=== PATIENT | male | born 1940 | race Caucasian/White ===

== ENCOUNTER 2019-10-03 09:05 | Outpatient (CLI) | payer MEDICARE, SELFPAY ==
[2019-10-03 09:22] LABS: Basophils Absolute Auto 0.02 K/mm3 (0.00-0.10); Basophils Percent Auto 0.3 % (0.0-1.0); Eosinophils Absolute Auto 0.15 K/mm3 (0.02-0.50); Eosinophils Percent Auto 2.5 % (1.0-6.0); Hematocrit 41.4 % (37.0-46.0); Immature Granulocyte Absolute 0.03 K/mm3 (0.00-0.00); Immature Granulocyte Percent A 0.5 % (0.0-0.0); Lymphocytes Absolute Auto 0.89 K/mm3 (1.10-4.50); Lymphocytes Percent Auto 14.7 % (18.0-42.0); Mean Corpuscular HGB Conc 33.8 g/dL (32.0-36.0); Mean Corpuscular Hemoglobin 31.3 pg (27.0-31.0); Mean Corpuscular Volume 92.6 fL (78.0-102.0); Mean Platelet Volume 9.2 fl (8.7-11.0); Monocytes Absolute Auto 0.55 K/mm3 (0.10-0.90); Monocytes Percent Auto 9.1 % (2.0-11.0); Neutrophils Absolute Auto 4.4 K/mm3 (1.7-7.2); Neutrophils Percent Auto 72.9 % (50.0-70.0); Platelet Count Result 218 K/mm3 (150-420); Red Blood Count 4.47 M/mm3 (4.70-6.10); White Blood Count 6.1 K/mm3 (4.8-10.8)
[2019-10-03 09:57] LABS: Hemoglobin A1C 6.7 % (<5.7)
[2019-10-03 10:34] LABS: Cholesterol 153 mg/dL (0-200); LDL Cholesterol Direct 86 mg/dL (0-130)
== END 2019-10-03 09:06 | disposition home or self-care (01) ==
PROVIDERS: PCP Internal Medicine; Visit Provider Internal Medicine
DX: E11.22 Type 2 diabetes mellitus with diabetic chronic kidney disease (principal)
CPT/HCPCS: 36415; 82465; 83036; 83721; 85025

== ENCOUNTER 2019-10-05 09:07 | Outpatient (CLI) | payer MEDICARE, SELFPAY ==
[2019-10-05 09:35] LABS: Collection Time Urine 24 HOURS; Patient Weight 230 Lbs; Total Volume 24 Hour Urine 1790 ml
[2019-10-05 10:03] LABS: Creatinine Clearance Urine 75.3 ml/min (97-137); Creatinine Urine 84.13 mg/dL (40-278); Serum Creat 1.1
== END 2019-10-05 09:08 | disposition home or self-care (01) ==
LOC: CHSLAB 09:12
PROVIDERS: PCP Internal Medicine; Visit Provider Internal Medicine
DX: N18.2 Chronic kidney disease, stage 2 (mild) (principal); E11.22 Type 2 diabetes mellitus with diabetic chronic kidney disease
CPT/HCPCS: 82575

== ENCOUNTER 2019-11-25 08:38 | Outpatient (CLI) | payer MEDICARE, SELFPAY ==
--- NOTE | ~2019-11-25 | XR_ITS ---
XR hand RT min 3V DATE: 11/25/2019 09:20 INDICATION: Third and fourth digit pain, right hand pain TECHNIQUE: 3 views COMPARISON: None FINDINGS: There is a benign 10 mm lucent lesion with thin sclerotic margin at the distal ulna. There is severe osteoarthritic change at the triscaphe and particularly first carpometacarpal joint, with severe hypertrophic spurring at the latter. There is similar severe joint space narrowing and ve ry prominent hypertrophic spurring at the third metacarpophalangeal joint. There is prominent osteoar thritic change at the first, second and fourth metacarpophalangeal joints and multiple interphalangea l joints, particularly the distal interphalangeal joints of the second through fourth digits. There i s prominent osteoarthritic change at the occipital interphalangeal joints as well. No fracture or dislocation, periosteal reaction or bone destruction is detected. There is minimal cho ndrocalcinosis at the triangular cartilage. IMPRESSION: Severe polyarticular osteoarthritis Reviewed, dictated and finalized at location B.
== END 2019-11-25 08:39 | disposition home or self-care (01) ==
LOC: CHSIMG 08:40
PROVIDERS: PCP Internal Medicine; Visit Provider Orthopaedic Surgery
DX: M79.641 Pain in right hand (principal)
CPT/HCPCS: 73130

== ENCOUNTER 2020-02-26 09:37 | Outpatient (CLI) | payer MEDICARE, SELFPAY ==
[2020-02-26 10:05] LABS: Hemoglobin A1C 6.6 % (<5.7)
[2020-02-26 10:25] LABS: Alanine Aminotransferase 29 U/L (16-63); Albumin Level 3.7 g/dL (3.4-5.0); Alkaline Phosphatase 82 U/L (46-116); Anion Gap 6 mmol/L (8-16); Aspartate Amino Transferase 17 U/L (15-37); Bilirubin,Total 0.5 mg/dL (0.00-1.00); Blood Urea Nitrogen 16 mg/dL (7-18); Calcium 8.8 mg/dL (8.5-10.1); Carbon Dioxide 32 mmol/L (21-32); Chloride 106 mmol/L (98-108); Cholesterol 148 mg/dL (0-200); Estimated Glomerular Filt Rate 52; Glucose 105 mg/dL (70-99); HDL Direct 43 mg/dL (40-60); LDL Cholesterol Calculated 69 mg/dL (<130); Osmolality Calculated 299 mOsm/kg (285-295); Potassium 4.2 mmol/L (3.5-5.1); Sodium 144 mmol/L (136-145); Total Protein 6.1 g/dL (6.4-8.2); Triglycerides 178 mg/dL (0-150)
== END 2020-02-26 09:38 | disposition home or self-care (01) ==
LOC: CHSLAB 09:39
PROVIDERS: PCP Internal Medicine; Visit Provider Physician Assistant
DX: E11.59 Type 2 diabetes mellitus with other circulatory complications (principal); E11.22 Type 2 diabetes mellitus with diabetic chronic kidney disease; I10 Essential (primary) hypertension
CPT/HCPCS: 36415; 80053; 80061; 83036

== ENCOUNTER 2020-06-17 08:49 | Outpatient (CLI) | payer MEDICARE, SELFPAY ==
[2020-06-17 09:28] LABS: Hemoglobin A1C 6.6 % (<5.7)
[2020-06-17 09:53] LABS: Alanine Aminotransferase 26 U/L (16-63); Albumin Level 3.7 g/dL (3.4-5.0); Alkaline Phosphatase 71 U/L (46-116); Anion Gap 7 mmol/L (8-16); Aspartate Amino Transferase 19 U/L (15-37); Bilirubin,Total 0.6 mg/dL (0.00-1.00); Blood Urea Nitrogen 15 mg/dL (7-18); Calcium 9.1 mg/dL (8.5-10.1); Carbon Dioxide 31 mmol/L (21-32); Chloride 104 mmol/L (98-108); Cholesterol 140 mg/dL (0-200); Estimated Glomerular Filt Rate 57; Glucose 102 mg/dL (70-99); HDL Direct 44 mg/dL (40-60); LDL Cholesterol Calculated 65 mg/dL (<130); Osmolality Calculated 294 mOsm/kg (285-295); Potassium 4.3 mmol/L (3.5-5.1); Sodium 142 mmol/L (136-145); Total Protein 6.2 g/dL (6.4-8.2); Triglycerides 156 mg/dL (0-150)
== END 2020-06-17 08:50 | disposition home or self-care (01) ==
LOC: CHSLAB 08:52
PROVIDERS: PCP Internal Medicine; Visit Provider Physician Assistant
DX: E11.22 Type 2 diabetes mellitus with diabetic chronic kidney disease (principal); I12.9 Hypertensive chronic kidney disease with stage 1 through stage 4 chronic kidney disease, or unspecified chronic kidney disease; N18.2 Chronic kidney disease, stage 2 (mild)
CPT/HCPCS: 36415; 80053; 80061; 83036

== ENCOUNTER 2020-10-14 07:54 | Outpatient (CLI) | payer MEDICARE, SELFPAY ==
[2020-10-14 08:12] LABS: Basophils Absolute Auto 0.02 K/mm3 (0.00-0.10); Basophils Percent Auto 0.4 % (0.0-1.0); Eosinophils Absolute Auto 0.23 K/mm3 (0.02-0.50); Eosinophils Percent Auto 4.3 % (1.0-6.0); Hematocrit 43.4 % (37.0-46.0); Hemoglobin 14.4 g/dL (12.4-15.3); Immature Granulocyte Absolute 0.01 K/mm3 (0.00-0.00); Immature Granulocyte Percent A 0.2 % (0.0-0.0); Lymphocytes Absolute Auto 1.27 K/mm3 (1.10-4.50); Lymphocytes Percent Auto 23.5 % (18.0-42.0); Mean Corpuscular HGB Conc 33.2 g/dL (32.0-36.0); Mean Corpuscular Hemoglobin 31.2 pg (27.0-31.0); Mean Corpuscular Volume 94.1 fL (78.0-102.0); Monocytes Absolute Auto 0.49 K/mm3 (0.10-0.90); Monocytes Percent Auto 9.1 % (2.0-11.0); Neutrophils Absolute Auto 3.4 K/mm3 (1.7-7.2); Neutrophils Percent Auto 62.5 % (50.0-70.0); Platelet Count Result 173 K/mm3 (150-420); Red Blood Count 4.61 M/mm3 (4.70-6.10); Red Cell Distribution Width 12.7 % (11.6-14.4); White Blood Count 5.4 K/mm3 (4.8-10.8)
[2020-10-14 08:22] LABS: Hemoglobin A1C 6.6 % (<5.7)
[2020-10-14 08:35] LABS: Creatinine Urine 118.01 mg/dL (40-278); Microalbumin Urine Random < 13.0 mg/L
[2020-10-14 09:21] LABS: Alanine Aminotransferase 23 U/L (16-63); Albumin Level 3.6 g/dL (3.4-5.0); Alkaline Phosphatase 78 U/L (46-116); Anion Gap 7 mmol/L (8-16); Aspartate Amino Transferase 18 U/L (15-37); Bilirubin,Total 0.6 mg/dL (0.00-1.00); Blood Urea Nitrogen 14 mg/dL (7-18); Calcium 8.8 mg/dL (8.5-10.1); Carbon Dioxide 32 mmol/L (21-32); Chloride 104 mmol/L (98-108); Estimated Glomerular Filt Rate 55; Glucose 104 mg/dL (70-99); LDL Cholesterol Direct 71 mg/dL (0-130); Osmolality Calculated 296 mOsm/kg (285-295); Potassium 4.2 mmol/L (3.5-5.1); Sodium 143 mmol/L (136-145); Total Protein 6.3 g/dL (6.4-8.2); Vitamin B12 819 pg/mL (193-986)
== END 2020-10-14 07:55 | disposition home or self-care (01) ==
LOC: CHSLAB 07:57
PROVIDERS: PCP Internal Medicine; Visit Provider Internal Medicine
DX: E11.22 Type 2 diabetes mellitus with diabetic chronic kidney disease (principal); I12.9 Hypertensive chronic kidney disease with stage 1 through stage 4 chronic kidney disease, or unspecified chronic kidney disease; N18.2 Chronic kidney disease, stage 2 (mild); E78.5 Hyperlipidemia, unspecified
CPT/HCPCS: 36415; 80053; 82043; 82607; 83036; 83721; 85025

== ENCOUNTER 2021-03-10 10:36 | Outpatient (CLI) | payer MEDICARE, SELFPAY ==
[2021-03-10 10:57] LABS: Basophils Absolute Auto 0.03 K/mm3 (0.00-0.10); Basophils Percent Auto 0.5 % (0.0-1.0); Eosinophils Absolute Auto 0.11 K/mm3 (0.02-0.50); Hematocrit 43.4 % (37.0-46.0); Hemoglobin 14.4 g/dL (12.4-15.3); Immature Granulocyte Absolute 0.02 K/mm3 (0.00-0.00); Immature Granulocyte Percent A 0.4 % (0.0-0.0); Lymphocytes Absolute Auto 1.01 K/mm3 (1.10-4.50); Lymphocytes Percent Auto 18.5 % (18.0-42.0); Mean Corpuscular HGB Conc 33.2 g/dL (32.0-36.0); Mean Corpuscular Hemoglobin 30.9 pg (27.0-31.0); Mean Corpuscular Volume 93.1 fL (78.0-102.0); Mean Platelet Volume 8.7 fl (8.7-11.0); Monocytes Absolute Auto 0.43 K/mm3 (0.10-0.90); Monocytes Percent Auto 7.9 % (2.0-11.0); Neutrophils Absolute Auto 3.9 K/mm3 (1.7-7.2); Neutrophils Percent Auto 70.7 % (50.0-70.0); Platelet Count Result 172 K/mm3 (150-420); Red Blood Count 4.66 M/mm3 (4.70-6.10); Red Cell Distribution Width 12.5 % (11.6-14.4); White Blood Count 5.5 K/mm3 (4.8-10.8)
[2021-03-10 11:32] LABS: Alanine Aminotransferase 25 U/L (16-63); Albumin Level 3.6 g/dL (3.4-5.0); Alkaline Phosphatase 84 U/L (46-116); Anion Gap 5 mmol/L (8-16); Aspartate Amino Transferase 14 U/L (15-37); Bilirubin,Total 0.7 mg/dL (0.00-1.00); Blood Urea Nitrogen 13 mg/dL (7-18); Calcium 9.2 mg/dL (8.5-10.1); Carbon Dioxide 32 mmol/L (21-32); Chloride 106 mmol/L (98-108); Estimated Glomerular Filt Rate 53; Glucose 118 mg/dL (70-99); Iron 88 ug/dL (65-175); LDL Cholesterol Direct 65 mg/dL (0-130); Osmolality Calculated 297 mOsm/kg (285-295); Percent Iron Saturation 33 % (12-57); Potassium 4.2 mmol/L (3.5-5.1); Sodium 143 mmol/L (136-145); Thyroid Stimulating Hormone 1.81 uIU/mL (0.36-3.74); Total Protein 6.4 g/dL (6.4-8.2)
== END 2021-03-10 10:37 | disposition home or self-care (01) ==
LOC: CHSLAB 10:39
PROVIDERS: PCP Internal Medicine; Visit Provider Internal Medicine
DX: E11.59 Type 2 diabetes mellitus with other circulatory complications (principal); I12.9 Hypertensive chronic kidney disease with stage 1 through stage 4 chronic kidney disease, or unspecified chronic kidney disease; N18.2 Chronic kidney disease, stage 2 (mild); Z00.00 Encounter for general adult medical examination without abnormal findings; D50.0 Iron deficiency anemia secondary to blood loss (chronic)
CPT/HCPCS: 36415; 80053; 83036; 83540; 83550; 83721; 84443; 85025

== ENCOUNTER 2021-07-25 08:43 | Outpatient (CLI) | payer MEDICARE, SELFPAY ==
[2021-07-25 09:12] LABS: Basophils Absolute Auto 0.03 K/mm3 (0.00-0.10); Basophils Percent Auto 0.5 % (0.0-1.0); Eosinophils Absolute Auto 0.17 K/mm3 (0.02-0.50); Eosinophils Percent Auto 2.9 % (1.0-6.0); Hematocrit 43.2 % (37.0-46.0); Hemoglobin 14.4 g/dL (12.4-15.3); Immature Granulocyte Absolute 0.02 K/mm3 (0.00-0.00); Immature Granulocyte Percent A 0.3 % (0.0-0.0); Lymphocytes Absolute Auto 1.22 K/mm3 (1.10-4.50); Lymphocytes Percent Auto 20.5 % (18.0-42.0); Mean Corpuscular HGB Conc 33.3 g/dL (32.0-36.0); Mean Corpuscular Hemoglobin 31.2 pg (27.0-31.0); Mean Corpuscular Volume 93.7 fL (78.0-102.0); Monocytes Absolute Auto 0.46 K/mm3 (0.10-0.90); Monocytes Percent Auto 7.7 % (2.0-11.0); Neutrophils Absolute Auto 4.1 K/mm3 (1.7-7.2); Neutrophils Percent Auto 68.1 % (50.0-70.0); Platelet Count Result 188 K/mm3 (150-420); Red Blood Count 4.61 M/mm3 (4.70-6.10); Red Cell Distribution Width 12.3 % (11.6-14.4)
[2021-07-25 09:39] LABS: Hemoglobin A1C 7.5 % (<5.7)
[2021-07-25 09:43] LABS: Creatinine Urine 123.67 mg/dL (40-278); MALB Creatinine Ratio 16.8 mg/g (0-30); Microalbumin Urine Random 20.8 mg/L
[2021-07-25 10:05] LABS: Alanine Aminotransferase 29 U/L (16-63); Albumin Level 3.7 g/dL (3.4-5.0); Alkaline Phosphatase 76 U/L (46-116); Anion Gap 7 mmol/L (8-16); Aspartate Amino Transferase 21 U/L (15-37); Bilirubin,Total 0.6 mg/dL (0.00-1.00); Blood Urea Nitrogen 16 mg/dL (7-18); Carbon Dioxide 29 mmol/L (21-32); Chloride 104 mmol/L (98-108); Cholesterol 145 mg/dL (0-200); Estimated Glomerular Filt Rate 53; Glucose 130 mg/dL (70-99); HDL Direct 42 mg/dL (40-60); LDL Cholesterol Calculated 72 mg/dL (<130); Osmolality Calculated 293 mOsm/kg (285-295); Sodium 140 mmol/L (136-145); Total Protein 6.5 g/dL (6.4-8.2); Triglycerides 154 mg/dL (0-150); Vitamin B12 774 pg/mL (193-986)
== END 2021-07-25 08:44 | disposition home or self-care (01) ==
LOC: CHSLAB 08:45
PROVIDERS: PCP Internal Medicine; Visit Provider Internal Medicine
DX: E11.59 Type 2 diabetes mellitus with other circulatory complications (principal); I15.2 Hypertension secondary to endocrine disorders; N18.31 Chronic kidney disease, stage 3a; E78.5 Hyperlipidemia, unspecified; E53.8 Deficiency of other specified B group vitamins; K21.9 Gastro-esophageal reflux disease without esophagitis
CPT/HCPCS: 36415; 80053; 80061; 82043; 82607; 83036; 85025

== ENCOUNTER 2021-08-17 13:07 | Outpatient (RCR) | payer MEDICARE, SELFPAY ==
--- NOTE | 2021-08-17 14:02 | PTOPEVAL ---
Thank you for referring Daniel Olguin to [facility].? The patient is scheduled to be seen for therapy? ____x/week for ___ weeks. Please review, sign, date and return this plan of care REGINA. I agree with and certify that the following plan of care is medically necessary. Referring Physician Date Admitting Provider: Attending Provider: Jay Rodriguez, Referring Provider: *PT Outpatient Evaluation Start: 08/17/21 13:09 Freq: Status: Active Protocol: Document 08/17/21 13:15 [facility] (Rec: 08/17/21 13:58 [facility] [id number]) Therapy Assessment Status Assessment Status Assessment Status Evaluation Evaluation Information Problem Diagnosis neck and L shoulder pain Onset 07/19/21 Additional Evaluation Detail ndi = 32% functionally declined quick dash = 36% functionally declined Subjective Information patient reports he has went to Query Text:As Reported By Patient/ the chiropractor and he was Family unable to see him. he reports he went home and began having pain in the L neck and shoulder and down the L arm and into the hand. he reports he was worried it was his heart and went to the ER to have it checked out. he reports he has been through the works for the cardiac and has found nothing. he reports pain meds have helped. he reports he has tingling into the ring and little fingers of the L hand and part of the middle finger of the L hand. he reports difficulty grabbing objects. he reports he has had no mri yet. he reports he tried chiropractic 3-4 times. he reports he has constant pain/symptoms. he reports he has increased pain laying in bed, and with sleeping. Prior Level of Function Comments Additional Prior Level of Function prior to july 19, no issues Comments with the neck or L arm. Pain Assessment Timing of Pain Assessment Timing of Pain Assessment Assessment Pain Scale Pain Scale Used Numeric (1 - 10) Self Report Pain Assessment Neck Reported Pain Level 2 Pain Radiation
== END 2021-09-14 16:46 | disposition home or self-care (01) ==
LOC: CHSPT 13:07
PROVIDERS: PCP Internal Medicine; Visit Provider Internal Medicine
DX: M54.2 Cervicalgia (principal)
CPT/HCPCS: 97012; 97014; 97110; 97140; 97161; G0283

== ENCOUNTER 2021-09-18 10:31 | Emergency (ER) | payer MEDICARE, SELFPAY ==
--- NOTE | ~2021-09-18 | XR_ITS ---
EXAM: XR knee LT 3V HISTORY: pain and swelling to ant knee after gate fell on knee today COMPARISON: None available FINDINGS: Normal mineralization. Left total knee arthroplasty, without complication. No osseous frac ture. No dislocation. Minimal vascular calcifications. Small left knee joint effusion. Anterior knee soft tissue swelling. IMPRESSION: No acute osseous finding or radiographic evidence of hardware-related complication in the left knee. Reviewed, dictated and finalized at location K. IMPRESSION: No acute osseous finding or radiographic evidence of hardware-related complicat ion in the left knee.
--- NOTE | ~2021-09-18 | XR_ITS ---
XR finger 4th LT min 2V DATE: 09/18/2021 11:49 INDICATION: Deep laceration of the fourth finger TECHNIQUE: 3 views of fourth digit COMPARISON: None FINDINGS: Soft tissue irregularity at the distal aspect of the fourth digit consistent with laceratio n. No radiopaque soft tissue foreign body. There is osteoarthritic change at the fourth metacarpophalangeal joint and the distal and proximal in terphalangeal joints of the fourth digit. No fracture, dislocation, periosteal reaction or bone destr uction of the fourth digit. IMPRESSION: Distal soft tissue laceration; no radiographic foreign body Osteoarthritis at fourth metacarpophalangeal and proximal and distal interphalangeal joints Reviewed, dictated and finalized at location A. IMPRESSION: Distal soft tissue laceration; no radiographic foreign body Osteoarthritis at fourth metacarpophalangeal and proximal and distal interphala ngeal joints
[2021-09-18 11:09] VITALS: BP 170/91; PULSE 61; RESP 20; TEMP 36.8; O2SAT 95
[2021-09-18] MEDS: TETANUS,DIPHTHERIA,AC PERTUSSIS ADULT 0.5 ML (ADACEL) IM (11:25)
[2021-09-18] MEDS: ACETAMINOPHEN 325 MG TABLET 650 MG PO (11:26)
[2021-09-18 12:00] VITALS: BP 179/91; PULSE 55; RESP 20; O2SAT 94
--- NOTE | 2021-09-18 12:55 | ED.WOUNDLAC ---
HPI - Wound/Laceration General Chief Complaint: Wound/Laceration Stated Complaint: left ring finger injury Time Seen by Provider: 09/18/21 10:35 Source: patient and RN notes reviewed Mode of arrival: ambulatory Limitations: no limitations History of Present Illness Onset (ago): hour(s) (1) Location: other (left hand) Extremity Location: Left: hand Place: outdoors Patient tetanus UTD: No Context: accidental and crush injury Related Data Home Medications Medication Instructions Recorded Confirmed amlodipine 5 mg tablet 5 mg PO DAILY 11/25/19 09/18/21 aspirin 325 mg tablet 325 mg PO DAILY 11/25/19 09/18/21 atorvastatin 40 mg tablet 40 mg PO DAILY 11/25/19 09/18/21 clopidogrel 75 mg tablet 75 mg PO DAILY 11/25/19 09/18/21 diphenhydramine 25 1 tablet PO Q6H PRN 11/25/19 09/18/21 mg-acetaminophen 500 mg tablet finasteride 5 mg tablet 5 mg PO DAILY 11/25/19 09/18/21 furosemide 40 mg tablet 40 mg PO QAM 11/25/19 09/18/21 lisinopril 40 mg tablet 40 mg PO DAILY 11/25/19 09/18/21 ropinirole 0.25 mg tablet 0.25 mg PO BID 11/25/19 09/18/21 sitagliptin 25 mg tablet 25 mg PO DAILY 11/25/19 09/18/21 tamsulosin 0.4 mg capsule 0.4 mg PO DAILY 11/25/19 09/18/21 tramadol 50 mg tablet 50 mg PO Q6H PRN 11/25/19 09/18/21 oxybutynin chloride 5 mg PO DAILY 09/18/21 09/18/21 ropinirole 0.5 mg PO HS 09/18/21 09/18/21 Allergies Allergy/AdvReac Type Severity Reaction Status Date / Time iodine Allergy Unknown unknown Verified 11/25/19 15:43 fentanyl Allergy Hypotension Verified 09/18/21 11:15 Review of Systems Review of Systems: All systems reviewed & are unremarkable except as noted in HPI and below PMFSH Past Medical History Medical History (Updated 09/18/21 @ 15:22 by Elvira Calderon MD) Dizziness Hearing loss History of anesthesia complications Hypertension Laceration of finger of left hand Skin cancer Sleep apnea Vertigo Vision abnormalities Surgical History Surgical History (Updated 11/25/19 @ 15:45 by Shayna Uriostegui RT(R)) History of coronary artery bypass graft History of joint replacement Family History Family History (Updated 11/25/19 @ 15:45 by Shayna Uriostegui RT(R)) Other Arthritis Diabetes mellitus Heart disease Hypertension Social History Social History (Updated 11/25/19 @ 15:46 by Shayna Uriostegui RT(R)) Smoking status: Never smoker Alcohol intake: current Drinks per week: 2 Substance use: unknown Exam Const: General: no acute distress and alert Nutritional Appearance: obese Orientation/consciousness: patient oriented x3 Limitations: no limitations HENMT: Head: normal to inspection Ears: external ears normal, TM's normal bilaterally and EAC's normal General nose exam: Normal external nose present and Normal nares present Face and sinus: normal facial exam and sinuses nontender Mouth: Yes moist mucous membranes Eyes: Conjunctivae: conjunctivae normal Pupils: Equal, round and reactive pupils present EOM: EOMs intact bilaterally Neck: Neck: normal visual inspection and no lymphadenopathy Chest: Chest palpation & inspection: normal inspection of the chest Resp: Effort & Inspection: normal respiratory effort Auscultation: clear to auscultation bilaterally Cardio: Rate: regular rate Rhythm: regular rhythm GI: GI Palp: Yes Soft to palpation and No Tenderness to palpation present (GI) Auscultation: normal bowel sounds Back/Spine/Pelvis: Back: no CVA tenderness Skin: General skin exam: normal color Rashes: no rashes Neuro: General: patient oriented x3, moves all extremities, no meningeal signs, no focal motor deficits and CN's II-XI intact bilaterally Extrem: General: no pedal edema Other: left knee hematoma with no acute swelling, redness or deformity. full ROM, pt ambulated normally in the ED> Psych: Appearance: grossly normal and well kempt Mental Status: mental status grossly normal Affect: normal affect Attitude: cooperative Thought content
[2021-09-18 13:00] VITALS: BP 159/90; PULSE 55; RESP 20; O2SAT 95
[2021-09-18 14:00] VITALS: BP 164/92; PULSE 59; RESP 20; O2SAT 96
[2021-09-18] MEDS: LIDOCAINE HCL 1% LOCAL INJ 20 ML VIAL (14:09)
[2021-09-18] MEDS: NEOMYCIN/POLYMYXIN/BACITRACIN OINTMENT PACKET 3 PACKET (14:09)
[2021-09-18] MEDS: cefTRIAXone 1 GM VIAL (14:10)
[2021-09-18 15:50] VITALS: BP 176/87; PULSE 58; RESP 20; TEMP 36.8; O2SAT 97
== END 2021-09-18 15:40 | disposition home or self-care (01) ==
PROVIDERS: Emergency Provider Emergency Medicine; PCP Internal Medicine
DX: S61.215A Laceration without foreign body of left ring finger without damage to nail, initial encounter (principal); S80.02XA Contusion of left knee, initial encounter
CPT/HCPCS: 12002; 73140; 73562; 90471; 90715; 96372; 99283; A9270; J0696

== ENCOUNTER 2021-11-21 07:53 | Outpatient (CLI) | payer MEDICARE, SELFPAY ==
[2021-11-21 08:10] LABS: Basophils Absolute Auto 0.02 K/mm3 (0.00-0.10); Basophils Percent Auto 0.3 % (0.0-1.0); Eosinophils Percent Auto 3.3 % (1.0-6.0); Hemoglobin 13.3 g/dL (12.4-15.3); Immature Granulocyte Absolute 0.03 K/mm3 (0.00-0.00); Immature Granulocyte Percent A 0.5 % (0.0-0.0); Lymphocytes Percent Auto 16.7 % (18.0-42.0); Mean Corpuscular HGB Conc 33.3 g/dL (32.0-36.0); Mean Corpuscular Hemoglobin 31.2 pg (27.0-31.0); Mean Corpuscular Volume 93.9 fL (78.0-102.0); Mean Platelet Volume 8.6 fl (8.7-11.0); Monocytes Absolute Auto 0.55 K/mm3 (0.10-0.90); Monocytes Percent Auto 9.2 % (2.0-11.0); Neutrophils Absolute Auto 4.2 K/mm3 (1.7-7.2); Platelet Count Result 177 K/mm3 (150-420); Red Blood Count 4.26 M/mm3 (4.70-6.10); Red Cell Distribution Width 12.2 % (11.6-14.4)
[2021-11-21 09:23] LABS: Alanine Aminotransferase 10 U/L (16-63); Albumin Level 3.4 g/dL (3.4-5.0); Alkaline Phosphatase 85 U/L (46-116); Anion Gap 5 mmol/L (8-16); Aspartate Amino Transferase 21 U/L (15-37); Bilirubin,Total 0.4 mg/dL (0.00-1.00); Blood Urea Nitrogen 15 mg/dL (7-18); Carbon Dioxide 31 mmol/L (21-32); Chloride 106 mmol/L (98-108); Estimated Glomerular Filt Rate 56; Glucose 112 mg/dL (70-99); Iron 54 ug/dL (65-175); LDL Cholesterol Direct 68 mg/dL (0-130); Osmolality Calculated 295 mOsm/kg (285-295); Percent Iron Saturation 22 % (12-57); Potassium 3.9 mmol/L (3.5-5.1); Sodium 142 mmol/L (136-145); Total Protein 6.1 g/dL (6.4-8.2); Vitamin B12 842 pg/mL (193-986)
== END 2021-11-21 07:54 | disposition home or self-care (01) ==
LOC: CHSLAB 07:55
PROVIDERS: PCP Internal Medicine; Visit Provider Internal Medicine
DX: E11.59 Type 2 diabetes mellitus with other circulatory complications (principal); E11.22 Type 2 diabetes mellitus with diabetic chronic kidney disease; N18.31 Chronic kidney disease, stage 3a; D50.0 Iron deficiency anemia secondary to blood loss (chronic)
CPT/HCPCS: 36415; 80053; 82607; 83036; 83540; 83550; 83721; 85025

== ENCOUNTER 2021-12-09 13:00 | Emergency (ER) | payer MEDICARE, SELFPAY ==
[2021-12-09 13:06] VITALS: BP 152/70; PULSE 74; RESP 16; TEMP 36.9; O2SAT 97
--- NOTE | 2021-12-09 13:07 | ED.URI ---
HPI - URI/Sore Throat General Chief Complaint: Upper Respiratory Infection Stated Complaint: Chest Congestion Time Seen by Provider: 12/09/21 13:26 Source: patient and RN notes reviewed Mode of arrival: ambulatory Limitations: no limitations History of Present Illness HPI Narrative: 81-year-old male presents with concern for 2 to 3-day history of cough, chest congestion, body aches, sore throat. He reports he took Mucinex. He denies fever, body aches, chills, sweats, shortness of breath, nausea, vomiting, diarrhea. Reports he was around someone with COVID about 2 to 3 weeks ago. MD elicited complaint: cough and nasal congestion Related Data Home Medications Medication Instructions Recorded Confirmed amlodipine 5 mg tablet 5 mg PO DAILY 11/25/19 12/09/21 aspirin 325 mg tablet 325 mg PO DAILY 11/25/19 12/09/21 atorvastatin 40 mg tablet 40 mg PO DAILY 11/25/19 12/09/21 clopidogrel 75 mg tablet 75 mg PO DAILY 11/25/19 12/09/21 diphenhydramine 25 1 tablet PO Q6H PRN Itching 11/25/19 12/09/21 mg-acetaminophen 500 mg tablet (Tylenol PM Extra Strength) finasteride 5 mg tablet 5 mg PO DAILY 11/25/19 12/09/21 furosemide 40 mg tablet 40 mg PO QAM 11/25/19 12/09/21 ropinirole 0.25 mg tablet (Requip) 0.25 mg PO BID 11/25/19 12/09/21 tamsulosin 0.4 mg capsule 0.4 mg PO DAILY 11/25/19 12/09/21 tramadol 50 mg tablet 50 mg PO Q6H PRN Pain 11/25/19 12/09/21 oxybutynin chloride 5 mg 5 mg PO DAILY 09/18/21 12/09/21 tablet,extended release 24 hr ropinirole 0.25 mg tablet 0.5 mg PO HS 09/18/21 12/09/21 sitagliptin 25 mg tablet (Januvia) 25 mg DIRECTED 12/09/21 12/09/21 Allergies Allergy/AdvReac Type Severity Reaction Status Date / Time iodine Allergy Unknown unknown Verified 11/25/19 15:43 fentanyl Allergy Hypotension Verified 09/18/21 11:15 Review of Systems Review of Systems: CONSTITUTIONAL: Denies malaise, chills, sweats, or fever. EYES: Denies visual changes, redness, or discharge. ENT: Reports rhinorrhea, congestion, and sore throat. Denies sinus pain, otalgia CARDIOVASCULAR: Denies chest pain, palpitations, or edema. RESPIRATORY: Reports cough and chest congestion. Denies dyspnea. GASTROINTESTINAL: Denies abdominal pain, nausea, vomiting, diarrhea SKIN: Denies rash or itching. MUSCULOSKELETAL: Denies myalgia. NEUROLOGIC: Denies headache. All systems reviewed & are unremarkable except as noted in HPI and below PMFSH Past Medical History Medical History (Updated 12/09/21 @ 13:37 by Gudelia Lee NP) Dizziness Hearing loss History of anesthesia complications Hypertension Laceration of finger of left hand Skin cancer Sleep apnea Vertigo Vision abnormalities Surgical History Surgical History (Updated 11/25/19 @ 15:45 by Shayna Uriostegui RT(R)) History of coronary artery bypass graft History of joint replacement Family History Family History (Updated 11/25/19 @ 15:45 by Shayna Uriostegui RT(R)) Other Arthritis Diabetes mellitus Heart disease Hypertension Social History Social History (Updated 11/25/19 @ 15:46 by Shayna Uriostegui RT(R)) Smoking status: Never smoker Alcohol intake: current Drinks per week: 2 Substance use: unknown Comments At time of signature, agree with nursing past medical, surgical, social and family history. There is no relevant family history pertinent to the presenting complaint Exam Narrative: GENERAL: Well-appearing, well-nourished, and in no acute distress. HEAD: Normocephalic EYES: PERRLA, conjunctivae clear ENT: Nares clear, turbinates edematous and erythematous, clear discharge. Mucous membranes moist. TM pearly ochoa with dull light reflex bilaterally; no tragal tenderness. Oropharynx not erythematous without lesions. Tonsils not enlarged and without exudate, no drooling, no hoarseness, no trismus, uvula midline. NECK: Supple. No lymphadenopathy CHEST: Clear to auscultation, breath sounds equal. No wheezing, rhonchi, rales, or stridor. No re
[2021-12-09 13:14] VITALS: BP 152/70; PULSE 74; RESP 16; TEMP 36.9; O2SAT 97
== END 2021-12-09 13:48 | disposition home or self-care (01) ==
PROVIDERS: Emergency Provider Nurse Practitioner; PCP Internal Medicine
DX: J40 Bronchitis, not specified as acute or chronic (principal); I10 Essential (primary) hypertension; G47.30 Sleep apnea, unspecified; Z85.828 Personal history of other malignant neoplasm of skin; Z95.1 Presence of aortocoronary bypass graft
CPT/HCPCS: 87426; 99213; C9803; G0463

== ENCOUNTER 2022-02-11 11:17 | Inpatient (IN) | payer MEDICARE, SELFPAY ==
[2022-02-11] VITALS (65 sets, daily range): BP systolic 74–156; BP diastolic 45–100; PULSE 62–124; RESP 24–43; TEMP 36.3–38; O2SAT 88–100
--- NOTE | ~2022-02-11 | US_ITS ---
US renal BI 02/12/2022 08:18 Procedure: Realtime transabdominal ultrasound of the kidneys and bladder. Indication: Acute renal insufficiency Comparison: No prior studies for comparison. Findings: Renal echotexture is normal bilaterally without hydronephrosis, contour deforming mass or r enal calculus. There are lobations of the left kidney. The right kidney measures 12.6 cm and le ft kidney measures 14.1 cm. Bladder is not visualized. Impression: 1: Unremarkable renal ultrasound. No stones, masses or hydronephrosis. Reviewed, dictated and finalized at location A. Impression: 1: Unremarkable renal ultrasound. No stones, masses or hydronephrosis.
--- NOTE | ~2022-02-11 | XR_ITS ---
EXAMINATION: XR forearm RT 2V DATE: 02/18/2022 11:44 INDICATION: Right forearm tenderness. TECHNIQUE: 2 views of right forearm were obtained. COMPARISON: None. FINDINGS: Bone alignment is normal. No fracture. There is severe osteoarthritis of triscaphe joint an d first carpometacarpal joint. There is heterotopic ossification distal to ulnar styloid. There is mo derate elbow joint osteoarthritis with loose bodies. There is an elbow joint effusion. IMPRESSION: 1. Polyarticular osteoarthritis. 2. Elbow joint effusion with loose bodies. Reviewed, dictated and finalized at location A.
--- NOTE | ~2022-02-11 | US_ITS ---
EXAMINATION: US venous doppler UE DATE: 02/17/2022 13:23 INDICATION: Upper limb swelling and tenderness. TECHNIQUE: Grayscale ultrasound images without and with compression and Doppler ultrasound images of the bilateral upper extremity veins were obtained. COMPARISON: None. FINDINGS: The visualized portions of the right internal jugular vein, subclavian vein, axillary vein, brachial veins, basilic vein, cephalic vein, radial vein, and ulnar vein are patent. The visualized portions of the left internal jugular vein, subclavian vein, axillary vein, brachial v eins, basilic vein, cephalic vein, radial vein, and ulnar vein are patent. IMPRESSION: 1. No deep venous thrombosis. Reviewed, dictated and finalized at location A.
--- NOTE | ~2022-02-11 | XR_ITS ---
XR chest 1V portable 02/11/2022 12:10 Indication: Cough. Weakness. Procedure: Using AP portable chest Comparison: 04/25/2017 Findings: Status post median sternotomy for CABG. There is patchy bilateral airspace disease, compati ble with pneumonia. No significant pleural effusion or pneumothorax. There is a left shoulder arthrop lasty. Impression: 1: Patchy bilateral airspace disease, compatible with pneumonia. Reviewed, dictated and finalized at location A. Impression: 1: Patchy bilateral airspace disease, compatible with pneumonia.
--- NOTE | ~2022-02-11 | US_ITS ---
EXAMINATION: US abdomen limited DATE: 02/14/2022 14:06 INDICATION: Elevated liver function tests TECHNIQUE: Multiple grayscale and Doppler ultrasound images of the abdomen were obtained. COMPARISON: CT, 02/11/2022 FINDINGS: Bowel gas obscures visualization of the pancreas. The liver is normal with normal echogenic ity and echotexture. No surface nodularity. Normal hepatopetal flow in the main portal vein. The gall bladder is normal with no abnormal wall thickening, pericholecystic fluid or stones. The normal commo n bile duct measures 3 mm. There was no sonographic Mauro sign. IMPRESSION: 1. Normal sonographic study of the gallbladder. Reviewed, dictated and finalized at location A.
--- NOTE | ~2022-02-11 | XR_ITS ---
EXAMINATION: XR chest 1V portable DATE: 02/18/2022 06:36 INDICATION: Respiratory failure. TECHNIQUE: A single frontal view of the chest was obtained. COMPARISON: Chest single view 02/17/2022 FINDINGS: There are airspace opacities at left lung base. No pleural effusion or pneumothorax. The he art size is normal. The endotracheal tube tip is 5.3 cm above the danielle. The nasogastric tube tip is in the distal stomach. A right internal jugular central venous catheter is seen with tip in the righ t atrium. There is a total left shoulder arthroplasty. Median sternotomy wires and mediastinal surgic al clips are seen, likely from prior coronary artery bypass grafting. IMPRESSION: 1. Stable airspace opacities at left lung base, consistent with atelectasis versus pneumonia. Reviewed, dictated and finalized at location A. IMPRESSION: 1. Stable airspace opacities at left lung base, consistent with atelectasis radha pauline pneumonia.
--- NOTE | ~2022-02-11 | XR_ITS ---
EXAMINATION: XR chest 1V portable INDICATION: Possible aspiration TECHNIQUE: Portable AP chest at 1307 hours COMPARISON: 02/19/2022 FINDINGS: A right internal jugular catheter ends with its tip in the right atrium. The endotracheal a nd nasogastric tubes have been removed. Cardiomegaly is noted. Bibasilar airspace opacities persist b ut have improved. No pleural effusion or pneumothorax. Changes of reverse left total shoulder arthrop lasty are noted. IMPRESSION: 1. Minimal bibasilar airspace opacities with improvement, consistent with atelectasis versus pneumoni a. Reviewed, dictated and finalized at location B. IMPRESSION: 1. Minimal bibasilar airspace opacities with improvement, consistent with atele ctasis versus pneumonia.
--- NOTE | ~2022-02-11 | CT_ITS ---
EXAMINATION: CT brain wo con DATE: 02/15/2022 11:16 INDICATION: Encephalopathy. Septic shock. Pinpoint pupils. TECHNIQUE: Computed tomography (CT) of the head was performed without intravenous contrast. Sagittal and coronal reconstructions were performed. The mA was adjusted according to patient size. Iterative reconstruction technique was employed. The dose-length product was 908.00 mGy-cm. COMPARISON: head CT dated 02/11/2022 FINDINGS: No acute intracranial hemorrhage, acute infarction or abnormal extra axial fluid collection. Unchange d small focus of encephalomalacia at the right occipital lobe consistent with chronic infarct. Additi onal unchanged small lacunar infarcts at the bilateral basal ganglia. There is unchanged moderate sca ttered white matter hypoattenuation consistent with chronic small vessel ischemic disease. Symmetric prominence of the sulci consistent with mild age-appropriate diffuse cerebral volume loss. Ventricles are normal and symmetric. No mass/mass effect. Mild mucosal thickening the bilateral ethmoid sinuses . The orbits and mastoid air cells are normal. Intracranial calcified cerebral atherosclerosis is not ed. IMPRESSION: 1. No acute intracranial process. 2. Small old infarcts at the right occipital lobe and bilateral basal ganglia. 3. Age-related changes including mild diffuse volume loss and moderate scattered white matter hypoatt enuation consistent with chronic small vessel ischemic disease. Reviewed, dictated and finalized at location B. IMPRESSION: 1. No acute intracranial process. 2. Small old infarcts at the right occipital lobe and bilateral basal ganglia. 3. Age-related changes including mild diffuse volume loss and moderate scattere d white matter hypoattenuation consistent with chronic small vessel ischemic di sease.
--- NOTE | ~2022-02-11 | XR_ITS ---
EXAMINATION: XR chest 1V portable DATE: 02/19/2022 06:07 INDICATION: Intubated TECHNIQUE: frontal view of the chest was obtained. COMPARISON: Chest radiograph dated 02/18/2022 FINDINGS: Endotracheal tube tip 7.1 cm above the danielle. Nasogastric tube extends into the stomach with distal tip collimated off the study. Right internal jugular central venous catheter with distal tip in the high right atrium. Mildly decreased lung volumes. Opacities at the bilateral lung bases which could represent atelectasi s or pneumonia. Cardiomegaly. Median sternotomy wires and mediastinal surgical clips are seen, likely from prior coronary artery bypass grafting. Moderate hiatal hernia. Reverse left total shoulder arth roplasty. IMPRESSION: 1. Endotracheal tube tip 7.1 cm above the danielle. Recommend advancement by 4 cm. 2. Persistent bibasilar opacities which could represent atelectasis or pneumonia. 2. Moderate-sized hiatal hernia. Reviewed, dictated and finalized at location A. IMPRESSION: 1. Endotracheal tube tip 7.1 cm above the danielle. Recommend advancement by 4 cm . 2. Persistent bibasilar opacities which could represent atelectasis or pneumoni a. 2. Moderate-sized hiatal hernia.
--- NOTE | ~2022-02-11 | XR_ITS ---
XR chest ET placement 02/11/2022 21:54 Indication: Respiratory distress. Intubation. Procedure: AP portable chest Comparison: 02/11/2022 Findings: Endotracheal tube tip 5.6 cm above the danielle. NG tube in the esophagus. There is patchy bi lateral airspace disease, compatible with pneumonia. No pleural effusion or pneumothorax. Impression: 1: Patchy bilateral airspace disease, compatible with pneumonia. Edema less favored. Reviewed, dictated and finalized at location A. Impression: 1: Patchy bilateral airspace disease, compatible with pneumonia. Edema less fav ored.
--- NOTE | ~2022-02-11 | CT_ITS ---
EXAMINATION: CT brain wo con DATE: 02/11/2022 12:06 INDICATION: Transient alteration of awareness. TECHNIQUE: Computed tomography (CT) of the head was performed without intravenous contrast. The dose- length product was 681.00 mGy-cm. Automated exposure control and iterative reconstruction technique w ere employed. COMPARISON: No prior studies for comparison. FINDINGS: Generalized atrophy. There is intracranial atherosclerosis. There are scattered moderate pe riventricular and subcortical white matter changes, most likely related to small vessel ischemic dise ase (microangiopathy). No ventriculomegaly or midline shift. Paranasal sinuses and mastoids are pneum atized. No depressed skull fracture. There is a chronic right occipital lobe infarction. IMPRESSION: 1. No acute intracranial abnormality. 2: Chronic right occipital lobe infarction. 3: Chronic age-related findings. Reviewed, dictated and finalized at location A.
--- NOTE | ~2022-02-11 | XR_ITS ---
XR chest 1V portable 02/12/2022 06:23 Indication: Respiratory distress Procedure: AP portable chest Comparison: Comparison to multiple prior studies sequentially, with oldest reviewed study dated 04/07. Findings: Endotracheal tube tip 4.6 cm above the danielle. Diffuse bilateral airspace disease is presen t. NG tube in the stomach. No significant effusion or pneumothorax. Impression: 1: Stable diffuse bilateral airspace disease which may represent edema or pneumonia. Reviewed, dictated and finalized at location A. Impression: 1: Stable diffuse bilateral airspace disease which may represent edema or pneum onia.
--- NOTE | ~2022-02-11 | CT_ITS ---
EXAMINATION: CT abdomen pelvis wo con DATE: 02/23/2022 11:51 INDICATION: Right sided hydronephrosis TECHNIQUE: Computed tomography (CT) of the abdomen and pelvis was performed without intravenous contr ast. Automated exposure control and iterative reconstruction technique were employed. The dose-length product was 1238.24 mGy-cm. COMPARISON: None FINDINGS: Small bilateral pleural effusions with dependent atelectasis lingula, right middle and bilateral lowe r lobes. Mild cardiomegaly. Atherosclerotic coronary artery calcification. Median sternotomy wires an d mediastinal surgical clips consistent with prior coronary artery bypass grafting. No pericardial ef fusion. Central venous catheter tip at the superior cavoatrial junction. Moderate-sized sliding-type hiatal hernia. Liver, gallbladder, spleen, pancreas and bilateral adrenal glands are normal. Small approximately 2 mm nonobstructing stone in upper pole calyx of the left kidney definitive measu rement which is limited by some motion artifact. Right internal ureteral stent with loops formed in t he bladder and right renal pelvis. No evident right-sided urolithiasis or hydronephrosis. Small amoun t of gas in the nondependent bladder. Correlate clinically for recent [place] catheterization or bladde r instrumentation. There is moderate colonic diverticulosis with a sigmoid predominance. There is no adjacent inflammatory change to suggest diverticulitis. The appendix is not visualized. No pericecal inflammatory change to suggest acute appendicitis. Small bowel is normal with no obstruction. No tarsha e intraperitoneal gas or fluid. No pathologically enlarged abdominal or pelvic lymphadenopathy. Mild asymmetric enlargement of the right psoas muscle which contains 3 small lobular regions of subtly inc reased attenuation, the largest measuring 2.5 cm in maximal diameter which suggests intramuscular hem atoma. Bilateral total hip arthroplasties. Mild to moderate thoracolumbar spondylosis. IMPRESSION: 1. 3 small lobular region of increased attenuation within the right psoas muscle most likely represen ting psoas muscle hematomas. Correlate with clinical history including any anticoagulation. 2. Right internal ureteral stent in expected position. No right-sided urolithiasis. 3. Small nonobstructing left renal stone. 4. Small bilateral pleural effusions with bibasilar atelectasis. 5. Mild cardiomegaly. 6. Moderate-sized sliding-type hiatal hernia. Reviewed, dictated and finalized at location A. IMPRESSION: 1. 3 small lobular region of increased attenuation within the right psoas muscl e most likely representing psoas muscle hematomas. Correlate with clinical hist ory including any anticoagulation. 2. Right internal ureteral stent in expected position. No right-sided urolithia sis. 3. Small nonobstructing left renal stone. 4. Small bilateral pleural effusions with bibasilar atelectasis. 5. Mild cardiomegaly. 6. Moderate-sized sliding-type hiatal hernia.
--- NOTE | ~2022-02-11 | XR_ITS ---
EXAMINATION: XR chest 1V portable DATE: 02/16/2022 06:05 INDICATION: Respiratory failure. TECHNIQUE: A single frontal view of the chest was obtained. COMPARISON: Chest single view 02/15/2022, CT abdomen and pelvis 02/11/2022 FINDINGS: The patient is rotated to his right. There are airspace opacities in right mid and lower jb ng zones and left lower lung zone. No pleural effusion or pneumothorax. Cardiomegaly is noted. The en dotracheal tube tip is 5.7 cm above the danielle. There is a left shoulder arthroplasty. Median sternot heather wires and mediastinal surgical clips are seen, likely from prior coronary artery bypass grafting. A right internal jugular central venous catheter is seen with tip in the right atrium. IMPRESSION: 1. Stable airspace opacities in right mid and lower lung zones and left lower lung zone, consistent w ith atelectasis versus pneumonia. 2. Cardiomegaly. 3. Large hiatal hernia not well visualized. Reviewed, dictated and finalized at location A. IMPRESSION: 1. Stable airspace opacities in right mid and lower lung zones and left lower l estela zone, consistent with atelectasis versus pneumonia. 2. Cardiomegaly. 3. Large hiatal hernia not well visualized.
--- NOTE | ~2022-02-11 | CT_ITS ---
EXAMINATION: CT abdomen pelvis wo con DATE: 02/11/2022 13:42 INDICATION: Vomiting and abdominal pain. TECHNIQUE: Computed tomography (CT) of the abdomen and pelvis was performed without intravenous contr ast. The dose-length product was 1620.36 mGy-cm. Automated exposure control and iterative reconstruct ion technique were employed. COMPARISON: None. FINDINGS: There is right middle and lower lobe airspace disease, suspicious for pneumonia. Cardiomega ly. Status post median sternotomy. Large hiatal hernia. The liver, spleen, pancreas, adrenal glands and left kidney are unremarkable. There is right hydronep hrosis. Cannot exclude distally obstructing stone due to streak artifact from bilateral hip arthropla sties. There is right perinephric and periureteral edema. Gallbladder is present. Fluid-filled mildly distended small bowel loops may represent ileus or partial obstruction. There is moderate lumbar spo ndylosis. There is an upper abdominal fat-containing ventral wall hernia. IMPRESSION: 1. Right hydroureteronephrosis with perinephric and periureteral edema. Cannot exclude distally obstr ucting ureteral stone due to streak artifact from hip arthroplasties. Ascending urinary tract infecti on cannot be excluded. 2: Fluid-filled mildly dilated proximal small bowel may represent ileus or partial small bowel obstru ction. Reviewed, dictated and finalized at location A. IMPRESSION: 1. Right hydroureteronephrosis with perinephric and periureteral edema. Cannot exclude distally obstructing ureteral stone due to streak artifact from hip art hroplasties. Ascending urinary tract infection cannot be excluded. 2: Fluid-filled mildly dilated proximal small bowel may represent ileus or part ial small bowel obstruction.
--- NOTE | ~2022-02-11 | XR_ITS ---
EXAMINATION: XR retrograde pyelogram RT DATE: 02/24/2022 12:50 INDICATION: Tract infection with septic shock for right ureteral stent extraction. TECHNIQUE: 133 images of the abdomen and pelvis were obtained during procedure performed by Dr. Healy . Radiologist was not present for the imaging or procedure. The amount of fluoroscopy time used durin g this procedure was 0.6 minutes. COMPARISON: None. FINDINGS: Initial image demonstrates removal of the prior right internal ureteral stent with a cathet er advanced in the right ureter to the renal pelvis. Contrast injection demonstrates a normal appeara nce to the right renal collecting system and ureter with no urothelial irregularities or strictures. A few mobile gas poles which change in size and configuration are seen during the course of the injec tions. Partially visualized bilateral total hip arthroplasties. IMPRESSION: 1. Unremarkable right retrograde pyelogram post right ureteral stent removal. See procedure note for further detail. Reviewed, dictated and finalized at location A. IMPRESSION: 1. Unremarkable right retrograde pyelogram post right ureteral stent removal. S ee procedure note for further detail.
--- NOTE | ~2022-02-11 | XR_ITS ---
EXAMINATION: XR chest 1V portable Exam Date/Time: 02/11/2022 20:15 CDT HISTORY: respiratory distress Comparison: 02/11/2022. RESULT: Lines, tubes, and devices: Left shoulder arthroplasty. Fractured superior sternotomy wire, in stable position. Lungs and pleura: Low volumes with crowding. Senescent changes. Subsegmental right basilar opacifica tion. Right lateral costophrenic angle blunting Cardiomediastinal silhouette: Stable. Other: No acute osseous or upper abdominal finding. IMPRESSION: Small right pleural effusion. Right basilar atelectasis/consolidation. Reviewed, dictated and finalized at location K.
--- NOTE | ~2022-02-11 | XR_ITS ---
EXAMINATION: XR abdomen/kub 1V DATE: 02/23/2022 13:45 INDICATION: Kidney stone. TECHNIQUE: A supine view of the abdomen was obtained. COMPARISON: Abdomen radiograph 02/17/2022, CT abdomen and pelvis 02/23/2022 FINDINGS: There are no dilated loops of bowel. There is a right internal ureteral stent in expected p osition. There are phleboliths in the pelvis. There are bilateral hip arthroplasties. IMPRESSION: 1. No visible urolithiasis. 2. Right internal ureteral stent in expected position. Reviewed, dictated and finalized at location A.
--- NOTE | ~2022-02-11 | XR_ITS ---
EXAMINATION: XR hand RT 2V DATE: 02/18/2022 11:45 INDICATION: Right hand swelling. TECHNIQUE: 2 views of right hand were obtained. COMPARISON: None. FINDINGS: Bone alignment is normal. No acute fracture. There is heterotopic ossification distal to ul kory styloid. There is severe osteoarthritis of triscaphe joint and first carpometacarpal joint. There is osteoarthritis of most of the metacarpophalangeal joints and interphalangeal joints, severe at th ird metacarpophalangeal joint and second, third, and fourth proximal and distal interphalangeal joint s. There are loose bodies in the palmar aspect of the radiocarpal compartment. IMPRESSION: 1. Polyarticular osteoarthritis. Reviewed, dictated and finalized at location A.
--- NOTE | ~2022-02-11 | XR_ITS ---
XR abdomen NG/feed tube rechec INDICATION: Evaluate G-tube position. TECHNIQUE: Limited KUB perform for evaluating NG tube . COMPARISON: 02/12/2022 FINDINGS: NG tube tip in the stomach. Visualized bowel gas pattern is unremarkable.There is a right internal ureteral stent, partially visualized. IMPRESSION: 1: NG tube tip in the stomach. Reviewed, dictated and finalized at location A.
--- NOTE | ~2022-02-11 | XR_ITS ---
EXAMINATION: XR chest 1V portable DATE: 02/13/2022 06:01 INDICATION: Respiratory failure. TECHNIQUE: A single frontal view of the chest was obtained. COMPARISON: Chest single view 02/12/2022, CT abdomen and pelvis 02/11/2022 FINDINGS: There are mild airspace opacities in the mid and lower lung zones. No pleural effusion or p neumothorax. Cardiomegaly is noted. There is a large hiatal hernia. The endotracheal tube tip is 14 m m above the danielle. The nasogastric tube tip is in the stomach. There are changes of total left shoul anna arthroplasty. IMPRESSION: 1. Mild airspace opacities in the mid and lower lung zones with worsening on the left, consistent wit h atelectasis versus pneumonia. 2. Large hiatal hernia. 3. Cardiomegaly. Reviewed, dictated and finalized at location A. IMPRESSION: 1. Mild airspace opacities in the mid and lower lung zones with worsening on th e left, consistent with atelectasis versus pneumonia. 2. Large hiatal hernia. 3. Cardiomegaly.
--- NOTE | ~2022-02-11 | XR_ITS ---
EXAMINATION: XR chest 1V portable DATE: 02/15/2022 05:34 INDICATION: Respiratory failure. TECHNIQUE: A single frontal view of the chest was obtained. COMPARISON: Chest single view 02/14/2022, CT abdomen and pelvis 02/11/2022 FINDINGS: There are airspace opacities in right mid and lower lung zones and left lower lung zone. No pleural effusion or pneumothorax. Cardiomegaly is noted. There is a large hiatal hernia. The endotra cheal tube tip is 5.4 cm above the danielle. The nasogastric tube tip is in the stomach. Median sternot heather wires and mediastinal surgical clips are seen, likely from prior coronary artery bypass grafting. A right internal jugular central venous catheter is seen with tip in right atrium. There is a total left shoulder arthroplasty. IMPRESSION: 1. Stable airspace opacities in right mid and lower lung zones and left lower lung zone, consistent w ith atelectasis versus pneumonia. 2. Cardiomegaly. 3. Large hiatal hernia. Reviewed, dictated and finalized at location A. IMPRESSION: 1. Stable airspace opacities in right mid and lower lung zones and left lower l estela zone, consistent with atelectasis versus pneumonia. 2. Cardiomegaly. 3. Large hiatal hernia.
--- NOTE | ~2022-02-11 | XR_ITS ---
EXAMINATION: XR retrograde pyelo w/stent RT DATE: 02/11/2022 18:25 CDT INDICATION: RETROGRADE W/ RT STENT PLACEMENT . TECHNIQUE: 7 fluoroscopic images of the right abdomen and pelvis were obtained during retrograde pyel ography with right stent placement performed by the surgeon. I was not present in the operating room. Fluoroscopy exposure time was 13.8 seconds. Air Kerma 6.12 mGy. DAP [id number] mGym2. COMPARISON: CT abdomen and pelvis 02/11/2022 FINDINGS: Cannulation of the right ureter reveals mild right hydronephrosis. Wire access accomplished to upper pole calyx. Status post stent deployment, the proximal stent is poorly visualized but likely position ed over the renal pelvis, the distal stent is positioned over the bladder. IMPRESSION: Fluoroscopic documentation of retrograde pyelography with right stent placement. Please refer to the operative note for complete procedural details . Reviewed, dictated and finalized at location K. IMPRESSION: Fluoroscopic documentation of retrograde pyelography with right stent placement . Please refer to the operative note for complete procedural details .
--- NOTE | ~2022-02-11 | XR_ITS ---
XR abdomen NG/feed tube rechec INDICATION: Evaluate NG tube position. TECHNIQUE: Limited KUB perform for evaluating NG tube . COMPARISON: 02/11/2022 FINDINGS: NG tube tip in the stomach. Status post median sternotomy. Visualized bowel gas pattern is unremarkable. IMPRESSION: 1: NG tube tip in the stomach. Reviewed, dictated and finalized at location A.
--- NOTE | ~2022-02-11 | XR_ITS ---
XR abdomen NG/feed tube rechec INDICATION: Evaluate NG tube position. TECHNIQUE: Limited KUB perform for evaluating NG tube . COMPARISON: 02/11/2022 FINDINGS: NG tube tip in the stomach. Visualized bowel gas pattern is unremarkable.Status post media n sternotomy. IMPRESSION: 1: NG tube tip in the stomach. Reviewed, dictated and finalized at location A.
--- NOTE | ~2022-02-11 | XR_ITS ---
EXAMINATION: XR chest port-a-cath/central DATE: 02/14/2022 15:29 INDICATION: Central venous catheter placement TECHNIQUE: frontal view of the chest was obtained. COMPARISON: Chest radiograph dated 02/14/2022 at 5:15 AM FINDINGS: Right internal jugular central venous catheter tip at the superior cavoatrial junction. Endotracheal tube tip 4.5 cm above the danielle. Nasogastric tube extends into the stomach with distal tip collimate d beyond the inferior margin of the [id number]. Persistent opacities in the left lower lung zone with obscuration of the left hemidiaphragm. No pneum othorax or right-sided pleural effusion. Cardiomegaly with pulmonary vascular congestion. Median ster notomy wires and mediastinal surgical clips are seen, likely from prior coronary artery bypass grafti ng. Left reverse total shoulder arthroplasty. IMPRESSION: 1. Right internal jugular central venous catheter tip at the superior cavoatrial junction. 2. Opacities in the left lower lung zone consistent with small left pleural effusion and associated a telectasis or pneumonia. 2. Cardiomegaly with pulmonary vascular congestion. Reviewed, dictated and finalized at location B. IMPRESSION: 1. Right internal jugular central venous catheter tip at the superior cavoatria l junction. 2. Opacities in the left lower lung zone consistent with small left pleural eff usion and associated atelectasis or pneumonia. 2. Cardiomegaly with pulmonary vascular congestion.
--- NOTE | ~2022-02-11 | XR_ITS ---
XR abdomen NG/feed tube insert INDICATION: Evaluate NG tube position. TECHNIQUE: Limited KUB perform for evaluating NG tube . COMPARISON: No prior studies for comparison. FINDINGS: NG tube tip in the esophagus. Recommend advancement. Visualized bowel gas pattern is nonspe cific.There is a right internal ureteral stent partially visualized. IMPRESSION: 1: NG tube tip in the esophagus. Recommend advancement. Reviewed, dictated and finalized at location A.
--- NOTE | ~2022-02-11 | XR_ITS ---
XR abdomen NG/feed tube rechec INDICATION: Evaluate NG tube position. TECHNIQUE: Limited KUB perform for evaluating NG tube . COMPARISON: Comparison to multiple prior studies sequentially, with oldest reviewed study dated 12/2021. FINDINGS: NG tube tip in the proximal duodenum. There is a right internal ureteral stent. Visualized bowel gas pattern is nonspecific. IMPRESSION: 1: NG tube tip in the proximal duodenum. Reviewed, dictated and finalized at location A.
--- NOTE | ~2022-02-11 | XR_ITS ---
EXAMINATION: XR chest 1V portable DATE: 02/17/2022 05:55 INDICATION: Respiratory failure. TECHNIQUE: A single frontal view of the chest was obtained. COMPARISON: Chest single view 02/16/2022 FINDINGS: There are airspace opacities in the lower lung zones. No pleural effusion or pneumothorax. The heart size is normal. Median sternotomy wires and mediastinal surgical clips are seen, likely fro m prior coronary artery bypass grafting. The endotracheal tube tip is 5.4 cm above the danielle. The na sogastric tube tip is at the gastroesophageal junction. A right internal jugular central venous janel ter is seen with tip in the right atrium. There is a total left shoulder arthroplasty. IMPRESSION: 1. Improved airspace opacities in the lower lung zones, consistent with atelectasis versus pneumonia. 2. Nasogastric tube tip at the gastroesophageal junction. Advancement 10 cm is recommended. Reviewed, dictated and finalized at location A. IMPRESSION: 1. Improved airspace opacities in the lower lung zones, consistent with atelect asis versus pneumonia. 2. Nasogastric tube tip at the gastroesophageal junction. Advancement 10 cm is recommended.
--- NOTE | ~2022-02-11 | XR_ITS ---
EXAMINATION: XR chest 1V portable DATE: 02/14/2022 05:33 INDICATION: Respiratory failure. TECHNIQUE: A single frontal view of the chest was obtained. COMPARISON: Chest single view 02/13/2022 FINDINGS: There is mild atelectasis at left lung base. No pleural effusion or pneumothorax. The heart size is normal. The endotracheal tube tip is 4.9 cm above the danielle. The nasogastric tube tip is in the stomach. Median sternotomy wires and mediastinal surgical clips are seen, likely from prior [place] artery bypass grafting. There is a large hiatal hernia. There are changes of left shoulder arthr oplasty. IMPRESSION: 1. Large hiatal hernia. 2. Mild atelectasis at left lung base. Reviewed, dictated and finalized at location A.
--- NOTE | 2022-02-11 11:43 | ECG_ITS ---
Measurements Intervals [place] Rate: 116 P: 39 IA: 167 QRS: 10 QRSD: 93 T: 30 QT: 315 QTc: 439 Interpretive Statements SINUS TACHYCARDIA WITH FREQUENT SUPRAVENTRICULAR PREMATURE COMPLEXES ABNORMAL RHYTHM ECG NO PREVIOUS ECG AVAILABLE FOR COMPARISON Electronically Signed On 02-12-2022 10:11:42 CDT by Fer Beaulieu M.D.
[2022-02-11 12:05] LABS: Basophils Percent Auto 0.3 % (0.2-1.2); Hematocrit 46.1 % (42.0-52.0); Hemoglobin 14.6 g/dL (14.0-18.0); Immature Granulocyte Absolute 0.05 K/mm3 (0.00-0.031); Immature Granulocyte Percent A 0.6 % (0-0.5); Lymphocytes Absolute Auto 0.26 K/mm3 (0.9-3.2); Mean Corpuscular HGB Conc 31.7 g/dl (32-36); Mean Corpuscular Hemoglobin 30.7 pg (26-34); Mean Corpuscular Volume 96.8 fl (80-100); Mean Platelet Volume 9.6 fl (7.4-10.4); Monocytes Absolute Auto 0.2 K/mm3 (0.1-0.6); Monocytes Percent Auto 1.7 % (2.6-8.5); Neutrophils Absolute Auto 8.2 K/mm3 (1.3-6.7); Neutrophils Percent Auto 94.4 % (45.5-73.1); Platelet Count Result 171 k/mm3 (150-375); Red Blood Count 4.76 M/mm3 (4.6-6.20); Red Cell Distribution Width 13.5 % (11.5-14.5); White Blood Count 8.7 K/mm3 (4.5-10.0)
[2022-02-11 12:12] LABS: Glucose Point of Care 160 mg/dl (65-105)
[2022-02-11] MEDS: SODIUM CHLORIDE 0.9% IV 1,000 ML 999 ML IV CONT ×3 (12:12→14:32)
[2022-02-11 12:14] LABS: INR 1.4; Prothrombin Time 16.3 Seconds (11.1-14.7)
[2022-02-11 12:15] LABS: Partial Thromboplastin Time 35.4 SECONDS (22.3-36.8)
[2022-02-11 12:37] LABS: Alanine Aminotransferase 43 U/L (6-50); Albumin Level 4.1 g/dL (3.5-5.1); Alkaline Phosphatase 182 U/L (38-126); Anion Gap 23 mmol/L (8-16); Aspartate Amino Transferase 49 U/L (17-59); Bilirubin,Total 1.3 mg/dL (0.2-1.3); Blood Urea Nitrogen 30 mg/dL (9-20); Calcium 9.2 mg/dL (8.4-10.2); Carbon Dioxide 16 mmol/L (22-30); Chloride 103 mmol/L (98-107); Estimated CRCL calculation 21 ml/min; Estimated Glomerular Filt Rate 20; Glucose 178 mg/dL (65-110); Potassium 3.1 mmol/L (3.4-5.0); Sodium 142 mmol/L (137-145)
--- NOTE | 2022-02-11 12:40 | ED.WEAKNESS ---
HPI - Weakness General Chief complaint: Weakness Stated complaint: weakness Time Seen by Provider: 02/11/22 11:59 Source: family and RN notes reviewed Mode of arrival: EMS Limitations: clinical condition History of Present Illness HPI Narrative: This is an 81 year old male who presents for evaluation of weakness since yesterday. His is at bedside to provide history. She states yesterday patient slept all day. He had also been complaining lower abdominal pain and back pain with vomiting. She states is last episode of emesis was dark. She also reports diarrhea and cough. Patient has also appearred to be having difficulty breathing. She denies history of lung disease or congestive heart failure. Patient is responsive to voice but unable to provide history due to his sick ness. denies recent fall. Related Data Home Medications Medication Instructions Recorded Confirmed amlodipine 5 mg tablet 5 mg PO DAILY 11/25/19 02/11/22 aspirin 325 mg tablet 325 mg PO DAILY 11/25/19 02/11/22 atorvastatin 40 mg tablet 40 mg PO DAILY 11/25/19 02/11/22 clopidogrel 75 mg tablet 75 mg PO DAILY 11/25/19 02/11/22 diphenhydramine 25 1 tablet PO Q6H PRN Itching 11/25/19 02/11/22 mg-acetaminophen 500 mg tablet (Tylenol PM Extra Strength) finasteride 5 mg tablet 5 mg PO DAILY 11/25/19 02/11/22 furosemide 40 mg tablet 40 mg PO QAM 11/25/19 02/11/22 ropinirole 0.25 mg tablet (Requip) 0.25 mg PO BID 11/25/19 02/11/22 tamsulosin 0.4 mg capsule 0.4 mg PO DAILY 11/25/19 02/11/22 tramadol 50 mg tablet 50 mg PO Q6H PRN Pain (Scale Score 11/25/19 02/11/22 4-6) oxybutynin chloride 5 mg 5 mg PO DAILY 09/18/21 02/11/22 tablet,extended release 24 hr ropinirole 0.25 mg tablet 0.5 mg PO HS 09/18/21 02/11/22 sitagliptin 25 mg tablet (Januvia) 25 mg PO DAILY 12/09/21 02/11/22 acetaminophen 325 mg capsule 650 mg PO Q8H PRN Pain (Scale 02/11/22 02/11/22 (Tylenol) Score 1-3) Allergies Allergy/AdvReac Type Severity Reaction Status Date / Time iodine Allergy Unknown unknown Verified 02/11/22 11:37 fentanyl Allergy Hypotension Verified 02/11/22 11:37 Review of Systems Review of Systems: ROS unobtainable: Yes unobtainable due to medical condition [facility] Past Medical History Medical History (Updated 02/11/22 @ 22:02 by Margo Man MD) Coronary artery disease Hearing loss Hyperlipidemia Hypertension Skin cancer Sleep apnea Surgical History Surgical History (Updated 02/11/22 @ 20:31 by Sue David PA-C) History of appendectomy History of bilateral hip replacements History of bilateral knee replacement History of cardiac catheterization History of coronary artery stent placement History of four vessel coronary artery bypass graft History of left shoulder replacement Family History Family History Other Arthritis Diabetes mellitus Heart disease Hypertension Social History Social History (Updated 02/11/22 @ 20:45 by Sue David PA-C) Social History: Surrogate medical decision maker: rAeli Olguin, spouse. Code status: Full code. Smoking status: Never smoker Alcohol intake: former Drinks per week: 2 Substance use: never Additional living arrangements comments: The patient lives with his in [place]. Spiritual care concerns: No Exam Const: General: ill appearing Orientation/consciousness: confusion Limitations: altered mental status HENMT: Head: normal to inspection Mouth: Yes dry mucous membranes Throat: uvula midline Other: dried dark matter on lips Eyes: Pupils: Equal, round and reactive pupils present EOM: EOMs intact bilaterally Resp: Effort & Inspection: labored Auscultation: rales Cardio: Rate: tachycardic Rhythm: regular rhythm Heart sounds: no murmurs GI: GI Palp: Yes Soft to palpation, No Tenderness to palpation present (GI), No Guarding due to palpation present (GI) and No Rigid
[2022-02-11 13:03] LABS: Base Excess ABG -8.6 mEq/l (+/-2.0); Carboxyhemoglobin 0.3 % THb (0-2.0); Fractional Inspired Oxygen 32 %; HCO3 ABG 14.7 mEq/l (22.0-26.0); Methemoglobin ABG 0.2 %THb (0-1.5); Oxyhemoglobin 92.4 % THb (90.0-100.0); PCO2 ABG 25.5 mmHg (35.0-45.0); PO2 ABG 69.3 mmHg (80.0-100.0); PO2 FiO2 Ratio Arterial Blood 2.17 %; Reduced Hemoglobin 7.1 %THb (0-5.0); Total Hemoglobin 13.1 g/dL (12.0-18.0)
[2022-02-11 13:05] LABS: Device NASAL CANNULA; Modified Allen's Test Pass; Site Drawn RIGHT RADIAL
[2022-02-11 13:05] LABS: Influenza A QL RT-PCR Negative (Negative); Influenza B QL RT-PCR Negative (Negative); SARS-CoV-2 RNA PCR Negative
[2022-02-11 13:07] LABS: Add Urine Microscopic? YES; Appearance Urine Cloudy (Clear); Bacteria Urine 2+ /hpf; Bilirubin Urine Negative (Negative); Blood Urine 2+ (Negative); Color Urine Yellow (Yellow); Glucose Urine UA Negative (Negative); Ketones Urine Trace mg/dL (Negative); Leukocyte Esterase Ur 2+ LEU/UL (Negative); Mucus Urine Rare /lpf; Nitrate Urine Negative (Negative); Protein Urine 1+ mg/dL (Negative); Specific Grav Ur 1.017 (1.001-1.035); Squamous Epithelial Cell Urine Few /hpf (Few); Urobilinogen Urine Negative mg/dL (<2.0); WBC Urine 21-30 /hpf
[2022-02-11 13:21] LABS: Lactic Acid Reflex 12.8 mmol/L (0.7-2.0)
[2022-02-11 13:28] LABS: Platelet Estimate Adequate (Adequate)
[2022-02-11 13:29] LABS: Anisocytosis 1+ (NORMAL)
[2022-02-11 13:30] LABS: Schistocytes None Seen (NORMAL)
[2022-02-11 13:51] LABS: NT Pro B Type Natriuretic Pept 5650 pg/mL (5-100); Troponin I 0.554 ng/mL (0.000-0.034)
[2022-02-11 15:02] LABS: Reflex Lactic Acid Yes or No Add Lactic
[2022-02-11 15:57] LABS: Lactic Acid 8.1 mmol/L (0.7-2.0)
--- NOTE | 2022-02-11 16:05 | WPDANESEPP ---
Anes - Eval Pre Procedure Procedure: Cysto stent placement Date/Time: 02/11/22 16:05 Surgeon: Nini Preop Diagnosis: Right hydronephrosis Pre Op Diagnosis: Septic Shock, UTi, pneumonia Patient Data Age: 81 Gender: M Height: 1.75 m Weight: 100 kg Last Vital Signs Temp 98.0 F 02/11/22 13:16 Pulse 106 H 02/11/22 14:47 Resp 28 H 02/11/22 15:08 BP 102/72 02/11/22 14:47 Pulse Ox 96 02/11/22 15:08 O2 Del Method BiPAP 02/11/22 15:08 O2 Flow Rate 3 02/11/22 12:22 Allergies Allergy/AdvReac Type Severity Reaction Status Date / Time iodine Allergy Unknown unknown Verified 02/11/22 11:37 fentanyl Allergy Hypotension Verified 02/11/22 11:37 Home Medications Medication Instructions Recorded Confirmed Type amlodipine 5 mg tablet 5 mg PO DAILY 11/25/19 12/09/21 History aspirin 325 mg tablet 325 mg PO DAILY 11/25/19 12/09/21 History atorvastatin 40 mg tablet 40 mg PO DAILY 11/25/19 12/09/21 History clopidogrel 75 mg tablet 75 mg PO DAILY 11/25/19 12/09/21 History diphenhydramine 25 1 tablet PO Q6H PRN Itching 11/25/19 12/09/21 History mg-acetaminophen 500 mg tablet (Tylenol PM Extra Strength) finasteride 5 mg tablet 5 mg PO DAILY 11/25/19 12/09/21 History furosemide 40 mg tablet 40 mg PO QAM 11/25/19 12/09/21 History ropinirole 0.25 mg tablet (Requip) 0.25 mg PO BID 11/25/19 12/09/21 History tamsulosin 0.4 mg capsule 0.4 mg PO DAILY 11/25/19 12/09/21 History tramadol 50 mg tablet 50 mg PO Q6H PRN Pain 11/25/19 12/09/21 History acetaminophen 325 mg capsule 650 mg PO Q8H PRN pain #20 caps 09/18/21 12/09/21 Rx (Tylenol) oxybutynin chloride 5 mg 5 mg PO DAILY 09/18/21 12/09/21 History tablet,extended release 24 hr ropinirole 0.25 mg tablet 0.5 mg PO HS 09/18/21 12/09/21 History benzonatate 200 mg capsule 200 mg PO TID PRN cough #14 caps 12/09/21 Rx methylprednisolone 4 mg tablets in See Rx Instructions PO .COMPLEX 12/09/21 Rx a dose pack (Medrol ([place])) #21 ea sitagliptin 25 mg tablet (Januvia) 25 mg DIRECTED 12/09/21 12/09/21 History Laboratory Tests 02/11/22 02/11/22 02/11/22 11:53 11:53 11:53 WBC 8.7 K/mm3 K/mm3 (4.5-10.0) RBC 4.76 M/mm3 M/mm3 (4.6-6.20) Hgb 14.6 g/dL g/dL (14.0-18.0) Hct 46.1 % % (42.0-52.0) MCV 96.8 fl fl (80-100) MCH 30.7 pg pg (26-34) MCHC 31.7 g/dl L g/dl (32-36) RDW 13.5 % % (11.5-14.5) Plt Count 171 k/mm3 k/mm3 (150-375) MPV 9.6 fl fl (7.4-10.4) Immature Gran % (Auto) 0.6 % H % (0-0.5) Neut % (Auto) 94.4 % H % (45.5-73.1) Lymph % (Auto) 3.0 % L % (18.3-44.2) B[place] % (Auto) 1.7 % L % (2.6-8.5) Eos % (Auto) 0.0 % % (0-4.4) Baso % (Auto) 0.3 % % (0.2-1.2) Lymph # (Auto) 0.26 K/mm3 L K/mm3 (0.9-3.2) B[place] # (Auto) 0.2 K/mm3 K/mm3 (0.1-0.6) Eos # (Auto) 0.0 K/mm3 K/mm3 (0-0.3) Baso # (Auto) 0.0 K/mm3 K/mm3 (0.0-0.1) Abs Immat Gran (auto) 0.05 K/mm3 H K/mm3 (0.00-0.031) Absolute Neuts (auto) 8.2 K/mm3 H K/mm3 (1.3-6.7) Absolute Nucleated RBC 0.0 K/mm3 K/mm3 (0.0-0.012) Nucleated RBC % 0.0 % % (0.0-0.2) Platelet Estimate Adequate (Adequate) Anisocytosis 1+ (NORMAL) Schistocytes None seen (NORMAL) PT 16.3 Seconds H Seconds (11.1-14.7) INR 1.4 APTT 35.4 SECONDS SECONDS (22.3-36.8) Puncture Site ABG pH ABG pCO2 ABG pO2 ABG PO2/FiO2 Ratio ABG HCO3 ABG O2 Saturation ABG O2 Content ABG Base Excess A-a Gradient Oxyhemoglobin Carboxyhemoglobin Methemoglobin Reduced Hemoglobin Total Hemoglobin O2 Delivery Device O2 Li
--- NOTE | 2022-02-11 16:44 | ADMGEN ---
This patient, Daniel Olguin, was admitted to Intensive Care Unit-8 at 1636 with continuous bipap on. Patient/family oriented to hospital policies and general routines including ID bracelet, bed and alarms, visiting hours, pain management, procedures, bathroom and other care routines, personal items, smoking policy, room service/diet, and visiting hours. Information on how to activate the Rapid Response Team has been discussed. Patient/Family are encouraged to report perceived risks to care and to ask questions if they do not understand what they are told or what they should do.
--- NOTE | 2022-02-11 16:53 | ADMGEN ---
This patient, Daniel Olguin, was admitted to Intensive Care Unit-8. Patient/family oriented to hospital policies and general routines including ID bracelet, bed and alarms, visiting hours, pain management, procedures, bathroom and other care routines, personal items, smoking policy, room service/diet, and visiting hours. Information on how to activate the Rapid Response Team has been discussed. Patient/Family are encouraged to report perceived risks to care and to ask questions if they do not understand what they are told or what they should do.
--- NOTE | 2022-02-11 17:12 | WPDURCON ---
Assessment and Plan Assessment and plan (1) Hydronephrosis: Code(s): N13.30 - Unspecified hydronephrosis Status: Acute Assessment and Plan: 81M with presumed sepsis and found on imaging to have right hydronephrosis with no proximal or mid ureteral stone but unable to visualize distal aspect of ureter. Plan 81M with presumed sepsis and found on imaging to have right hydronephrosis with no proximal or mid ureteral stone but unable to visualize distal aspect of ureter. - Plan to go to OR for cystoscopy, right ureteral stent placement, possible right retrograde pyelogram. Urology Consult Note HPI Date Seen: 02/11/22 Requesting Physician: Benito Taylor MD Primary Care Provider: Jay Rodriguez, Consult Narrative Narrative: Daniel Olguin is a 81 year old M admitted for presumed sepsis. Was having abdominal pain, vomiting, and back pain along with diarrhea. On labs his Cr is 3, and CT scan shows right hydronephrosis though unable to see distal aspect of ureter and bladder due to streak artifact for hip surgery hardware, so cannot rule out a distal obstructing stone. at [facility]. Currently in the ICU. Patient tachycardic though WBC wnl. PMFSH Past Medical History Medical History Dizziness Hearing loss History of anesthesia complications Hydronephrosis, right Hypertension Laceration of finger of left hand Sepsis Skin cancer Sleep apnea UTI (urinary tract infection) Vertigo Vision abnormalities Surgical History Surgical History History of coronary artery bypass graft History of joint replacement Family History Family History (Updated 11/25/19 @ 15:45 by Shayna Uriostegui, RT(R)) Other Arthritis Diabetes mellitus Heart disease Hypertension Social History Social History Smoking status: Never smoker Alcohol intake: current Drinks per week: 2 Substance use: unknown Meds Home Medications and Allergies Home Medications Medication Instructions Recorded Confirmed Type amlodipine 5 mg tablet 5 mg PO DAILY 11/25/19 12/09/21 History aspirin 325 mg tablet 325 mg PO DAILY 11/25/19 12/09/21 History atorvastatin 40 mg tablet 40 mg PO DAILY 11/25/19 12/09/21 History clopidogrel 75 mg tablet 75 mg PO DAILY 11/25/19 12/09/21 History diphenhydramine 25 1 tablet PO Q6H PRN Itching 11/25/19 12/09/21 History mg-acetaminophen 500 mg tablet (Tylenol PM Extra Strength) finasteride 5 mg tablet 5 mg PO DAILY 11/25/19 12/09/21 History furosemide 40 mg tablet 40 mg PO QAM 11/25/19 12/09/21 History ropinirole 0.25 mg tablet (Requip) 0.25 mg PO BID 11/25/19 12/09/21 History tamsulosin 0.4 mg capsule 0.4 mg PO DAILY 11/25/19 12/09/21 History tramadol 50 mg tablet 50 mg PO Q6H PRN Pain 11/25/19 12/09/21 History acetaminophen 325 mg capsule 650 mg PO Q8H PRN pain #20 caps 09/18/21 12/09/21 Rx (Tylenol) oxybutynin chloride 5 mg 5 mg PO DAILY 09/18/21 12/09/21 History tablet,extended release 24 hr ropinirole 0.25 mg tablet 0.5 mg PO HS 09/18/21 12/09/21 History benzonatate 200 mg capsule 200 mg PO TID PRN cough #14 caps 12/09/21 Rx methylprednisolone 4 mg tablets in See Rx Instructions PO .COMPLEX 12/09/21 Rx a dose pack (Medrol (Tommie)) #21 ea sitagliptin 25 mg tablet (Januvia) 25 mg DIRECTED 12/09/21 12/09/21 History Allergies Allergy/AdvReac Type Severity Reaction Status Date / Time iodine Allergy Unknown unknown Verified 02/11/22 11:37 fentanyl Allergy Hypotension Verified 02/11/22 11:37 Vital Signs Vital Signs - 24 hr 02/11/22 11:33 02/11/22 11:58 02/11/22 12:00 Temperature 36.3 C L 36.8 C Pulse Rate 116 H 62 112 H Respiratory Rate 43 H 24 H Blood Pressure 95/66 L 109/56 L Pulse Oximetry 95 91 Oxygen Delivery Room Air Oxygen Flow Rate 02/11/22 12:18 02/11/22 12:20 02/11/22
--- NOTE | 2022-02-11 17:24 | P.PNAN_ITS ---
Anes - Eval Final PreProcedure Day of Procedure 02/11/22 17:24 Patient weight: obese Heart: regular rate and rhythm Lungs: clear to auscultation and normal air movement Airway: Mallampati scale class II Neurological: alert and oriented Last oral intake: >/= 8 hours ASA classification: IV Emergent: yes Anesthetic plan: proceed Anesthesia type and monitoring: general GIVS Results Review: All pre-operative results and documents have been reviewed as part of the pre- operative evaluation. Informed Consent: The patient's anesthetic plan and its attendant risks and benefits were discussed with the patient/family/POA. Questions were solicited and answers provided to the satisfaction of the patient/family/POA.
[2022-02-11 17:51] LABS: Glucose Point of Care 147 mg/dl (65-105)
[2022-02-11] MEDS: LACTATED RINGERS 1,000 ML 30 ML IV CONT (18:30)
[2022-02-11] MEDS: LIDOCAINE HCL 2% GEL UROJET 10 ML PKG MUCOUS MEM (18:38)
--- NOTE | 2022-02-11 18:57 | P.OP_ITS ---
Procedure Note - Detailed Date of Procedure 02/11/22 Pre-op Diagnosis Septic Shock, UTi, pneumonia Post-op Diagnosis Same Procedure Performed Cystoscopy, right ureteral stent placement, retrograde pyelogram, intraoperative interpretation of fluoroscopy Surgeon Riley Oliva MD Indications Patient admitted with sepsis and found on imaging to have right hydronephrosis with UA concerning for infection, and CT scan unable to visualize the distal ureter due to streak artifact from his pelvic hardware. Risks and benefits of procedure discussed and he endorses understanding. Findings Very mild distal right ureteral stricture with no filling defect on retrograde pyelogram, debris filled urine emanating from ureter after stent placed. Description of Procedure The patient was brought back to the operating theatre. After the induction of excellent anesthesia, a surgical time out was performed, and we verified the patient identification, site, laterality, and procedure. Patient received antibiotics preoperatively in the ED. The patient was placed in the dorsal lithotomy position. The genital area was prepped and draped in the usual, sterile fashion. We introduced a 22 Fr rigid cystoscope easily into the bladder. The urethra was noted to be unremarkable but noted a very high bladder neck and trilobar hyperplasia with intravesical median lobe. The bladder was emptied. The scope was re-inserted. Brief pancystoscopy did not reveal any tumors, masses, stones, trabeculations, or diverticuli. The right ureteral orifice was identified and cannulated with 5 Fr open ended catheter. We did shoot a retrograde pyelogram. We noted a very mild distal ureteral stricture, and mild hydroureteronephrosis. A [employer] guidewire was placed into the catheter and advanced to the renal pelvis using fluoroscopy. As soon as the wire was placed, debris filled urine emanated from the ureteral orifice. A 4.8 double-J stent multilength was then placed under direct vision with a curl observed in the kidney and in the bladder. We also collected urine from the bladder for culture We did not leave a string on the stent. The scope was removed, and a 16F urethtral catheter was placed and hubbed, pink tinged urine was noted to emanate from the catheter, and 10cc was used to inflate the balloon. The patient was then awoken without event, transferred to the recovery cart and transported to the PACU in stable condition. Implants Right 4.8F double J multilength ureteral stent Estimated Blood Loss 0 Drains Yes (16F urethral brunson with 10cc in balloon) Packing No Pathology None sent Complications No immediate complications Condition Stable Disposition ICU (- Continue brunson catheter, monitor urine culture taken from OR. Continue stent - will require exchange vs removal within 3 months. ) [facility] Billing Surgery - Charge Forward: Surgery Billing
--- NOTE | 2022-02-11 19:39 | PC.NURSE ---
1805: report called to [facility] in PACU. 1825 patient take to the OR. ICU respiratory therapist advise that patient goes to the OR with 100% non-rebreather only. Charge Nurse on duty assited with the transported. Patient maintain adequate oxygenation during transport.
--- NOTE | 2022-02-11 19:45 | PM.IMHP ---
H&P: HPI History of Present Illness Date/Time: 02/11/22 19:45 Chief Complaint: Weakness. Narrative: This is an 81-year-old male with history of coronary artery disease, hypertension, hyperlipidemia, diabetes, and benign prostatic hyperplasia who presented to the emergency department for evaluation of weakness. I am first seeing the patient in the ICU post cystoscopy with ureteral stent placement and at this time he is on BiPAP and he is not able to provide a good history. As such almost all of the following is obtained via a review of his electronic medical records as well as information obtained from his . Yesterday he was not feeling well and slept a majority of the day. He complained to his of aching discomfort in the lower back and into the lower abdomen and last evening he was nauseated and had several episodes of emesis. This morning he was extremely weak and was not very interactive and his brought him in for evaluation. His blood pressure was 95/66 on arrival to the ER and he was tachypneic and tachycardic with a normal temperature. In the ED he was found to have evidence of an acute kidney injury with a BUN and creatinine of 30 and 3.00 respectively, serum carbon dioxide 16 with an anion gap of 23, and a lactic acid level of 12.8. CT of the abdomen/pelvis showed right middle and lower lobe airspace disease suspicious for pneumonia, right hydroureteronephrosis with perinephric and periureteral edema as well as mildly dilated proximal small bowel which may represent ileus or partial obstruction. He was given a 3 liter fluid bolus and also doses of azithromycin and ceftriaxone to cover both pneumonia and urinary tract infection. He was also given a dose of imipenem and vancomycin for broader coverage. Due to concerns for possible obstruction on CT, he was taken to the OR where he underwent cystoscopy with right ureteral stent placement. On arrival to the ICU he was tachypneic with respirations in the mid to upper 30s and complaints of shortness of breath. He was immediately placed on BiPAP with subjective improvement in his work of breathing. As time passed however he started to become tired and it was clear that he was impending respiratory failure. I spoke with the cardiac surgeon, Dr. Peguero, via phone and discussed my concerns with him and he agreed with early, elective intubation before became and emergency. I discussed this with both the patient and his via phone and they were in agreement and consented to intubation as well as central line placement if the need arose. Aside from feeling tired and worn out, the patient had no acute complaints. Review of Systems Review of Systems: 12 systems were reviewed. He has not had a fever to his knowledge though his temperature has been a bit elevated since arrival to the ICU. He denies headache. No sinus congestion, sore throat, or significant cough. No sick contacts his knowledge. He does not think that he aspirated when vomiting. He is not having any significant abdominal or back pain at this time. He has felt that his abdomen has been a bit distended. He had loose stools yesterday. Except as documented, all other systems were reviewed and are negative. [facility] Past Medical History Medical History Coronary artery disease Hearing loss Hyperlipidemia Hypertension Skin cancer Sleep apnea Surgical History Surgical History (Updated 02/11/22 @ 20:31 by Sue David PA-C) History of appendectomy History of bilateral hip replacements History of bilateral knee replacement History of cardiac catheterization History of coronary artery stent placement History of four vessel coronary artery bypass graft History of left shoulder replacement Family History Family History Other Arthritis Diabetes mellitus Heart disease Hypertension Social History Social Histor
[2022-02-11 20:24] LABS: Lactic Acid Reflex 7.2 mmol/L (0.7-2.0)
[2022-02-11 20:29] LABS: Albumin Level 3.1 g/dL (3.5-5.1); Alkaline Phosphatase 116 U/L (38-126); Anion Gap 14 mmol/L (8-16); Aspartate Amino Transferase 68 U/L (17-59); Bilirubin,Total 0.8 mg/dL (0.2-1.3); Blood Urea Nitrogen 34 mg/dL (9-20); Calcium 7.8 mg/dL (8.4-10.2); Carbon Dioxide 19 mmol/L (22-30); Chloride 105 mmol/L (98-107); Estimated CRCL calculation 19 ml/min; Estimated Glomerular Filt Rate 19; Glucose 124 mg/dL (65-110); Magnesium 1.5 mg/dL (1.6-2.3); Potassium 3.8 mmol/L (3.4-5.0); Sodium 138 mmol/L (137-145)
[2022-02-11 20:32] LABS: Alanine Aminotransferase 40 U/L (6-50)
[2022-02-11 20:39] LABS: NT Pro B Type Natriuretic Pept 14600 pg/mL (5-100); Troponin I 0.524 ng/mL (0.000-0.034)
[2022-02-11 20:44] LABS: Alveolar/Arterial O2 Gradient 438.4 mmHg; Base Excess ABG -8.7 mEq/l (+/-2.0); Carboxyhemoglobin 0.2 % THb (0-2.0); Fractional Inspired Oxygen 100 %; Methemoglobin ABG 0.5 %THb (0-1.5); Oxygen Content ABG 19.6 %vol (16.0-22.0); Oxygen Saturation ABG 99.4 % (95.0-100.0); Oxyhemoglobin 98.3 % THb (90.0-100.0); PCO2 ABG 41.7 mmHg (35.0-45.0); PO2 ABG 232.9 mmHg (80.0-100.0); PO2 FiO2 Ratio Arterial Blood 2.33 %; Total Hemoglobin 13.8 g/dL (12.0-18.0)
[2022-02-11 20:52] LABS: Device BIPAP; Inspiratory Pressure 14 cmH2O; Modified Allen's Test Pass; Site Drawn RIGHT RADIAL; pH ABG 7.254 (7.350-7.450)
[2022-02-11 20:53] LABS: Expiratory Pressure 6 cmH2O
[2022-02-11] MEDS: ETOMIDATE 20 MG/10 ML AMPUL IV PUSH (21:30)
--- NOTE | 2022-02-11 21:30 | WPDPROCEDUR ---
Procedures Intubation Intubation Date: 02/11/22 Intubation Time: 21:30 Consent: Patient gave verbal consent. also consented via phone. Sedative: etomidate Mg given: 30 Paralytic: succinylcholine Mg given: 100 Laryngoscope: fiber optic video scope Assist device used: fiber optic device ET tube size: 8 Tube secured depth (cm): 23 Tube secured location: teeth Tube placement confirmation: visualized tube passing through cords, equal breath sounds bilaterally, no breath sounds over epigastrium and confirmation by capnometry Patient tolerated procedure: well Intubation complications: none Additional comments: Chest x-ray pending at the time of this dictation. Dr. Margo Man, attending ED physician, was notified of the procedure and was available to help if need be. Case discussed with Dr. Peguero, who will be managing the vent. He gave vent settings and sedation settings.
[2022-02-11] MEDS: SUCCINYLCHOLINE CHLORIDE 20 MG/ML 10 ML VIAL 100 MG IV PUSH (21:31)
[2022-02-11] MEDS: FENTANYL 2,500MCG/NS250ML(*CRX 2,500 MCG/250 ML BAG IV CONT (21:50)
[2022-02-11] MEDS: MIDAZOLAM HCL (*CRX) 2 MG/2 ML VIAL IV PUSH ×3 (21:51→23:37)
[2022-02-11] MEDS: MIDAZOLAM 100MG/NS 100ML(*CRX) 100 MG/100 ML BAG IV CONT (21:51)
[2022-02-11] MEDS: SODIUM BICARBONATE 8.4% 50 MEQ/50 ML SYRINGE 100 MEQ IV PUSH (22:00)
--- NOTE | 2022-02-11 22:30 | P.PCNBED_ITS ---
Procedures Central Line Placement Left Femoral: Central Line Date: 02/11/22 Central Line Time: 22:30 Consent: I have discussed with the patient and/or surrogate, the non-emergent placement of a central venous catheter, including its clinical necessity/indication and associated potential risks and complications. The patient and/or surrogate understand(s) and acknowledge(s) the need to proceed with central venous catheter insertion as an important element of the patient's clinical management. Time Out Performed: Yes Patient Position: supine Patient placed on monitor/pulse ox: Yes Provider Prep: mask, sterile gown, sterile gloves, Max. sterile barrier precautions, cap and hand hygiene with conventional soap/water or alcohol based hand rub Central line prep: 2% Chlorhexidine scrub Local anesthesia used: lidocaine 1% Amount of anesthesia used (ml): 5 Central line lumen inserted: triple Albanian: 7 Length (cm): 20 Post Procedure: sutured in place, good blood return, all ports aspirated, flushed, capped, transparent dressing, hemostatic product, antimicrobial product, securement product and aseptic technique maintained throughout procedure Post procedure x-ray: other (n/a with femoral placement) Complications: none
[2022-02-11] MEDS: MINERAL OIL/WHITE PETROLATUM OINTMENT 1 APPLIC EACH EYE (22:44)
[2022-02-11] MEDS: NOREPINEPHRINE 8 MG/D5W 250 ML 8 MG/250 ML BAG 9.38 MG IV CONT (22:44)
[2022-02-11] MEDS: VASOPRESSIN INJ 100 UNITS in DEXTROSE 5% 95 ML IV CONT (23:45)
[2022-02-11 23:46] LABS: Alveolar/Arterial O2 Gradient 324.8 mmHg; Base Excess ABG -6.7 mEq/l (+/-2.0); Carboxyhemoglobin 0.3 % THb (0-2.0); Fractional Inspired Oxygen 70 %; Methemoglobin ABG 0.4 %THb (0-1.5); Oxygen Content ABG 18.8 %vol (16.0-22.0); Oxygen Saturation ABG 97.7 % (95.0-100.0); Oxyhemoglobin 96.9 % THb (90.0-100.0); PCO2 ABG 50.8 mmHg (35.0-45.0); PO2 ABG 119.7 mmHg (80.0-100.0); PO2 FiO2 Ratio Arterial Blood 1.71 %; Reduced Hemoglobin 2.4 %THb (0-5.0); Total Hemoglobin 13.7 g/dL (12.0-18.0)
[2022-02-11] MEDS: MAGNESIUM SULF 2 GM/WATER 50ML 2 GM/50 ML BAG IVPB (23:49)
[2022-02-11 23:55] LABS: Device VENTILATOR; Modified Allen's Test Pass; Site Drawn RIGHT RADIAL; pH ABG 7.235 (7.350-7.450)
[2022-02-11 23:56] LABS: Arterial Blood Gas PEEP 8 cmH2O; Arterial Blood Gas Tidal Volume 450 ml; Arterial Blood Gas Vent Mode CMV; Arterial Blood Gas Ventilator rate 24 /MIN
[2022-02-11 23:59] LABS: Hemoglobin A1C 8.1 % (<5.7)
[2022-02-12] VITALS (131 sets, daily range): BP systolic 61–187; BP diastolic 40–133; PULSE 80–128; RESP 22–36; TEMP 36.6–37.1; O2SAT 79–100
[2022-02-12 00:01] LABS: Creatine Kinase 1573 U/L (55-170)
[2022-02-12] MEDS: SODIUM BICARBONATE 8.4% 50 MEQ/50 ML SYRINGE 100 MEQ IV PUSH (00:14)
[2022-02-12] MEDS: SODIUM CHLORIDE 0.9% IV 1,000 ML 999 ML IV CONT ×2 (01:09→05:20)
[2022-02-12 01:44] LABS: Glucose Point of Care 124 mg/dl (65-105)
[2022-02-12 01:44] LABS: Glucose Point of Care 104 mg/dl (65-105)
[2022-02-12] MEDS: NOREPINEPHRINE 8 MG/D5W 250 ML 8 MG/250 ML BAG 56.25 MG IV CONT ×4 (03:01→20:51)
[2022-02-12 04:53] LABS: Hematocrit 36.4 % (42.0-52.0); Hemoglobin 11.4 g/dL (14.0-18.0); Mean Corpuscular HGB Conc 31.3 g/dl (32-36); Mean Corpuscular Hemoglobin 30.5 pg (26-34); Mean Corpuscular Volume 97.3 fl (80-100); Platelet Count Result 102 k/mm3 (150-375); Red Blood Count 3.74 M/mm3 (4.6-6.20); Red Cell Distribution Width 14.2 % (11.5-14.5); White Blood Count 18.8 K/mm3 (4.5-10.0)
[2022-02-12 05:06] LABS: INR 1.5; Partial Thromboplastin Time 42.2 SECONDS (22.3-36.8); Prothrombin Time 17.8 Seconds (11.1-14.7)
[2022-02-12 05:10] LABS: Alanine Aminotransferase 39 U/L (6-50); Alkaline Phosphatase 71 U/L (38-126); Anion Gap 13 mmol/L (8-16); Aspartate Amino Transferase 74 U/L (17-59); Blood Urea Nitrogen 41 mg/dL (9-20); Calcium 7.5 mg/dL (8.4-10.2); Carbon Dioxide 23 mmol/L (22-30); Chloride 101 mmol/L (98-107); Creatine Kinase 1453 U/L (55-170); Estimated CRCL calculation 19 ml/min; Estimated Glomerular Filt Rate 19; Glucose 200 mg/dL (65-110); Lactic Acid Reflex 6.4 mmol/L (0.7-2.0); Phosphorus 5.7 mg/dL (2.5-4.5); Potassium 4.3 mmol/L (3.4-5.0); Sodium 137 mmol/L (137-145)
[2022-02-12] MEDS: EPINEPHrine INJ 1 MG in DEXTROSE 5% IN WATER 250 ML 150.6 MG IV CONT (05:13)
[2022-02-12 05:28] LABS: Band Neutrophils Percent 11 % (0-6); Monocytes Percent Manual 8 % (3-9); Neutrophils Absolute Manual 15.79 K/mm3 (1.3-6.7); Neutrophils Percent Manual 73 % (46-73); Platelet Estimate Adequate (Adequate); Total Cells Counted 100
[2022-02-12 05:45] LABS: Thyroid Stimulating Hormone Reflex 0.435 uIU/mL (0.465-4.68)
[2022-02-12] MEDS: CENTRAL LINE FLUSH 10 ML IV PUSH ×3 (06:11→21:59)
[2022-02-12] MEDS: HYDROCORTISONE SODIUM SUCCINATE 100 MG/2 ML VIAL IV PUSH ×3 (06:11→21:59)
[2022-02-12 06:14] LABS: Alveolar/Arterial O2 Gradient 402.6 mmHg; Base Excess ABG -9.6 mEq/l (+/-2.0); Carboxyhemoglobin 0.3 % THb (0-2.0); Fractional Inspired Oxygen 100 %; HCO3 ABG 16.5 mEq/l (22.0-26.0); Methemoglobin ABG 0.2 %THb (0-1.5); Oxygen Content ABG 17.7 %vol (16.0-22.0); Oxygen Saturation ABG 99.6 % (95.0-100.0); Oxyhemoglobin 98.4 % THb (90.0-100.0); PCO2 ABG 36.7 mmHg (35.0-45.0); PO2 ABG 273.7 mmHg (80.0-100.0); PO2 FiO2 Ratio Arterial Blood 2.74 %; Reduced Hemoglobin 1.1 %THb (0-5.0); Total Hemoglobin 12.3 g/dL (12.0-18.0)
--- NOTE | 2022-02-12 06:15 | PDCODEBLUE ---
Code Blue Note Code Blue Note Time Arrived at Code Blue: 5:11 Initial Rhythm on Arrival: A. alexander Airway Management: Pt being bagged on arrival Chest Compressions: No compressions given Result of Code Blue: Survived Cardiac Rhythm Post Code: Thuan munoz Code Blue Summary: Medical code no chest compressions were needed, added a 4 vasopressor gave fluids wide open bicarb x 12 calcium chloride x 2 Required bad valve throughout now back on ventilator
[2022-02-12 06:17] LABS: Device AMBU BAG; Site Drawn RIGHT FEMORAL
[2022-02-12 06:37] LABS: Free T4 Free Thyroxine Reflex 1.09 ng/dL (0.78-2.19)
--- NOTE | 2022-02-12 07:35 | PC.NURSE ---
0510- Patient started to desaturate after chest xray. Dr. Enriquez called and at bedside. See code sheet. Family called and notified of patient condition and on their way to the hospital.
[2022-02-12 07:50] LABS: Reflex Lactic Acid Yes or No Add Lactic
--- NOTE | 2022-02-12 08:02 | PM.CNCAR ---
Assessment and Plan Assessment and plan (1) Troponin level elevated: Code(s): R77.8 - Other specified abnormalities of plasma proteins Status: Acute Plan this is an 81-year-old man presenting with sepsis presumably urosepsis with hydronephrosis and developed respiratory failure now on the ventilator in the ICU. He has a history of coronary artery disease with previous surgical and percutaneous revascularization but no recent ischemic symptoms according to his and family. His electrocardiogram does not show any changes of myocardial injury. His troponin levels are mildly elevated but flat as a result of the combination of his sepsis / lactic acidosis and renal failure. This is not a situation where I would give this patient the diagnosis of non ST segment elevation MT. at this time I do not have any specific cardiac recommendations obviously his prognosis is guarded Fer Beaulieu MD [facility] History of Present Illness History of Present Illness Consult date/time: 02/12/22 08:02 Reason For Visit: Septic Shock, UTi, pneumonia Narrative: This is an 81-year-old man I am seeing at the request of the hospitalist this morning with the stated reason for consult is non ST-elevation MT. The chart has been reviewed the patient is intubated in the ICU and so no history is obtainable directly from him. His family is in the room and is able to provide additional history. According to the family in the record he was admitted here yesterday with concerns about sepsis. He was found to have right hydronephrosis and underwent urgent cystoscopy with ureteral stenting and drainage of his right kidney yesterday. Following the procedure apparently he developed respiratory distress and he was admitted to the ICU on the ventilator. He had significant sepsis with lactic acidosis. According to his he has not been having any recent cardiac complaints and he has symptoms of chest pain pressure or heaviness. For reasons that are not clear to me troponin levels were drawn yesterday and they are elevated at 0.5 and flat. He does have significant renal failure with a creatinine of 3.2 and an EGFR of 19. His electrocardiogram shows sinus tachycardia with PACs but no changes of acute injury current. His indicates that he has coronary artery disease that he underwent surgical revascularization many years ago she thinks at [facility]. 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 None of the details of any of that car are available to me at the time of this consultation. He once again is intubated sedated in the ICU room 8. Review of Systems Review of Systems: ROS unobtainable: Yes unobtainable due to endotracheal tube PMFSH Past Medical History Medical History Coronary artery disease Hearing loss Hyperlipidemia Hypertension Skin cancer Sleep apnea Surgical History Surgical History (Updated 02/11/22 @ 20:31 by Sue David PA-C) History of appendectomy History of bilateral hip replacements History of bilateral knee replacement History of cardiac catheterization History of coronary artery stent placement History of four vessel coronary artery bypass graft History of left shoulder replacement Family History Family History Other Arthritis Diabetes mellitus Heart disease Hypertension Social History Social History (Updated 02/11/22 @ 20:45 by Sue David PA-C) Social History: Surrogate medical decision maker: Areli Olguin, spouse. Code status: Full code. Smoking status: Never smoker Alcohol intake: former Drinks per week: 2 Substance use: never Additional living arrangements comments: The patient lives with his in [place]. Spiritual care concerns:
[2022-02-12 08:36] LABS: Glucose Point of Care 197 mg/dl (65-105)
--- NOTE | 2022-02-12 08:38 | P.CONIN_ITS ---
Assessment and Plan Assessment and plan (1) Acute respiratory failure: Code(s): J96.00 - Acute respiratory failure, unspecified whether with hypoxia or hypercapnia Status: Acute Assessment and Plan: Acute Respiratory failure secondary to pneumonia with possible component of pulmonary edema. Patient was having nausea vomiting and may have aspirated. Continue full mechanical ventilation support to prevent hypoxemia/hypercarbia and end organ damage. ABG and vent settings reviewed Chest x-ray reviewed-advance ET tube by 2 cm. Low tidal volume ventilation strategy to prevent volutrauma P.r.n. Bronchodilators (2) Septic shock: Code(s): A41.9 - Sepsis, unspecified organism; R65.21 - Severe sepsis with septic shock Status: Acute Assessment and Plan: Severe septic shock secondary to Gram-negative bacteremia and UTI Patient is on 4 vasopressors at high doses which will be continued to titrate He has received more than 5 L of fluid. Will continue IV fluids with bicarb at a gentle rate Continue hydrocortisone Continue imipenem Urine and blood cultures have been sent and are pending His lactic acid level is still pretty elevated which raise the possibility of bowel ischemia. Patient at this time is too unstable to transport to [facility] Radiology for CT. (3) Metabolic acidosis: Code(s): E87.20 - Acidosis, unspecified Status: Acute Assessment and Plan: Severe metabolic acidosis secondary to RICK septic shock and lactic acidosis Patient has received multiple pushes of IV bicarb overnight due to shock Continue IV fluids with bicarb Recheck ABG later in the day (4) Hydronephrosis of right kidney: Code(s): N13.30 - Unspecified hydronephrosis Status: Acute Assessment and Plan: Secondary to ureteral stricture and status post right ureteral stent (5) Acute kidney injury: Code(s): N17.9 - Acute kidney failure, unspecified Status: Acute Assessment and Plan: Secondary to ureteral stricture, septic shock, hypovolemia, mild rhabdomyolysis Monitor urine output and electrolytes Monitor CK level IV fluids with bicarb Renal ultrasound shows unremarkable kidneys Nephrology has been consulted (6) Urinary tract infection: Code(s): N39.0 - Urinary tract infection, site not specified Status: Acute Assessment and Plan: See above (7) Non-ST elevated myocardial infarction (non-STEMI): Code(s): I21.4 - Non-ST elevation (NSTEMI) myocardial infarction Status: Acute Assessment and Plan: Elevated troponin likely secondary to septic shock Patient evaluated by Cardiology Echocardiogram ordered Add aspirin Plan DVT prophylaxis -Lovenox Stress ulcer prophylaxis -PPI Nutrition -NPO OG to low intermittent suction Code Status -patient is DNR I have confirmed with patient's family the patient is not allergic to fentanyl as documented in the chart. Only allergy is iodine I spoke to patient's large family including his and multiple children be dside. I updated them with patient's current status including acute kidney failure, acute respiratory failure, severe septic shock requiring multiple vasopressors, acute kidney failure, bacteremia and poor prognosis. I answered all their questions. Total Critical Care Time - 60 minutes Due to a high probability of clinically significant, life threatening deterioration, the patient required my highest level of preparedness to intervene emergently and I personally spent this critical care time directly and personally managing the patient. Th
[2022-02-12] MEDS: SODIUM BICARBONATE 8.4% 100 MEQ in WATER, STERILE FOR INJECTION 1,000 ML IV CONT (09:11)
[2022-02-12 09:13] LABS: Lactic Acid 16.5 mmol/L (0.7-2.0)
[2022-02-12] MEDS: EPINEPHrine INJ 4 MG in DEXTROSE 5% IN WATER 250 ML 19.05 MG IV CONT ×2 (09:19→12:01)
[2022-02-12] MEDS: FENTANYL 2,500MCG/NS250ML(*CRX 2,500 MCG/250 ML BAG 25 MCG IV CONT (09:31)
[2022-02-12] MEDS: ASPIRIN 325 MG TABLET FEED TUBE (09:49)
[2022-02-12] MEDS: PANTOPRAZOLE SODIUM IV 40 MG VIAL IV PUSH ×2 (09:49→20:44)
[2022-02-12] MEDS: ENOXAPARIN 30 MG/0.3 ML SYRINGE SUB-Q (10:10)
--- NOTE | 2022-02-12 10:23 | WPDUROPN2 ---
Progress Note: A&P Assessment and Plan (1) Hydronephrosis: Code(s): N13.30 - Unspecified hydronephrosis Status: Acute Assessment and Plan: 81M with presumed sepsis and found on imaging to have right hydronephrosis with no proximal or mid ureteral stone but unable to visualize distal aspect of ureter now s/p right ureteral stent and catheter placement. In ICU in critical condition from repsiratory issues and presumed sepsis. - Continue catheter. In the next few months to consider ureteral stent exchange vs removal. - Continue balance of care per primary team. Subjective Subjective Date/Time Seen: 02/12/22 10:23 Patient was intubated overnight due to respiratory distress. Catheter draining yellow urine. Exam Narrative: Intubated : Other: Urinary catheter patient and draining appropriately. Objective Data Vital Signs Vital Signs: Vital Signs - 24 hr 02/11/22 11:33 02/11/22 11:58 02/11/22 12:00 Temperature 36.3 C L 36.8 C Pulse Rate 116 H 62 112 H Respiratory Rate 43 H 24 H Blood Pressure 95/66 L 109/56 L Pulse Oximetry 95 91 Oxygen Delivery Room Air Oxygen Flow Rate Fraction of Inspired Oxygen 02/11/22 12:18 02/11/22 12:20 02/11/22 12:28 Temperature Pulse Rate 108 H Respiratory Rate 40 H Blood Pressure Pulse Oximetry 88 L 93 Oxygen Delivery Room Air Nasal Cannula Oxygen Flow Rate 3 Fraction of Inspired Oxygen 02/11/22 12:30 02/11/22 12:32 02/11/22 12:56 Temperature Pulse Rate 117 H 112 H 110 H Respiratory Rate 37 H 36 H 31 H Blood Pressure 105/53 L Pulse Oximetry 100 Oxygen Delivery Oxygen Flow Rate Fraction of Inspired Oxygen 02/11/22 12:22 02/11/22 13:16 02/11/22 13:52 Temperature 36.7 C Pulse Rate 115 H 114 H Respiratory Rate 30 H 32 H Blood Pressure 120/63 111/67 Pulse Oximetry 93 92 95 Oxygen Delivery Nasal Cannula Oxygen Flow Rate 3 Fraction of Inspired Oxygen 02/11/22 13:07 02/11/22 13:15 02/11/22 13:49 Temperature Pulse Rate 103 H 117 H 113 H Respiratory Rate 29 H 32 H 37 H Blood Pressure 111/67 Pulse Oximetry 96 Oxygen Delivery Oxygen Flow Rate Fraction of Inspired Oxygen 02/11/22 13:50 02/11/22 14:00 02/11/22 14:01 Temperature Pulse Rate 114 H 117 H 113 H Respiratory Rate 30 H 32 H 32 H Blood Pressure 104/57 L Pulse Oximetry 97 93 93 Oxygen Delivery Oxygen Flow Rate Fraction of Inspired Oxygen 02/11/22 14:15 02/11/22 14:16 02/11/22 14:47 Temperature Pulse Rate 110 H 93 106 H Respiratory Rate 28 H 37 H 32 H Blood Pressure 98/53 L 102/72 Pulse Oximetry 93 94 Oxygen Delivery Oxygen Flow Rate Fraction of Inspired Oxygen 02/11/22 15:08 02/11/22 14:48 02/11/22 15:01 Temperature Pulse Rate 108 H 110 H Respiratory Rate 28 H 34 H 28 H Blood Pressure 95/63 L Pulse Oximetry 96 92 Oxygen Delivery BiPAP Oxygen Flow Rate Fraction of Inspired Oxygen 02/11/22 15:12 02/11/22 15:32 02/11/22 15:50 Temperature Pulse Rate 112 H 98 104 H Respiratory Rate 32 H 33 H 31 H Blood Pressure 96/61 L Pulse Oximetry 100 98 99 Oxygen Delivery Oxygen Flow Rate Fraction of Inspired Oxygen 02/11/22 16:40 02/11/22 16:16 02/11/22 19:00 Temperature 38.0 C H Pulse Rate 114 H 97 102 H Respiratory Rate 37 H 36 H 26 H Blood Pressure 156/86 H Pulse Oximetry 98 98 89 L Oxygen Delivery BiPAP Non-Rebreather Mask Oxygen Flow Rate 15 Fraction of Inspired Oxygen 02/11/22 18:00 02/11/22 17:17 02/11/22 17:30 Temperature 37.0 C Pulse Rate 102 H 100 102 H Respiratory Rate 31 H 34 H Blood Pressure Pulse Oximetry 91 92 Oxygen Delivery Oxygen Flow Rate Fraction of Inspired Oxygen 02/11/22 17:31 02/11/22 17:45 02/11/22 17:46 Temperature Pulse Rate 102 H 99 98 Respiratory Rate 33 H 37 H 34 H Blood Pressure 112/95 H 83/52 L Pulse Oximetry 96 98 98 Oxygen Delivery Oxygen Flow Ra
--- NOTE | 2022-02-12 11:16 | PM.CNNEP ---
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 (2) Septic shock: Code(s): A41.9 - Sepsis, unspecified organism; R65.21 - Severe sepsis with septic shock Status: Acute Assessment and Plan: due to urospesis (gram negative bacteremia + UTI) significant vasopressor support at this time (4 pressors) s/p aggressive IVF resuscitation on broad spectrum antibiotics follow culture data (3) Acute respiratory failure: Code(s): J96.00 - Acute respiratory failure, unspecified whether with hypoxia or hypercapnia Status: Acute Assessment and Plan: due to possible pneumonia and pulmonary edema possible aspiration (?) -- was having some nausea and vomiting on full ventilator support currently weaning once more stable (4) Metabolic acidosis: Code(s): E87.20 - Acidosis, unspecified Status: Acute Assessment and Plan: due to RICK/ARF and lactic acidosis on bicarb IVFs to compensate (but aggressiveness limited by evidence of pulmonary edema) follopw ABGs (5) Hydronephrosis of right kidney: Code(s): N13.30 - Unspecified hydronephrosis Status: Acute Assessment and Plan: secondary to ureteral stricture s/p right ureteral stent Urology following (6) Non-ST elevated myocardial infarction (non-STEMI): Code(s): I21.4 - Non-ST elevation (NSTEMI) myocardial infarction Status: Acute Assessment and Plan: Cardiology recommendations noted Long and extensive discussion (> 20 minutes) with family regarding the above issues including acute kidney injury/acute renal failure and my concerns that he may require renal replacement therapy/dialysis given the possibility of worsening volume overload and acidosis; unfortunately, given his significant vasopressor requirements, he may no tolerated conventional hemodialysis (would probably need CRRT). Will continue to follow. History of Present Illness Reason for Consult Consult date: 02/12/22 Reason for consult: acute renal failure Chief Complaint Chief complaint: Septic Shock, UTi, pneumonia History of Present Illness Narrative: All the history and information obtained is from review of the electronic medical record as well as discussion with the physicians/nurses involved in the patient's care as well as the patient's family at bedside as he is unable to provide any history as he is currently intubated and on mechanical ventilation The patient is 81-year-old male with a past medical history as outlined below who presented to [facility] Emergency room for further evaluation of generalized weakness. According to his family, the patient started feeling unwell about 2-3 days ago when he started having issues and problems with nausea and vomiting. The symptoms apparently continued to progressively get worse until eventually presented to the emergency room for further evaluation. Workup and evaluation emergency room demonstrated the patient to be somewhat hypotensive on presentation with a systolic BP in the 90s although he was also reportedly tachypneic and tachycardic although he was afebrile. Routine blood tests demonstrated evidence of acute kidney injury with an elevated BUN and creatinine of 30 and 3.0 associated with metabolic acidosis further complicated by severe lactic acidosis as well. His urinalysis was somewhat suggestive of a urinary tract infection as well. A CT scan of the abdomen pelvis demonstrated a right middle and lower lobe airspace disease suggestive of pneumonia as well as right hydroureteronephrosis with pe
--- NOTE | 2022-02-12 11:16 | P.CONNP_ITS ---
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 (2) Septic shock: Code(s): A41.9 - Sepsis, unspecified organism; R65.21 - Severe sepsis with septic shock Status: Acute Assessment and Plan: * due to urospesis (gram negative bacteremia + UTI) * significant vasopressor support at this time (4 pressors) * s/p aggressive IVF resuscitation * on broad spectrum antibiotics * follow culture data (3) Acute respiratory failure: Code(s): J96.00 - Acute respiratory failure, unspecified whether with hypoxia or hypercapnia Status: Acute Assessment and Plan: * due to possible pneumonia and pulmonary edema * possible aspiration (?) -- was having some nausea and vomiting * on full ventilator support currently * weaning once more stable (4) Metabolic acidosis: Code(s): E87.20 - Acidosis, unspecified Status: Acute Assessment and Plan: * due to RICK/ARF and lactic acidosis * on bicarb IVFs to compensate (but aggressiveness limited by evidence of pulmonary edema) * follopw ABGs (5) Hydronephrosis of right kidney: Code(s): N13.30 - Unspecified hydronephrosis Status: Acute Assessment and Plan: * secondary to ureteral stricture * s/p right ureteral stent * Urology following (6) Non-ST elevated myocardial infarction (non-STEMI): Code(s): I21.4 - Non-ST elevation (NSTEMI) myocardial infarction Status: Acute Assessment and Plan: * Cardiology recommendations noted Long and extensive discussion (> 20 minutes) with family regarding the above issues including acute kidney injury/acute renal failure and my concerns that he may require renal replacement therapy/dialysis given the possibility of worsening volume overload and acidosis; unfortunately, given his significant vasopressor requirements, he may no tolerated conventional hemodialysis (would probably need CRRT). Will continue to follow. History of Present Illness Reason for Consult Consult date: 02/12/22 Reason for consult: acute renal failure Chief Complaint Chief complaint: Septic Shock, UTi, pneumonia History of Present Illness Narrative: All the history and information obtained is from review of the electronic medical record as well as discussion with the physicians/nurses involved in the patient's care as well as the patient's family at bedside as he is unable to provide any history as he is currently intubated and on mechanical ventilation The patient is 81-year-old male with a past medical history as outlined below who presented to [facility] Emergency room for further evaluation of generalized weakness. According to his family, the patient started feeling unwell about 2-3 days ago when he started having issues and problems with nausea and vomiting. The symptoms apparently continued to progressively get worse until eventually presented to the emergency room for further evaluation. Workup and evaluation emergency room demonstrated the patient to be somewhat hypotensive on presentation with a systolic BP in the 90s although he was also reportedly tachypneic and tachycardic although he was afebrile. Routine blood t ests demon
[2022-02-12] MEDS: MINERAL OIL/WHITE PETROLATUM OINTMENT 1 APPLIC EACH EYE ×2 (12:16→20:44)
[2022-02-12] MEDS: INSULIN ASPART (*BKC) 100 UNITS/ML SUB-Q ×3 (12:16→20:44)
[2022-02-12 12:20] LABS: Glucose Point of Care 253 mg/dl (65-105)
[2022-02-12 12:29] LABS: Total Triiodothyronine (T3) 0.36 NG/ML (0.97-1.69)
--- NOTE | 2022-02-12 12:34 | PC.NURSE ---
Neosynephrine decreased by 50 mcg/min per Dr Peguero
[2022-02-12 13:13] LABS: Alveolar/Arterial O2 Gradient 288.3 mmHg; Base Excess ABG -1.2 mEq/l (+/-2.0); Fractional Inspired Oxygen 70 %; HCO3 ABG 24.9 mEq/l (22.0-26.0); Oxygen Content ABG 18.3 %vol (16.0-22.0); Oxygen Saturation ABG 98.9 % (95.0-100.0); Oxyhemoglobin 97.6 % THb (90.0-100.0); PCO2 ABG 47.2 mmHg (35.0-45.0); PO2 ABG 160.1 mmHg (80.0-100.0); PO2 FiO2 Ratio Arterial Blood 2.29 %; Total Hemoglobin 13.1 g/dL (12.0-18.0)
[2022-02-12 13:14] LABS: Device VENTILATOR; Site Drawn RIGHT BRACHIAL
[2022-02-12 13:16] LABS: Arterial Blood Gas PEEP 10 cmH2O; Arterial Blood Gas Tidal Volume 450 ml; Arterial Blood Gas Vent Mode CMV; Arterial Blood Gas Ventilator rate 28 /MIN
--- NOTE | 2022-02-12 13:24 | PC.NURSE ---
1315: Neosynephrine has been off for 15 minutes and the patient is maintaining adequate blood pressure and heart rate.
--- NOTE | 2022-02-12 13:26 | PC.NURSE ---
1315: RN has started to titrate epinephrine off. Epinephrine titared to 4mcg.
[2022-02-12] MEDS: SODIUM BICARBONATE 8.4% 150 MEQ in WATER, STERILE FOR INJECTION 950 ML 100 MEQ IV CONT (13:45)
[2022-02-12 14:08] LABS: Hematocrit 36.7 % (42.0-52.0); Hemoglobin 11.6 g/dL (14.0-18.0); Mean Corpuscular HGB Conc 31.6 g/dl (32-36); Mean Corpuscular Hemoglobin 30.8 pg (26-34); Mean Corpuscular Volume 97.3 fl (80-100); Mean Platelet Volume 10.4 fl (7.4-10.4); Platelet Count Result 106 k/mm3 (150-375); Red Blood Count 3.77 M/mm3 (4.6-6.20); Red Cell Distribution Width 14.3 % (11.5-14.5); White Blood Count 26.4 K/mm3 (4.5-10.0)
[2022-02-12 14:18] LABS: Anion Gap 19 mmol/L (8-16); Blood Urea Nitrogen 38 mg/dL (9-20); Calcium 8.2 mg/dL (8.4-10.2); Carbon Dioxide 27 mmol/L (22-30); Chloride 98 mmol/L (98-107); Estimated CRCL calculation 26 ml/min; Estimated Glomerular Filt Rate 24; Glucose 385 mg/dL (65-110); Magnesium 2.2 mg/dL (1.6-2.3); Potassium 3.3 mmol/L (3.4-5.0); Sodium 144 mmol/L (137-145)
[2022-02-12] MEDS: POTASSIUM CHLORIDE 20 MEQ PACKET (FOR LIQUID) 40 MEQ FEED TUBE (15:04)
[2022-02-12] MEDS: KCL 20 MEQ/0.45% NS 1,000 ML 100 ML IV CONT (15:05)
[2022-02-12 15:16] LABS: Lactic Acid Reflex 12.9 mmol/L (0.7-2.0)
[2022-02-12 16:58] LABS: Glucose Point of Care 335 mg/dl (65-105)
[2022-02-12 20:08] LABS: Glucose Point of Care 304 mg/dl (65-105)
[2022-02-12 23:45] LABS: Glucose Point of Care 285 mg/dl (65-105)
[2022-02-13] VITALS (62 sets, daily range): BP systolic 95–142; BP diastolic 68–95; PULSE 67–103; RESP 25–28; TEMP 36.8–37.5; O2SAT 98–100; BMI 36.1
[2022-02-13] MEDS: INSULIN ASPART (*BKC) 100 UNITS/ML SUB-Q ×2 (00:05→05:15)
[2022-02-13] MEDS: KCL 20 MEQ/0.45% NS 1,000 ML 100 ML IV CONT ×3 (01:07→17:33)
[2022-02-13] MEDS: NOREPINEPHRINE 8 MG/D5W 250 ML 8 MG/250 ML BAG 56.25 MG IV CONT (01:32)
[2022-02-13 04:54] LABS: Hematocrit 34.5 % (42.0-52.0); Mean Corpuscular HGB Conc 31.9 g/dl (32-36); Mean Corpuscular Hemoglobin 30.6 pg (26-34); Mean Corpuscular Volume 96.1 fl (80-100); Mean Platelet Volume 10.3 fl (7.4-10.4); Platelet Count Result 97 k/mm3 (150-375); Red Blood Count 3.59 M/mm3 (4.6-6.20); Red Cell Distribution Width 14.3 % (11.5-14.5); White Blood Count 27.2 K/mm3 (4.5-10.0)
[2022-02-13 05:11] LABS: Alanine Aminotransferase 121 U/L (6-50); Albumin Level 2.8 g/dL (3.5-5.1); Alkaline Phosphatase 103 U/L (38-126); Anion Gap 7 mmol/L (8-16); Aspartate Amino Transferase 209 U/L (17-59); Bilirubin,Total 1.2 mg/dL (0.2-1.3); Blood Urea Nitrogen 42 mg/dL (9-20); Calcium 7.8 mg/dL (8.4-10.2); Carbon Dioxide 34 mmol/L (22-30); Chloride 96 mmol/L (98-107); Creatine Kinase 562 U/L (55-170); Estimated CRCL calculation 38 ml/min; Estimated Glomerular Filt Rate 36; Glucose 352 mg/dL (65-110); Magnesium 2.2 mg/dL (1.6-2.3); Phosphorus 2.1 mg/dL (2.5-4.5); Sodium 137 mmol/L (137-145)
[2022-02-13] MEDS: NOREPINEPHRINE 8 MG/D5W 250 ML 8 MG/250 ML BAG 48.75 MG IV CONT (05:13)
[2022-02-13] MEDS: CENTRAL LINE FLUSH 10 ML IV PUSH ×4 (05:15→20:14)
[2022-02-13] MEDS: HYDROCORTISONE SODIUM SUCCINATE 100 MG/2 ML VIAL IV PUSH ×3 (05:15→21:04)
[2022-02-13 06:01] LABS: Alveolar/Arterial O2 Gradient 138.3 mmHg; Base Excess ABG 5.9 mEq/l (+/-2.0); Carboxyhemoglobin 0.4 % THb (0-2.0); Fractional Inspired Oxygen 40 %; HCO3 ABG 29.7 mEq/l (22.0-26.0); Methemoglobin ABG 0.2 %THb (0-1.5); Oxygen Content ABG 20.4 %vol (16.0-22.0); Oxyhemoglobin 96.9 % THb (90.0-100.0); PO2 ABG 100.9 mmHg (80.0-100.0); PO2 FiO2 Ratio Arterial Blood 2.52 %; Reduced Hemoglobin 2.5 %THb (0-5.0); Total Hemoglobin 14.9 g/dL (12.0-18.0); pH ABG 7.488 (7.350-7.450)
[2022-02-13 06:02] LABS: Arterial Blood Gas PEEP 10 cmH2O; Arterial Blood Gas Tidal Volume 450 ml; Arterial Blood Gas Vent Mode CMV; Arterial Blood Gas Ventilator rate 28 /MIN; Device VENTILATOR; Modified Allen's Test Pass; Site Drawn RIGHT RADIAL
[2022-02-13] MEDS: NOREPINEPHRINE 8 MG/D5W 250 ML 8 MG/250 ML BAG 45 MG IV CONT (06:36)
[2022-02-13 07:37] LABS: Lactic Acid Reflex 4.7 mmol/L (0.7-2.0)
[2022-02-13] MEDS: PERFLUTREN LIPID MICROSPHERES 1.5 ML VIAL DILUTED TO 10 ML TOTAL VOLUME IV PUSH (08:07)
--- NOTE | 2022-02-13 08:07 | IVDEFINITY ---
Prior to administration of IV Definity the patient was educated on the risks and benefits of the imaging enhancing agent including potential adverse side effects. The patient verbalized understanding. Allergies were verified. No exclusion criteria were identified and at least one of the following inclusion criteria were met: 1) physician request, 2) patient technically difficult to image (per the [place] [employer]chocardi[employer] guidelines of two or more segments not discernable within the apical view), or 3) questionable left ventricular function. ?
[2022-02-13 08:11] LABS: Glucose Point of Care 136 mg/dl (65-105)
[2022-02-13] MEDS: INSULIN GLARGINE (*BKC) 100 UNITS/ML 10 UNITS SUB-Q (08:12)
[2022-02-13] MEDS: ENOXAPARIN 30 MG/0.3 ML SYRINGE SUB-Q (08:12)
[2022-02-13] MEDS: ASPIRIN 325 MG TABLET FEED TUBE (08:13)
[2022-02-13] MEDS: MINERAL OIL/WHITE PETROLATUM OINTMENT 1 APPLIC EACH EYE ×2 (08:13→20:14)
[2022-02-13] MEDS: PANTOPRAZOLE SODIUM IV 40 MG VIAL IV PUSH ×2 (08:13→20:14)
[2022-02-13] MEDS: MIDAZOLAM 100MG/NS 100ML(*CRX) 100 MG/100 ML BAG IV CONT (08:19)
--- NOTE | 2022-02-13 08:59 | PM.PNCARD ---
Progress Note: A&P Assessment and Plan (1) Troponin level elevated: Code(s): R77.8 - Other specified abnormalities of plasma proteins Status: Acute Assessment and Plan: Mild elevation in troponin does not represent ACS/plaque rupture, this is secondary to sepsis and renal failure. No specific cardiac recommendations to make in this regard. (2) Cardiomyopathy: Code(s): I42.9 - Cardiomyopathy, unspecified Status: Acute Assessment and Plan: Echo from this admission showing a new cardiomyopathy with EF 35 - 40%, echo from [facility] 07/26 showed normal LVSF. When is he able to be weaned from pressor support we can introduce GDMT for his cardiomyopathy. For now, any volume overload he may experience can be managed with diuretic. Subjective Date/time seen: 02/13/22 08:59 Cardiology follow up for elevated troponin Patient remains intubated and sedated in the ICU. Echo reveals a cardiomyopathy with EF 35 - 40%, no WMA. Still on pressor support. Prognosis is guarded. Review of Systems Review of Systems: ROS unobtainable: Yes unobtainable due to endotracheal tube Exam Const: Other: Obese elderly intubated man HENMT: Mouth: Yes moist mucous membranes Eyes: Sclera: sclerae normal Neck: Neck: supple Other: carotid pulses are intact bilaterally. Cannot assess JVD given his body habitus Resp: Effort & Inspection: normal respiratory effort Auscultation: clear to auscultation bilaterally Other: breath sounds are relatively clear anteriorly unable to sit the patient up for posterior auscultation because of his obesity Cardio: Rate: regular rate Rhythm: regular rhythm Heart sounds: S1 normal heart sound present and S2 normal heart sound present GI: Auscultation: normal bowel sounds Urinary Catheter: Urinary Catheter: patent and draining Skin: General skin exam: normal color Neuro: Other: intubated and sedated Extrem: Other: no pitting edema, adequate distal perfusion Objective Data Vital Signs Vital Signs: Vital Signs - 24 hr 02/12/22 09:19 02/12/22 09:31 02/12/22 09:31 Temperature Pulse Rate 97 108 H 108 H Respiratory Rate 26 H 26 H Blood Pressure 148/75 H Pulse Oximetry Oxygen Delivery Fraction of Inspired Oxygen 02/12/22 09:06 02/12/22 11:31 02/12/22 11:49 Temperature Pulse Rate 110 H 92 90 Respiratory Rate Blood Pressure 162/78 H 153/77 H Pulse Oximetry 95 Oxygen Delivery Mechanical Ventilation Fraction of Inspired Oxygen 70 02/12/22 12:01 02/12/22 12:01 02/12/22 12:06 Temperature Pulse Rate 85 85 92 Respiratory Rate Blood Pressure 166/100 H 166/100 H 166/100 H Pulse Oximetry Oxygen Delivery Fraction of Inspired Oxygen 02/12/22 12:30 02/12/22 12:47 02/12/22 11:25 Temperature Pulse Rate 86 86 104 H Respiratory Rate Blood Pressure 160/91 H 150/81 H Pulse Oximetry 100 Oxygen Delivery Mechanical Ventilation Fraction of Inspired Oxygen 80 02/12/22 09:01 02/12/22 09:06 02/12/22 09:11 Temperature Pulse Rate 109 H 118 H 106 H Respiratory Rate 23 H 30 H 26 H Blood Pressure 141/76 H 161/81 H 122/62 Pulse Oximetry 98 95 Oxygen Delivery Fraction of Inspired Oxygen 02/12/22 09:16 02/12/22 09:18 02/12/22 09:21 Temperature Pulse Rate 109 H 102 H 103 H Respiratory Rate 25 H 27 H 25 H Blood Pressure 143/75 H 148/75 H 135/60 Pulse Oximetry 95 100 Oxygen Delivery Fraction of Inspired Oxygen 02/12/22 09:26 02/12/22 09:31 02/12/22 09:36 Temperature Pulse Rate 93 104 H 99 Respiratory Rate 26 H 25 H 26 H Blood Pressure 147/72 H 134/62 150/79 H Pulse Oximetry 99 96 Oxygen Delivery Fraction of Inspired Oxygen 02/12/22 09:41 02/12/22 09:46 02/12/22 09:51 Temperature Pulse Rate 96 101 H 113 H Respiratory Rate 25 H 24 H 24 H Blood Pressure 139/81 162/91 H 151/108 H Pulse Oximetry 97 100 100 Oxygen Delivery Fraction of
[2022-02-13 10:16] LABS: Reflex Lactic Acid Yes or No Add Lactic
[2022-02-13 11:04] LABS: Lactic Acid 4.1 mmol/L (0.7-2.0)
--- NOTE | 2022-02-13 11:09 | PM.IMPN ---
Progress Note: A&P Assessment and Plan (1) Acute respiratory failure: Code(s): J96.00 - Acute respiratory failure, unspecified whether with hypoxia or hypercapnia Status: Acute Assessment and Plan: Acute Respiratory failure secondary to pneumonia with possible component of pulmonary edema. Patient was having nausea vomiting and may have aspirated. Continue full mechanical ventilation support to prevent hypoxemia/hypercarbia and end organ damage. ABG and vent settings reviewed Chest x-ray reviewed-advance ET tube by 2 cm. Low tidal volume ventilation strategy to prevent volutrauma P.r.n. Bronchodilators (2) Septic shock: Code(s): A41.9 - Sepsis, unspecified organism; R65.21 - Severe sepsis with septic shock Status: Acute Assessment and Plan: Severe septic shock secondary to Gram-negative bacteremia and UTI Patient is on 4 vasopressors at high doses which will be continued to titrate He has received more than 5 L of fluid. Will continue IV fluids with bicarb at a gentle rate Continue hydrocortisone Continue imipenem Urine and blood cultures have been sent and are pending His lactic acid level is still pretty elevated which raise the possibility of bowel ischemia. Patient at this time is too unstable to transport to [facility] Radiology for CT. (3) Metabolic acidosis: Code(s): E87.20 - Acidosis, unspecified Status: Acute Assessment and Plan: Severe metabolic acidosis secondary to RICK septic shock and lactic acidosis Patient has received multiple pushes of IV bicarb overnight due to shock Continue IV fluids with bicarb Recheck ABG later in the day (4) Hydronephrosis of right kidney: Code(s): N13.30 - Unspecified hydronephrosis Status: Acute Assessment and Plan: Secondary to ureteral stricture and status post right ureteral stent (5) Acute kidney injury: Code(s): N17.9 - Acute kidney failure, unspecified Status: Acute Assessment and Plan: Secondary to ureteral stricture, septic shock, hypovolemia, mild rhabdomyolysis Monitor urine output and electrolytes Monitor CK level IV fluids with bicarb Renal ultrasound shows unremarkable kidneys Nephrology has been consulted (6) Urinary tract infection: Code(s): N39.0 - Urinary tract infection, site not specified Status: Acute Assessment and Plan: See above (7) Non-ST elevated myocardial infarction (non-STEMI): Code(s): I21.4 - Non-ST elevation (NSTEMI) myocardial infarction Status: Acute Assessment and Plan: Elevated troponin likely secondary to septic shock Patient evaluated by Cardiology Echocardiogram ordered Add aspirin Plan DVT prophylaxis -Lovenox Stress ulcer prophylaxis -PPI Nutrition -NPO OG to low intermittent suction Code Status -patient is DNR I have confirmed with patient's family the patient is not allergic to fentanyl as documented in the chart. Only allergy is iodine I spoke to patient's large family including his and multiple children bedside. I updated them with patient's current status including acute kidney failure, acute respiratory failure, severe septic shock requiring multiple vasopressors, acute kidney failure, bacteremia and poor prognosis. I answered all their questions. Total Critical Care Time - 60 minutes Due to a high probability of clinically significant, life threatening deterioration, the patient required my highest level of preparedness to intervene emergently and I personally spent this critical care time directly and personally managing the patient. This critical care time included obtaining a history; examining the patient; pulse oximetry; ordering and review of studies; arranging urgent treatment with development of a management plan; evaluation of patient's response to treatment; frequent reassessment; and discussions with other providers. It was exclusive of separately billable procedures and treating other patient
--- NOTE | 2022-02-13 11:14 | WPDINTPN ---
Progress Note: A&P Assessment and Plan (1) Acute respiratory failure: Code(s): J96.00 - Acute respiratory failure, unspecified whether with hypoxia or hypercapnia Status: Acute Assessment and Plan: Acute Respiratory failure secondary to pneumonia with possible component of pulmonary edema. Patient was having nausea/vomiting and may have aspirated. Continue full mechanical ventilation support to prevent hypoxemia/hypercarbia and end organ damage. ABG and vent settings adjusted Chest x-ray reviewed Low tidal volume ventilation strategy to prevent volutrauma Bronchodilators p.r.n. (2) Septic shock: Code(s): A41.9 - Sepsis, unspecified organism; R65.21 - Severe sepsis with septic shock Status: Acute Assessment and Plan: Severe septic shock secondary to Gram-negative bacteremia and UTI Patient was on on 4 vasopressors at maximum doses, currently epinephrine and phenylephrine -remains on Levophed and vasopressin He has received more than 5 L of fluid. Continue gentle hydration with IV fluids Continue hydrocortisone Continue imipenem Urine and blood cultures growing E coli, pansensitive Lactic acid levels are trending down (3) Metabolic acidosis: Code(s): E87.20 - Acidosis, unspecified Status: Acute Assessment and Plan: Severe metabolic acidosis secondary to RICK septic shock and lactic acidosis Patient has received multiple pushes of IV bicarb overnight due to shock Continue IV fluids with bicarb (4) Hydronephrosis of right kidney: Code(s): N13.30 - Unspecified hydronephrosis Status: Acute Assessment and Plan: Secondary to ureteral stricture and status post right ureteral stent (5) Acute kidney injury: Code(s): N17.9 - Acute kidney failure, unspecified Status: Acute Assessment and Plan: Secondary to ureteral stricture, septic shock, hypovolemia, mild rhabdomyolysis Monitor urine output and electrolytes Monitor CK level Continue maintenance IV fluids Renal ultrasound shows unremarkable kidneys Nephrology has been consulted -urine output has been adequate, creatinine trending down (6) Urinary tract infection: Code(s): N39.0 - Urinary tract infection, site not specified Status: Acute Assessment and Plan: Urine cultures growing E coli, continue imipenem (7) Non-ST elevated myocardial infarction (non-STEMI): Code(s): I21.4 - Non-ST elevation (NSTEMI) myocardial infarction Status: Acute Assessment and Plan: Elevated troponin likely secondary to septic shock Patient evaluated by Cardiology 02/13/2022 Echocardiogram : EF 35-40%, mildly increased LV wall thickness, RV systolic function is reduced, estimated RVSP of 39 mmHg Continue aspirin Plan DVT prophylaxis -Lovenox Stress ulcer prophylaxis -PPI Nutrition -will start trickle tube feeds Code Status -patient is DNR 02/13/2022: Discussed at length with 2 sons and the and updated them with patient's condition and plan of care. I did discuss with them that be coming down the vasopressors, his kidney functions are improving, his urine output has improved, lactic acid is improving. He may have aspiration pneumonitis/pneumonia that is why he is requiring the breathing machine. I answered all questions. The did tell me that fentanyl dropped his blood pressure when he had his shoulder surgery. I told her that we are going to be careful with the use of fentanyl. Dr. Peguero has confirmed with patient's family the patient is not allergic to fentanyl as documented in the chart. Only allergy is iodine Dr Peguero spoke to patient's large family including his and multiple children bedside. He updated them with patient's current status including acute kidney failure, acute respiratory failure, severe septic shock requiring multiple vasopressors, acute kidney failure, bacteremia and poor prognosis. He had answered all their questions. Total Critical
--- NOTE | 2022-02-13 11:46 | P.PNNP_ITS ---
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 coli) * significant vasopressor support at this time initially -- weaned down to 2 pressors * s/p aggressive IVF resuscitation * on broad spectrum antibiotics (3) Acute respiratory failure: Code(s): J96.00 - Acute respiratory failure, unspecified whether with hypoxia or hypercapnia Status: Acute Assessment and Plan: * due to possible pneumonia and pulmonary edema * possible aspiration (?) -- was having some nausea and vomiting * on full ventilator support currently * weaning once more stable (4) Metabolic acidosis: Code(s): E87.20 - Acidosis, unspecified Status: Acute Assessment and Plan: * due to RICK/ARF and lactic acidosis * on bicarb IVFs to compensate (but aggressiveness limited by evidence of pulmonary edema) * follopw ABGs (5) Hydronephrosis of right kidney: Code(s): N13.30 - Unspecified hydronephrosis Status: Acute Assessment and Plan: * secondary to ureteral stricture * s/p right ureteral stent * Urology following (6) Non-ST elevated myocardial infarction (non-STEMI): Code(s): I21.4 - Non-ST elevation (NSTEMI) myocardial infarction Status: Acute Assessment and Plan: * Cardiology recommendations noted Will continue to follow. Subjective Date/time seen: 02/13/22 11:46 Remains intubated and on mechanical ventilation; vasopressor requirements are less and making good urine output in the last 24 hours as well; renal function and lactic acid levels are improving too; no other issues/events overnight or earlier this AM. Exam Narrative: General: elderly Caucasain male intubated and on mechanical ventilation Heart: normal S1 and S2; no rub Lungs: coarse breath sounds Abdomen: soft, nontender, nondistended, positive bowel sounds Extremities: no cyanosis or clubbing; trace edema Skin: warm and dry Objective Data Vital Signs Vital Signs: Vital Signs Temp Pulse Resp BP Pulse Ox O2 Del Method FiO2 02/13/22 11:40 79 99 Mechanical Ventilation 40 02/13/22 11:32 77 121/82 02/13/22 11:17 40 02/13/22 11:16 74 26 H 98 Mechanical Ventilation 40 02/13/22 10:46 77 130/94 H 02/13/22 10:00 78 26 H 110/75 99 02/13/22 10:00 75 02/13/22 09:44 76 113/79 02/13/22 08:51 77 115/81 02/13/22 07:50 76 99 Mechanical Ventilation 40 02/13/22 08:34 40 02/13/22 08:19 77 28 H 02/13/22 08:19 81 28 H 02/13/22 08:13 79 122/83 02/13/22 08:30 75 134/93 H 02/13/22 08:00 75 02/13/22 07:52 37.0 C 78 25 H 121/81 99 02/13/22 07:41 4
--- NOTE | 2022-02-13 11:46 | PM.PNNEP ---
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 coli) significant vasopressor support at this time initially -- weaned down to 2 pressors s/p aggressive IVF resuscitation on broad spectrum antibiotics (3) Acute respiratory failure: Code(s): J96.00 - Acute respiratory failure, unspecified whether with hypoxia or hypercapnia Status: Acute Assessment and Plan: due to possible pneumonia and pulmonary edema possible aspiration (?) -- was having some nausea and vomiting on full ventilator support currently weaning once more stable (4) Metabolic acidosis: Code(s): E87.20 - Acidosis, unspecified Status: Acute Assessment and Plan: due to RICK/ARF and lactic acidosis on bicarb IVFs to compensate (but aggressiveness limited by evidence of pulmonary edema) follopw ABGs (5) Hydronephrosis of right kidney: Code(s): N13.30 - Unspecified hydronephrosis Status: Acute Assessment and Plan: secondary to ureteral stricture s/p right ureteral stent Urology following (6) Non-ST elevated myocardial infarction (non-STEMI): Code(s): I21.4 - Non-ST elevation (NSTEMI) myocardial infarction Status: Acute Assessment and Plan: Cardiology recommendations noted Will continue to follow. Subjective Date/time seen: 02/13/22 11:46 Remains intubated and on mechanical ventilation; vasopressor requirements are less and making good urine output in the last 24 hours as well; renal function and lactic acid levels are improving too; no other issues/events overnight or earlier this AM. Exam Narrative: General: elderly Caucasain male intubated and on mechanical ventilation Heart: normal S1 and S2; no rub Lungs: coarse breath sounds Abdomen: soft, nontender, nondistended, positive bowel sounds Extremities: no cyanosis or clubbing; trace edema Skin: warm and dry Objective Data Vital Signs Vital Signs: Vital Signs Temp Pulse Resp BP Pulse Ox O2 Del Method FiO2 02/13/22 11:40 79 99 Mechanical Ventilation 40 02/13/22 11:32 77 121/82 02/13/22 11:17 40 02/13/22 11:16 74 26 H 98 Mechanical Ventilation 40 02/13/22 10:46 77 130/94 H 02/13/22 10:00 78 26 H 110/75 99 02/13/22 10:00 75 02/13/22 09:44 76 113/79 02/13/22 08:51 77 115/81 02/13/22 07:50 76 99 Mechanical Ventilation 40 02/13/22 08:34 40 02/13/22 08:19 77 28 H 02/13/22 08:19 81 28 H 02/13/22 08:13 79 122/83 02/13/22 08:30 75 134/93 H 02/13/22 08:00 75 02/13/22 07:52 37.0 C 78 25 H 121/81 99 02/13/22 07:41 40 02/13/22 07:40 80 28 H 99 Mechanical Ventilation 40 02/13/22 07:17 80 118/74 02/13/22 06:36 127/82 02/13/22 06:00 79 28 H 113/77 100 02/13/22 06:00 79 02/13/22 05:05 82 100 Mechanical Ventilation 40 02/13/22 05:13 80 121/84 02/13/22 04:00 83 28 H 100 Mechanical Ventilation 40 02/13/22 04:00 45 02/13/22 04:00 83 02/13/22 04:00 83 130/88 02/13/22 04:00 36.8 C 80 28 H 130/88 100 02/13/22 02:02 79 99 Mechanical Ventilation 45 02/13/22 02:00 111/71 02/13/22 02:00 85 28 H 102/74 98 02/13/22 02:00 85 02/13/22 01:32 85 121/75 02/13/22 00:30 80 123/7
[2022-02-13 12:09] LABS: Glucose Point of Care 126 mg/dl (65-105)
[2022-02-13] MEDS: NOREPINEPHRINE 8 MG/D5W 250 ML 8 MG/250 ML BAG 26.25 MG IV CONT (12:44)
[2022-02-13 16:00] LABS: Glucose Point of Care 125 mg/dl (65-105)
--- NOTE | 2022-02-13 18:28 | WPDUROPN2 ---
Progress Note: A&P Assessment and Plan (1) Acute kidney injury: Code(s): N17.9 - Acute kidney failure, unspecified Status: Acute Assessment and Plan: Improved with stent in place, continue to monitor creatinine to baseline. (2) Hydronephrosis of right kidney: Code(s): N13.30 - Unspecified hydronephrosis Status: Acute Assessment and Plan: Stent to stay in place for a few months then a decision of an exchange versus removal will need to be made with Dr. Shearer or Dustin at outpatient f/u. Hydronephrosis is not from an obstructing stone. No further surgical evaluation necessary. (3) Septic shock: Code(s): A41.9 - Sepsis, unspecified organism; R65.21 - Severe sepsis with septic shock Status: Acute Assessment and Plan: Continue IV antibiotics. Cultures, both blood and urine grew E-Coli susceptible to Imipenem. Minimal improvement of WBC, will continue to monitor from a distance. Tobacco Educator/Medicine to continue supportive care. Subjective Subjective Date/Time Seen: 02/13/22 18:28 Cystoscopy, right ureteral stent placement, right retrograde pyelogram. Patient on ventilator with continued treatment of septic shock. His blood and urine cultures grew E-Coli sensitive to Imipenem which he currently remains on. Currently stable on pressors. Post Op day: 2 Review of Systems Review of Systems: ROS unobtainable: Yes unobtainable due to endotracheal tube Exam Const: General: comfortable Resp: Effort & Inspection: normal respiratory effort (on ventilator.) Cardio: Rate: regular rate GI: GI Palp: Yes Soft to palpation and No Guarding due to palpation present (GI) Urinary Catheter: Urinary Catheter: patent and draining and urine dark Extrem: Right lower extremity: edema Left lower extremity: edema Objective Data Vital Signs Vital Signs: Vital Signs - 24 hr 02/12/22 18:30 02/12/22 18:45 02/12/22 19:00 Temperature Pulse Rate 81 85 96 Respiratory Rate 28 H 28 H 28 H Blood Pressure Pulse Oximetry 100 100 100 Oxygen Delivery Fraction of Inspired Oxygen 02/12/22 20:12 02/12/22 20:51 02/12/22 20:15 Temperature Pulse Rate 88 82 Respiratory Rate Blood Pressure 133/91 H 148/87 H Pulse Oximetry 100 Oxygen Delivery Mechanical Ventilation Fraction of Inspired Oxygen 60 02/12/22 20:00 02/12/22 20:00 02/12/22 20:00 Temperature 98.3 F Pulse Rate 81 82 Respiratory Rate 28 H Blood Pressure 133/82 Pulse Oximetry 100 Oxygen Delivery Fraction of Inspired Oxygen 60 02/12/22 20:00 02/12/22 22:00 02/12/22 22:00 Temperature Pulse Rate 81 80 82 Respiratory Rate 28 H 28 H Blood Pressure 130/82 Pulse Oximetry 100 100 Oxygen Delivery Mechanical Ventilation Fraction of Inspired Oxygen 60 02/12/22 21:30 02/12/22 22:15 02/12/22 23:05 Temperature Pulse Rate 82 84 82 Respiratory Rate Blood Pressure 123/69 130/82 Pulse Oximetry 100 Oxygen Delivery Mechanical Ventilation Fraction of Inspired Oxygen 50 02/13/22 00:00 02/13/22 00:00 02/13/22 00:00 Temperature Pulse Rate 83 83 Respiratory Rate 28 H Blood Pressure Pulse Oximetry 100 Oxygen Delivery Mechanical Ventilation Fraction of Inspired Oxygen 45 45 02/13/22 00:00 02/13/22 00:30 02/13/22 01:32 Temperature 98.2 F Pulse Rate 83 80 85 Respiratory Rate 28 H Blood Pressure 121/87 123/78 121/75 Pulse Oximetry 100 Oxygen Delivery Fraction of Inspired Oxygen 02/13/22 02:00 02/13/22 02:00 02/13/22 02:00 Temperature Pulse Rate 85 85 Respiratory Rate 28 H Blood Pressure 102/74 111/71 Pulse Oximetry 98 Oxygen Delivery Fraction of Inspired Oxygen 02/13/22 02:02 02/13/22 04:00 02/13/22 04:00 Temperature 98.3 F Pulse Rate 79 80 83 Respiratory Rate 28 H Blood Pressure 130/88 130/88 Pulse Oximetry 99 100 Oxygen Delivery Mechanical Ventilation Fraction of Inspired
[2022-02-13 19:54] LABS: Glucose Point of Care 171 mg/dl (65-105)
--- NOTE | 2022-02-13 23:04 | ECHO_ITS ---
Patient Info Name: Daniel Olguin Age: 81 years : 1940 Gender: Male Ht: 69 in Wt: 220 lbs BSA: 2.24 m2 HR: 79 bpm BP: 127 / 82 mmHg Heart Rhythm: Sinus Rhythm Technical Quality: Fair Exam Date: 02/13/2022 7:39 AM Exam Location: [facility] Patient Status: Inpatient Admit Date: 02/11/2022 Staff Ordering Physician: Sue David PA-C Landscape Artist: Joanne Russ RDCS Attending Provider: Benito Taylor MD Referring Physician: Frankie RUBIO; Exam Type: CA echo dop color flow w con Study Info Indications - CAD, HTN Complete two-dimensional, color flow and Doppler transthoracic echocardiogram is performed with contrast to opacify the left ventricle and to improve the deliniation of the left ventricle endocardial borders. Contrast/Agitated Saline Contrast/Ag. Saline: Definity Amount: 3.00 ml Administered By: Joanne Russ RDCS Existing IV Access: Yes IV Access Condition: patent with no signs of infiltration Summary 1. Left ventricular systolic function is moderately reduced, estimated at 35-40%. 2. There is mildly increased left ventricular wall thickness. 3. Right ventricular systolic function is reduced. 4. Dilated inferior vena cava with no collapse upon inspiration consistent with elevated right atrial pressure, 15 mmHg. 5. Estimated RVSP of 39mmHg. Left Ventricle Left ventricular chamber dimension is normal. Left ventricular systolic function is moderately reduced, estimated at 35-40%. There is mildly increased left ventricular wall thickness. Right Ventricle Right ventricular chamber dimension is normal. Right ventricular systolic function is reduced. Left Atria Left atrial chamber dimension is normal. Right Atria Right atrial chamber dimension is normal. Atrial Septum Intact interatrial septum visualized by color flow imaging. Aortic Valve The aortic valve is not well visualized. There is mild aortic valve sclerosis. There is no aortic valve stenosis. There is no aortic valve regurgitation. Pulmonic Valve The pulmonic valve is not well visualized. Mitral Valve The mitral valve has normal leaflets. There is no mitral valve stenosis. There is trace mitral valve regurgitation. Tricuspid Valve The tricuspid valve leaflets are not well visualized. There is no significant tricuspid valve stenosis. There is trace tricuspid valve regurgitation. Pericardium/Pleural There is no pericardial effusion. Inferior Vena Cava Dilated inferior vena cava with no collapse upon inspiration consistent with elevated right atrial pressure, 15 mmHg. Left Ventricular Outflow Tract Name Value Normal LVOT 2D LVOT Diameter 2.06 cm LVOT Doppler LVOT Peak Gradient 1 mmHg LVOT Mean Gradient 1 mmHg LVOT VTI 8.12 cm LVOT VTI/AV VTI Ratio 0.84 LVOT Stroke Volume 27.16 ml LVOT CO 1.91 l/min LVOT CI
[2022-02-13 23:20] LABS: Glucose Point of Care 174 mg/dl (65-105)
[2022-02-14] VITALS (23 sets, daily range): BP systolic 98–162; BP diastolic 71–108; PULSE 71–92; RESP 20–31; TEMP 36.7–37.2; O2SAT 93–100
[2022-02-14 04:28] LABS: Hematocrit 35.3 % (42.0-52.0); Hemoglobin 11.1 g/dL (14.0-18.0); Immature Platelet Fraction Pct 9.4 % (0.9-11.2); Mean Corpuscular HGB Conc 31.4 g/dl (32-36); Mean Corpuscular Hemoglobin 30.2 pg (26-34); Mean Corpuscular Volume 96.2 fl (80-100); Mean Platelet Volume 11.2 fl (7.4-10.4); Platelet Count Result 95 k/mm3 (150-375); Red Blood Count 3.67 M/mm3 (4.6-6.20); Red Cell Distribution Width 14.6 % (11.5-14.5); White Blood Count 22.7 K/mm3 (4.5-10.0)
[2022-02-14 04:42] LABS: Alanine Aminotransferase 402 U/L (6-50); Albumin Level 2.7 g/dL (3.5-5.1); Alkaline Phosphatase 133 U/L (38-126); Anion Gap 9 mmol/L (8-16); Aspartate Amino Transferase 480 U/L (17-59); Bilirubin,Total 0.9 mg/dL (0.2-1.3); Blood Urea Nitrogen 63 mg/dL (9-20); Carbon Dioxide 35 mmol/L (22-30); Chloride 99 mmol/L (98-107); Estimated CRCL calculation 36 ml/min; Estimated Glomerular Filt Rate 36; Glucose 195 mg/dL (65-110); Magnesium 2.5 mg/dL (1.6-2.3); Phosphorus 1.5 mg/dL (2.5-4.5); Sodium 143 mmol/L (137-145)
[2022-02-14] MEDS: KCL 20 MEQ/0.45% NS 1,000 ML 100 ML IV CONT ×2 (05:04→20:22)
[2022-02-14 05:42] LABS: Base Excess ABG 8.2 mEq/l (+/-2.0); Carboxyhemoglobin 0.3 % THb (0-2.0); Fractional Inspired Oxygen 35 %; HCO3 ABG 31.9 mEq/l (22.0-26.0); Methemoglobin ABG 0.1 %THb (0-1.5); Oxygen Content ABG 16.9 %vol (16.0-22.0); Oxygen Saturation ABG 97.6 % (95.0-100.0); Oxyhemoglobin 96.3 % THb (90.0-100.0); PCO2 ABG 40.7 mmHg (35.0-45.0); PO2 ABG 91.2 mmHg (80.0-100.0); PO2 FiO2 Ratio Arterial Blood 2.61 %; Reduced Hemoglobin 3.3 %THb (0-5.0); Total Hemoglobin 12.4 g/dL (12.0-18.0)
[2022-02-14 05:43] LABS: Arterial Blood Gas PEEP 10 cmH2O; Arterial Blood Gas Vent Mode CMV; Arterial Blood Gas Ventilator rate 26 /MIN; Device VENTILATOR; Modified Allen's Test Unable to perform; Site Drawn RIGHT RADIAL; pH ABG 7.512 (7.350-7.450)
[2022-02-14 05:44] LABS: Arterial Blood Gas Tidal Volume 450 ml
[2022-02-14] MEDS: HYDROCORTISONE SODIUM SUCCINATE 100 MG/2 ML VIAL IV PUSH (06:40)
[2022-02-14] MEDS: CENTRAL LINE FLUSH 10 ML IV PUSH ×5 (06:41→20:15)
[2022-02-14] MEDS: MINERAL OIL/WHITE PETROLATUM OINTMENT 1 APPLIC EACH EYE ×2 (07:58→20:14)
[2022-02-14] MEDS: ENOXAPARIN 30 MG/0.3 ML SYRINGE SUB-Q (07:59)
[2022-02-14] MEDS: PANTOPRAZOLE SODIUM IV 40 MG VIAL IV PUSH ×2 (07:59→20:15)
[2022-02-14] MEDS: ASPIRIN 325 MG TABLET FEED TUBE (07:59)
[2022-02-14] MEDS: INSULIN GLARGINE (*BKC) 100 UNITS/ML 10 UNITS SUB-Q (08:05)
[2022-02-14 08:10] LABS: Glucose Point of Care 182 mg/dl (65-105)
--- NOTE | 2022-02-14 09:38 | P.PNNP_ITS ---
Progress Note: A&P Assessment and Plan (1) Acute kidney injury: Code(s): N17.9 - Acute kidney failure, unspecified Status: Acute Assessment and Plan: * suspect multifactorial ATN: * septic shock/hemodynamics instability * possible prerenal factors * ureteral stricture * mild rhabdomyolysis * renal ultrasound unremarkable * follow repeat labs and UOP (2) Septic shock: Code(s): A41.9 - Sepsis, unspecified organism; R65.21 - Severe sepsis with septic shock Status: Acute Assessment and Plan: * due to urosepsis (blood + urine culture with E. coli) * significant vasopressor support initially * weaned off all vasopressor therapy at this time * s/p aggressive IVF resuscitation * on IV antibiotics (3) Acute respiratory failure: Code(s): J96.00 - Acute respiratory failure, unspecified whether with hypoxia or hypercapnia Status: Acute Assessment and Plan: * due to possible pneumonia and pulmonary edema * possible aspiration (?) -- was having some nausea and vomiting * on full ventilator support currently * weaning as tolerated (4) Metabolic acidosis: Code(s): E87.20 - Acidosis, unspecified Status: Acute Assessment and Plan: * resolving (if not resolved) * due to RICK/ARF and lactic acidosis * off bicarb IVFs * follow ABGs (5) Hydronephrosis of right kidney: Code(s): N13.30 - Unspecified hydronephrosis Status: Acute Assessment and Plan: * secondary to ureteral stricture * s/p right ureteral stent * Urology following (6) Cardiomyopathy: Code(s): I42.9 - Cardiomyopathy, unspecified Status: Acute Assessment and Plan: * Echo here with EF of 35 - 40% * Cardiology following (7) Diabetes: Code(s): E11.9 - Type 2 diabetes mellitus without complications Status: Acute Assessment and Plan: * follow accucheks * glycemic control Will continue to follow. Subjective Date/time seen: 02/14/22 09:38 Weaned off all pressor therapy with stable hemodynamics at this time; continues to make reasonable urine output with relative stability in renal function; remains intubated/sedated and on mechanical ventilation; no acute events overni ght or earlier this AM. Exam Narrative: General: elderly Caucasain male intubated and on mechanical ventilation Heart: normal S1 and S2; no rub Lungs: coarse breath sounds Abdomen: soft, nontender, nondistended, positive bowel sounds Extremities: no cyanosis or clubbing; trace edema Skin: warm and intact Objective Data Vital Signs Vital Signs: Vital Signs Temp Pulse Resp BP Pulse Ox O2 Del Method FiO2 02/14/22 08:00 100 Mechanical Ventilation 35 02/14/22 08:00 75 02/14/22 08:00 35 02/14/22 07:55 77 26 H 02/14/22 07:55 77 26 H 02/14/22 08:00 36.8 C 73 26 H 141/93 H 99 02/14/22 07:46 77 98 Mechanical Ventilation 35 02/14/22 07:50 73 26 H 02/14/22 07:50 73 26 H 02/14/22 06:00 79 26 H 134/90 97 02/14/22 06:00 79 02/14/22 05:10 78 98 Mechanical Ventilation 35 02/14/22 04:15 106/74 02/14/22 04:00 40 02/14/22 04:00 74 26 H 98 Mechanical Ventilation 40 02/14/22 04:00
--- NOTE | 2022-02-14 09:38 | PM.PNNEP ---
Progress Note: A&P Assessment and Plan (1) Acute kidney injury: Code(s): N17.9 - Acute kidney failure, unspecified Status: Acute Assessment and Plan: suspect multifactorial ATN: septic shock/hemodynamics instability possible prerenal factors ureteral stricture mild rhabdomyolysis renal ultrasound unremarkable follow repeat labs and UOP (2) Septic shock: Code(s): A41.9 - Sepsis, unspecified organism; R65.21 - Severe sepsis with septic shock Status: Acute Assessment and Plan: due to urosepsis (blood + urine culture with E. coli) significant vasopressor support initially weaned off all vasopressor therapy at this time s/p aggressive IVF resuscitation on IV antibiotics (3) Acute respiratory failure: Code(s): J96.00 - Acute respiratory failure, unspecified whether with hypoxia or hypercapnia Status: Acute Assessment and Plan: due to possible pneumonia and pulmonary edema possible aspiration (?) -- was having some nausea and vomiting on full ventilator support currently weaning as tolerated (4) Metabolic acidosis: Code(s): E87.20 - Acidosis, unspecified Status: Acute Assessment and Plan: resolving (if not resolved) due to RICK/ARF and lactic acidosis off bicarb IVFs follow ABGs (5) Hydronephrosis of right kidney: Code(s): N13.30 - Unspecified hydronephrosis Status: Acute Assessment and Plan: secondary to ureteral stricture s/p right ureteral stent Urology following (6) Cardiomyopathy: Code(s): I42.9 - Cardiomyopathy, unspecified Status: Acute Assessment and Plan: Echo here with EF of 35 - 40% Cardiology following (7) Diabetes: Code(s): E11.9 - Type 2 diabetes mellitus without complications Status: Acute Assessment and Plan: follow accucheks glycemic control Will continue to follow. Subjective Date/time seen: 02/14/22 09:38 Weaned off all pressor therapy with stable hemodynamics at this time; continues to make reasonable urine output with relative stability in renal function; remains intubated/sedated and on mechanical ventilation; no acute events overnight or earlier this AM. Exam Narrative: General: elderly Caucasain male intubated and on mechanical ventilation Heart: normal S1 and S2; no rub Lungs: coarse breath sounds Abdomen: soft, nontender, nondistended, positive bowel sounds Extremities: no cyanosis or clubbing; trace edema Skin: warm and intact Objective Data Vital Signs Vital Signs: Vital Signs Temp Pulse Resp BP Pulse Ox O2 Del Method FiO2 02/14/22 08:00 100 Mechanical Ventilation 35 02/14/22 08:00 75 02/14/22 08:00 35 02/14/22 07:55 77 26 H 02/14/22 07:55 77 26 H 02/14/22 08:00 36.8 C 73 26 H 141/93 H 99 02/14/22 07:46 77 98 Mechanical Ventilation 35 02/14/22 07:50 73 26 H 02/14/22 07:50 73 26 H 02/14/22 06:00 79 26 H 134/90 97 02/14/22 06:00 79 02/14/22 05:10 78 98 Mechanical Ventilation 35 02/14/22 04:15 106/74 02/14/22 04:00 40 02/14/22 04:00 74 26 H 98 Mechanical Ventilation 40 02/14/22 04:00 74 02/14/22 04:00 37.2 C 74 26 H 130/94 H 98 02/14/22 02:05 81 100 Mechanical Ventilation 35 02/13/22 23:15 67 100 Mechanical Ventilation 35 02/14/22 02:00 83 26 H 98/71 L 100 02/14/22 02:00 83 02/14/22 00:00 37.1 C 81 26 H 100/78 100 02/13/22 23:56 40 02/13/22 23:55 83 26 H 100 Mechanical Ventilation 40 02/13/22 23:54 82 02/13/22 22:00 85 26 H 95/72 L 100 02/13/22 22:00 85 02/13/22 20:37 84 100 Mechanical Ventilation 40 02/13/22 20:00 37.5 C 87 26 H 101/78 100 02/13/22 20:00 40 02/13/22 20:00 87 26 H 100 Mechanical Ventilation 40 02/13/22 19:57 83
[2022-02-14] MEDS: ALTEPLASE 2 MG VIAL (CATHFLO) 6 MG IV PUSH (10:08)
--- NOTE | 2022-02-14 10:08 | PC.NURSE ---
Cathflo to all three central line lumens.
--- NOTE | 2022-02-14 10:54 | PM.IMPN ---
Progress Note: A&P Assessment and Plan (1) Acute respiratory failure: Code(s): J96.00 - Acute respiratory failure, unspecified whether with hypoxia or hypercapnia Status: Acute Assessment and Plan: Acute Respiratory failure secondary to pneumonia with possible component of pulmonary edema. Patient was having nausea/vomiting and may have aspirated. Continue full mechanical ventilation support continue IV antibiotics (2) Septic shock: Code(s): A41.9 - Sepsis, unspecified organism; R65.21 - Severe sepsis with septic shock Status: Acute Assessment and Plan: Severe septic shock secondary to Gram-negative bacteremia and UTI continue vasopressors. Management per ICU (3) Metabolic acidosis: Code(s): E87.20 - Acidosis, unspecified Status: Acute Assessment and Plan: Severe metabolic acidosis secondary to RICK septic shock and lactic acidosis managed per ICU (4) Hydronephrosis of right kidney: Code(s): N13.30 - Unspecified hydronephrosis Status: Acute Assessment and Plan: Secondary to ureteral stricture and status post right ureteral stent (5) Acute kidney injury: Code(s): N17.9 - Acute kidney failure, unspecified Status: Acute Assessment and Plan: Secondary to ureteral stricture, septic shock, hypovolemia, mild rhabdomyolysis monitor kidney function, electrolytes and CK levels. IV fluids (6) Urinary tract infection: Code(s): N39.0 - Urinary tract infection, site not specified Status: Acute Assessment and Plan: Urine cultures growing E coli, continue antibiotics (7) Non-ST elevated myocardial infarction (non-STEMI): Code(s): I21.4 - Non-ST elevation (NSTEMI) myocardial infarction Status: Acute Assessment and Plan: Elevated troponin likely secondary to septic shock Subjective Date/time seen: 02/14/22 10:54 patient is intubated and sedated Exam Narrative: General: Pt is sedated, intubated and on mechanical ventilation Lungs/Chest: Trachea central Coarse BS B/L, No crackles or wheezing. Cardiac: RRR. Normal S1 S2. No murmurs Abdomen: Decreased bowel sounds. Obese. Soft, patient grimaces on palpation Extremities: Bilateral lower extremity edema, feet are warm, decreased pedal pulses : [place] in place with dark urine output Neurologic: Unable to assess due to sedation, patient does not open his eyes or follow simple command. Pupils are pinpoint and sluggishly reactive to light Objective Data Vital Signs Vital Signs: Vital Signs - 24 hr 02/13/22 11:16 02/13/22 11:17 02/13/22 11:32 Temperature Pulse Rate 74 77 Respiratory Rate 26 H Blood Pressure 121/82 Pulse Oximetry 98 Oxygen Delivery Mechanical Ventilation Fraction of Inspired Oxygen 40 40 02/13/22 11:51 02/13/22 11:40 02/13/22 12:00 Temperature 98.8 F Pulse Rate 82 79 80 Respiratory Rate 26 H Blood Pressure 128/93 H 122/95 H Pulse Oximetry 99 98 Oxygen Delivery Mechanical Ventilation Fraction of Inspired Oxygen 40 02/13/22 12:07 02/13/22 12:00 02/13/22 12:47 Temperature Pulse Rate 84 75 87 Respiratory Rate Blood Pressure 122/95 H 130/95 H Pulse Oximetry Oxygen Delivery Fraction of Inspired Oxygen 02/13/22 12:44 02/13/22 12:44 02/13/22 13:06 Temperature Pulse Rate 72 72 82 Respiratory Rate Blood Pressure 139/94 H 139/94 H 113/78 Pulse Oximetry Oxygen Delivery Fraction of Inspired Oxygen 02/13/22 13:21 02/13/22 13:29 02/13/22 13:29 Temperature Pulse Rate 74 76 76 Respiratory Rate Blood Pressure 116/91 H 112/85 112/85 Pulse Oximetry Oxygen Delivery Fraction of Inspired Oxygen 02/13/22 14:00 02/13/22 14:00 02/13/22 14:05 Temperature Pulse Rate 80 87 84 Respiratory Rate 27 H Blood Pressure 118/82 118/82 Pulse Oximetry 98 Oxygen Delivery Fraction of Inspired Oxygen 02/13/22 14:29 02/13/22 1
--- NOTE | 2022-02-14 11:26 | PCNFU ---
Nutrition Follow-Up Complete: Inadequate Oral Intake as related to mechanical ventilation as evidenced by tube feedings. Goal: Meet estimated nutritional needs Patient progressing towards goal. We will continue current goal. Pt current nutrition is Nepro at 20 ml/hr. Nutrition recommendation: Goal rate at 50 ml/hr. Last recorded weight is 110.9 kg, down from 111.2 kg on admit. Bowel Motility: +Bm reported 02/14 Labs Reviewed:PO4 1.5,BUN 63, GFR 36, Glu 195, Alb 2.7,Hgb 11.1,Hct 35.3 Meds Noted:Lantus, Protonix, Maxipime. Skin: WNL Additional Notes: Patient remains on mechanical vent. Off pressors, sedation on standby. Tolerating tube feedings of Nepro,plans to advance to goal rate today at 50ml/hr. Tube feedings at goal rate will provide 1980 kcals/89 gms protein/800 ml water. Free water flush 30 ml q 4 hours. Agree with diet orders. Will monitor daily in ICU rounds and reassessing every Sunday and Sunday.
--- NOTE | 2022-02-14 12:04 | WPDINTPN ---
Progress Note: A&P Assessment and Plan (1) Acute respiratory failure: Code(s): J96.00 - Acute respiratory failure, unspecified whether with hypoxia or hypercapnia Status: Acute Assessment and Plan: Acute Respiratory failure secondary to pneumonia with possible component of pulmonary edema. Patient was having nausea/vomiting and may have aspirated. Continue full mechanical ventilation support to prevent hypoxemia/hypercarbia and end organ damage. ABG and vent settings adjusted, decreased PEEP to 8 and respiratory rate to 22 Chest x-ray reviewed Low tidal volume ventilation strategy to prevent volutrauma -sedation being weaned Bronchodilators p.r.n. (2) Septic shock: Code(s): A41.9 - Sepsis, unspecified organism; R65.21 - Severe sepsis with septic shock Status: Acute Assessment and Plan: Severe septic shock secondary to Gram-negative bacteremia and UTI Patient was initially on 4 vasopressors at maximum doses, currently epinephrine and phenylephrine -CURRENTLY OFF ALL PRESSORS He has received more than 5 L of fluid. Continue gentle hydration with IV fluids DECREASE STRESS DOSE STEROIDS Urine and blood cultures growing E coli, pansensitive WILL SWITCH IMIPENEM TO CEFEPIME Lactic acid levels are trending down (3) Metabolic acidosis: Code(s): E87.20 - Acidosis, unspecified Status: Acute Assessment and Plan: Severe metabolic acidosis secondary to RICK septic shock and lactic acidosis Patient has received multiple pushes of IV bicarb overnight due to shock Continue maintenance IV fluids (4) Hydronephrosis of right kidney: Code(s): N13.30 - Unspecified hydronephrosis Status: Acute Assessment and Plan: Secondary to ureteral stricture and status post right ureteral stent (5) Acute kidney injury: Code(s): N17.9 - Acute kidney failure, unspecified Status: Acute Assessment and Plan: Secondary to ureteral stricture, septic shock, hypovolemia, mild rhabdomyolysis Monitor urine output and electrolytes Monitor CK level Continue maintenance IV fluids Renal ultrasound shows unremarkable kidneys Nephrology has been consulted -urine output has been adequate, creatinine trending down (6) Urinary tract infection: Code(s): N39.0 - Urinary tract infection, site not specified Status: Acute Assessment and Plan: Urine cultures growing E coli, switched to cefepime (7) Non-ST elevated myocardial infarction (non-STEMI): Code(s): I21.4 - Non-ST elevation (NSTEMI) myocardial infarction Status: Acute Assessment and Plan: Elevated troponin likely secondary to septic shock Patient evaluated by Cardiology 02/13/2022 Echocardiogram : EF 35-40%, mildly increased LV wall thickness, RV systolic function is reduced, estimated RVSP of 39 mmHg Continue aspirin Plan DVT prophylaxis -Lovenox Stress ulcer prophylaxis -PPI Nutrition -tolerating tube feeds, advance to goal Code Status -patient is DNR Total Critical Care Time - 34 minutes 02/14/2022: Discussed with and updated patient's condition and plan of care. I did discuss with her regarding patient being off all pressors, WBC count trending down, kidney function is being stable in urine being adequate. I did update her regarding weaning him off sedation gradually, patient is requiring minimal oxygenation on the mechanical ventilator 02/13/2022: Discussed at length with 2 sons and the and updated them with patient's condition and plan of care. I did discuss with them that be coming down the vasopressors, his kidney functions are improving, his urine output has improved, lactic acid is improving. He may have aspiration pneumonitis/pneumonia that is why he is requiring the breathing machine. I answered all questions. The did tell me that fentanyl dropped his blood pressure when he had his shoulder surgery. I told her that we are going to be careful with the
[2022-02-14 12:18] LABS: Glucose Point of Care 231 mg/dl (65-105)
[2022-02-14] MEDS: INSULIN ASPART (*BKC) 100 UNITS/ML SUB-Q ×3 (12:18→20:14)
[2022-02-14] MEDS: LIDOCAINE HCL 1% LOCAL INJ 2 ML AMPUL 5 ML INFILTRATE (15:00)
[2022-02-14 15:35] LABS: Hepatitis B Surface Antigen Negative (Negative)
[2022-02-14 15:40] LABS: HAV RESULT Negative (Negative); Hepatitis B Core IgM Result Negative (Negative)
[2022-02-14 17:04] LABS: Hepatitis C Virus Antibody Negative (Negative)
[2022-02-14] MEDS: HYDROCORTISONE SODIUM SUCCINATE 100 MG/2 ML VIAL 50 MG IV PUSH (18:09)
[2022-02-14 18:22] LABS: Glucose Point of Care 243 mg/dl (65-105)
[2022-02-14] MEDS: hydrALAZINE HCL 20 MG/ML VIAL 10 MG IV PUSH (18:51)
[2022-02-14 20:20] LABS: Glucose Point of Care 245 mg/dl (65-105)
[2022-02-14 23:38] LABS: Glucose Point of Care 238 mg/dl (65-105)
[2022-02-15] VITALS (19 sets, daily range): BP systolic 109–158; BP diastolic 63–114; PULSE 70–93; RESP 22–30; TEMP 36.7–37.1; O2SAT 94–98
[2022-02-15] MEDS: INSULIN ASPART (*BKC) 100 UNITS/ML SUB-Q (00:51)
[2022-02-15 04:43] LABS: Hemoglobin 11.7 g/dL (14.0-18.0); Mean Corpuscular HGB Conc 32.5 g/dl (32-36); Mean Corpuscular Hemoglobin 30.4 pg (26-34); Mean Corpuscular Volume 93.5 fl (80-100); Mean Platelet Volume 11.2 fl (7.4-10.4); Platelet Count Result 88 k/mm3 (150-375); Red Blood Count 3.85 M/mm3 (4.6-6.20); Red Cell Distribution Width 14.6 % (11.5-14.5); White Blood Count 25.4 K/mm3 (4.5-10.0)
[2022-02-15 04:51] LABS: Lactic Acid Reflex 1.7 mmol/L (0.7-2.0)
[2022-02-15 04:54] LABS: Alveolar/Arterial O2 Gradient 143.7 mmHg; Base Excess ABG 6.8 mEq/l (+/-2.0); Carboxyhemoglobin 0.7 % THb (0-2.0); Fractional Inspired Oxygen 35 %; HCO3 ABG 28.5 mEq/l (22.0-26.0); Methemoglobin ABG 0.2 %THb (0-1.5); Oxygen Content ABG 21.1 %vol (16.0-22.0); Oxygen Saturation ABG 95.9 % (95.0-100.0); Oxyhemoglobin 93.9 % THb (90.0-100.0); PCO2 ABG 32.3 mmHg (35.0-45.0); PO2 ABG 68.3 mmHg (80.0-100.0); PO2 FiO2 Ratio Arterial Blood 1.95 %; Reduced Hemoglobin 5.2 %THb (0-5.0)
[2022-02-15 04:54] LABS: Alanine Aminotransferase 312 U/L (6-50); Albumin Level 2.6 g/dL (3.5-5.1); Alkaline Phosphatase 167 U/L (38-126); Anion Gap 3 mmol/L (8-16); Aspartate Amino Transferase 210 U/L (17-59); Bilirubin,Total 0.8 mg/dL (0.2-1.3); Blood Urea Nitrogen 63 mg/dL (9-20); Calcium 8.1 mg/dL (8.4-10.2); Carbon Dioxide 34 mmol/L (22-30); Chloride 106 mmol/L (98-107); Estimated CRCL calculation 49 ml/min; Estimated Glomerular Filt Rate 53; Glucose 144 mg/dL (65-110); Magnesium 2.7 mg/dL (1.6-2.3); Phosphorus 1.9 mg/dL (2.5-4.5); Potassium 3.5 mmol/L (3.4-5.0); Sodium 143 mmol/L (137-145)
[2022-02-15 04:55] LABS: Device VENTILATOR; Modified Allen's Test Pass; Site Drawn RIGHT RADIAL; pH ABG 7.564 (7.350-7.450)
[2022-02-15 04:56] LABS: Arterial Blood Gas PEEP 8 cmH2O; Arterial Blood Gas Tidal Volume 450 ml; Arterial Blood Gas Vent Mode CMV; Arterial Blood Gas Ventilator rate 22 /MIN
[2022-02-15] MEDS: CENTRAL LINE FLUSH 10 ML IV PUSH ×6 (05:10→20:54)
[2022-02-15] MEDS: HYDROCORTISONE SODIUM SUCCINATE 100 MG/2 ML VIAL 50 MG IV PUSH (05:10)
[2022-02-15] MEDS: KCL 20 MEQ/0.45% NS 1,000 ML 100 ML IV CONT (06:28)
[2022-02-15 08:36] LABS: Glucose Point of Care 161 mg/dl (65-105)
[2022-02-15] MEDS: POTASSIUM PHOS/SODIUM PHOS 250 MG TABLET FEED TUBE (08:54)
[2022-02-15] MEDS: ASPIRIN 325 MG TABLET FEED TUBE (08:55)
[2022-02-15] MEDS: PANTOPRAZOLE SODIUM IV 40 MG VIAL IV PUSH ×2 (08:55→20:53)
[2022-02-15] MEDS: MINERAL OIL/WHITE PETROLATUM OINTMENT 1 APPLIC EACH EYE ×2 (08:56→20:54)
[2022-02-15] MEDS: INSULIN GLARGINE (*BKC) 100 UNITS/ML 10 UNITS SUB-Q (08:59)
[2022-02-15] MEDS: amLODIPine BESYLATE 5 MG TABLET PO (09:32)
--- NOTE | 2022-02-15 10:48 | PCFNICU ---
ICU Rounding Note: Pt current nutrition is Nepro. Nutrition recommendation: Vital AF 1.2 at 70 ml/hr Last recorded weight is 111.2 kg Bowel Motility:+Bm reported 02/15 Labs Reviewed:PO4 1.9,Glu 144, GFR 53, BUN 63, Hgb 11.7,Hct 36.0, Alb 2.6 Meds Noted:Lantus, Protonix, Maxipime, Hydroxyzine Skin: pitting edema noted. Additional Notes: Patient remains on mechanical vent. No sedation. Tube feedings of Nepro at changed to Vital AF 1.2 today. Renal labs improving. Tube feeding recommend at 70 ml/hr providing 1848 kcals/116 gms protein. Free water flush 30 ml q 4 hours. Agree with diet orders Following daily in ICU rounds. Will monitor daily in ICU rounds and reassessing every Sunday and Sunday.
--- NOTE | 2022-02-15 11:54 | P.PNNP_ITS ---
Progress Note: A&P Assessment and Plan (1) Acute kidney injury: Code(s): N17.9 - Acute kidney failure, unspecified Status: Acute Assessment and Plan: * resolving * suspect multifactorial ATN: * septic shock/hemodynamics instability * possible prerenal factors * ureteral stricture * mild rhabdomyolysis * renal ultrasound unremarkable * creatinine improving with good urine output * follow repeat labs and UOP (2) Septic shock: Code(s): A41.9 - Sepsis, unspecified organism; R65.21 - Severe sepsis with septic shock Status: Acute Assessment and Plan: * due to urosepsis (blood + urine culture with E. coli) * significant vasopressor support initially * weaned off all vasopressor therapy at this time * s/p aggressive IVF resuscitation * on IV antibiotics (3) Acute respiratory failure: Code(s): J96.00 - Acute respiratory failure, unspecified whether with hypoxia or hypercapnia Status: Acute Assessment and Plan: * due to possible pneumonia and pulmonary edema * possible aspiration (?) -- was having some nausea and vomiting * on full ventilator support currently * weaning as tolerated (4) Metabolic acidosis: Code(s): E87.20 - Acidosis, unspecified Status: Acute Assessment and Plan: * resolved * due to RICK/ARF and lactic acidosis * off bicarb IVFs * follow ABGs (5) Hydronephrosis of right kidney: Code(s): N13.30 - Unspecified hydronephrosis Status: Acute Assessment and Plan: * secondary to ureteral stricture * s/p right ureteral stent * Urology following (6) Cardiomyopathy: Code(s): I42.9 - Cardiomyopathy, unspecified Status: Acute Assessment and Plan: * Echo here with EF of 35 - 40% * Cardiology following (7) Diabetes: Code(s): E11.9 - Type 2 diabetes mellitus without complications Status: Acute Assessment and Plan: * follow accucheks * glycemic control Not much else to add -- will continue to follow from a distance. Subjective Date/time seen: 02/15/22 11:54 Patient remains on mechanical ventilatory support -- intubated but currently off sedation as well as off all vasopressor therapy with stable hemodynamics; co ntinues to make reasonable urine output with steady improvement in creatinine/renal function; despite being off sedation, patient not waking up, open eyes or follow commands. Exam Narrative: General: elderly Caucasain male intubated and on mechanical ventilation Heart: normal S1 and S2; no rub Lungs: coarse breath sounds Abdomen: soft, nontender, nondistended, positive bowel sounds Extremities: no cyanosis or clubbing; trace edema Skin: no rash Objective Data Vital Signs Vital Signs: Vital Signs - 24 hr 02/15/22 00:00 02/15/22 00:00 02/15/22 00:00 Temperature 36.7 C Pulse Rate 71 71 Respiratory Rate 22 H Blood Pressure 118/71 Pulse Oximetry 97 97 Oxygen Delivery Mechanical Ventilation Fraction of Inspired Oxygen 35 02/15/22 00:00 02/15/22 02:00 02/15/22 02:00 Temperature Pulse Rate 78 78 Respiratory Rate 22 H Blood Pressure 145/85 H Pulse Oximetry 98 Oxygen Delivery Fraction of Inspired Oxygen 35 02/15/22
--- NOTE | 2022-02-15 11:54 | PM.PNNEP ---
Progress Note: A&P Assessment and Plan (1) Acute kidney injury: Code(s): N17.9 - Acute kidney failure, unspecified Status: Acute Assessment and Plan: resolving suspect multifactorial ATN: septic shock/hemodynamics instability possible prerenal factors ureteral stricture mild rhabdomyolysis renal ultrasound unremarkable creatinine improving with good urine output follow repeat labs and UOP (2) Septic shock: Code(s): A41.9 - Sepsis, unspecified organism; R65.21 - Severe sepsis with septic shock Status: Acute Assessment and Plan: due to urosepsis (blood + urine culture with E. coli) significant vasopressor support initially weaned off all vasopressor therapy at this time s/p aggressive IVF resuscitation on IV antibiotics (3) Acute respiratory failure: Code(s): J96.00 - Acute respiratory failure, unspecified whether with hypoxia or hypercapnia Status: Acute Assessment and Plan: due to possible pneumonia and pulmonary edema possible aspiration (?) -- was having some nausea and vomiting on full ventilator support currently weaning as tolerated (4) Metabolic acidosis: Code(s): E87.20 - Acidosis, unspecified Status: Acute Assessment and Plan: resolved due to RICK/ARF and lactic acidosis off bicarb IVFs follow ABGs (5) Hydronephrosis of right kidney: Code(s): N13.30 - Unspecified hydronephrosis Status: Acute Assessment and Plan: secondary to ureteral stricture s/p right ureteral stent Urology following (6) Cardiomyopathy: Code(s): I42.9 - Cardiomyopathy, unspecified Status: Acute Assessment and Plan: Echo here with EF of 35 - 40% Cardiology following (7) Diabetes: Code(s): E11.9 - Type 2 diabetes mellitus without complications Status: Acute Assessment and Plan: follow accucheks glycemic control Not much else to add -- will continue to follow from a distance. Subjective Date/time seen: 02/15/22 11:54 Patient remains on mechanical ventilatory support -- intubated but currently off sedation as well as off all vasopressor therapy with stable hemodynamics; continues to make reasonable urine output with steady improvement in creatinine/renal function; despite being off sedation, patient not waking up, open eyes or follow commands. Exam Narrative: General: elderly Caucasain male intubated and on mechanical ventilation Heart: normal S1 and S2; no rub Lungs: coarse breath sounds Abdomen: soft, nontender, nondistended, positive bowel sounds Extremities: no cyanosis or clubbing; trace edema Skin: no rash Objective Data Vital Signs Vital Signs: Vital Signs - 24 hr 02/15/22 00:00 02/15/22 00:00 02/15/22 00:00 Temperature 36.7 C Pulse Rate 71 71 Respiratory Rate 22 H Blood Pressure 118/71 Pulse Oximetry 97 97 Oxygen Delivery Mechanical Ventilation Fraction of Inspired Oxygen 35 02/15/22 00:00 02/15/22 02:00 02/15/22 02:00 Temperature Pulse Rate 78 78 Respiratory Rate 22 H Blood Pressure 145/85 H Pulse Oximetry 98 Oxygen Delivery Fraction of Inspired Oxygen 35 02/15/22 04:00 02/15/22 04:00 02/15/22 05:01 Temperature 37.1 C Pulse Rate 70 74 Respiratory Rate 22 H Blood Pressure 114/80 Pulse Oximetry 96 96 Oxygen Delivery Mechanical Ventilation Fraction of Inspired Oxygen 35 35 02/15/22 02:10 02/15/22 06:00 02/15/22 06:00 Temperature Pulse Rate 72 76 76 Respiratory Rate 22 H Blood Pressure 112/83 Pulse Oximetry 98 96 Oxygen Delivery Mechanical Ventilation Fraction of Inspired Oxygen 35 02/15/22 08:00 02/15/22 09:45 02/15/22 11:29 Temperature 36.8 C Pulse Rate 82 76 79 Respiratory Rate 28 H Blood Pressure 156/78 H Pulse Oximetry 96 98 95 Oxygen Delivery Mechanical Ventilation Mechanical Ventilation Fraction of Inspired Oxygen 35 35
[2022-02-15 12:27] LABS: Glucose Point of Care 160 mg/dl (65-105)
--- NOTE | 2022-02-15 12:35 | WPDINTPN ---
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 -patient may require EEG if he does not wake up (2) Acute respiratory failure: Code(s): J96.00 - Acute respiratory failure, unspecified whether with hypoxia or hypercapnia Status: Acute Assessment and Plan: Acute Respiratory failure secondary to pneumonia with possible component of pulmonary edema. Patient was having nausea/vomiting and may have aspirated. Continue full mechanical ventilation support to prevent hypoxemia/hypercarbia and end organ damage. ABG and vent settings adjusted, decrease rate to 18 Chest x-ray reviewed Low tidal volume ventilation strategy to prevent volutrauma -sedation being weaned Bronchodilators p.r.n. (3) Septic shock: Code(s): A41.9 - Sepsis, unspecified organism; R65.21 - Severe sepsis with septic shock Status: Acute Assessment and Plan: Resolved Severe septic shock secondary to Gram-negative bacteremia and UTI Patient was initially on 4 vasopressors at maximum doses, currently epinephrine and phenylephrine -CURRENTLY OFF ALL PRESSORS He has received more than 5 L of fluid. Continue gentle hydration with IV fluids Weaning steroids to off Lactic acid has normalized Urine and blood cultures growing E coli, pansensitive Imipenem was switched to cefepime on 02/14/2022 Repeat blood cultures 02/15/2022 (4) Metabolic acidosis: Code(s): E87.20 - Acidosis, unspecified Status: Acute Assessment and Plan: RESOLVED Severe metabolic acidosis secondary to RICK septic shock and lactic acidosis Patient has received multiple pushes of IV bicarb overnight due to shock Continue maintenance IV fluids (5) Hydronephrosis of right kidney: Code(s): N13.30 - Unspecified hydronephrosis Status: Acute Assessment and Plan: Secondary to ureteral stricture and status post right ureteral stent (6) Acute kidney injury: Code(s): N17.9 - Acute kidney failure, unspecified Status: Acute Assessment and Plan: RESOLVED Secondary to ureteral stricture, septic shock, hypovolemia, mild rhabdomyolysis Monitor urine output and electrolytes Monitor CK level Continue maintenance IV fluids Renal ultrasound shows unremarkable kidneys Nephrology has been consulted -urine output has been adequate, creatinine 1.3 this morning (7) Urinary tract infection: Code(s): N39.0 - Urinary tract infection, site not specified Status: Acute Assessment and Plan: Urine cultures growing E coli, continue cefepime (8) Non-ST elevated myocardial infarction (non-STEMI): Code(s): I21.4 - Non-ST elevation (NSTEMI) myocardial infarction Status: Acute Assessment and Plan: Elevated troponin likely secondary to septic shock Patient evaluated by Cardiology 02/13/2022 Echocardiogram : EF 35-40%, mildly increased LV wall thickness, RV systolic function is reduced, estimated RVSP of 39 mmHg Continue aspirin Plan DVT prophylaxis -Lovenox Stress ulcer prophylaxis -PPI Nutrition -tolerating tube feeds, advance to goal Code Status -patient is DNR Total Critical Care Time - 34 minutes 02/15/2022: Discussed with at bedside updated with patient's condition and plan of care. I did tell her that he is off all sedation, off all pressors. Kidney functions have improved, lactic acid has normalized. Waiting for him to wake up we can place him on a spontaneous breathing trial. I answered all her questions 02/14/2022: Discussed wi
--- NOTE | 2022-02-15 13:14 | PM.IMPN ---
Progress Note: A&P Assessment and Plan (1) Encephalopathy: Code(s): G93.40 - Encephalopathy, unspecified Status: Acute Assessment and Plan: Patient off all sedation but not waking up. He has some improvement. CT head showing no acute findings. Neuro to be consulted. He may be slowly metabolizing the sedation medications. (2) Acute respiratory failure: Code(s): J96.00 - Acute respiratory failure, unspecified whether with hypoxia or hypercapnia Status: Acute Assessment and Plan: Acute Respiratory failure secondary to pneumonia with possible component of pulmonary edema. Patient was having nausea/vomiting and may have aspirated. Chest x-ray reviewed. Continue full mechanical ventilation support. Appreciate beef trimmer input. May need diuresis prior to extubation. (3) Septic shock: Code(s): A41.9 - Sepsis, unspecified organism; R65.21 - Severe sepsis with septic shock Status: Acute Assessment and Plan: Patient with Severe septic shock secondary to E coli bacteremia and UTI. Patient was initially on 4 vasopressors at maximum doses, with pressors weaned off. He is fluid positive more than 9L of fluid. Weaning off steroids now. Lactic acid has normalized. Imipenem was switched to cefepime on 02/14/2022. WBC up slightly. Repeat blood cultures ordered. Consider abscess formation. (4) Non-ST elevated myocardial infarction (non-STEMI): Code(s): I21.4 - Non-ST elevation (NSTEMI) myocardial infarction Status: Acute Assessment and Plan: Elevated troponin likely secondary to septic shock. Patient evaluated by Cardiology. Echo 02/13/22: EF 35-40%, mildly increased LV wall thickness, RV systolic function is reduced, estimated RVSP of 39 mmHg. Continue aspirin. Consider decreasing to 81mg (5) Metabolic acidosis: Code(s): E87.20 - Acidosis, unspecified Status: Acute Assessment and Plan: Severe metabolic gap acidosis secondary to RICK, septic shock and lactic acidosis. Patient received multiple rounds of IV bicarb. Acidosis has resolved. Lactic acid normal now. Continue maintenance IV fluids. (6) Hydronephrosis of right kidney: Code(s): N13.30 - Unspecified hydronephrosis Status: Acute Assessment and Plan: Secondary to ureteral stricture now status post right ureteral stent placement. Appreciate Urology input. May need repeat imaging if white count continues to climb. (7) Acute kidney injury: Code(s): N17.9 - Acute kidney failure, unspecified Status: Acute Assessment and Plan: Secondary to ureteral stricture, septic shock, hypovolemia, mild rhabdomyolysis Monitor urine output and electrolytes Monitor CK level Continue maintenance IV fluids Renal ultrasound shows unremarkable kidneys Nephrology has been consulted -urine output has been adequate, creatinine 1.3 this morning (8) Urinary tract infection: Code(s): N39.0 - Urinary tract infection, site not specified Status: Acute Assessment and Plan: Urine cultures growing E coli. As above. (9) Atrial fibrillation: Code(s): I48.91 - Unspecified atrial fibrillation Status: Acute Assessment and Plan: Patient noted to be in atrial fibrillation. No history listed that he has had this before. EKG on admission shows sinus tachycardia. He is currently rate controlled. Check EKG. Echo as mentioned above. [id number]. Anticoagulation when okay with beef trimmer. (10) Diabetes: Code(s): E11.9 - Type 2 diabetes mellitus without complications Status: Acute Assessment and Plan: A1c 8.1. The patient's blood glucose was reviewed on 02/15 Glucose remains elevated at times Continue AccuCheks covering with sliding scale. Hypoglycemia protocol available as needed. Continue current treatment plan Plan DVT prophylaxis -Lovenox Stress ulcer prophylaxis -PPI Nutrition -tolerating tube
--- NOTE | 2022-02-15 15:00 | WPDNEURCNPN ---
Assessment and Plan Assessment and plan (1) Encephalopathy: Code(s): G93.40 - Encephalopathy, unspecified Status: Acute (2) Septic shock: Code(s): A41.9 - Sepsis, unspecified organism; R65.21 - Severe sepsis with septic shock Status: Acute (3) Acute respiratory failure: Code(s): J96.00 - Acute respiratory failure, unspecified whether with hypoxia or hypercapnia Status: Acute (4) Acute kidney injury: Code(s): N17.9 - Acute kidney failure, unspecified Status: Acute Plan Mr. Olguin is a an 81 year old male with a history of HTN, HLD, CAD who is currently admitted due to urosepsis and respiratory failure leading to multi-organ dysfunction including RICK and shock liver. He remains encephalopathic despite cessation of sedation yesterday. Suspect encephalopathy to be multifactorial -- could be related to residual effect from sedation vs underlying infection vs stroke (atrial fibrillation/ episodes of hypotension) vs uremia (BUN 63 today), vs occult seizure. - Will obtain routine EEG - Recommend MRI brain w/o contrast when stable - Check Ammonia level - There are reports of cefepime related neurotoxicity leading to encephalopathy; if mental status does not improve, recommend switching to another antibiotic Consult date: 02/15/22 Time Seen: 15:00 Reason for consult: Encephalopathy HPI: Daniel Olguin is a 81 year old male with a history of HTN, HLD, CAD current admitted in the ICU due to septic shock and respiratory failure. Patient presented on 02/11 due to nausea and vomiting. In the ED he was found to be hypotensive. He was found to have RICK and lactic acidosis. UA was concerning for UTI. CT ABD/pelvis showed findings concerning for pneumonia as well as R hydroureteronephrosis with pernephric and periureteral edema. He was started on antibiotics and admitted. He was taken to OR by urology and underwent cystoscopy with R ureteral stent placement. After the procedue, patient developed respiratory failure and hypotension and had to be started on vasopressors. Later during admission, he had a another code blue called; he required bagging and additional vasopressors. Patient reportedly did not lose pulse. Patient is currently intubated, but off all vasopressors. He was on versed and fentanyl for sedation until yesterday. Concerns for lack of improvement in mental status after cessation of sedation. 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 Per bedside nurse, he is moving all extremities spontaneously. He was also recently found to be in atrial fibrillation, with no prior history. Labs today showed elevated WBC (25.4), thrombocytopenia (88), uremia (BUN 63), and transaminitis (AST 210, ALT 312). He is currently on cefepime. Review of Systems Review of Systems: ROS unobtainable: Yes unobtainable due to medical condition and unobtainable due to mental status [facility] Past Medical History Medical History Coronary artery disease Hearing loss Hyperlipidemia Hypertension Skin cancer Sleep apnea Surgical History Surgical History History of appendectomy History of bilateral hip replacements History of bilateral knee replacement History of cardiac catheterization History of coronary artery stent placement History of four vessel coronary artery bypass graft History of left shoulder replacement Family History Family History Other Arthritis Diabetes mellitus Heart disease Hypertension Social History Social History Social History: Surrogate medical decision maker: Areli Olguin, spouse. Code status: Full code. Smoking status: Never smoker Alcohol intake: former Drinks per week: 2 Substance use: never Additional
[2022-02-15 17:58] LABS: Glucose Point of Care 165 mg/dl (65-105)
[2022-02-15] MEDS: hydrALAZINE HCL 20 MG/ML VIAL 10 MG IV PUSH (22:06)
[2022-02-15 23:56] LABS: Glucose Point of Care 209 mg/dl (65-105)
[2022-02-16] VITALS (67 sets, daily range): BP systolic 139–165; BP diastolic 71–87; PULSE 70–105; RESP 10–31; TEMP 36.8–37.2; O2SAT 91–99
[2022-02-16] MEDS: INSULIN ASPART (*BKC) 100 UNITS/ML SUB-Q ×5 (00:07→23:27)
[2022-02-16 02:37] LABS: Legionella pneumophila Ag Ur Not Detected (Not Detected)
[2022-02-16 04:50] LABS: Alveolar/Arterial O2 Gradient 115.6 mmHg; Base Excess ABG 6.8 mEq/l (+/-2.0); Carboxyhemoglobin 0.3 % THb (0-2.0); Fractional Inspired Oxygen 35 %; HCO3 ABG 30.2 mEq/l (22.0-26.0); Methemoglobin ABG 0.3 %THb (0-1.5); Oxygen Content ABG 20.8 %vol (16.0-22.0); Oxygen Saturation ABG 97.5 % (95.0-100.0); PCO2 ABG 38.4 mmHg (35.0-45.0); PO2 ABG 89.3 mmHg (80.0-100.0); PO2 FiO2 Ratio Arterial Blood 2.55 %; Reduced Hemoglobin 3.4 %THb (0-5.0); Total Hemoglobin 15.4 g/dL (12.0-18.0)
[2022-02-16 04:51] LABS: Arterial Blood Gas PEEP 8 cmH2O; Arterial Blood Gas Tidal Volume 450 ml; Arterial Blood Gas Vent Mode CMV; Arterial Blood Gas Ventilator rate 18 /MIN; Device VENTILATOR; Modified Allen's Test Pass; Site Drawn RIGHT RADIAL; pH ABG 7.513 (7.350-7.450)
[2022-02-16 05:18] LABS: Hematocrit 40.8 % (42.0-52.0); Hemoglobin 12.8 g/dL (14.0-18.0); Immature Platelet Fraction Pct 10.3 % (0.9-11.2); Mean Corpuscular HGB Conc 31.4 g/dl (32-36); Mean Corpuscular Hemoglobin 30.2 pg (26-34); Mean Corpuscular Volume 96.2 fl (80-100); Mean Platelet Volume 11.6 fl (7.4-10.4); Platelet Count Result 101 k/mm3 (150-375); Red Blood Count 4.24 M/mm3 (4.6-6.20); Red Cell Distribution Width 14.8 % (11.5-14.5); White Blood Count 21.3 K/mm3 (4.5-10.0)
[2022-02-16 05:34] LABS: Alanine Aminotransferase 274 U/L (6-50); Albumin Level 2.7 g/dL (3.5-5.1); Alkaline Phosphatase 171 U/L (38-126); Anion Gap 5 mmol/L (8-16); Aspartate Amino Transferase 146 U/L (17-59); Blood Urea Nitrogen 49 mg/dL (9-20); Calcium 8.4 mg/dL (8.4-10.2); Carbon Dioxide 33 mmol/L (22-30); Chloride 107 mmol/L (98-107); Estimated CRCL calculation 58 ml/min; Estimated Glomerular Filt Rate > 60; Glucose 228 mg/dL (65-110); Magnesium 2.5 mg/dL (1.6-2.3); Phosphorus 3.5 mg/dL (2.5-4.5); Potassium 3.5 mmol/L (3.4-5.0); Sodium 145 mmol/L (137-145)
[2022-02-16 05:46] LABS: Glucose Point of Care 233 mg/dl (65-105)
[2022-02-16] MEDS: CENTRAL LINE FLUSH 10 ML IV PUSH ×6 (05:47→20:48)
[2022-02-16] MEDS: PANTOPRAZOLE SODIUM IV 40 MG VIAL IV PUSH ×2 (08:04→20:47)
[2022-02-16] MEDS: HYDROCORTISONE SODIUM SUCCINATE 100 MG/2 ML VIAL 50 MG IV PUSH (08:04)
[2022-02-16] MEDS: MINERAL OIL/WHITE PETROLATUM OINTMENT 1 APPLIC EACH EYE ×2 (08:04→20:47)
[2022-02-16] MEDS: amLODIPine BESYLATE 5 MG TABLET PO (08:05)
[2022-02-16] MEDS: ASPIRIN 325 MG TABLET FEED TUBE (08:05)
[2022-02-16] MEDS: INSULIN GLARGINE (*BKC) 100 UNITS/ML 10 UNITS SUB-Q (08:23)
[2022-02-16 08:33] LABS: Ammonia < 9 umol/L (9-30)
--- NOTE | 2022-02-16 08:49 | PM.IMPN ---
Progress Note: A&P Assessment and Plan (1) Encephalopathy: Code(s): G93.40 - Encephalopathy, unspecified Status: Acute Assessment and Plan: Patient off all sedation but still not waking up. CT head showing no acute findings. Ammonia level <9. TSH slightly low but FT4 normal. B12 normal in November. Neuro following and appreciate their input. He may be slowly metabolizing the sedation medications. (2) Acute respiratory failure: Code(s): J96.00 - Acute respiratory failure, unspecified whether with hypoxia or hypercapnia Status: Acute Assessment and Plan: Acute Respiratory failure secondary to pneumonia with possible component of pulmonary edema. Patient was having nausea/vomiting and may have aspirated. Chest x-ray reviewed from today. Continue full mechanical ventilation support. Appreciate shovel logger input. He is self-diuresing but may need diuretic therapy prior to extubation. (3) Septic shock: Code(s): A41.9 - Sepsis, unspecified organism; R65.21 - Severe sepsis with septic shock Status: Acute Assessment and Plan: Patient with severe septic shock secondary to E coli bacteremia and UTI. Patient was initially on 4 vasopressors at maximum doses, with pressors weaned off. He is fluid positive more than 8.2L and now self-diuresing. Weaning off steroids now. Lactic acid has normalized. Imipenem was switched to cefepime on 02/14/2022. WBC back down today - persistent elevation could be related to steroids. Repeat blood cultures ordered 02/15 and are pending. Consider abscess formation and would consider repeat imaging if WBC does not decrease off steroids. (4) Non-ST elevated myocardial infarction (non-STEMI): Code(s): I21.4 - Non-ST elevation (NSTEMI) myocardial infarction Status: Acute Assessment and Plan: Elevated troponin likely secondary to septic shock. Patient evaluated by Cardiology. Echo 02/13/22: EF 35-40%, mildly increased LV wall thickness, RV systolic function is reduced, estimated RVSP of 39 mmHg. Continue aspirin. Consider decreasing to 81mg. Add metoprolol, etc when fluid status improves. (5) Metabolic acidosis: Code(s): E87.20 - Acidosis, unspecified Status: Acute Assessment and Plan: Severe metabolic gap acidosis secondary to RICK, septic shock and lactic acidosis. Patient received multiple rounds of IV bicarb. Acidosis has resolved. Lactic acid normal now. Continue to monitor (6) Hydronephrosis of right kidney: Code(s): N13.30 - Unspecified hydronephrosis Status: Acute Assessment and Plan: Secondary to ureteral stricture now status post right ureteral stent placement. Appreciate Urology input. May need repeat imaging if white count continues to climb off steroids. (7) Acute kidney injury: Code(s): N17.9 - Acute kidney failure, unspecified Status: Acute Assessment and Plan: Cr up to 3.2. Secondary to ureteral stricture, septic shock, hypovolemia, mild rhabdomyolysis. Ureteral stent placed on 02/11. TCK was elevated to 1573 but this has trended down with IV fluids. Renal ultrasound shows unremarkable kidneys. Nephrology consulted and appreciate their input. Urine output has been adequate. Creatinine 1.1 today Monitor urine output and electrolytes. (8) Urinary tract infection: Code(s): N39.0 - Urinary tract infection, site not specified Status: Acute Assessment and Plan: Urine cultures growing E coli. As above. (9) Atrial fibrillation: Code(s): I48.91 - Unspecified atrial fibrillation Status: Acute Assessment and Plan: Patient noted to be in atrial fibrillation/flutter. No history listed that he has had this before. EKG on admission shows sinus tachycardia. He is currently rate controlled. Echo as mentioned above. [id number] 7. Anticoagulation when okay with shovel logger (held due to low plt count). (10) Diabetes:
--- NOTE | 2022-02-16 09:13 | ECG_ITS ---
Measurements Intervals [place] Rate: 85 P: IA: 0 QRS: 21 QRSD: 94 T: 31 QT: 388 QTc: 462 Interpretive Statements ATRIAL FLUTTER/TACHYCARDIA WITH ABERRANT CONDUCTION OR VENTRICULAR PREMATURE COMPLEXES MINIMAL ST DEPRESSION [0.025+ mV ST DEPRESSION] ABNORMAL RHYTHM ECG COMPARED TO ECG 02/11/2022 11:52:57 ATRIAL FLUTTER NOW PRESENT Electronically Signed On 02-16-2022 14:55:00 CDT by Ashley White M.D.
[2022-02-16 09:15] LABS: Hemoglobin 12.2 g/dL (14.0-18.0); Immature Platelet Fraction Pct 9.5 % (0.9-11.2); Mean Corpuscular HGB Conc 31.3 g/dl (32-36); Mean Corpuscular Hemoglobin 30.4 pg (26-34); Mean Corpuscular Volume 97.3 fl (80-100); Mean Platelet Volume 11.5 fl (7.4-10.4); Platelet Count Result 99 k/mm3 (150-375); Red Blood Count 4.01 M/mm3 (4.6-6.20); Red Cell Distribution Width 14.8 % (11.5-14.5); White Blood Count 19.6 K/mm3 (4.5-10.0)
[2022-02-16 09:25] LABS: INR 1.2; Prothrombin Time 14.5 Seconds (11.1-14.7)
[2022-02-16 09:26] LABS: Partial Thromboplastin Time 31.4 SECONDS (22.3-36.8)
[2022-02-16] MEDS: HEPARIN SOD/D5W 100 UNITS/ML 25,000 UNITS/250 ML BAG 15 UNITS IV CONT (09:38)
[2022-02-16 10:25] LABS: Band Neutrophils Percent 9 % (0-6); Lymphocytes Absolute Manual 0.58 K/mm3 (1.1-4.5); Metamyelocytes Percent 1 %; Monocytes Absolute Manual 0.98 K/mm3 (0.1-0.90); Monocytes Percent Manual 5 % (3-9); Myelocytes Percent 1 %; Neutrophils Absolute Manual 17.44 K/mm3 (1.3-6.7); Neutrophils Percent Manual 80 % (46-73); Nucleated Red Blood Cells 3 %; Promyelocytes Percent 1 %; Total Cells Counted 100
[2022-02-16 10:26] LABS: Platelet Estimate Decreased (Adequate); Polychromasia 1+ (NORMAL); Schistocytes None Seen (NORMAL)
[2022-02-16] MEDS: cefTRIAXone 2 GM in SODIUM CHLORIDE 0.9% IV 100 ML 200 ML IVPB (12:18)
[2022-02-16 12:24] LABS: Glucose Point of Care 250 mg/dl (65-105)
--- NOTE | 2022-02-16 12:55 | WPDINTPN ---
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 -EEG has been ordered -Also cefepime has been switched to ceftriaxone ( as cefepime is related to neurotoxicity) (2) Acute respiratory failure: Code(s): J96.00 - Acute respiratory failure, unspecified whether with hypoxia or hypercapnia Status: Acute Assessment and Plan: Acute Respiratory failure secondary to pneumonia with possible component of pulmonary edema. Patient was having nausea/vomiting and may have aspirated. Continue full mechanical ventilation support to prevent hypoxemia/hypercarbia and end organ damage. ABG and vent settings adjusted, switch to ASV mode of ventilation Chest x-ray reviewed Low tidal volume ventilation strategy to prevent volutrauma -patient is off all sedation for greater than 48 hours Bronchodilators p.r.n. (3) Septic shock: Code(s): A41.9 - Sepsis, unspecified organism; R65.21 - Severe sepsis with septic shock Status: Acute Assessment and Plan: Resolved Severe septic shock secondary to Gram-negative bacteremia and UTI Patient was initially on 4 vasopressors at maximum doses, currently epinephrine and phenylephrine -CURRENTLY OFF ALL PRESSORS He has received more than 5 L of fluid. Continue gentle hydration with IV fluids Weaning steroids to off Lactic acid has normalized Urine and blood cultures growing E coli, pansensitive Imipenem was switched to cefepime on 02/14/2022, cefepime is going to be switched to ceftriaxone on 02/16/2022, as cefepime is related to neurotoxicity, since patient is not waking up. Repeat blood cultures 02/15/2022 (4) Metabolic acidosis: Code(s): E87.20 - Acidosis, unspecified Status: Acute Assessment and Plan: RESOLVED Severe metabolic acidosis secondary to RICK septic shock and lactic acidosis Patient has received multiple pushes of IV bicarb overnight due to shock Continue maintenance IV fluids (5) Hydronephrosis of right kidney: Code(s): N13.30 - Unspecified hydronephrosis Status: Acute Assessment and Plan: Secondary to ureteral stricture and status post right ureteral stent (6) Acute kidney injury: Code(s): N17.9 - Acute kidney failure, unspecified Status: Acute Assessment and Plan: RESOLVED Secondary to ureteral stricture, septic shock, hypovolemia, mild rhabdomyolysis Monitor urine output and electrolytes Monitor CK level Continue maintenance IV fluids Renal ultrasound shows unremarkable kidneys Nephrology has been consulted -urine output has been adequate, creatinine 1.3 this morning (7) Urinary tract infection: Code(s): N39.0 - Urinary tract infection, site not specified Status: Acute Assessment and Plan: Urine cultures growing E coli, now on ceftriaxone (8) Non-ST elevated myocardial infarction (non-STEMI): Code(s): I21.4 - Non-ST elevation (NSTEMI) myocardial infarction Status: Acute Assessment and Plan: Elevated troponin likely secondary to septic shock Patient evaluated by Cardiology 02/13/2022 Echocardiogram : EF 35-40%, mildly increased LV wall thickness, RV systolic function is reduced, estimated RVSP of 39 mmHg Continue aspirin (9) Atrial fibrillation: Code(s): I48.91 - Unspecified atrial fibrillation Status: Acute Assessment and Plan: Patient in AFib a flutter and sometimes sinus tachycardia. Likely new onset secondary to septic shock. Currently rate controlled. Heparin was initially on hold du
--- NOTE | 2022-02-16 13:05 | PCFNICU ---
ICU Rounding Note: Pt current nutrition is now Vital 1.2 @ 70ml/hr, goal rate. Last recorded weight is 113kg - stable Bowel Motility:+Bm reported 02/15 Labs Reviewed: Hgb:12.2, Hct:37, Alb:2.7, BUN:49, glu:228 Meds Noted:Lantus, Protonix, Maxipime, Hydroxyzine Skin: pitting edema noted. Additional Notes: Patient remains on mechanical vent. No sedation. Tube feedings Vital AF 1.2. Renal labs improving. Tube feeding at goal and providing 1848 kcals/116 gms protein. Tolerating well. Free water flush 30 ml q 4 hours. Agree with diet orders Following daily in ICU rounds. Will monitor daily in ICU rounds and reassessing every Sunday and Sunday.
[2022-02-16] MEDS: METOPROLOL TARTRATE 12.5 MG TABLET PO ×2 (14:00→20:47)
--- NOTE | 2022-02-16 14:50 | WPDNEUROPN ---
Progress Note: A&P Assessment and Plan (1) Encephalopathy: Code(s): G93.40 - Encephalopathy, unspecified Status: Acute (2) Septic shock: Code(s): A41.9 - Sepsis, unspecified organism; R65.21 - Severe sepsis with septic shock Status: Acute (3) Acute respiratory failure: Code(s): J96.00 - Acute respiratory failure, unspecified whether with hypoxia or hypercapnia Status: Acute (4) Atrial fibrillation: Code(s): I48.91 - Unspecified atrial fibrillation Status: Acute Plan Mr. Olguin is a an 81 year old male with a history of HTN, HLD, CAD who is currently admitted due to urosepsis and respiratory failure leading to multi-organ dysfunction including RICK and shock liver. He remains encephalopathic despite cessation of sedation. Suspect encephalopathy to be multifactorial -- could be related to residual effect from sedation vs underlying infection vs stroke (atrial fibrillation/ episodes of hypotension) vs uremia vs occult seizure. - Will obtain routine EEG - Recommend MRI brain w/o contrast when stable Subjective Date/time seen: 02/16/22 14:50 Interval history: Daniel Olguin is a 81 year old male with a history of HTN, HLD, CAD current admitted in the ICU due to septic shock and respiratory failure. Patient presented on 02/11 due to nausea and vomiting. In the ED he was found to be hypotensive. He was found to have RICK and lactic acidosis. UA was concerning for UTI. CT ABD/pelvis showed findings concerning for pneumonia as well as R hydroureteronephrosis with pernephric and periureteral edema. He was started on antibiotics and admitted. He was taken to OR by urology and underwent cystoscopy with R ureteral stent placement. After the procedue, patient developed respiratory failure and hypotension and had to be started on vasopressors. Later during admission, he had a another code blue called; he required bagging and additional vasopressors. Patient reportedly did not lose pulse. Patient is currently intubated, but off all vasopressors. He was on versed and fentanyl for sedation until yesterday. Concerns for lack of improvement in mental status after cessation of sedation. 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 He was also recently found to be in atrial fibrillation, with no prior history. Interval history: WBC and BUN downtrending, remains somnolent. Ammonia level normal. Cefepime switched to Ceftriaxone. at bedside, she said he opened his eyes when he heard his grandson's voice yesterday. Review of Systems Review of Systems: ROS unobtainable: Yes unobtainable due to endotracheal tube and unobtainable due to mental status Exam Const: Other: intubated, no sedation HENMT: Mouth: Yes moist mucous membranes Eyes: Pupils: Equal, round and reactive pupils present Resp: Other: mechanically ventilated Cardio: Rate: regular rate Rhythm: regular rhythm GI: GI Palp: Yes Soft to palpation Auscultation: normal bowel sounds Skin: General skin exam: normal color Neuro: Other: No spontaneous eye opening, some spontaneous movement of lower extremities. Did not open eyes to voice or noxious stimulation but did grimace to noxious stimulation. Pupils pin-point but equal and reactive to light bilaterally. No withdrawal of upper extremities to noxious stimuli (although wearing upper extremity restrains). Unable to follow commands. Diminished reflexes throughout. Extrem: General: edema Psych: Other: encephalopathic Objective Data Vital Signs Vital Signs: Vital Signs - 24 hr 02/15/22 15:29 02/15/22 16:00 02/15/22 16:00 Temperature 36.8 C Pulse Rate 80 73 Respiratory Rate 28 H Blood Pressure 153/114 H Pulse Oximetry 97 96 Oxygen Delivery Mechanical Ventilation Oxygen Flow Rate Fraction of Inspired Oxygen 35 35 02/15/22 16:00 02/15/22 16:00 02/15/22 17:54 Temperature Pulse Rate 80 8
[2022-02-16 16:07] LABS: Partial Thromboplastin Time 85.4 SECONDS (22.3-36.8)
[2022-02-16 17:19] LABS: Glucose Point of Care 245 mg/dl (65-105)
[2022-02-16 18:14] LABS: Mycoplasma IgM Antibody Titer 2 U/mL (<770)
[2022-02-16 21:45] LABS: Partial Thromboplastin Time 106.4 SECONDS (22.3-36.8)
[2022-02-16] MEDS: hydrALAZINE HCL 20 MG/ML VIAL 10 MG IV PUSH (22:12)
[2022-02-16 23:24] LABS: Glucose Point of Care 267 mg/dl (65-105)
[2022-02-17] VITALS (28 sets, daily range): BP systolic 95–160; BP diastolic 44–97; PULSE 77–104; RESP 13–28; TEMP 36.7–37.3; O2SAT 94–100
[2022-02-17] MEDS: LORazepam INJ (*CRX) 2 MG/ML VIAL IV PUSH (00:26)
[2022-02-17] MEDS: HEPARIN SOD/D5W 100 UNITS/ML 25,000 UNITS/250 ML BAG 13 UNITS IV CONT (03:06)
[2022-02-17 04:05] LABS: Hematocrit 36.1 % (42.0-52.0); Hemoglobin 11.3 g/dL (14.0-18.0); Mean Corpuscular HGB Conc 31.3 g/dl (32-36); Mean Corpuscular Hemoglobin 30.2 pg (26-34); Mean Corpuscular Volume 96.5 fl (80-100); Mean Platelet Volume 11.7 fl (7.4-10.4); Platelet Count Result 107 k/mm3 (150-375); Red Blood Count 3.74 M/mm3 (4.6-6.20); Red Cell Distribution Width 14.9 % (11.5-14.5); White Blood Count 21.2 K/mm3 (4.5-10.0)
[2022-02-17 04:15] LABS: Alanine Aminotransferase 200 U/L (6-50); Albumin Level 2.6 g/dL (3.5-5.1); Alkaline Phosphatase 167 U/L (38-126); Anion Gap 5 mmol/L (8-16); Aspartate Amino Transferase 90 U/L (17-59); Bilirubin,Total 0.9 mg/dL (0.2-1.3); Blood Urea Nitrogen 39 mg/dL (9-20); Calcium 8.1 mg/dL (8.4-10.2); Carbon Dioxide 33 mmol/L (22-30); Chloride 109 mmol/L (98-107); Estimated CRCL calculation 64 ml/min; Estimated Glomerular Filt Rate > 60; Glucose 270 mg/dL (65-110); Magnesium 2.4 mg/dL (1.6-2.3); Phosphorus 3.1 mg/dL (2.5-4.5); Potassium 3.5 mmol/L (3.4-5.0); Sodium 147 mmol/L (137-145)
[2022-02-17 04:24] LABS: Partial Thromboplastin Time 82.2 SECONDS (22.3-36.8)
[2022-02-17 05:13] LABS: Band Neutrophils Percent 9 % (0-6); Lymphocytes Absolute Manual 1.48 K/mm3 (1.1-4.5); Metamyelocytes Percent 2 %; Monocytes Absolute Manual 0.84 K/mm3 (0.1-0.90); Monocytes Percent Manual 4 % (3-9); Neutrophils Absolute Manual 18.44 K/mm3 (1.3-6.7); Neutrophils Percent Manual 78 % (46-73); Total Cells Counted 100
[2022-02-17 05:14] LABS: Poikilocytosis 1+ (NORMAL)
[2022-02-17 05:15] LABS: Atypical Lymphocytes Present; Schistocytes None Seen (NORMAL); Smudge Cells FEW
[2022-02-17 05:51] LABS: Glucose Point of Care 251 mg/dl (65-105)
[2022-02-17] MEDS: CENTRAL LINE FLUSH 10 ML IV PUSH ×8 (05:52→20:08)
[2022-02-17] MEDS: INSULIN ASPART (*BKC) 100 UNITS/ML SUB-Q ×2 (05:52→11:24)
[2022-02-17 05:54] LABS: Alveolar/Arterial O2 Gradient 90.9 mmHg; Base Excess ABG 6.2 mEq/l (+/-2.0); Carboxyhemoglobin 0.1 % THb (0-2.0); Fractional Inspired Oxygen 30 %; HCO3 ABG 29.7 mEq/l (22.0-26.0); Methemoglobin ABG 0.7 %THb (0-1.5); Oxygen Content ABG 27.2 %vol (16.0-22.0); Oxygen Saturation ABG 96.5 % (95.0-100.0); Oxyhemoglobin 95.1 % THb (90.0-100.0); PCO2 ABG 38.6 mmHg (35.0-45.0); PO2 ABG 77.6 mmHg (80.0-100.0); PO2 FiO2 Ratio Arterial Blood 2.59 %; Reduced Hemoglobin 4.1 %THb (0-5.0); Total Hemoglobin 20.4 g/dL (12.0-18.0)
[2022-02-17 05:55] LABS: Arterial Blood Gas PEEP 8 cmH2O; Arterial Blood Gas Tidal Volume 500 ml; Arterial Blood Gas Vent Mode CMV; Arterial Blood Gas Ventilator rate 18 /MIN; Device VENTILATOR; Modified Allen's Test Pass; Site Drawn RIGHT RADIAL; pH ABG 7.507 (7.350-7.450)
[2022-02-17] MEDS: INSULIN GLARGINE (*BKC) 100 UNITS/ML 20 UNITS SUB-Q (08:13)
[2022-02-17] MEDS: MINERAL OIL/WHITE PETROLATUM OINTMENT 1 APPLIC EACH EYE ×2 (08:15→20:08)
[2022-02-17] MEDS: PANTOPRAZOLE SODIUM IV 40 MG VIAL IV PUSH ×2 (08:15→20:07)
[2022-02-17] MEDS: ASPIRIN 325 MG TABLET FEED TUBE (08:46)
[2022-02-17] MEDS: amLODIPine BESYLATE 5 MG TABLET PO (08:46)
[2022-02-17] MEDS: METOPROLOL TARTRATE 25 MG TABLET PO ×2 (08:47→20:07)
--- NOTE | 2022-02-17 10:05 | WPDNEUROLOGY ---
Neurology EEG Report General Information Date of Study: 02/16/22 TEST Routine EEG DIAGNOSIS Encephalopathy CONDITION OF RECORDING Comatose EEG NUMBER [id number] CLINICAL HISTORY Patient is in the ICU intubated, following respiratory arrest. He has been off sedation for past few days, but remains unresponsive. EEG DESCRIPTION The recording is continuous. There is no clear posterior dominant rhythm or anterior-posterior gradient. The background rhythm consists of diffuse delta range slowing. Sleep architecture was not observed. There are no epileptiform discharges or electrographic seizures noted during the recording. IMPRESSION This is an abnormal EEG due to the presence of diffuse slowing. This can be seen in the setting of encephalopathy. There are no electrographic seizures or epileptiform features identified. Clinical correlation is recommended.
--- NOTE | 2022-02-17 10:25 | PM.PNCARD ---
Progress Note: A&P Assessment and Plan (1) Troponin level elevated: Code(s): R77.8 - Other specified abnormalities of plasma proteins Status: Acute Assessment and Plan: Mild elevation in troponin does not represent ACS/plaque rupture, this is secondary to sepsis and renal failure. No specific cardiac recommendations to make in this regard. (2) Cardiomyopathy: Code(s): I42.9 - Cardiomyopathy, unspecified Status: Acute Assessment and Plan: Echo from this admission showing a new cardiomyopathy with EF 35 - 40%, echo from [facility] 07/26 showed normal LVSF. When is he able to be weaned from pressor support we can introduce GDMT for his cardiomyopathy. For now, any volume overload he may experience can be managed with diuretic. (3) Atrial fibrillation: Code(s): I48.91 - Unspecified atrial fibrillation Status: Acute Assessment and Plan: New onset of atrial fibrillation during this hospitalization. He has been placed on metoprolol for rate control. On heparin for anticoagulation. This can be shifted to a DOAC. Subjective Date/time seen: 02/17/22 10:25 Cardiology follow up for cardiomyopathy, afib He is off pressors now but is still requiring mechanical ventilatory support. Off sedation at this point but still encephalopathic. Review of Systems Review of Systems: ROS unobtainable: Yes unobtainable due to endotracheal tube Exam Const: Other: Obese elderly intubated man HENMT: Mouth: Yes moist mucous membranes Eyes: Sclera: sclerae normal Neck: Neck: supple Other: carotid pulses are intact bilaterally. Cannot assess JVD given his body habitus Resp: Effort & Inspection: normal respiratory effort Auscultation: clear to auscultation bilaterally Other: breath sounds are relatively clear anteriorly unable to sit the patient up for posterior auscultation because of his obesity Cardio: Rate: regular rate Rhythm: regular rhythm Heart sounds: S1 normal heart sound present and S2 normal heart sound present Other: the PMI is not palpable first and second heart sounds are normal no audible gallop or murmur GI: Auscultation: normal bowel sounds Urinary Catheter: Urinary Catheter: patent and draining Skin: General skin exam: normal color Neuro: Other: intubated Extrem: Other: no pitting edema, adequate distal perfusion Objective Data Vital Signs Vital Signs: Vital Signs - 24 hr 02/16/22 11:50 02/16/22 12:00 02/16/22 12:00 Temperature Pulse Rate 94 Respiratory Rate Blood Pressure Pulse Oximetry 96 96 Oxygen Delivery Mechanical Ventilation Mechanical Ventilation Oxygen Flow Rate Fraction of Inspired Oxygen 30 30 30 02/16/22 12:00 02/16/22 12:00 02/16/22 14:00 Temperature 37.0 C Pulse Rate 105 H 79 79 Respiratory Rate 22 H Blood Pressure 153/81 H Pulse Oximetry 96 Oxygen Delivery Oxygen Flow Rate Fraction of Inspired Oxygen 02/16/22 14:00 02/16/22 14:00 02/16/22 14:24 Temperature 36.9 C Pulse Rate 79 79 79 Respiratory Rate 20 19 Blood Pressure 139/72 139/72 Pulse Oximetry 97 96 Oxygen Delivery Oxygen Flow Rate Fraction of Inspired Oxygen 02/16/22 14:24 02/16/22 16:41 02/16/22 16:00 Temperature 37.2 C Pulse Rate 79 78 88 Respiratory Rate 22 H Blood Pressure 165/83 H Pulse Oximetry 96 97 Oxygen Delivery Mechanical Ventilation Oxygen Flow Rate Fraction of Inspired Oxygen 30 02/16/22 16:00 02/16/22 18:00 02/16/22 18:00 Temperature Pulse Rate 79 79 Respiratory Rate 21 H Blood Pressure 147/71 H Pulse Oximetry 99 98 Oxygen Delivery Mechanical Ventilation Oxygen Flow Rate Fraction of Inspired Oxygen 30 02/16/22 16:00 02/16/22 17:27 02/16/22 20:00 Temperature Pulse Rate 79 79 Respiratory Rate Blood Pressure Pulse Oximetry 99 Oxygen Delivery Mechanical Ventilation Oxygen Flow Rate Fraction of Insp
[2022-02-17 10:52] LABS: Partial Thromboplastin Time 87.3 SECONDS (22.3-36.8)
[2022-02-17] MEDS: cefTRIAXone 2 GM in SODIUM CHLORIDE 0.9% IV 100 ML 200 ML IVPB (11:30)
[2022-02-17 11:33] LABS: Glucose Point of Care 236 mg/dl (65-105)
--- NOTE | 2022-02-17 11:39 | WPDINTPN ---
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 -02/16: EEG - his is an abnormal EEG. There are no electrographic seizures or epileptiform features identified. Diffuse slowing may be seen in the setting of encephalopathy. Clinical correlation is recommended. -Also cefepime has been switched to ceftriaxone on 02/16 ( as cefepime is related to neurotoxicity) (2) Acute respiratory failure: Code(s): J96.00 - Acute respiratory failure, unspecified whether with hypoxia or hypercapnia Status: Acute Assessment and Plan: Acute Respiratory failure secondary to pneumonia with possible component of pulmonary edema. Patient was having nausea/vomiting and may have aspirated. Continue full mechanical ventilation support to prevent hypoxemia/hypercarbia and end organ damage. ABG and vent settings adjusted, switched to ASV mode of ventilation Chest x-ray reviewed Low tidal volume ventilation strategy to prevent volutrauma -patient is off all sedation for greater than 48 hours Bronchodilators p.r.n. (3) Septic shock: Code(s): A41.9 - Sepsis, unspecified organism; R65.21 - Severe sepsis with septic shock Status: Acute Assessment and Plan: Resolved Severe septic shock secondary to Gram-negative bacteremia and UTI Patient was initially on 4 vasopressors at maximum doses, currently epinephrine and phenylephrine -CURRENTLY OFF ALL PRESSORS He has received more than 5 L of fluid. Continue gentle hydration with IV fluids Weaning steroids to off Lactic acid has normalized Urine and blood cultures growing E coli, pansensitive Imipenem was switched to cefepime on 02/14/2022, cefepime is going to be switched to ceftriaxone on 02/16/2022, as cefepime is related to neurotoxicity, since patient is not waking up. Repeat blood cultures 02/15/2022: negative x2, preliminary results (4) Metabolic acidosis: Code(s): E87.20 - Acidosis, unspecified Status: Acute Assessment and Plan: RESOLVED Severe metabolic acidosis secondary to RICK septic shock and lactic acidosis Patient has received multiple pushes of IV bicarb overnight due to shock Continue maintenance IV fluids (5) Hydronephrosis of right kidney: Code(s): N13.30 - Unspecified hydronephrosis Status: Acute Assessment and Plan: Secondary to ureteral stricture and status post right ureteral stent (6) Acute kidney injury: Code(s): N17.9 - Acute kidney failure, unspecified Status: Acute Assessment and Plan: RESOLVED Secondary to ureteral stricture, septic shock, hypovolemia, mild rhabdomyolysis Monitor urine output and electrolytes Monitor CK level Continue maintenance IV fluids Renal ultrasound shows unremarkable kidneys Nephrology has been consulted -urine output has been adequate, creatinine 1.3 this morning (7) Urinary tract infection: Code(s): N39.0 - Urinary tract infection, site not specified Status: Acute Assessment and Plan: Urine cultures growing E coli, now on ceftriaxone (8) Non-ST elevated myocardial infarction (non-STEMI): Code(s): I21.4 - Non-ST elevation (NSTEMI) myocardial infarction Status: Acute Assessment and Plan: Elevated troponin likely secondary to septic shock Patient evaluated by Cardiology 02/13/2022 Echocardiogram : EF 35-40%, mildly increased LV wall thickness, RV systolic function is reduced, estimated RVSP of 39 mmHg Continue aspirin (9) Atrial fibrillation: Code(s): I48.91 - Unspecified
--- NOTE | 2022-02-17 12:01 | WPDNEUROPN ---
Progress Note: A&P Assessment and Plan (1) Encephalopathy: Code(s): G93.40 - Encephalopathy, unspecified Status: Acute (2) Left-sided weakness: Code(s): R53.1 - Weakness Status: Acute (3) Septic shock: Code(s): A41.9 - Sepsis, unspecified organism; R65.21 - Severe sepsis with septic shock Status: Acute (4) Acute respiratory failure: Code(s): J96.00 - Acute respiratory failure, unspecified whether with hypoxia or hypercapnia Status: Acute (5) Atrial fibrillation: Code(s): I48.91 - Unspecified atrial fibrillation Status: Acute Plan Mr. Olguin is a an 81 year old male with a history of HTN, HLD, CAD who is currently admitted to ICU due to urosepsis and respiratory failure. He remains encephalopathic despite cessation of sedation, although much improved since yesterday. Suspect encephalopathy to be related to residual effect from sedation. Also concern for stroke given weakness on the left side. - Recommend MRI brain w/o contrast when stable Subjective Date/time seen: 02/17/22 12:01 Interval history: Daniel Olguin is a 81 year old male with a history of HTN, HLD, CAD current admitted in the ICU due to septic shock and respiratory failure. Patient presented on 02/11 due to nausea and vomiting. In the ED he was found to be hypotensive. He was found to have RICK and lactic acidosis. UA was concerning for UTI. CT ABD/pelvis showed findings concerning for pneumonia as well as R hydroureteronephrosis with pernephric and periureteral edema. He was started on antibiotics and admitted. He was taken to OR by urology and underwent cystoscopy with R ureteral stent placement. After the procedue, patient developed respiratory failure and hypotension and had to be started on vasopressors. Later during admission, he had a another code blue called; he required bagging and additional vasopressors. Patient reportedly did not lose pulse. Patient is currently intubated, but off all vasopressors. He was on versed and fentanyl for sedation until yesterday. Concerns for lack of improvement in mental status after cessation of sedation. 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 He was also recently found to be in atrial fibrillation, with no prior history. Interval history: Patient more awake today for family, opening eyes spontaneously. He grimaces when touching his right arm -- asked if he was having pain and he nodded yes. Review of Systems Review of Systems: ROS unobtainable: Yes unobtainable due to endotracheal tube Exam Const: General: no acute distress Other: Intubated HENMT: Mouth: Yes moist mucous membranes Eyes: Pupils: Equal, round and reactive pupils present EOM: EOMs intact bilaterally Resp: Auscultation: clear to auscultation bilaterally Cardio: Rate: regular rate Rhythm: regular rhythm GI: GI Palp: Yes Soft to palpation Auscultation: normal bowel sounds Skin: General skin exam: normal color Neuro: Other: Spontaneous eye opening, does not follow commands but did nod yes when asked if he was having pain, antigravity movement of RLE, but minimal movement of LLE. Wearing arm restraints, but more movement in the right arm compared to left. Pupils equal and reactive to light bilaterally. Face appears symmetric. Diminished reflexes throughout. Extrem: General: edema Psych: Other: encephalopathic, does not follow commands Objective Data Vital Signs Vital Signs: Vital Signs - 24 hr 02/16/22 14:00 02/16/22 14:00 02/16/22 14:00 Temperature Pulse Rate 79 79 79 Respiratory Rate 20 Blood Pressure 139/72 Pulse Oximetry 97 Oxygen Delivery Oxygen Flow Rate Fraction of Inspired Oxygen 02/16/22 14:24 02/16/22 14:24 02/16/22 16:41 Temperature 36.9 C 37.2 C Pulse Rate 79 79 78 Respiratory Rate 19 22 H Blood Pressure 139/72 165/83 H Pulse Oximetry 96 96 97 Oxygen Meme
--- NOTE | 2022-02-17 12:22 | PCNFU ---
Nutrition Follow-Up Complete: Inadequate Oral Intake as related to mechanical ventilation as evidenced by tube feedings. Goal:Meet estimated nutritional needs - Meeting goal per tube feeding Pt current nutrition is Vital 1.2 @ 70 ml/h. Provides 1848 kcals, 116 grams protein. Nutrition recommendation: Continue current tube feeding orders Last recorded weight is 109.5 kg. Bowel Motility: +1 BM 02/15/22 Labs Reviewed: Hg 11.3, Hct 36.1, Alb 2.6, BUN 39, Glu 236 Meds Noted: Bumex, lantus Skin: Pitting edema. Mepilex coccyx. Additional Notes: No pressors, no sedation. Tolerating TF. No residuals. Continue current care plan and monitoring Will monitor daily in ICU rounds and reassessing every Sunday and Sunday.
--- NOTE | 2022-02-17 14:17 | PM.IMPN ---
Progress Note: A&P Assessment and Plan (1) Encephalopathy: Code(s): G93.40 - Encephalopathy, unspecified Status: Acute Assessment and Plan: Patient off all sedation with slow improvement of his mental status. CT head 02/15 showing no acute findings. Ammonia level <9. TSH slightly low but FT4 normal. B12 normal in November. Neuro following and appreciate their input. He may be slowly metabolizing the sedation medications. MRI being considered. Consider also repeating CT of the brain see if new CVA is evident. Patient high risk because of his atrial flutter. (2) Acute respiratory failure: Code(s): J96.00 - Acute respiratory failure, unspecified whether with hypoxia or hypercapnia Status: Acute Assessment and Plan: Acute respiratory failure secondary to pneumonia with possible component of pulmonary edema. Patient was having nausea/vomiting and may have aspirated. Chest x-ray reviewed from today. Continue full mechanical ventilation support. Appreciate ocean export agent input. He is self-diuresing and Bumex added for a few doses. Patient tolerating adjustment of his ventilator. (3) Septic shock: Code(s): A41.9 - Sepsis, unspecified organism; R65.21 - Severe sepsis with septic shock Status: Acute Assessment and Plan: Patient with severe septic shock secondary to E coli bacteremia and UTI. Patient was initially on 4 vasopressors at maximum doses, with pressors now weaned off. He is fluid positive more than 9.5L. Weaned off steroids now. Lactic acid has normalized. Imipenem was switched to cefepime on 02/14/2022. WBC back up today - persistent elevation could be related to steroids. Repeat blood cultures ordered 02/15 and are NGTD. Consider abscess formation and would consider repeat imaging if WBC does not decrease off steroids. Discussed with ocean export agent (4) Non-ST elevated myocardial infarction (non-STEMI): Code(s): I21.4 - Non-ST elevation (NSTEMI) myocardial infarction Status: Acute Assessment and Plan: Elevated troponin likely secondary to septic shock. Patient evaluated by Cardiology. Echo 02/13/22: EF 35-40%, mildly increased LV wall thickness, RV systolic function is reduced, estimated RVSP of 39 mmHg. Continue aspirin. Consider decreasing to 81mg. Metoprolol added. (5) Atrial fibrillation: Code(s): I48.91 - Unspecified atrial fibrillation Status: Acute Assessment and Plan: Patient noted to be in atrial fibrillation/flutter. No history listed that he has had this before. EKG on admission shows sinus tachycardia. He is currently rate controlled. Echo as mentioned above. [id number] 7. Anticoagulation started 02/16/22. (6) Metabolic acidosis: Code(s): E87.20 - Acidosis, unspecified Status: Acute Assessment and Plan: Severe metabolic gap acidosis secondary to RICK, septic shock and lactic acidosis. Patient received multiple rounds of IV bicarb. Acidosis has resolved. Lactic acid normal now. Continue to monitor (7) Hydronephrosis of right kidney: Code(s): N13.30 - Unspecified hydronephrosis Status: Acute Assessment and Plan: Secondary to ureteral stricture now status post right ureteral stent placement. Appreciate Urology input. May need repeat imaging if white count continues to climb off steroids. (8) Acute kidney injury: Code(s): N17.9 - Acute kidney failure, unspecified Status: Acute Assessment and Plan: Cr up to 3.2. Secondary to ureteral stricture, septic shock, hypovolemia, mild rhabdomyolysis. Ureteral stent placed on 02/11. TCK was elevated to 1573 but this has trended down with IV fluids. Renal ultrasound shows unremarkable kidneys. Nephrology consulted and appreciate their input. Urine output has been adequate. Creatinine 1.0 today Monitor urine output and electrolytes. (9) Urinary tract infection: Code(s): N39.0 - Urinary tract infection, si
[2022-02-17] MEDS: BUMETANIDE INJ 1 MG/4 ML VIAL IV PUSH (15:09)
[2022-02-17 17:04] LABS: Glucose Point of Care 195 mg/dl (65-105)
[2022-02-18] VITALS (52 sets, daily range): BP systolic 130–177; BP diastolic 47–98; PULSE 76–104; RESP 10–27; TEMP 36.4–37.1; O2SAT 91–99
[2022-02-18] MEDS: BUMETANIDE INJ 1 MG/4 ML VIAL IV PUSH ×2 (00:31→15:54)
[2022-02-18] MEDS: INSULIN ASPART (*BKC) 100 UNITS/ML SUB-Q ×4 (00:31→18:23)
[2022-02-18 00:37] LABS: Glucose Point of Care 219 mg/dl (65-105)
[2022-02-18 02:39] LABS: Pneumococcal Antigen Urine Not Detected (Not Detected)
[2022-02-18 05:49] LABS: Base Excess ABG 8.3 mEq/l (+/-2.0); Fractional Inspired Oxygen 35 %; HCO3 ABG 32.2 mEq/l (22.0-26.0); Oxygen Content ABG 15.5 %vol (16.0-22.0); Oxygen Saturation ABG 97.1 % (95.0-100.0); Oxyhemoglobin 95.5 % THb (90.0-100.0); PCO2 ABG 41.9 mmHg (35.0-45.0); PO2 ABG 84.8 mmHg (80.0-100.0); PO2 FiO2 Ratio Arterial Blood 2.42 %; Total Hemoglobin 11.5 g/dL (12.0-18.0)
[2022-02-18 05:51] LABS: Device VENTILATOR; Modified Allen's Test Pass; Site Drawn RIGHT RADIAL; pH ABG 7.503 (7.350-7.450)
[2022-02-18 05:52] LABS: Arterial Blood Gas PEEP 8 cmH2O; Arterial Blood Gas Tidal Volume 450 ml; Arterial Blood Gas Vent Mode CMV; Arterial Blood Gas Ventilator rate 18 /MIN
[2022-02-18 05:57] LABS: Glucose Point of Care 250 mg/dl (65-105)
[2022-02-18] MEDS: CENTRAL LINE FLUSH 10 ML IV PUSH ×5 (05:58→20:03)
[2022-02-18] MEDS: hydrALAZINE HCL 20 MG/ML VIAL 10 MG IV PUSH ×2 (06:03→11:20)
[2022-02-18 06:25] LABS: Basophils Absolute Auto 0.1 K/mm3 (0.0-0.1); Basophils Percent Auto 0.5 % (0.2-1.2); Eosinophils Absolute Auto 0.1 K/mm3 (0-0.3); Eosinophils Percent Auto 0.4 % (0-4.4); Hematocrit 34.2 % (42.0-52.0); Hemoglobin 10.7 g/dL (14.0-18.0); Immature Granulocyte Absolute 0.95 K/mm3 (0.00-0.031); Immature Granulocyte Percent A 5.4 % (0-0.5); Lymphocytes Absolute Auto 0.85 K/mm3 (0.9-3.2); Lymphocytes Percent Auto 4.9 % (18.3-44.2); Mean Corpuscular HGB Conc 31.3 g/dl (32-36); Mean Corpuscular Hemoglobin 30.5 pg (26-34); Mean Corpuscular Volume 97.4 fl (80-100); Mean Platelet Volume 11.9 fl (7.4-10.4); Monocytes Absolute Auto 0.5 K/mm3 (0.1-0.6); Neutrophils Percent Auto 85.8 % (45.5-73.1); Nucleated Red Blood Cells Perc 0.1 % (0.0-0.2); Platelet Count Result 128 k/mm3 (150-375); Red Blood Count 3.51 M/mm3 (4.6-6.20); Red Cell Distribution Width 15.3 % (11.5-14.5); White Blood Count 17.5 K/mm3 (4.5-10.0)
[2022-02-18 06:35] LABS: Partial Thromboplastin Time 59.8 SECONDS (22.3-36.8)
[2022-02-18 06:38] LABS: Alanine Aminotransferase 165 U/L (6-50); Albumin Level 2.5 g/dL (3.5-5.1); Alkaline Phosphatase 157 U/L (38-126); Anion Gap 7 mmol/L (8-16); Aspartate Amino Transferase 96 U/L (17-59); Bilirubin,Total 0.7 mg/dL (0.2-1.3); Blood Urea Nitrogen 38 mg/dL (9-20); Carbon Dioxide 34 mmol/L (22-30); Chloride 107 mmol/L (98-107); Estimated CRCL calculation 57 ml/min; Estimated Glomerular Filt Rate > 60; Glucose 271 mg/dL (65-110); Magnesium 2.2 mg/dL (1.6-2.3); Phosphorus 3.2 mg/dL (2.5-4.5); Potassium 3.2 mmol/L (3.4-5.0); Sodium 148 mmol/L (137-145)
[2022-02-18] MEDS: HEPARIN SOD/D5W 100 UNITS/ML 25,000 UNITS/250 ML BAG 15 UNITS IV CONT (06:44)
[2022-02-18] MEDS: HEPARIN SODIUM 5,000 UNITS/ML VIAL 3500 UNITS IV PUSH (06:47)
[2022-02-18] MEDS: PANTOPRAZOLE SODIUM IV 40 MG VIAL IV PUSH ×2 (08:50→20:03)
[2022-02-18] MEDS: ASPIRIN 325 MG TABLET FEED TUBE (08:51)
[2022-02-18] MEDS: POTASSIUM CHLORIDE 20 MEQ PACKET (FOR LIQUID) 40 MEQ FEED TUBE ×2 (08:51→15:54)
[2022-02-18] MEDS: amLODIPine BESYLATE 5 MG TABLET PO (08:51)
[2022-02-18] MEDS: MINERAL OIL/WHITE PETROLATUM OINTMENT 1 APPLIC EACH EYE ×2 (08:51→20:03)
[2022-02-18] MEDS: METOPROLOL TARTRATE 25 MG TABLET PO ×2 (08:52→20:03)
[2022-02-18] MEDS: INSULIN GLARGINE (*BKC) 100 UNITS/ML 26 UNITS SUB-Q (08:52)
--- NOTE | 2022-02-18 10:08 | PM.IMPN ---
Progress Note: A&P Assessment and Plan (1) Encephalopathy: Code(s): G93.40 - Encephalopathy, unspecified Status: Acute Assessment and Plan: Patient off all sedation with slow improvement of his mental status. CT head 02/15 showing no acute findings. Ammonia level <9. TSH slightly low but FT4 normal. B12 normal in November. Neuro following and appreciate their input. He probably is slowly metabolizing the sedation medications. MRI being considered once he is off the MV. Patient was high risk for CVA because of his atrial flutter (now on Heparin). Contineu to monitor. (2) Acute respiratory failure: Code(s): J96.00 - Acute respiratory failure, unspecified whether with hypoxia or hypercapnia Status: Acute Assessment and Plan: Acute respiratory failure secondary to pneumonia with possible component of pulmonary edema. Patient was having nausea/vomiting and may have aspirated. Chest x-ray reviewed from today showing LLL airspace dz. Continue full mechanical ventilation support. Appreciate newspaper library manager input. He is self-diuresing and Bumex added for a few doses. Still edematous but better. No DVT in the RUE. Check xray but consider gout flare. Patient tolerating adjustment of his ventilator. (3) Septic shock: Code(s): A41.9 - Sepsis, unspecified organism; R65.21 - Severe sepsis with septic shock Status: Acute Assessment and Plan: Patient with severe septic shock secondary to E coli bacteremia and UTI. Patient was initially on 4 vasopressors at maximum doses, with pressors now weaned off. He is fluid positive but better. Weaned off steroids now. Lactic acid has normalized. Imipenem was switched to cefepime on 02/14/22 then to Rocephin 02/16. WBC back down today. Persistent elevation could have been related to steroids. Repeat blood cultures ordered 02/15 and are NGTD. Consider abscess formation and would consider repeat imaging if WBC does not continue to improve. (4) Non-ST elevated myocardial infarction (non-STEMI): Code(s): I21.4 - Non-ST elevation (NSTEMI) myocardial infarction Status: Acute Assessment and Plan: Elevated troponin likely secondary to septic shock. Patient evaluated by Cardiology. Echo 02/13/22: EF 35-40%, mildly increased LV wall thickness, RV systolic function is reduced, estimated RVSP of 39 mmHg. Continue aspirin and metoprolol. (5) Atrial fibrillation: Code(s): I48.91 - Unspecified atrial fibrillation Status: Acute Assessment and Plan: Patient noted to be in atrial fibrillation/flutter. No history listed that he has had this before. EKG on admission shows sinus tachycardia. He is currently rate controlled. Echo as mentioned above. [id number] 7. Contine metoprolol. Anticoagulation started 02/16/22. (6) Metabolic acidosis: Code(s): E87.20 - Acidosis, unspecified Status: Acute Assessment and Plan: Severe metabolic gap acidosis secondary to RICK, septic shock and lactic acidosis. Patient received multiple rounds of IV bicarb. Acidosis has resolved. Lactic acid normal now. Continue to monitor (7) Hydronephrosis of right kidney: Code(s): N13.30 - Unspecified hydronephrosis Status: Acute Assessment and Plan: Secondary to ureteral stricture now status post right ureteral stent placement. Appreciate Urology input. As above (8) Acute kidney injury: Code(s): N17.9 - Acute kidney failure, unspecified Status: Acute Assessment and Plan: Cr up to 3.2. Secondary to ureteral stricture, septic shock, hypovolemia, mild rhabdomyolysis. Ureteral stent placed on 02/11. TCK was elevated to 1573 but this has trended down with IV fluids. Renal ultrasound shows unremarkable kidneys. Nephrology consulted and appreciate their input. Urine output has been adequate. he toelrated the Bumex. Creatinine 1.1 today Monitor urine output and electrolytes. (9) Urinary tract in
[2022-02-18] MEDS: cefTRIAXone 2 GM in SODIUM CHLORIDE 0.9% IV 100 ML IVPB (11:07)
[2022-02-18 11:14] LABS: Glucose Point of Care 276 mg/dl (65-105)
[2022-02-18] MEDS: POLYMYXIN/TRIMETHOPRIM OPHTH 10 ML DROPS 1 DROP RIGHT EYE ×2 (11:25→20:04)
--- NOTE | 2022-02-18 14:25 | WPDINTPN ---
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 -02/16: EEG - his is an abnormal EEG. There are no electrographic seizures or epileptiform features identified. Diffuse slowing may be seen in the setting of encephalopathy. Clinical correlation is recommended. -Also cefepime has been switched to ceftriaxone on 02/16 ( as cefepime is related to neurotoxicity) -02/18/2022 patient definitely more awake, follows commands, nods to questions. Will consider MRI once patient is off mechanical ventilation (2) Acute respiratory failure: Code(s): J96.00 - Acute respiratory failure, unspecified whether with hypoxia or hypercapnia Status: Acute Assessment and Plan: Acute Respiratory failure secondary to pneumonia with possible component of pulmonary edema. Patient was having nausea/vomiting and may have aspirated. Continue full mechanical ventilation support to prevent hypoxemia/hypercarbia and end organ damage. ABG and vent settings adjusted, switched to ASV mode of ventilation Chest x-ray reviewed Low tidal volume ventilation strategy to prevent volutrauma -patient is off all sedation -patient ASV mode of ventilation and and pressure support ventilation on 02/08, currently tolerating well will switch to ASV did receive Bronchodilators p.r.n. (3) Septic shock: Code(s): A41.9 - Sepsis, unspecified organism; R65.21 - Severe sepsis with septic shock Status: Acute Assessment and Plan: Resolved Severe septic shock secondary to Gram-negative bacteremia and UTI Patient was initially on 4 vasopressors at maximum doses, currently epinephrine and phenylephrine -CURRENTLY OFF ALL PRESSORS He has received more than 5 L of fluid. Continue gentle hydration with IV fluids Weaning steroids to off Lactic acid has normalized Urine and blood cultures growing E coli, pansensitive Imipenem was switched to cefepime on 02/14/2022, cefepime is going to be switched to ceftriaxone on 02/16/2022, as cefepime is related to neurotoxicity, since patient is not waking up. Repeat blood cultures 02/15/2022: negative x2, preliminary results (4) Metabolic acidosis: Code(s): E87.20 - Acidosis, unspecified Status: Acute Assessment and Plan: RESOLVED Severe metabolic acidosis secondary to RICK septic shock and lactic acidosis Patient has received multiple pushes of IV bicarb overnight due to shock Continue maintenance IV fluids (5) Hydronephrosis of right kidney: Code(s): N13.30 - Unspecified hydronephrosis Status: Acute Assessment and Plan: Secondary to ureteral stricture and status post right ureteral stent (6) Acute kidney injury: Code(s): N17.9 - Acute kidney failure, unspecified Status: Acute Assessment and Plan: RESOLVED Secondary to ureteral stricture, septic shock, hypovolemia, mild rhabdomyolysis Monitor urine output and electrolytes Monitor CK level Continue maintenance IV fluids Renal ultrasound shows unremarkable kidneys Nephrology has been consulted -urine output has been adequate, creatinine 1.10 this morning -diurese patient again today (7) Urinary tract infection: Code(s): N39.0 - Urinary tract infection, site not specified Status: Acute Assessment and Plan: Urine cultures growing E coli, now on ceftriaxone (8) Non-ST elevated myocardial infarction (non-STEMI): Code(s): I21.4 - Non-ST elevation (NSTEMI) myocardial infarction Status: Acute Assessment and Plan: Elevated troponin l
[2022-02-18 14:38] LABS: Partial Thromboplastin Time 119.2 SECONDS (22.3-36.8)
[2022-02-18 14:43] LABS: Add Urine Microscopic? YES; Appearance Urine Cloudy (Clear); Bilirubin Urine Negative (Negative); Blood Urine 3+ (Negative); Color Urine Red (Yellow); Glucose Urine UA 1+ mg/dL (Negative); Ketones Urine Negative (Negative); Leukocyte Esterase Ur Negative LEU/UL (NEGATIVE); Nitrate Urine Negative (Negative); Protein Urine 2+ mg/dL (Negative); RBC Urine >75 /hpf (0-2); Specific Grav Ur 1.024 (1.001-1.035); Urobilinogen Urine Negative mg/dL (<2.0); WBC Urine 51-75 /hpf (0-3)
[2022-02-18 20:23] LABS: Glucose Point of Care 211 mg/dl (65-105)
[2022-02-18] MEDS: HEPARIN SOD/D5W 100 UNITS/ML 25,000 UNITS/250 ML BAG 13 UNITS IV CONT (22:17)
[2022-02-19] VITALS (30 sets, daily range): BP systolic 113–171; BP diastolic 42–67; PULSE 72–93; RESP 8–29; TEMP 36.8–37.3; O2SAT 92–99
[2022-02-19 00:14] LABS: Glucose Point of Care 249 mg/dl (65-105)
[2022-02-19] MEDS: INSULIN ASPART (*BKC) 100 UNITS/ML SUB-Q ×2 (00:24→04:50)
[2022-02-19 04:47] LABS: Basophils Percent Auto 0.2 % (0.2-1.2); Eosinophils Absolute Auto 0.1 K/mm3 (0-0.3); Eosinophils Percent Auto 0.7 % (0-4.4); Hematocrit 31.5 % (42.0-52.0); Hemoglobin 9.8 g/dL (14.0-18.0); Immature Granulocyte Absolute 0.42 K/mm3 (0.00-0.031); Immature Granulocyte Percent A 2.8 % (0-0.5); Lymphocytes Absolute Auto 0.77 K/mm3 (0.9-3.2); Lymphocytes Percent Auto 5.1 % (18.3-44.2); Mean Corpuscular HGB Conc 31.1 g/dl (32-36); Mean Corpuscular Hemoglobin 30.6 pg (26-34); Mean Corpuscular Volume 98.4 fl (80-100); Mean Platelet Volume 11.3 fl (7.4-10.4); Monocytes Absolute Auto 0.4 K/mm3 (0.1-0.6); Monocytes Percent Auto 2.7 % (2.6-8.5); Neutrophils Absolute Auto 13.4 K/mm3 (1.3-6.7); Neutrophils Percent Auto 88.5 % (45.5-73.1); Platelet Count Result 168 k/mm3 (150-375); Red Cell Distribution Width 15.6 % (11.5-14.5); White Blood Count 15.1 K/mm3 (4.5-10.0)
[2022-02-19 04:50] LABS: Glucose Point of Care 230 mg/dl (65-105)
[2022-02-19] MEDS: CENTRAL LINE FLUSH 10 ML IV PUSH ×7 (04:50→21:01)
[2022-02-19 04:57] LABS: Alanine Aminotransferase 148 U/L (6-50); Albumin Level 2.4 g/dL (3.5-5.1); Alkaline Phosphatase 143 U/L (38-126); Anion Gap 3 mmol/L (8-16); Aspartate Amino Transferase 79 U/L (17-59); Bilirubin,Total 0.6 mg/dL (0.2-1.3); Blood Urea Nitrogen 42 mg/dL (9-20); Calcium 7.8 mg/dL (8.4-10.2); Carbon Dioxide 33 mmol/L (22-30); Chloride 111 mmol/L (98-107); Estimated CRCL calculation 56 ml/min; Estimated Glomerular Filt Rate > 60; Glucose 254 mg/dL (65-110); Magnesium 2.3 mg/dL (1.6-2.3); Phosphorus 3.4 mg/dL (2.5-4.5); Potassium 3.8 mmol/L (3.4-5.0); Sodium 147 mmol/L (137-145)
[2022-02-19 04:59] LABS: Partial Thromboplastin Time 75.2 SECONDS (22.3-36.8)
[2022-02-19 06:01] LABS: Alveolar/Arterial O2 Gradient 76.2 mmHg; Base Excess ABG 8.2 mEq/l (+/-2.0); Carboxyhemoglobin 0.3 % THb (0-2.0); Fractional Inspired Oxygen 30 %; HCO3 ABG 31.9 mEq/l (22.0-26.0); Methemoglobin ABG 0.3 %THb (0-1.5); Oxygen Content ABG 14.9 %vol (16.0-22.0); Oxygen Saturation ABG 97.5 % (95.0-100.0); Oxyhemoglobin 95.6 % THb (90.0-100.0); PCO2 ABG 41.1 mmHg (35.0-45.0); PO2 ABG 89.4 mmHg (80.0-100.0); PO2 FiO2 Ratio Arterial Blood 2.98 %; Reduced Hemoglobin 3.8 %THb (0-5.0)
[2022-02-19 06:03] LABS: Device VENTILATOR; Modified Allen's Test Pass; Site Drawn RIGHT RADIAL; pH ABG 7.508 (7.350-7.450)
[2022-02-19 06:07] LABS: Arterial Blood Gas PEEP 5 cmH2O; Arterial Blood Gas Tidal Volume 100 ml; Arterial Blood Gas Vent Mode ASV
--- NOTE | 2022-02-19 08:25 | PM.IMPN ---
Progress Note: A&P Assessment and Plan (1) Acute respiratory failure: Code(s): J96.00 - Acute respiratory failure, unspecified whether with hypoxia or hypercapnia Status: Acute Assessment and Plan: Acute respiratory failure secondary to pneumonia with possible component of pulmonary edema. Patient was having nausea/vomiting and may have aspirated. Chest x-ray reviewed from today showing no significant change. Vent being adjusted for possible extubation. He is self-diuresing and Bumex added for a few doses. Still edematous but better. No DVT in the RUE. Vent management per web content director. Appreciate web content director input. (2) Septic shock: Code(s): A41.9 - Sepsis, unspecified organism; R65.21 - Severe sepsis with septic shock Status: Acute Assessment and Plan: Patient with severe septic shock secondary to E coli bacteremia and UTI. Patient was initially on 4 vasopressors at maximum doses, with pressors now weaned off. He is fluid positive but better. Weaned off steroids now. Lactic acid has normalized. Imipenem was switched to cefepime on 02/14/22 then to Rocephin 02/16. WBC continues to trend down. Persistent elevation could have been related to steroids. Repeat blood cultures ordered 02/15 and are NGTD. Continue IV abx. (3) Non-ST elevated myocardial infarction (non-STEMI): Code(s): I21.4 - Non-ST elevation (NSTEMI) myocardial infarction Status: Acute Assessment and Plan: Elevated troponin likely secondary to septic shock. Patient evaluated by Cardiology. Echo 02/13/22: EF 35-40%, mildly increased LV wall thickness, RV systolic function is reduced, estimated RVSP of 39 mmHg. Continue aspirin and metoprolol. (4) Atrial fibrillation: Code(s): I48.91 - Unspecified atrial fibrillation Status: Acute Assessment and Plan: Patient noted to be in atrial fibrillation/flutter. No history listed that he has had this before. EKG on admission shows sinus tachycardia. He is currently rate controlled. Echo as mentioned above. [id number] 7. Anticoagulation started 02/16/22. Now having hematuria and blood with suctioning. Hgb trending down since beginning Heparin 12.2->11.3->10.7->9.8. Fluid status improving so would expect this to improve. Continue metoprolol. Defer to web content director but anti-coagulation may need to be held. (5) Hematuria: Code(s): R31.9 - Hematuria, unspecified Status: Acute Assessment and Plan: UA on admission noted hematuria (2+ blood and 3-5RBC) prior to stent placement. Noted to have pink colored urine a fe days ago and now Hgb trending down. Cystoscopy on 02/11 did not reveal tumors, masses, stones, trabeculations or diverticuli. Related to [place] trauma? Monitor to see if clears spontaneously. May need to stop Heparin (6) Hydronephrosis of right kidney: Code(s): N13.30 - Unspecified hydronephrosis Status: Acute Assessment and Plan: Secondary to ureteral stricture now status post cystoscopy with right ureteral stent placement on 02/11/22. Appreciate Urology input. As above (7) Diabetes: Code(s): E11.9 - Type 2 diabetes mellitus without complications Status: Acute Assessment and Plan: A1c 8.1. The patient's blood glucose was reviewed on 02/19 Glucose remains elevated at times. Lantus to be advanced again Continue Accu[employer]ks covering with sliding scale. Hypoglycemia protocol available as needed. Continue to monitor (8) Acute kidney injury: Code(s): N17.9 - Acute kidney failure, unspecified Status: Acute Assessment and Plan: Cr up to 3.2. Secondary to ureteral stricture, septic shock, hypovolemia, mild rhabdomyolysis. Ureteral stent placed on 02/11. TCK was elevated to 1573 but this has trended down with IV fluids. Renal ultrasound shows unremarkable kidneys. Nephrology consulted and appreciate their input. Urine output has been adequate. he toelrated the Bumex. C
[2022-02-19] MEDS: amLODIPine BESYLATE 5 MG TABLET PO (09:00)
--- NOTE | 2022-02-19 09:02 | PCRCNOTE ---
pt placed on 02/08 SBT at 0856
[2022-02-19] MEDS: ASPIRIN 81 MG CHEWABLE TABLET FEED TUBE (09:06)
[2022-02-19] MEDS: PANTOPRAZOLE SODIUM IV 40 MG VIAL IV PUSH ×2 (09:06→21:01)
[2022-02-19] MEDS: POLYMYXIN/TRIMETHOPRIM OPHTH 10 ML DROPS 1 DROP RIGHT EYE ×2 (09:06→21:03)
[2022-02-19] MEDS: MINERAL OIL/WHITE PETROLATUM OINTMENT 1 APPLIC EACH EYE (09:06)
[2022-02-19] MEDS: METOPROLOL TARTRATE 25 MG TABLET PO (09:06)
--- NOTE | 2022-02-19 09:18 | PCRCNOTE ---
pt placed on 12/09 SBT at 0917
[2022-02-19 11:02] LABS: Alveolar/Arterial O2 Gradient 80.2 mmHg; Base Excess ABG 7.6 mEq/l (+/-2.0); Fractional Inspired Oxygen 30 %; HCO3 ABG 31.2 mEq/l (22.0-26.0); Oxygen Content ABG 16.9 %vol (16.0-22.0); Oxygen Saturation ABG 97.3 % (95.0-100.0); Oxyhemoglobin 95.7 % THb (90.0-100.0); PCO2 ABG 40.2 mmHg (35.0-45.0); PO2 ABG 86.5 mmHg (80.0-100.0); PO2 FiO2 Ratio Arterial Blood 2.88 %; Total Hemoglobin 12.5 g/dL (12.0-18.0)
[2022-02-19 11:03] LABS: Device VENTILATOR; Modified Allen's Test Pass; Site Drawn RIGHT RADIAL; pH ABG 7.508 (7.350-7.450)
[2022-02-19 11:04] LABS: Arterial Blood Gas PEEP 5 cmH2O; Arterial Blood Gas Vent Mode ASV; Peak Inspiratory Pressure 8 cmH2O
[2022-02-19] MEDS: INSULIN GLARGINE (*BKC) 100 UNITS/ML 35 UNITS SUB-Q (11:35)
[2022-02-19] MEDS: cefTRIAXone 2 GM in SODIUM CHLORIDE 0.9% IV 100 ML 200 ML IVPB (11:35)
[2022-02-19 11:48] LABS: Glucose Point of Care 223 mg/dl (65-105)
--- NOTE | 2022-02-19 13:43 | WPDINTPN ---
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 -02/16: EEG - his is an abnormal EEG. There are no electrographic seizures or epileptiform features identified. Diffuse slowing may be seen in the setting of encephalopathy. Clinical correlation is recommended. -Also cefepime has been switched to ceftriaxone on 02/16 ( as cefepime is related to neurotoxicity) -02/18/2022 patient definitely more awake, follows commands, nods to questions. Will consider MRI once patient is off mechanical ventilation (2) Acute respiratory failure: Code(s): J96.00 - Acute respiratory failure, unspecified whether with hypoxia or hypercapnia Status: Acute Assessment and Plan: Acute Respiratory failure secondary to pneumonia with possible component of pulmonary edema. Patient was having nausea/vomiting and may have aspirated. Continue full mechanical ventilation support to prevent hypoxemia/hypercarbia and end organ damage. ABG and vent settings adjusted, on ASV mode of ventilation Chest x-ray reviewed Low tidal volume ventilation strategy to prevent volutrauma -patient is off all sedation -placed patient on pressure support ventilation/SBT, doing well, will evaluate for extubation Bronchodilators p.r.n. (3) Septic shock: Code(s): A41.9 - Sepsis, unspecified organism; R65.21 - Severe sepsis with septic shock Status: Acute Assessment and Plan: Resolved Severe septic shock secondary to Gram-negative bacteremia and UTI Patient was initially on 4 vasopressors at maximum doses, currently epinephrine and phenylephrine -CURRENTLY OFF ALL PRESSORS He has received more than 5 L of fluid. Continue gentle hydration with IV fluids Weaning steroids to off Lactic acid has normalized Urine and blood cultures growing E coli, pansensitive Imipenem was switched to cefepime on 02/14/2022, cefepime is going to be switched to ceftriaxone on 02/16/2022, as cefepime is related to neurotoxicity, since patient is not waking up. Repeat blood cultures 02/15/2022: negative x2, preliminary results (4) Metabolic acidosis: Code(s): E87.20 - Acidosis, unspecified Status: Acute Assessment and Plan: RESOLVED Severe metabolic acidosis secondary to RICK septic shock and lactic acidosis Patient has received multiple pushes of IV bicarb overnight due to shock Continue maintenance IV fluids (5) Hydronephrosis of right kidney: Code(s): N13.30 - Unspecified hydronephrosis Status: Acute Assessment and Plan: Secondary to ureteral stricture and status post right ureteral stent (6) Acute kidney injury: Code(s): N17.9 - Acute kidney failure, unspecified Status: Acute Assessment and Plan: RESOLVED Secondary to ureteral stricture, septic shock, hypovolemia, mild rhabdomyolysis Monitor urine output and electrolytes Monitor CK level Continue maintenance IV fluids Renal ultrasound shows unremarkable kidneys Nephrology has been consulted -urine output has been adequate, creatinine 1.10 this morning -diurese patient again today (7) Urinary tract infection: Code(s): N39.0 - Urinary tract infection, site not specified Status: Acute Assessment and Plan: Urine cultures growing E coli, now on ceftriaxone (8) Non-ST elevated myocardial infarction (non-STEMI): Code(s): I21.4 - Non-ST elevation (NSTEMI) myocardial infarction Status: Acute A
[2022-02-19 17:16] LABS: Glucose Point of Care 178 mg/dl (65-105)
[2022-02-19] MEDS: HEPARIN SOD/D5W 100 UNITS/ML 25,000 UNITS/250 ML BAG 13 UNITS IV CONT (21:00)
[2022-02-20] VITALS (13 sets, daily range): BP systolic 131–167; BP diastolic 60–81; PULSE 73–80; RESP 16–28; TEMP 36.4–36.9; O2SAT 92–100
[2022-02-20 00:29] LABS: Glucose Point of Care 118 mg/dl (65-105)
[2022-02-20 05:03] LABS: Basophils Percent Auto 0.2 % (0.2-1.2); Eosinophils Absolute Auto 0.1 K/mm3 (0-0.3); Hemoglobin 10.4 g/dL (14.0-18.0); Immature Granulocyte Absolute 0.23 K/mm3 (0.00-0.031); Immature Granulocyte Percent A 1.7 % (0-0.5); Lymphocytes Absolute Auto 0.97 K/mm3 (0.9-3.2); Lymphocytes Percent Auto 7.3 % (18.3-44.2); Mean Corpuscular HGB Conc 30.6 g/dl (32-36); Mean Corpuscular Hemoglobin 30.5 pg (26-34); Mean Corpuscular Volume 99.7 fl (80-100); Mean Platelet Volume 10.6 fl (7.4-10.4); Monocytes Absolute Auto 0.5 K/mm3 (0.1-0.6); Monocytes Percent Auto 3.5 % (2.6-8.5); Neutrophils Absolute Auto 11.5 K/mm3 (1.3-6.7); Neutrophils Percent Auto 86.3 % (45.5-73.1); Platelet Count Result 218 k/mm3 (150-375); Red Blood Count 3.41 M/mm3 (4.6-6.20); Red Cell Distribution Width 15.8 % (11.5-14.5); White Blood Count 13.4 K/mm3 (4.5-10.0)
[2022-02-20 05:16] LABS: Partial Thromboplastin Time 93.1 SECONDS (22.3-36.8)
[2022-02-20 05:18] LABS: Alanine Aminotransferase 135 U/L (6-50); Albumin Level 2.6 g/dL (3.5-5.1); Alkaline Phosphatase 140 U/L (38-126); Anion Gap 4 mmol/L (8-16); Aspartate Amino Transferase 75 U/L (17-59); Bilirubin,Total 0.6 mg/dL (0.2-1.3); Blood Urea Nitrogen 33 mg/dL (9-20); Calcium 8.2 mg/dL (8.4-10.2); Carbon Dioxide 32 mmol/L (22-30); Chloride 114 mmol/L (98-107); Estimated CRCL calculation 56 ml/min; Estimated Glomerular Filt Rate > 60; Glucose 115 mg/dL (65-110); Magnesium 2.4 mg/dL (1.6-2.3); Phosphorus 4.1 mg/dL (2.5-4.5); Potassium 3.8 mmol/L (3.4-5.0); Sodium 150 mmol/L (137-145)
[2022-02-20] MEDS: CENTRAL LINE FLUSH 10 ML IV PUSH ×8 (05:58→21:57)
[2022-02-20] MEDS: PANTOPRAZOLE SODIUM IV 40 MG VIAL IV PUSH ×2 (08:18→21:56)
[2022-02-20] MEDS: POLYMYXIN/TRIMETHOPRIM OPHTH 10 ML DROPS 1 DROP RIGHT EYE ×2 (08:18→21:56)
--- NOTE | 2022-02-20 08:43 | WPDINTPN ---
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 -02/16: EEG - his is an abnormal EEG. There are no electrographic seizures or epileptiform features identified. Diffuse slowing may be seen in the setting of encephalopathy. Clinical correlation is recommended. -Also cefepime has been switched to ceftriaxone on 02/16 ( as cefepime is related to neurotoxicity) (2) Acute respiratory failure: Code(s): J96.00 - Acute respiratory failure, unspecified whether with hypoxia or hypercapnia Status: Acute Assessment and Plan: Acute Respiratory failure secondary to pneumonia with possible component of pulmonary edema. 02/19 extubated after a successful weaning trial Maintaining oxygenation on nasal cannula Bronchodilators p.r.n. Incentive spirometry Up to chair (3) Septic shock: Code(s): A41.9 - Sepsis, unspecified organism; R65.21 - Severe sepsis with septic shock Status: Acute Assessment and Plan: Resolved Severe septic shock secondary to Gram-negative bacteremia and UTI Patient was initially on 4 vasopressors at maximum doses, currently epinephrine and phenylephrine -CURRENTLY OFF ALL PRESSORS He has received adequate amount of fluids Off stress dose steroids Urine and blood cultures growing E coli, pansensitive Imipenem was switched to cefepime on 02/14/2022, cefepime is going to be switched to ceftriaxone on 02/16/2022, as cefepime is related to neurotoxicity, since patient is not waking up. Repeat blood cultures 02/15/2022: negative x2, preliminary results (4) Metabolic acidosis: Code(s): E87.20 - Acidosis, unspecified Status: Acute Assessment and Plan: RESOLVED Severe metabolic acidosis secondary to RICK septic shock and lactic acidosis Patient has received multiple pushes of IV bicarb overnight due to shock Continue maintenance IV fluids (5) Hydronephrosis of right kidney: Code(s): N13.30 - Unspecified hydronephrosis Status: Acute Assessment and Plan: Secondary to ureteral stricture and status post right ureteral stent (6) Acute kidney injury: Code(s): N17.9 - Acute kidney failure, unspecified Status: Acute Assessment and Plan: RESOLVED Secondary to ureteral stricture, septic shock, hypovolemia, mild rhabdomyolysis Monitor urine output and electrolytes Renal ultrasound shows unremarkable kidneys Nephrology following (7) Urinary tract infection: Code(s): N39.0 - Urinary tract infection, site not specified Status: Acute Assessment and Plan: Urine cultures growing E coli, now on ceftriaxone (8) Non-ST elevated myocardial infarction (non-STEMI): Code(s): I21.4 - Non-ST elevation (NSTEMI) myocardial infarction Status: Acute Assessment and Plan: Elevated troponin likely secondary to septic shock Patient evaluated by Cardiology 02/13/2022 Echocardiogram : EF 35-40%, mildly increased LV wall thickness, RV systolic function is reduced, estimated RVSP of 39 mmHg Continue aspirin (9) Atrial fibrillation: Code(s): I48.91 - Unspecified atrial fibrillation Status: Acute Assessment and Plan: Patient in AFib a flutter and sometimes sinus tachycardia. Likely new onset secondary to septic shock. Currently rate controlled. Heparin was initially on hold due to low platelet count, -platelets improved and normalized -patient currently on Heparin infusion. Will switch to DOAC after consultation with Cardiology (10) Right arm pain: Cod
[2022-02-20] MEDS: amLODIPine BESYLATE 5 MG TABLET PO (08:58)
[2022-02-20] MEDS: KCL 20 MEQ/D5W 1,000 ML 1,000 ML 100 ML IV CONT (08:58)
[2022-02-20] MEDS: ASPIRIN 81 MG CHEWABLE TABLET FEED TUBE (08:58)
[2022-02-20] MEDS: METOPROLOL TARTRATE 25 MG TABLET PO ×2 (08:58→21:55)
--- NOTE | 2022-02-20 09:40 | PCSTNOTE ---
Please refer to the Bedside Swallow Evaluation in the EMR. Please note, silent aspiration cannot be ruled out at bedside.
[2022-02-20] MEDS: INSULIN GLARGINE (*BKC) 100 UNITS/ML 15 UNITS SUB-Q (09:51)
--- NOTE | 2022-02-20 11:12 | PCFNICU ---
ICU Rounding Note: Pt current nutrition is Soft & Bite sized level 6, consistent carb diabetic diet.. Nutrition recommendation: Monitor intakes, supplement if not meeting 50% estimated needs Last recorded weight is 108.11 kg. Bowel Motility: +2 BM 02/20/22. Labs Reviewed: Hgb 10.4, Hct 34, Alb 2.6, BUN 33, Glu 114 Meds Noted: Bumex, Lantus, hydrazaline Skin: Mepilex coccyx Additional Notes: Tube feeding stopped yesterday 02/19/22. Off ventilator. Seen by speech and cleared for level 6 oral diet. Will be moved to floor today per MD. Following daily in ICU rounds. Will monitor on the floor per policy.
[2022-02-20] MEDS: cefTRIAXone 2 GM in SODIUM CHLORIDE 0.9% IV 100 ML 200 ML IVPB (12:23)
[2022-02-20 12:30] LABS: Glucose Point of Care 181 mg/dl (65-105)
[2022-02-20 16:58] LABS: Glucose Point of Care 126 mg/dl (65-105)
--- NOTE | 2022-02-20 18:26 | PM.IMPN ---
Progress Note: A&P Assessment and Plan (1) Acute respiratory failure: Code(s): J96.00 - Acute respiratory failure, unspecified whether with hypoxia or hypercapnia Status: Acute Assessment and Plan: Acute respiratory failure secondary to pneumonia with possible component of pulmonary edema. Patient was having nausea/vomiting and may have aspirated. Chest x-ray was showing bibasilar airspace disease. Patient able to be extubated yesterday. He continues to self-diurese with negative fluid balance. Still edematous but better. No DVT in the RUE. Down to 3L. Wean O2 as toelrated. (2) Septic shock: Code(s): A41.9 - Sepsis, unspecified organism; R65.21 - Severe sepsis with septic shock Status: Acute Assessment and Plan: Patient with severe septic shock secondary to E coli bacteremia and UTI. Patient was initially on 4 vasopressors at maximum doses, with pressors now weaned off. He is fluid positive but better. Weaned off steroids now. Lactic acid has normalized. Imipenem was switched to cefepime on 02/14/22 then to Rocephin 02/16. WBC continues to trend down. Repeat blood cultures 02/15 are NGTD. Continue IV abx. (3) Non-ST elevated myocardial infarction (non-STEMI): Code(s): I21.4 - Non-ST elevation (NSTEMI) myocardial infarction Status: Acute Assessment and Plan: Elevated troponin likely secondary to septic shock. Patient evaluated by Cardiology. Echo 02/13/22: EF 35-40%, mildly increased LV wall thickness, RV systolic function is reduced, estimated RVSP of 39 mmHg. Continue aspirin and metoprolol. (4) Atrial fibrillation: Code(s): I48.91 - Unspecified atrial fibrillation Status: Acute Assessment and Plan: Patient noted to be in atrial fibrillation/flutter. No history listed that he has had this before. EKG on admission shows sinus tachycardia. He is currently rate controlled. Echo as mentioned above. [id number] 7. Anticoagulation started 02/16/22. Now having hematuria. Hgb trended down but now stable in the 10 range. Fluid status improving so would expect this to improve. Continue metoprolol. Heparin stopped and Eliquis stared. (5) Hematuria: Code(s): R31.9 - Hematuria, unspecified Status: Acute Assessment and Plan: UA on admission noted hematuria (2+ blood and 3-5RBC) prior to stent placement. Cystoscopy on 02/11 did not reveal tumors, masses, stones, trabeculations or diverticuli. Noted to have pink colored urine a few days ago. Related to [place] trauma? Monitor to see if clears spontaneously. (6) Hydronephrosis of right kidney: Code(s): N13.30 - Unspecified hydronephrosis Status: Acute Assessment and Plan: Secondary to ureteral stricture now status post cystoscopy with right ureteral stent placement on 02/11/22. Appreciate Urology input. As above (7) Diabetes: Code(s): E11.9 - Type 2 diabetes mellitus without complications Status: Acute Assessment and Plan: A1c 8.1. The patient's blood glucose was reviewed on 02/20 Glucose remains well controlled. Lantus dose decreased. Continue AccuCheks covering with sliding scale. Hypoglycemia protocol available as needed. Continue to monitor (8) Acute kidney injury: Code(s): N17.9 - Acute kidney failure, unspecified Status: Acute Assessment and Plan: Cr was up to 3.2. Secondary to ureteral stricture, septic shock, hypovolemia, mild rhabdomyolysis. Ureteral stent placed on 02/11. TCK was elevated to 1573 but this has trended down with IV fluids. Renal ultrasound shows unremarkable kidneys. Nephrology consulted and appreciate their input. Urine output has been adequate. Creatinine 1.1 today and stable Monitor urine output and electrolytes. (9) Urinary tract infection: Code(s): N39.0 - Urinary tract infection, site not specified Status: Acute Assessment and Plan: Urine cultures growing E coli.
--- NOTE | 2022-02-20 18:30 | PC.NURSE ---
This patient, Daniel Olguin, was transferred to [[id number]] on 02/20/22 at 1830. Personal belongings sent with patient. Report given to [Qing RICKETTS]. Appropriate documentation sent with patient.
[2022-02-20] MEDS: APIXABAN 5 MG TABLET PO (19:47)
[2022-02-20 22:08] LABS: Glucose Point of Care 153 mg/dl (65-105)
[2022-02-21] VITALS (11 sets, daily range): BP systolic 127–152; BP diastolic 60–65; PULSE 73–76; RESP 16–20; TEMP 36.5–36.9; O2SAT 96–99
[2022-02-21] MEDS: CENTRAL LINE FLUSH 10 ML IV PUSH ×8 (04:53→19:55)
[2022-02-21 05:36] LABS: Basophils Percent Auto 0.2 % (0.2-1.2); Eosinophils Absolute Auto 0.2 K/mm3 (0-0.3); Eosinophils Percent Auto 1.4 % (0-4.4); Hematocrit 33.2 % (42.0-52.0); Hemoglobin 10.3 g/dL (14.0-18.0); Immature Granulocyte Absolute 0.17 K/mm3 (0.00-0.031); Immature Granulocyte Percent A 1.5 % (0-0.5); Lymphocytes Absolute Auto 0.99 K/mm3 (0.9-3.2); Mean Corpuscular Hemoglobin 30.9 pg (26-34); Mean Corpuscular Volume 99.7 fl (80-100); Mean Platelet Volume 10.8 fl (7.4-10.4); Monocytes Absolute Auto 0.3 K/mm3 (0.1-0.6); Neutrophils Absolute Auto 9.3 K/mm3 (1.3-6.7); Neutrophils Percent Auto 84.9 % (45.5-73.1); Platelet Count Result 267 k/mm3 (150-375); Red Blood Count 3.33 M/mm3 (4.6-6.20); Red Cell Distribution Width 14.8 % (11.5-14.5)
[2022-02-21 05:49] LABS: Alanine Aminotransferase 125 U/L (6-50); Albumin Level 2.5 g/dL (3.5-5.1); Alkaline Phosphatase 126 U/L (38-126); Anion Gap 6 mmol/L (8-16); Aspartate Amino Transferase 73 U/L (17-59); Bilirubin,Total 0.7 mg/dL (0.2-1.3); Blood Urea Nitrogen 26 mg/dL (9-20); Calcium 7.9 mg/dL (8.4-10.2); Carbon Dioxide 29 mmol/L (22-30); Chloride 106 mmol/L (98-107); Estimated CRCL calculation 62 ml/min; Estimated Glomerular Filt Rate > 60; Glucose 116 mg/dL (65-110); Magnesium 2.3 mg/dL (1.6-2.3); Potassium 3.9 mmol/L (3.4-5.0); Sodium 141 mmol/L (137-145)
[2022-02-21 08:25] LABS: Glucose Point of Care 115 mg/dl (65-105)
[2022-02-21] MEDS: amLODIPine BESYLATE 5 MG TABLET PO (08:36)
[2022-02-21] MEDS: ASPIRIN 81 MG CHEWABLE TABLET FEED TUBE (08:36)
[2022-02-21] MEDS: POLYMYXIN/TRIMETHOPRIM OPHTH 10 ML DROPS 1 DROP RIGHT EYE ×2 (08:36→20:04)
[2022-02-21] MEDS: APIXABAN 5 MG TABLET PO ×2 (08:36→20:04)
[2022-02-21] MEDS: PANTOPRAZOLE SODIUM IV 40 MG VIAL IV PUSH (08:36)
[2022-02-21] MEDS: INSULIN GLARGINE (*BKC) 100 UNITS/ML 15 UNITS SUB-Q (08:37)
[2022-02-21] MEDS: METOPROLOL TARTRATE 25 MG TABLET PO ×2 (08:37→20:05)
--- NOTE | 2022-02-21 08:54 | PM.PNCARD ---
Progress Note: A&P Assessment and Plan (1) Cardiomyopathy: Code(s): I42.9 - Cardiomyopathy, unspecified Status: Acute Assessment and Plan: Echo from this admission showing a new cardiomyopathy with EF 35 - 40%, echo from [facility] 07/26 showed normal LVSF. Since he is not longer requiring BP support with vasopressors will initiate GDMT for his cardiomyopathy. Will start low dose Entresto today. Already on beta anne. Will add spironolactone as BP tolerates. Would avoid SGLT2 inhibitor with recent complicated UTI. (2) Troponin level elevated: Code(s): R77.8 - Other specified abnormalities of plasma proteins Status: Acute Assessment and Plan: Mild, flat elevation in troponin does not represent ACS/plaque rupture, this is secondary to sepsis and renal failure. No specific cardiac recommendations to make in this regard. (3) Atrial fibrillation: Code(s): I48.91 - Unspecified atrial fibrillation Status: Acute Assessment and Plan: New onset of atrial fibrillation during this hospitalization. He has been placed on metoprolol for rate control. Apixaban for systemic a/c. He is having some mild hematuria. H&H stable. Continue to monitor. 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 Does not report any anginal symptoms. Continue statin. Would not resume plavix on discharge since he is now on systemic a/c with apixaban. Subjective Date/time seen: 02/21/22 08:54 Cardiology follow up for cardiomyopathy, Afib He has been transferred out of the ICU to the floor. Feels weak/fatigued but does not have any chest pain, palpitations. Some shortness of breath with activity. Review of Systems Review of Systems: All systems reviewed & are unremarkable except as noted in HPI and below Exam HENMT: Mouth: Yes moist mucous membranes Eyes: Sclera: sclerae normal Neck: Neck: supple Other: carotid pulses are intact bilaterally. Cannot assess JVD given his body habitus Resp: Effort & Inspection: normal respiratory effort Auscultation: clear to auscultation bilaterally Cardio: Rate: regular rate Rhythm: regular rhythm Heart sounds: S1 normal heart sound present and S2 normal heart sound present Other: the PMI is not palpable first and second heart sounds are normal no audible gallop or murmur GI: Auscultation: normal bowel sounds Urinary Catheter: Urinary Catheter: patent and draining Skin: General skin exam: normal color Neuro: Other: Extrem: Other: no pitting edema, adequate distal perfusion Objective Data Vital Signs Vital Signs: Vital Signs - 24 hr 02/20/22 08:58 02/20/22 10:00 02/20/22 10:00 Temperature Pulse Rate 80 77 76 Respiratory Rate 22 H Blood Pressure 167/78 H Pulse Oximetry 95 Oxygen Delivery Oxygen Flow Rate 02/20/22 12:00 02/20/22 12:00 02/20/22 12:00 Temperature 36.4 C Pulse Rate 75 76 Respiratory Rate 26 H Blood Pressure 157/73 H Pulse Oximetry 95 95 Oxygen Delivery Nasal Cannula Oxygen Flow Rate 3 02/20/22 14:00 02/20/22 14:00 02/20/22 16:00 Temperature Pulse Rate 75 75 74 Respiratory Rate 25 H Blood Pressure 159/75 H Pulse Oximetry 92 Oxygen Delivery Oxygen Flow Rate 02/20/22 16:00 02/20/22 21:55 02/20/22 22:14 Temperature 36.4 C 36.8 C Pulse Rate 74 76 75 Respiratory Rate 18 16 Blood Pressure 167/81 H 160/73 H Pulse Oximetry 98 100 Oxygen Delivery Oxygen Flow Rate 02/20/22 20:00 02/21/22 00:00 02/20/22 20:00 Temperature Pulse Rate 76 74 Respiratory Rate Blood Pressure Pulse Oximetry 99 Oxygen Delivery Nasal Cannula Oxygen Flow Rate 3 02/21/22 04:00 02/21/22 06:55 02/21/22 08:00 Temperature 36.9 C Pulse Rate 75 75 75
[2022-02-21] MEDS: cefTRIAXone 2 GM in SODIUM CHLORIDE 0.9% IV 100 ML 200 ML IVPB (12:22)
[2022-02-21 12:23] LABS: Glucose Point of Care 159 mg/dl (65-105)
--- NOTE | 2022-02-21 15:43 | PM.IMPN ---
Progress Note: A&P Assessment and Plan (1) Acute respiratory failure: Code(s): J96.00 - Acute respiratory failure, unspecified whether with hypoxia or hypercapnia Status: Acute Assessment and Plan: Acute respiratory failure secondary to pneumonia with possible component of pulmonary edema. Patient was having nausea/vomiting and may have aspirated. Chest x-ray was showing bibasilar airspace disease. Patient able to be extubated 02/19. He continues to self-diurese with negative fluid balance. Still edematous but better. No DVT in the RUE. Down to 3L. Wean O2 as toelrated. Renal function okay and BP stable. Add low dose Lasix IV. (2) Septic shock: Code(s): A41.9 - Sepsis, unspecified organism; R65.21 - Severe sepsis with septic shock Status: Acute Assessment and Plan: Patient with severe septic shock secondary to E coli bacteremia and UTI. Patient was initially on 4 vasopressors at maximum doses, with pressors now weaned off. He is fluid positive but better. Weaned off steroids now. Lactic acid has normalized. Imipenem was switched to cefepime on 02/14/22 then to Rocephin 02/16. WBC continues to trend down. Repeat blood cultures 02/15 are NGTD. Continue IV abx. (3) Non-ST elevated myocardial infarction (non-STEMI): Code(s): I21.4 - Non-ST elevation (NSTEMI) myocardial infarction Status: Acute Assessment and Plan: Elevated troponin likely secondary to septic shock. Patient evaluated by Cardiology. Echo 02/13/22: EF 35-40%, mildly increased LV wall thickness, RV systolic function is reduced, estimated RVSP of 39 mmHg. Entresto added for decrease in EF. Continue aspirin and metoprolol. Stop Norvasc? (4) Atrial fibrillation: Code(s): I48.91 - Unspecified atrial fibrillation Status: Acute Assessment and Plan: Patient noted to be in atrial fibrillation/flutter. No history listed that he has had this before. EKG on admission shows sinus tachycardia. He is currently rate controlled. Echo as mentioned above. [id number] 7. Anticoagulation started 02/16/22. He was having hematuria but resolved. Hgb trended down but now stable in the 10 range. Fluid status improving so would expect this to improve. Continue metoprolol and Eliquis (5) Hematuria: Code(s): R31.9 - Hematuria, unspecified Status: Acute Assessment and Plan: UA on admission noted hematuria (2+ blood and 3-5RBC) prior to stent placement. Cystoscopy on 02/11 did not reveal tumors, masses, stones, trabeculations or diverticuli. Noted to have pink colored urine probably related to [place] trauma. Urine clear now. Remove [place] tomorrow (6) Hydronephrosis of right kidney: Code(s): N13.30 - Unspecified hydronephrosis Status: Acute Assessment and Plan: Secondary to ureteral stricture now status post cystoscopy with right ureteral stent placement on 02/11/22. Appreciate Urology input. As above (7) Diabetes: Code(s): E11.9 - Type 2 diabetes mellitus without complications Status: Acute Assessment and Plan: A1c 8.1. The patient's blood glucose was reviewed on 02/21 Glucose remains well controlled. Continue current Lantus dose. Continue AccuCheks covering with sliding scale. Hypoglycemia protocol available as needed. Continue to monitor (8) Acute kidney injury: Code(s): N17.9 - Acute kidney failure, unspecified Status: Acute Assessment and Plan: Cr was up to 3.2. Secondary to ureteral stricture, septic shock, hypovolemia, mild rhabdomyolysis. Ureteral stent placed on 02/11. TCK was elevated to 1573 but this has trended down with IV fluids. Renal ultrasound shows unremarkable kidneys. Nephrology consulted and appreciate their input. Urine output has been adequate. Creatinine 1.0 today and stable Monitor urine output and electrolytes. (9) Urinary tract infection: Code(s): N39.0 - Urinary tract infection, site not
[2022-02-21 17:36] LABS: Glucose Point of Care 114 mg/dl (65-105)
[2022-02-21] MEDS: FUROSEMIDE INJ 40 MG/4 ML VIAL 20 MG IV PUSH (19:54)
[2022-02-21] MEDS: SACUBITRIL/VALSARTAN 24-26 MG TABLET 1 TAB PO (20:04)
[2022-02-21 20:11] LABS: Glucose Point of Care 169 mg/dl (65-105)
[2022-02-22] VITALS (12 sets, daily range): BP systolic 132–157; BP diastolic 56–70; PULSE 73–75; RESP 18–22; TEMP 36.1–36.6; O2SAT 95–98
[2022-02-22 05:49] LABS: Hematocrit 32.4 % (42.0-52.0); Hemoglobin 10.1 g/dL (14.0-18.0); Mean Corpuscular HGB Conc 31.2 g/dl (32-36); Mean Corpuscular Hemoglobin 29.6 pg (26-34); Mean Platelet Volume 10.3 fl (7.4-10.4); Platelet Count Result 296 k/mm3 (150-375); Red Blood Count 3.41 M/mm3 (4.6-6.20); Red Cell Distribution Width 14.3 % (11.5-14.5); White Blood Count 10.3 K/mm3 (4.5-10.0)
[2022-02-22] MEDS: CENTRAL LINE FLUSH 10 ML IV PUSH ×8 (06:04→21:27)
[2022-02-22 06:10] LABS: Anion Gap 3 mmol/L (8-16); Blood Urea Nitrogen 27 mg/dL (9-20); Calcium 7.8 mg/dL (8.4-10.2); Carbon Dioxide 28 mmol/L (22-30); Chloride 105 mmol/L (98-107); Estimated CRCL calculation 63 ml/min; Estimated Glomerular Filt Rate > 60; Glucose 101 mg/dL (65-110); Potassium 3.8 mmol/L (3.4-5.0); Sodium 136 mmol/L (137-145)
--- NOTE | 2022-02-22 08:21 | PM.PNCARD ---
Progress Note: A&P Assessment and Plan (1) Cardiomyopathy: Code(s): I42.9 - Cardiomyopathy, unspecified Status: Acute Assessment and Plan: Echo from this admission showing a new cardiomyopathy with EF 35 - 40%, echo from [facility] 07/26 showed normal LVSF. Since he is not longer requiring BP support with vasopressors will initiate GDMT for his cardiomyopathy. Will start low dose Entresto today. Already on beta anne. spironolactone 12.5 p.o. started today. Furosemide 20 mg IV x1. Would avoid SGLT2 inhibitor with recent complicated UTI. (2) Troponin level elevated: Code(s): R77.8 - Other specified abnormalities of plasma proteins Status: Acute Assessment and Plan: Mild, flat elevation in troponin does not represent ACS/plaque rupture, this is secondary to sepsis and renal failure. No specific cardiac recommendations to make in this regard. (3) Atrial fibrillation: Code(s): I48.91 - Unspecified atrial fibrillation Status: Acute Assessment and Plan: New onset of atrial fibrillation during this hospitalization. He has been placed on metoprolol for rate control. Apixaban for systemic a/c. He is having some mild hematuria. H&H stable. Continue to monitor. 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 Does not report any anginal symptoms. Continue statin. Would not resume plavix on discharge since he is now on systemic a/c with apixaban. Subjective Date/time seen: 02/22/22 08:21 Interval history: 81yo male with CAD, HTN and DM here for weakness and found to have septic shock from UTI/Pyelo. He developed respiratory failure requiring intubation. Also with RICK, lactic acidosis, right hydroureteronephrosis with perinephric and periureteral edema, status post cystoscopy with right ureteral stent placement on 02/11/2022. Patient was on 4 pressors post procedure. Date of service 02/22/2022: He is breathing much better. No chest pain. Review of Systems Constitutional: Constitutional: Denies body ache(s) Cardiovascular: Cardiovascular: Denies chest pain and Reports leg edema Respiratory: Respiratory: Reports dyspnea Exam Const: Other: Obese elderly intubated man HENMT: Mouth: Yes moist mucous membranes Eyes: Sclera: sclerae normal Neck: Neck: supple Other: carotid pulses are intact bilaterally. Cannot assess JVD given his body habitus Resp: Effort & Inspection: normal respiratory effort Auscultation: clear to auscultation bilaterally Other: breath sounds are relatively clear anteriorly unable to sit the patient up for posterior auscultation because of his obesity Cardio: Rate: regular rate Rhythm: regular rhythm Heart sounds: S1 normal heart sound present and S2 normal heart sound present Other: the PMI is not palpable first and second heart sounds are normal no audible gallop or murmur GI: Auscultation: normal bowel sounds Skin: General skin exam: normal color Neuro: Speech: normal speech Other: Extrem: Other: One to 2+ bilateral lower extremity edema Psych: Mental Status: mental status grossly normal Objective Data Vital Signs Vital Signs: Vital Signs - 24 hr 02/21/22 08:37 02/21/22 09:04 02/21/22 12:00 Temperature Pulse Rate 74 75 Respiratory Rate Blood Pressure Pulse Oximetry Oxygen Delivery Nasal Cannula Oxygen Flow Rate 3 Fraction of Inspired Oxygen 02/21/22 14:00 02/21/22 16:00 02/21/22 20:05 Temperature 36.5 C Pulse Rate 76 75 75 Respiratory Rate 20 Blood Pressure 129/60 Pulse Oximetry 99 Oxygen Delivery Oxygen Flow Rate Fraction of Inspired Oxygen 02/21/22 20:19 02/21/22 20:00 02/21/22 20:00 Temperature 36.6 C Pulse Rate 73 74 Respiratory Rate 20
[2022-02-22 08:37] LABS: Glucose Point of Care 107 mg/dl (65-105)
[2022-02-22] MEDS: amLODIPine BESYLATE 5 MG TABLET PO (09:35)
[2022-02-22] MEDS: TAMSULOSIN HCL 0.4 MG CAPSULE PO (09:35)
[2022-02-22] MEDS: METOPROLOL TARTRATE 25 MG TABLET PO ×2 (09:35→21:25)
[2022-02-22] MEDS: SACUBITRIL/VALSARTAN 24-26 MG TABLET 1 TAB PO ×2 (09:36→21:26)
[2022-02-22] MEDS: SPIRONOLACTONE 12.5 MG TABLET PO (09:36)
[2022-02-22] MEDS: APIXABAN 5 MG TABLET PO ×2 (09:37→21:25)
[2022-02-22] MEDS: ASPIRIN 81 MG CHEWABLE TABLET FEED TUBE (09:37)
[2022-02-22] MEDS: PANTOPRAZOLE 40 MG TABLET PO (09:37)
[2022-02-22] MEDS: FINASTERIDE 5 MG TABLET PO (09:37)
[2022-02-22] MEDS: FUROSEMIDE INJ 40 MG/4 ML VIAL 20 MG IV PUSH (09:38)
[2022-02-22] MEDS: INSULIN GLARGINE (*BKC) 100 UNITS/ML 15 UNITS SUB-Q (09:39)
[2022-02-22] MEDS: POLYMYXIN/TRIMETHOPRIM OPHTH 10 ML DROPS 1 DROP RIGHT EYE ×2 (09:41→21:25)
--- NOTE | 2022-02-22 10:19 | PC.NURSE ---
Pt has order to D/C Central Line and start peripheral line. Pt's arms are very edematous and unable to start peripheral access at this time. tire sorter RN Anastasia, and tire sorter director trading, [employer] both assessed as well and agreed. Will continue to monitor and start peripheral access as soon as possible.
--- NOTE | 2022-02-22 11:50 | PM.IMPN ---
Progress Note: A&P Assessment and Plan (1) Acute respiratory failure: Code(s): J96.00 - Acute respiratory failure, unspecified whether with hypoxia or hypercapnia Status: Acute Assessment and Plan: Acute respiratory failure secondary to pneumonia with possible component of pulmonary edema. Patient was having nausea/vomiting and may have aspirated. no on 2L of oxygen. Improving slowly. Continue IV antibiotics. Monitor respiratory status. (2) Septic shock: Code(s): A41.9 - Sepsis, unspecified organism; R65.21 - Severe sepsis with septic shock Status: Acute Assessment and Plan: Secondary to pneumonia and UTI. Cultures noted. Continue IV abx. Improved (3) Non-ST elevated myocardial infarction (non-STEMI): Code(s): I21.4 - Non-ST elevation (NSTEMI) myocardial infarction Status: Acute Assessment and Plan: likely type 2 NC with Septic shock. no chest pain. Blood pressure looks good today. He does have a little lower extremity edema. I will stop his Norvasc (4) Atrial fibrillation: Code(s): I48.91 - Unspecified atrial fibrillation Status: Acute Assessment and Plan: rate controlled. Continue metoprolol and Eliquis (5) Hematuria: Code(s): R31.9 - Hematuria, unspecified Status: Acute Assessment and Plan: will DC [place], this is improved. (6) Hydronephrosis of right kidney: Code(s): N13.30 - Unspecified hydronephrosis Status: Acute Assessment and Plan: Secondary to ureteral stricture now status post cystoscopy with right ureteral stent placement on 02/11/22. Appreciate Urology input. (7) Diabetes: Code(s): E11.9 - Type 2 diabetes mellitus without complications Status: Acute Assessment and Plan: Continue AccuCheks covering with sliding scale. Hypoglycemia protocol available as needed. Continue to monitor (8) Acute kidney injury: Code(s): N17.9 - Acute kidney failure, unspecified Status: Acute Assessment and Plan: Creatinine improved (9) Urinary tract infection: Code(s): N39.0 - Urinary tract infection, site not specified Status: Acute Assessment and Plan: continue IV Rocephin (10) Thrombocytopenia: Code(s): D69.6 - Thrombocytopenia, unspecified Status: Acute Assessment and Plan: monitor (11) Encephalopathy: Code(s): G93.40 - Encephalopathy, unspecified Status: Acute Assessment and Plan: improved (12) Metabolic acidosis: Code(s): E87.20 - Acidosis, unspecified Status: Acute Assessment and Plan: resolved Plan DVT prophylaxis - Eliquis Code Status -patient is DNR Subjective Date/time seen: 02/22/22 11:50 doing well, no new complaints Exam Narrative: AF 97.7 129/60 76 20 99% 3L Gen - NARD sitting up in bed Neck -right IJ triple-lumen catheter in place. Chest - bibasilar crackles, nml RR CV - irregularly irregular. S1-S2. Telemetry showing atrial flutter with controlled rate Abd -soft. NT. ND. Positive bowel sounds. -Pember[place] secured draining dark yellow urine Ext - diffuse upper > lower extremity edema Neuro - awake and alert Skin - Warm and dry Objective Data Vital Signs Vital Signs: Vital Signs - 24 hr 02/21/22 12:00 02/21/22 14:00 02/21/22 16:00 Temperature 97.7 F Pulse Rate 75 76 75 Respiratory Rate 20 Blood Pressure 129/60 Pulse Oximetry 99 Oxygen Delivery Oxygen Flow Rate Fraction of Inspired Oxygen 02/21/22 20:05 02/21/22 20:19 02/21/22 20:00 Temperature 97.9 F Pulse Rate 75 73 74 Respiratory Rate 20 Blood Pressure 152/64 H Pulse Oximetry 96 Oxygen Delivery Oxygen Flow Rate Fraction of Inspired Oxygen 02/21/22 20:00 02/22/22 00:00 02/22/22 00:00 Temperature 97.7 F Pulse Rate 73 73 Respiratory Rate 18 Blood Pressure 140/64 Puls
[2022-02-22 12:01] LABS: Glucose Point of Care 126 mg/dl (65-105)
[2022-02-22] MEDS: cefTRIAXone 2 GM in SODIUM CHLORIDE 0.9% IV 100 ML 200 ML IVPB (12:04)
--- NOTE | 2022-02-22 15:42 | PC.NURSE ---
On 02/22/22, the student, [Dennys Hernandez], provided care and completed [facility] documentation on this patient. I have reviewed the student's documentation and agree with the findings.
--- NOTE | 2022-02-22 16:52 | PC.NURSE ---
patient requesting eye drops for dry eyes, attempted to reach Dr. Luciano, no response.
[2022-02-22 17:10] LABS: Glucose Point of Care 132 mg/dl (65-105)
[2022-02-22 22:12] LABS: Glucose Point of Care 161 mg/dl (65-105)
[2022-02-23] VITALS (10 sets, daily range): BP systolic 120–155; BP diastolic 60–73; PULSE 71–84; RESP 16–18; TEMP 36.5–36.8; O2SAT 94–98
[2022-02-23] MEDS: CENTRAL LINE FLUSH 10 ML IV PUSH ×8 (06:39→21:18)
[2022-02-23 08:30] LABS: Basophils Percent Auto 0.3 % (0.2-1.2); Eosinophils Absolute Auto 0.1 K/mm3 (0-0.3); Hematocrit 35.2 % (42.0-52.0); Immature Granulocyte Absolute 0.08 K/mm3 (0.00-0.031); Lymphocytes Absolute Auto 0.65 K/mm3 (0.9-3.2); Lymphocytes Percent Auto 8.2 % (18.3-44.2); Mean Corpuscular HGB Conc 31.3 g/dl (32-36); Mean Corpuscular Hemoglobin 30.6 pg (26-34); Mean Corpuscular Volume 97.8 fl (80-100); Mean Platelet Volume 9.6 fl (7.4-10.4); Monocytes Absolute Auto 0.4 K/mm3 (0.1-0.6); Monocytes Percent Auto 4.6 % (2.6-8.5); Neutrophils Absolute Auto 6.7 K/mm3 (1.3-6.7); Neutrophils Percent Auto 84.9 % (45.5-73.1); Platelet Count Result 329 k/mm3 (150-375); Red Cell Distribution Width 14.2 % (11.5-14.5); White Blood Count 7.9 K/mm3 (4.5-10.0)
[2022-02-23 08:43] LABS: Anion Gap 5 mmol/L (8-16); Blood Urea Nitrogen 26 mg/dL (9-20); Calcium 7.8 mg/dL (8.4-10.2); Carbon Dioxide 28 mmol/L (22-30); Chloride 104 mmol/L (98-107); Estimated CRCL calculation 63 ml/min; Estimated Glomerular Filt Rate > 60; Glucose 124 mg/dL (65-110); Potassium 4.7 mmol/L (3.4-5.0); Sodium 137 mmol/L (137-145)
--- NOTE | 2022-02-23 08:45 | PM.PNCARD ---
Progress Note: A&P Assessment and Plan (1) Cardiomyopathy: Code(s): I42.9 - Cardiomyopathy, unspecified Status: Acute Assessment and Plan: Echo from this admission showing a new cardiomyopathy with EF 35 - 40%, echo from [facility] 07/26 showed normal LVSF. Continue GDMT for his cardiomyopathy with Entresto 24-26 b.i.d, metoprolol (will shift this to Toprol XL), and spironolactone 12.5 p.o. Will avoid SGLT 2 inhibitor given recent history of complicated UTI. Can up titrate his medical therapy as an outpatient. Will give 40mg p.o. furosemide x1 today. (2) Troponin level elevated: Code(s): R77.8 - Other specified abnormalities of plasma proteins Status: Acute Assessment and Plan: Mild, flat elevation in troponin does not represent ACS/plaque rupture, this is secondary to sepsis and renal failure. No specific cardiac recommendations to make in this regard. (3) Atrial fibrillation: Code(s): I48.91 - Unspecified atrial fibrillation Status: Acute Assessment and Plan: New onset of atrial fibrillation during this hospitalization. He has been placed on metoprolol for rate control. Apixaban for systemic a/c. He is having some mild hematuria. H&H stable. Continue to monitor. (4) Coronary artery disease: Code(s): I25.10 - Atherosclerotic heart disease of [place] coronary artery without angina pectoris Status: Acute Assessment and Plan: Hx 4 vessel CABG (~20 years ago at ). Does not report any anginal symptoms. Continue statin. Would not resume plavix on discharge since he is now on systemic a/c with apixaban. Subjective Date/time seen: 02/23/22 08:45 Interval history: 81yo male with CAD, HTN and DM here for weakness and found to have septic shock from UTI/Pyelo. He developed respiratory failure requiring intubation. Also with RICK, lactic acidosis, right hydroureteronephrosis with perinephric and periureteral edema, status post cystoscopy with right ureteral stent placement on 02/11/2022. Patient was on 4 pressors post procedure. Date of service 02/22/2022: He is breathing much better. No chest pain. Date of service 02/23/2022: Breathing ok, still on 3L O2. No palpitations or chest pain. Review of Systems Review of Systems: All systems reviewed & are unremarkable except as noted in HPI and below ROS unobtainable: Yes unobtainable due to endotracheal tube Constitutional: Constitutional: Denies body ache(s) Cardiovascular: Cardiovascular: Denies chest pain, Reports leg edema and Reports dyspnea Respiratory: Respiratory: Reports dyspnea Exam Const: Other: Obese elderly intubated man HENMT: Mouth: Yes moist mucous membranes Eyes: Sclera: sclerae normal Neck: Neck: supple Other: carotid pulses are intact bilaterally. Cannot assess JVD given his body habitus Resp: Effort & Inspection: normal respiratory effort Auscultation: clear to auscultation bilaterally Other: breath sounds are relatively clear anteriorly unable to sit the patient up for posterior auscultation because of his obesity Cardio: Rate: regular rate Rhythm: regular rhythm Heart sounds: S1 normal heart sound present and S2 normal heart sound present GI: Auscultation: normal bowel sounds Urinary Catheter: Urinary Catheter: patent and draining Skin: General skin exam: normal color Neuro: Speech: normal speech Other: Extrem: Other: mild non pitting edema bilateral LE Psych: Mental Status: mental status grossly normal Objective Data Vital Signs Vital Signs: Vital Signs - 24 hr 02/22/22 09:35 02/22/22 10:00 02/22/22 09:35 Temperature Pulse Rate 75 74 Respiratory Rate Blood Pressure 146/56 H Pulse Oximetry 98 Oxygen Delivery Nasal Cannula Oxygen Flow Rate 2.5 Fraction of Inspired Oxygen 02/22/22 11:37 02/22/22 14:35 02/22/22 12:00 Temperature 36.6 C Pulse Rate 74 74 Respiratory Rate 22
[2022-02-23 08:47] LABS: Glucose Point of Care 126 mg/dl (65-105)
[2022-02-23] MEDS: INSULIN GLARGINE (*BKC) 100 UNITS/ML 15 UNITS SUB-Q (08:51)
[2022-02-23] MEDS: SPIRONOLACTONE 12.5 MG TABLET PO (08:53)
[2022-02-23] MEDS: FINASTERIDE 5 MG TABLET PO (08:53)
[2022-02-23] MEDS: SACUBITRIL/VALSARTAN 24-26 MG TABLET 1 TAB PO ×2 (08:53→21:14)
[2022-02-23] MEDS: APIXABAN 5 MG TABLET PO ×2 (08:53→21:14)
[2022-02-23] MEDS: POLYMYXIN/TRIMETHOPRIM OPHTH 10 ML DROPS 1 DROP RIGHT EYE ×2 (08:54→21:14)
[2022-02-23] MEDS: ASPIRIN 81 MG CHEWABLE TABLET FEED TUBE (08:54)
[2022-02-23] MEDS: PANTOPRAZOLE 40 MG TABLET PO (08:54)
[2022-02-23] MEDS: TAMSULOSIN HCL 0.4 MG CAPSULE PO (08:54)
[2022-02-23] MEDS: METOPROLOL TARTRATE 25 MG TABLET PO (08:55)
[2022-02-23] MEDS: ACETAMINOPHEN 325 MG TABLET 650 MG PO (09:47)
--- NOTE | 2022-02-23 11:17 | PM.IMPN ---
Progress Note: A&P Assessment and Plan (1) Acute respiratory failure: Code(s): J96.00 - Acute respiratory failure, unspecified whether with hypoxia or hypercapnia Status: Acute Assessment and Plan: Acute respiratory failure secondary to pneumonia with possible component of pulmonary edema. Patient was having nausea/vomiting and may have aspirated. no on 2L of oxygen. Improving slowly. Continue IV antibiotics. Monitor respiratory status. (2) Septic shock: Code(s): A41.9 - Sepsis, unspecified organism; R65.21 - Severe sepsis with septic shock Status: Acute Assessment and Plan: Secondary to pneumonia and UTI. Cultures noted. Continue IV abx. Improved (3) Non-ST elevated myocardial infarction (non-STEMI): Code(s): I21.4 - Non-ST elevation (NSTEMI) myocardial infarction Status: Acute Assessment and Plan: likely type 2 NC with Septic shock. no chest pain. Blood pressure looks good today. He does have a little lower extremity edema. I will stop his Norvasc (4) Atrial fibrillation: Code(s): I48.91 - Unspecified atrial fibrillation Status: Acute Assessment and Plan: rate controlled. Continue metoprolol and Eliquis (5) Hematuria: Code(s): R31.9 - Hematuria, unspecified Status: Acute Assessment and Plan: will DC [place], this is improved. (6) Hydronephrosis of right kidney: Code(s): N13.30 - Unspecified hydronephrosis Status: Acute Assessment and Plan: Secondary to ureteral stricture now status post cystoscopy with right ureteral stent placement on 02/11/22. Appreciate Urology input. (7) Diabetes: Code(s): E11.9 - Type 2 diabetes mellitus without complications Status: Acute Assessment and Plan: Continue AccuCheks covering with sliding scale. Hypoglycemia protocol available as needed. Continue to monitor (8) Acute kidney injury: Code(s): N17.9 - Acute kidney failure, unspecified Status: Acute Assessment and Plan: Creatinine improved (9) Urinary tract infection: Code(s): N39.0 - Urinary tract infection, site not specified Status: Acute Assessment and Plan: continue IV Rocephin (10) Thrombocytopenia: Code(s): D69.6 - Thrombocytopenia, unspecified Status: Acute Assessment and Plan: monitor (11) Encephalopathy: Code(s): G93.40 - Encephalopathy, unspecified Status: Acute Assessment and Plan: improved (12) Metabolic acidosis: Code(s): E87.20 - Acidosis, unspecified Status: Acute Assessment and Plan: resolved Subjective Date/time seen: 02/23/22 11:17 no complaints Exam Narrative: AF 97.7 129/60 76 20 99% 3L Gen - NARD sitting up in bed Neck -right IJ triple-lumen catheter in place. Chest - bibasilar crackles, nml RR CV - irregularly irregular. S1-S2. Telemetry showing atrial flutter with controlled rate Abd -soft. NT. ND. Positive bowel sounds. -P[place] secured draining dark yellow urine Ext - diffuse upper > lower extremity edema Neuro - awake and alert Skin - Warm and dry Objective Data Vital Signs Vital Signs: Vital Signs - 24 hr 02/22/22 11:37 02/22/22 14:35 02/22/22 12:00 Temperature 97.8 F Pulse Rate 74 74 Respiratory Rate 22 H Blood Pressure 132/63 Pulse Oximetry 98 97 Oxygen Delivery Nasal Cannula Oxygen Flow Rate 2.5 Fraction of Inspired Oxygen 02/22/22 16:00 02/22/22 21:25 02/22/22 20:00 Temperature Pulse Rate 73 73 73 Respiratory Rate Blood Pressure Pulse Oximetry Oxygen Delivery Oxygen Flow Rate Fraction of Inspired Oxygen 02/23/22 00:00 02/22/22 20:00 02/23/22 00:00 Temperature 98.1 F Pulse Rate 71 72 Respiratory Rate 16 Blood Pressure 145/63 H Pulse Oximetry 95 95 Oxygen Delivery Nasal Cannula Oxygen Flow Rate 2 Fraction
--- NOTE | 2022-02-23 11:53 | PCNFU ---
Nutrition Follow-Up Complete: Goal:Meet estimated nutritional needs Pt current nutrition is Diabetic consistent carb, soft and bite sized consistency. Nutrition recommendation: Continue with current plan of care. Last recorded weight is 110.4 kg - stable. Bowel Motility: +BM10/20 Labs Reviewed: Hgb:11, HCT:35.2, BUN:26, Glu:124 Meds Noted:lantus Skin: no pressure areas Additional Notes: Pt tolerating current diet well. Intake good at 75-100% of meals. Family reports pt would like to stay on diet consistency modification at this time. Agree with diet order. Will monitor and follow up in 5 days.
[2022-02-23 12:19] LABS: Glucose Point of Care 139 mg/dl (65-105)
[2022-02-23] MEDS: FUROSEMIDE 40 MG TABLET PO (12:47)
[2022-02-23] MEDS: cefTRIAXone 2 GM in SODIUM CHLORIDE 0.9% IV 100 ML IVPB (12:48)
--- NOTE | 2022-02-23 13:36 | PC.NURSE ---
On 02/23/22, the student, [Nikole Barreto], provided care and completed [facility] documentation on this patient. I have reviewed the student's documentation and agree with the findings.
--- NOTE | 2022-02-23 15:13 | WPDUROPN2 ---
Progress Note: A&P Assessment and Plan (1) Ureteral stent present: Code(s): Z96.0 - Presence of urogenital implants Status: Acute Assessment and Plan: Plan to go to the OR tomorrow with Dr. Shearer to remove his stent. Obtain Consent: Cystoscopy, right ureteroscopy with stent removal, right retrograde pyelogram. Keep NPO after midnight. Repeat urine culture today. (2) Renal calculus, left: Code(s): N20.0 - Calculus of kidney Status: Acute Assessment and Plan: Not visible on KUB, will follow as an outpatient, no further evaluation at this time. Subjective Subjective Date/Time Seen: 02/23/22 15:13 S/P Cystoscopy, right ureteroscopy with stent placement and right retrograde pyelogram. WBC is stable at 7.9. Urine culture from 02/11/22 grew E-Coli. The patient has been moved from the ICU and is now in a medicine bed. He is doing much better, sitting up in bed on room air and he is alert and oriented. He states that he has a history of bladder cancer that was treated years ago by Dr. Arceo, although no tumors were seen on his recent Cysto on 02/11/22. Review of Systems Cardiovascular: Cardiovascular: Denies chest pain Respiratory: Respiratory: Reports no additional respiratory complaints Gastrointestinal: Gastrointestinal: Denies abdominal pain, Denies nausea and Denies vomiting Genitourinary: Genitourinary: Denies hematuria, Denies flank pain, Denies urinary frequency, Denies urinary hesitancy, Denies urinary incontinence and Denies urinary urgency Exam Const: General: cooperative Cardio: Rate: regular rate GI: GI Palp: Yes Soft to palpation and No Tenderness to palpation present (GI) : General: Yes no CVA tenderness Urinary Catheter: Urinary Catheter: patent and draining and urine clear Extrem: Right lower extremity: no edema Left lower extremity: no edema Objective Data Vital Signs Vital Signs: Vital Signs - 24 hr 02/22/22 16:00 02/22/22 21:25 02/22/22 20:00 Temperature Pulse Rate 73 73 73 Respiratory Rate Blood Pressure Pulse Oximetry Oxygen Delivery Oxygen Flow Rate Fraction of Inspired Oxygen 02/23/22 00:00 02/22/22 20:00 02/23/22 00:00 Temperature 98.1 F Pulse Rate 71 72 Respiratory Rate 16 Blood Pressure 145/63 H Pulse Oximetry 95 95 Oxygen Delivery Nasal Cannula Oxygen Flow Rate 2 Fraction of Inspired Oxygen 30 02/23/22 04:00 02/23/22 08:00 02/23/22 08:55 Temperature Pulse Rate 72 72 84 Respiratory Rate Blood Pressure Pulse Oximetry Oxygen Delivery Oxygen Flow Rate Fraction of Inspired Oxygen 02/23/22 11:30 02/23/22 11:16 02/23/22 12:00 Temperature 97.7 F Pulse Rate 73 74 Respiratory Rate 18 Blood Pressure 120/60 Pulse Oximetry 98 Oxygen Delivery Room Air Oxygen Flow Rate Fraction of Inspired Oxygen 02/23/22 08:40 Temperature Pulse Rate 82 Respiratory Rate 18 Blood Pressure Pulse Oximetry 98 Oxygen Delivery Nasal Cannula Oxygen Flow Rate 2.5 Fraction of Inspired Oxygen 30 Intake/Output Intake/Output: Intake & Output 02/20/22 02/21/22 02/22/22 02/23/22 23:59 23:59 23:59 23:59 Intake Total 2070 1740 1930 890 Output Total 2850 1700 2820 350 Balance -780 40 -890 540 Meds/Results Medications: Active Medications Generic Name Dose Route Start Last Admin Trade Name Freq PRN Reason Stop Dose Admin Acetaminophen 650 mg 02/23/22 09:05 02/23/22 09:47 Acetaminophen 325 Mg Tablet PO 650 mg Q6H PRN Administration Mild Pain (1-3) or Fever Albuterol 2.5 mg 02/12/22 09:08 Albuterol Sulfate Neb 2.5 Mg/3 Ml Inh INHALATION Q6HRT PRN Wheezing Apixaban 5 mg 02/20/22 21:00 02/23/22 08:53 Apixaban 5 Mg Tablet PO 5 mg Q12HR PARAMJIT Administration Artificial Tears 1 drop 02/22/22 17:33 Artificial Tears Ophth Soln 15 Ml Bottle EACH EYE QID PRN Dry Eye(s) Aspirin 81 mg 02/19/22 08:00
[2022-02-23 17:14] LABS: Glucose Point of Care 114 mg/dl (65-105)
[2022-02-23 21:35] LABS: Glucose Point of Care 169 mg/dl (65-105)
[2022-02-24] VITALS (15 sets, daily range): BP systolic 103–151; BP diastolic 55–104; PULSE 68–94; RESP 13–22; TEMP 36–36.8; O2SAT 93–100
[2022-02-24 06:26] LABS: Basophils Percent Auto 0.3 % (0.2-1.2); Eosinophils Absolute Auto 0.1 K/mm3 (0-0.3); Eosinophils Percent Auto 1.2 % (0-4.4); Hematocrit 31.7 % (42.0-52.0); Immature Granulocyte Absolute 0.04 K/mm3 (0.00-0.031); Immature Granulocyte Percent A 0.5 % (0-0.5); Lymphocytes Absolute Auto 0.68 K/mm3 (0.9-3.2); Lymphocytes Percent Auto 8.8 % (18.3-44.2); Mean Corpuscular HGB Conc 31.5 g/dl (32-36); Mean Corpuscular Hemoglobin 30.6 pg (26-34); Mean Corpuscular Volume 96.9 fl (80-100); Mean Platelet Volume 9.4 fl (7.4-10.4); Monocytes Absolute Auto 0.4 K/mm3 (0.1-0.6); Monocytes Percent Auto 5.3 % (2.6-8.5); Neutrophils Absolute Auto 6.5 K/mm3 (1.3-6.7); Neutrophils Percent Auto 83.9 % (45.5-73.1); Platelet Count Result 360 k/mm3 (150-375); Red Blood Count 3.27 M/mm3 (4.6-6.20); Red Cell Distribution Width 14.1 % (11.5-14.5); White Blood Count 7.7 K/mm3 (4.5-10.0)
[2022-02-24 06:37] LABS: Anion Gap 6 mmol/L (8-16); Blood Urea Nitrogen 21 mg/dL (9-20); Calcium 7.8 mg/dL (8.4-10.2); Carbon Dioxide 28 mmol/L (22-30); Chloride 105 mmol/L (98-107); Estimated CRCL calculation 63 ml/min; Estimated Glomerular Filt Rate > 60; Glucose 119 mg/dL (65-110); Potassium 3.9 mmol/L (3.4-5.0); Sodium 139 mmol/L (137-145)
--- NOTE | 2022-02-24 06:59 | WPDHPUPDATE1 ---
History and Physical Update Update Date/Time: 02/24/22 06:59 History and Physical has been reviewed, including an updated exam of the patient. There are NO changes in the patient's condition. Risks, benefits, and alternatives have been discussed and questions answered. Patient agrees to proceed with procedure.
[2022-02-24 08:07] LABS: Glucose Point of Care 118 mg/dl (65-105)
--- NOTE | 2022-02-24 08:22 | PM.PNCARD ---
Progress Note: A&P Assessment and Plan (1) Cardiomyopathy: Code(s): I42.9 - Cardiomyopathy, unspecified Status: Acute Assessment and Plan: Echo from this admission showing a new cardiomyopathy with EF 35 - 40%, echo from [facility] 07/26 showed normal LVSF. Continue GDMT for his cardiomyopathy with Entresto 24-26 b.i.d, metoprolol (will shift this to Toprol XL), and spironolactone 12.5 p.o. Will increase spironolactone to 25mg today. Will avoid SGLT 2 inhibitor given recent history of complicated UTI. Can up titrate his medical therapy as an outpatient. Will give 40mg p.o. furosemide again today. Would discharge on 40mg furosemide p.o. daily. (2) Troponin level elevated: Code(s): R77.8 - Other specified abnormalities of plasma proteins Status: Acute Assessment and Plan: Mild, flat elevation in troponin does not represent ACS/plaque rupture, this is secondary to sepsis and renal failure. No specific cardiac recommendations to make in this regard. (3) Atrial fibrillation: Code(s): I48.91 - Unspecified atrial fibrillation Status: Acute Assessment and Plan: New onset of atrial fibrillation during this hospitalization. He has been placed on metoprolol for rate control. Apixaban for systemic a/c. He had some mild hematuria earlier this week. H&H stable. Continue to monitor. (4) Coronary artery disease: Code(s): I25.10 - Atherosclerotic heart disease of [place] coronary artery without angina pectoris Status: Acute Assessment and Plan: Hx 4 vessel CABG (~20 years ago at [facility]). Does not report any anginal symptoms. Continue statin. Would not resume plavix on discharge since he is now on systemic a/c with apixaban. Subjective Date/time seen: 02/24/22 08:22 Interval history: 81yo male with CAD, HTN and DM here for weakness and found to have septic shock from UTI/Pyelo. He developed respiratory failure requiring intubation. Also with RICK, lactic acidosis, right hydroureteronephrosis with perinephric and periureteral edema, status post cystoscopy with right ureteral stent placement on 02/11/2022. Patient was on 4 pressors post procedure. Date of service 02/22/2022: He is breathing much better. No chest pain. Date of service 02/23/2022: Breathing ok, still on 3L O2. No palpitations or chest pain. Date of service 02/24/2022: Feels well today and has no complaints of any kind. Review of Systems Review of Systems: All systems reviewed & are unremarkable except as noted in HPI and below ROS unobtainable: Yes unobtainable due to endotracheal tube Constitutional: Constitutional: Denies body ache(s) Cardiovascular: Cardiovascular: Denies chest pain, Reports leg edema and Reports dyspnea Respiratory: Respiratory: Reports dyspnea Exam HENMT: Mouth: Yes moist mucous membranes Eyes: Sclera: sclerae normal Neck: Neck: supple Other: carotid pulses are intact bilaterally. Cannot assess JVD given his body habitus Resp: Effort & Inspection: normal respiratory effort Auscultation: clear to auscultation bilaterally Other: breath sounds are relatively clear anteriorly unable to sit the patient up for posterior auscultation because of his obesity Cardio: Rate: regular rate Rhythm: regular rhythm Heart sounds: S1 normal heart sound present and S2 normal heart sound present Other: the PMI is not palpable first and second heart sounds are normal no audible gallop or murmur GI: Auscultation: normal bowel sounds Urinary Catheter: Urinary Catheter: patent and draining Skin: General skin exam: normal color Neuro: Speech: normal speech Other: Extrem: Other: mild non pitting edema bilateral LE Psych: Mental Status: mental status grossly normal Objective Data Vital Signs Vital Signs: Vital Signs - 24 hr 02/23/22 08:55 02/23/22 11:30 02/23/22 11:16 Temperature 36.5 C Pulse Rate 84 73 Respiratory Ra
[2022-02-24] MEDS: APIXABAN 5 MG TABLET PO (09:54)
[2022-02-24] MEDS: SACUBITRIL/VALSARTAN 24-26 MG TABLET 1 TAB PO (09:54)
[2022-02-24] MEDS: levoFLOXacin 750 MG TABLET PO (09:54)
[2022-02-24] MEDS: ASPIRIN 81 MG CHEWABLE TABLET FEED TUBE (09:54)
[2022-02-24] MEDS: INSULIN GLARGINE (*BKC) 100 UNITS/ML 15 UNITS SUB-Q (09:55)
[2022-02-24] MEDS: METOPROLOL SUCCINATE EXT REL 50 MG TABCR PO (09:55)
[2022-02-24] MEDS: POLYMYXIN/TRIMETHOPRIM OPHTH 10 ML DROPS 1 DROP RIGHT EYE (09:57)
[2022-02-24] MEDS: CENTRAL LINE FLUSH 10 ML IV PUSH ×2 (10:04→10:05)
--- NOTE | 2022-02-24 10:19 | WPDANESEPPF ---
Anes - Initial Pre Proc Eval Procedure: Operation Date: 02/24/22 12:00 Proposed Procedures p Cystoscopy,Right Stent Removal,Right Retrograde Pyelogram - Lreoy Shearer MD Date/Time: 02/24/22 10:19 Surgeon: Benito Taylor MD Pre Op Diagnosis: Septic Shock, UTi, pneumonia Patient Data Age: 81 Gender: M Height: 1.75 m Weight: 107.2 kg Last Vital Signs Temp 36.6 C 02/24/22 09:11 Pulse 72 02/24/22 09:55 Resp 18 02/24/22 09:11 BP 141/65 H 02/24/22 09:11 Pulse Ox 98 02/24/22 09:11 O2 Del Method Room Air 02/23/22 20:00 O2 Flow Rate 2.5 02/23/22 08:40 FiO2 30 02/23/22 08:40 Allergies Allergy/AdvReac Type Severity Reaction Status Date / Time iodine Allergy Unknown unknown Verified 02/11/22 11:37 fentanyl Allergy Hypotension Verified 02/11/22 11:37 Home Medications Medication Instructions Recorded Confirmed Type amlodipine 5 mg tablet 5 mg PO DAILY 11/25/19 02/11/22 History aspirin 325 mg tablet 325 mg PO DAILY 11/25/19 02/11/22 History atorvastatin 40 mg tablet 40 mg PO DAILY 11/25/19 02/11/22 History clopidogrel 75 mg tablet 75 mg PO DAILY 11/25/19 02/11/22 History diphenhydramine 25 1 tablet PO Q6H PRN Itching 11/25/19 02/11/22 History mg-acetaminophen 500 mg tablet (Tylenol PM Extra Strength) finasteride 5 mg tablet 5 mg PO DAILY 11/25/19 02/11/22 History furosemide 40 mg tablet 40 mg PO QAM 11/25/19 02/11/22 History ropinirole 0.25 mg tablet (Requip) 0.25 mg PO BID 11/25/19 02/11/22 History tamsulosin 0.4 mg capsule 0.4 mg PO DAILY 11/25/19 02/11/22 History tramadol 50 mg tablet 50 mg PO Q6H PRN Pain (Scale Score 11/25/19 02/11/22 History 4-6) oxybutynin chloride 5 mg 5 mg PO DAILY 09/18/21 02/11/22 History tablet,extended release 24 hr ropinirole 0.25 mg tablet 0.5 mg PO HS 09/18/21 02/11/22 History sitagliptin 25 mg tablet (Januvia) 25 mg PO DAILY 12/09/21 02/11/22 History acetaminophen 325 mg capsule 650 mg PO Q8H PRN Pain (Scale 02/11/22 02/11/22 History (Tylenol) Score 1-3) Laboratory Tests 02/23/22 02/23/22 02/23/22 12:15 17:05 21:13 WBC RBC Hgb Hct MCV MCH MCHC RDW Plt Count MPV Immature Gran % (Auto) Neut % (Auto) Lymph % (Auto) Lyman % (Auto) Eos % (Auto) Baso % (Auto) Lymph # (Auto) Lyman # (Auto) Eos # (Auto) Baso # (Auto) Abs Immat Gran (auto) Absolute Neuts (auto) Absolute Nucleated RBC Nucleated RBC % Sodium Potassium Chloride Carbon Dioxide Anion Gap BUN Creatinine Estim Creat Clear Calc Estimated GFR Glucose POC Capillary Glucose 139 mg/dl H mg/dl 114 mg/dl H mg/dl 169 mg/dl H mg/dl (65-105) (65-105) (65-105) Calcium 02/24/22 02/24/22 02/24/22 06:13 06:13 07:44 WBC 7.7 K/mm3 K/mm3 (4.5-10.0) RBC 3.27 M/mm3 L M/mm3 (4.6-6.20) Hgb 10.0 g/dL L g/dL (14.0-18.0) Hct 31.7 % L % (42.0-52.0) MCV 96.9 fl fl (80-100) MCH 30.6 pg pg (26-34) MCHC 31.5 g/dl L g/dl (32-36) RDW 14.1 % % (11.5-14.5) Plt Count 360 k/mm3 k/mm3 (150-375) MPV 9.4 fl fl (7.4-10.4) Immature Gran % (Auto) 0.5 % % (0-0.5) Neut % (Auto) 83.9 % H % (45.5-73.1) Lymph % (Auto) 8.8 % L % (18.3-44.2) Lyman % (Auto) 5.3 % % (2.6-8.5) Eos % (Auto) 1.2 % % (0-4.4) Baso % (Auto) 0.3 % % (0.2-1.2) Lymph # (Auto) 0.68 K/mm3 L K/mm3 (0.9-3.2) Lyman # (Auto) 0.4 K/mm3 K/mm3 (0.1-0.6) Eos # (Auto) 0.1 K/mm3 K/mm3 (0-0.3)
--- NOTE | 2022-02-24 10:50 | SUR.PREOP ---
1050- Clarified with Dr. Caraballo using patient's RIJ triple lumen JACC for surgery. Per Dr. Caraballo OK to use current access. 1120- Notified Dr. Shearer patient was given PO Levaquin this AM at 0954 and ASA 81MG, Eliquis 5MG- per Dr. Shearer OK to proceed with case and no IV antibiotic needed.
[2022-02-24] MEDS: LACTATED RINGERS 1,000 ML 30 ML IV CONT (11:02)
[2022-02-24 11:18] LABS: Glucose Point of Care 99 mg/dl (65-105)
[2022-02-24] MEDS: LIDOCAINE HCL 2% GEL UROJET 10 ML PKG MUCOUS MEM (12:44)
--- NOTE | 2022-02-24 12:46 | W.PM.PROC2 ---
Procedure Note - Detailed Date of Procedure 02/24/22 Pre-op Diagnosis Septic Shock, UTi, pneumonia Post-op Diagnosis Same Procedure Performed Cystoscopy, right ureteral stent removal, right retrograde pyelogram and right ureteroscopy Surgeon Leroy Shearer MD Findings No evidence of ongoing right ureteral obstruction Description of Procedure Patient is brought the op suite was prepped draped in routine routine sterile fashion while in a dorsal lithotomy position. We initially started this procedure under systemic sedation but he was subsequently converted to a general endotracheal anesthetic. Cystoscopy was undertaken with a 19 F rigid cystoscope. The bladder was inspected and found to be without signs of neoplasm or unusual mucosal hyperemia. He has an indwelling right ureteral stent which was grasped and brought to the external urethral meatus with ease. A 0.035 in glidewire was advanced in the right renal pelvis. An angiographic catheter is advanced over this and a retrograde pyelogram shows no evidence of a filling defects or points of obstruction along the right collecting system or ureter. I did perform right ureteroscopy with a digital flexible ureteral scope. All calices renal pelvis entire ureter were inspected and likewise found to have no evidence of urothelial hyperemia and no points of obstruction. There were no renal or ureteral calculi identified. In light of this I opted to leave the indwelling ureteral stent out. Bladder was emptied the patient was taken recovery room good condition. Estimated Blood Loss 0 Urine Output 300 Drains No Packing No Pathology None sent Complications No immediate complications Condition Stable Disposition PACU
--- NOTE | 2022-02-24 13:09 | PC.NURSE ---
On 02/24/22, the student, [Kalina Zayas], provided care and completed [facility] documentation on this patient. I have reviewed the student's documentation and agree with the findings.
[2022-02-24 13:34] LABS: Glucose Point of Care 90 mg/dl (65-105)
--- NOTE | 2022-02-24 13:51 | PC.NURSE ---
On 02/24/22, the student, [Kandy Harper], provided care and completed [facility] documentation on this patient. I have reviewed the student's documentation and agree with the findings.
[2022-02-24 16:17] LABS: Glucose Point of Care 89 mg/dl (65-105)
[2022-02-24] MEDS: TAMSULOSIN HCL 0.4 MG CAPSULE PO (18:34)
[2022-02-24] MEDS: PANTOPRAZOLE 40 MG TABLET PO (18:35)
[2022-02-24] MEDS: FINASTERIDE 5 MG TABLET PO (18:35)
--- NOTE | 2022-03-23 07:33 | PM.DS ---
DS: Admitting Diagnosis Discharge Date 02/24/22 Admitting Diagnosis pna, uti, nstemi (type 2MI), afib DS: Summary Hospital Course Hospital Course: 81 yo admitted for sepsis from pna and uti he was subsequently treated with abx and did exceptionally well. He was further noted to be in atrial fibrillation and will remain on bb and eliquis. Patient was also seen by urology on this hospitalization for ureteral stent placement for stone and removal of the stent. He was able to void and will need to fu with urology. he will also need to follow up with cardiology as well. Otherwise he is doing better and will be dc from hospital. Time Spent with Patient Time attestation: Total time spent providing and/or coordinating discharge services: Discharge Plan Discharge Attending physician on discharge: Fer Luciano Consulting providers: Judson Peguero ; Riley Oliva ; Fer Beaulieu ; Caitlin Peraza ; Jessica Eisenberg ; Juan Enriquez V. ; Brandon Junior ; Conner Yepez ; Bart Vega ; Zackery Ortiz ; Anny Rodriguez ; Leroy Shearer ; Michael Paulson ; Sue David ; Margo Man ; Augustin Pruitt ; Anca Mena ; Pratibha Cotto ; Ashley White ; Won Marks V. Discharging Clinician: Fer Luciano Patient Disposition: Hospital Swing Bed [facility] Activity: no preference Diet: as tolerated Patient Instructions: Antibiotic Form, Apixaban (By mouth), Pain Management in Older Adults (DC), Sepsis (DC), BiPAP (GEN), Removal of a Central Line, PICC, or Midline Catheter (DC) Stand Alone Forms: General Discharge Information Follow-up/Referrals: Anca Mena APN-C [Advanced Practice Nurse] - (03/15/22 at 1:00. Please arrive at 12:45) Date of admission: 02/11/22 14:33 Primary Care Provider: Jennifer,Jay Merino Admitting Provider: Benito Taylor Attending physician on admission: Fer Luciano Condition: Serious
== END 2022-02-24 18:50 | disposition swing bed (61) | DRG 853 ==
LOC: ANHED 13:04 → ANHICU 16:18 → ANH2MED 02-22 18:50 → ANHICU 02-27 10:02
PROVIDERS: Emergency Medicine; Internal Medicine; Physician Assistant; Urology; Admitting Provider Internal Medicine; Emergency Provider General Practice; PCP Internal Medicine; Visit Provider Chiropractor
PROC: 0T768DZ Dilation of Right Ureter with Intraluminal Device, Via Natural or Artificial Opening Endoscopic (ICD-10-PCS; CPT 52352; principal; 2022-02-11 18:30)
PROC: 0TP98DZ Removal of Intraluminal Device from Ureter, Via Natural or Artificial Opening Endoscopic (ICD-10-PCS; CPT 52352; principal; 2022-02-24 12:00)
DX: A41.51 Sepsis due to Escherichia coli [E. coli] (principal); J18.9 Pneumonia, unspecified organism; R65.21 Severe sepsis with septic shock; J96.00 Acute respiratory failure, unspecified whether with hypoxia or hypercapnia; K72.00 Acute and subacute hepatic failure without coma; N17.9 Acute kidney failure, unspecified; E87.20 Acidosis, unspecified; N13.6 Pyonephrosis; I42.9 Cardiomyopathy, unspecified; G93.40 Encephalopathy, unspecified; D69.6 Thrombocytopenia, unspecified; I48.91 Unspecified atrial fibrillation; M79.601 Pain in right arm; I25.10 Atherosclerotic heart disease of native coronary artery without angina pectoris; E11.65 Type 2 diabetes mellitus with hyperglycemia; E78.5 Hyperlipidemia, unspecified; N40.0 Benign prostatic hyperplasia without lower urinary tract symptoms; I10 Essential (primary) hypertension; G47.30 Sleep apnea, unspecified; R77.8 Other specified abnormalities of plasma proteins; R31.9 Hematuria, unspecified; Z20.822 Contact with and (suspected) exposure to COVID-19; Z66 Do not resuscitate; Z96.643 Presence of artificial hip joint, bilateral; Z96.653 Presence of artificial knee joint, bilateral; Z96.612 Presence of left artificial shoulder joint; Z79.82 Long term (current) use of aspirin; Z79.899 Other long term (current) drug therapy; Z85.828 Personal history of other malignant neoplasm of skin; Z90.49 Acquired absence of other specified parts of digestive tract; Z95.1 Presence of aortocoronary bypass graft; Z95.5 Presence of coronary angioplasty implant and graft
CPT/HCPCS: 36415; 36556; 36600; 51701; 51702; 70450; 71045; 73090; 73120; 74018; 74176; 74420; 76705; 76775; 80048; 80053; 80074; 81001; 82140; 82375; 82550; 82805; 82948; 83036; 83050; 83605; 83735; 83880; 84100; 84439; 84443; 84480; 84484; 84550; 85025; 85027; 85055; 85610; 85730; 86738; 86850; 86900; 86901; 87040; 87070; 87077; 87086; 87088; 87186; 87205; 87449; 87502; 87899; 92610; 93005; 93970; 94002; 94003; 95816; 96361; 96365; 96366; 96367; 97110; 97161; 97166; 97530; 97535; 99285; A9270; C1758; C1769; C2617; C8929; C9113; C9803; J0131; J0171; J0330; J0360; J0456; J0692; J0696; J0743; J1644; J1650; J1720; J1815; J1940; J2060; J2250; J2370; J2704; J2997; J3010; J3370; J3475; J3480; J7030; J7060; J7120; Q9957; U0003; U0005

== ENCOUNTER 2022-02-24 20:03 | Inpatient (IN) | payer MEDICARE, SELFPAY ==
[2022-02-24 20:19] VITALS: BMI 35.6
--- NOTE | 2022-02-24 20:29 | ADMGEN ---
This patient, Daniel Olguin, was admitted to 2nd Floor Room 208-2. Patient oriented to hospital policies and general routines including ID bracelet, bed and alarms, visiting hours, pain management, procedures, bathroom and other care routines, personal items, smoking policy, room service/diet, and visiting hours. Information on how to activate the Rapid Response Team has been discussed. Patient are encouraged to report perceived risks to care and to ask questions if they do not understand what they are told or what they should do.
[2022-02-24] MEDS: APIXABAN 2.5 MG TABLET 5 MG PO (21:59)
[2022-02-24] MEDS: DOCUSATE SODIUM 100 MG CAPSULE PO (22:00)
[2022-02-24] MEDS: SACUBITRIL/VALSARTAN 24-26 MG TABLET 1 TAB PO (22:00)
[2022-02-24] MEDS: rOPINIRole HCL 0.5 MG TABLET PO (22:00)
[2022-02-24] MEDS: HYDROcodone/acetaminophen (*CRX) 5-325 MG TABLET 1 TAB PO (22:01)
[2022-02-24 22:12] VITALS: O2SAT 93
[2022-02-24 22:13] LABS: Glucose Point of Care 90 mg/dl (65-105)
--- NOTE | 2022-02-24 22:56 | PC.NURSE ---
Pt's HS bg level on the lower side, so pt was given some andrzej crackers before bed.
[2022-02-24 23:06] VITALS: BP 153/68; PULSE 78; RESP 17; TEMP 37.4; O2SAT 93
--- NOTE | 2022-02-25 06:41 | PM.IMHP ---
H&P: HPI History of Present Illness Date/Time: 02/25/22 06:41 Chief Complaint: Weakness Narrative: This is a 81-year-old male that presented to [place] emergency department for generalized weakness patient was diagnosed with septic shock, UTI and pneumonia there was also a cystoscopy stent placement completed due to hydronephrosis patient was intubated after procedure due to respiratory distress. A code was called a due to AKatt munoz cardiology consulted. Patient was followed by urology, nephrology, and cardiology during his hospital stay patient admitted in swing bed for rehabilitation due to decreased balance decreased mobility in severe limited function endurant and/or mobility. The patient denies SOB, CP, palpitation, extremity numbness, lightheadedness, dizziness, constipation, diarrhea, chills, or fever. Review of Systems Review of Systems: A 14 organ system Review of Systems was performed and pertinent positives included in the HPI, otherwise remaining ROS is negative. COUNTS INCLUDE 234 BEDS AT THE [facility] Past Medical History Medical History (Updated 02/25/22 @ 08:29 by VICENTE Gusman) Chronic, continuous use of opioids Coronary artery disease Diabetes type 2, controlled Hearing loss Hyperlipidemia Hypertension Skin cancer Sleep apnea Surgical History Surgical History (Updated 02/23/22 @ 15:27 by Anny Rodriguez, RACHNA) History of appendectomy History of bilateral hip replacements History of bilateral knee replacement History of cardiac catheterization History of coronary artery stent placement History of four vessel coronary artery bypass graft History of left shoulder replacement Family History Family History Other Arthritis Diabetes mellitus Heart disease Hypertension Social History Social History Social History: Surrogate medical decision maker: Areli Olguin, spouse. Code status: Full code. Smoking status: Never smoker Alcohol intake: former Drinks per week: 2 Substance use: never Additional living arrangements comments: The patient lives with his in [place]. Spiritual care concerns: Yes (Pastor Len Knox from [facility]) Has the Lack of Transportation Kept You From Medical Appointments or From Getting Medications?: No Within the Past 12 Months, Were You Worried Whether Your Food Would Run Out Before You Got Money to Buy More?: Never True What is Your Housing Situation Today?: I Have Housing Are You Worried That in the Next 2 Months, You May Not Have Your Own Housing to Live In?: No Do You Have Trouble Paying Your Heating Or Electricity Bill?: No Do You Have Trouble Paying For Medicines?: No Are You Currently Unemployed and Looking for Work?: Yes Highest Level of Education Completed: High School Diploma/GED Do You Have Trouble With Childcare or the Care of a Family Member?: No Meds Home Medications and Allergies Home Medications Medication Instructions Recorded Confirmed Type atorvastatin 40 mg tablet 40 mg PO DAILY 11/25/19 02/24/22 History diphenhydramine 25 1 tablet PO Q6H PRN Itching 11/25/19 02/24/22 History mg-acetaminophen 500 mg tablet (Tylenol PM Extra Strength) finasteride 5 mg tablet 5 mg PO DAILY 11/25/19 02/24/22 History furosemide 40 mg tablet 40 mg PO QAM 11/25/19 02/24/22 History ropinirole 0.25 mg tablet (Requip) 0.25 mg PO BID 11/25/19 02/24/22 History tamsulosin 0.4 mg capsule 0.4 mg PO DAILY 11/25/19 02/24/22 History oxybutynin chloride 5 mg 5 mg PO DAILY 09/18/21 02/24/22 History tablet,extended release 24 hr ropinirole 0.25 mg tablet 0.5 mg PO HS 09/18/21 02/24/22 History sitagliptin 25 mg tablet (Januvia) 25 mg PO DAILY 12/09/21 02/24/22 History acetaminophen 325 mg capsule 650 mg PO Q8H PRN Pain (Scale 02/11/22 02/24/22 History (Tylenol) Score 1-3) apixaban 5 mg tablet (Eliquis) 5 mg PO Q12HR 30 days #60 tabs 02/24/22 02/24/22 Rx
[2022-02-25 07:45] VITALS: BP 133/70; PULSE 91; RESP 18; TEMP 36.6; O2SAT 95
[2022-02-25] MEDS: rOPINIRole HCL 0.25 MG TABLET PO ×2 (09:15→17:07)
[2022-02-25 09:16] VITALS: PULSE 93
[2022-02-25] MEDS: SPIRONOLACTONE 12.5 MG TABLET PO (09:16)
[2022-02-25] MEDS: TAMSULOSIN HCL 0.4 MG CAPSULE PO (09:16)
[2022-02-25] MEDS: METOPROLOL SUCCINATE EXT REL 50 MG TABCR PO (09:16)
[2022-02-25] MEDS: DOCUSATE SODIUM 100 MG CAPSULE PO ×2 (09:16→20:29)
[2022-02-25] MEDS: SACUBITRIL/VALSARTAN 24-26 MG TABLET 1 TAB PO ×2 (09:16→20:30)
[2022-02-25] MEDS: levoFLOXacin 250 MG TABLET 750 MG PO (09:16)
[2022-02-25] MEDS: ASPIRIN 81 MG CHEWABLE TABLET PO (09:17)
[2022-02-25] MEDS: APIXABAN 2.5 MG TABLET 5 MG PO ×2 (09:17→20:30)
[2022-02-25] MEDS: PANTOPRAZOLE 40 MG TABLET PO (09:17)
[2022-02-25] MEDS: FUROSEMIDE 40 MG TABLET PO (09:17)
[2022-02-25] MEDS: ATORVASTATIN 40 MG TABLET PO (09:17)
[2022-02-25] MEDS: FINASTERIDE 5 MG TABLET PO (09:17)
[2022-02-25 12:13] LABS: Glucose Point of Care 128 mg/dl (65-105)
[2022-02-25 16:20] VITALS: BP 111/45; PULSE 71; RESP 18; TEMP 36.3; O2SAT 95
[2022-02-25 17:12] LABS: Glucose Point of Care 99 mg/dl (65-105)
[2022-02-25] MEDS: rOPINIRole HCL 0.5 MG TABLET PO (20:29)
[2022-02-25] MEDS: HYDROcodone/acetaminophen (*CRX) 5-325 MG TABLET 1 TAB PO (20:31)
[2022-02-25 20:41] LABS: Glucose Point of Care 138 mg/dl (65-105)
[2022-02-25 23:18] VITALS: BP 127/74; PULSE 76; RESP 15; TEMP 36.6; O2SAT 94
[2022-02-26] MEDS: traMADol HCL (*CRX) 25 MG TABLET PO (04:19)
[2022-02-26 08:00] VITALS: BP 141/76; PULSE 68; RESP 14; TEMP 36.6
[2022-02-26 08:37] VITALS: PULSE 70
[2022-02-26] MEDS: METOPROLOL SUCCINATE EXT REL 50 MG TABCR PO (08:37)
[2022-02-26] MEDS: ATORVASTATIN 40 MG TABLET PO (08:38)
[2022-02-26] MEDS: PANTOPRAZOLE 40 MG TABLET PO (08:38)
[2022-02-26] MEDS: ASPIRIN 81 MG CHEWABLE TABLET PO (08:38)
[2022-02-26] MEDS: FINASTERIDE 5 MG TABLET PO (08:38)
[2022-02-26] MEDS: SACUBITRIL/VALSARTAN 24-26 MG TABLET 1 TAB PO ×2 (08:39→20:53)
[2022-02-26] MEDS: FUROSEMIDE 40 MG TABLET PO (08:39)
[2022-02-26] MEDS: TAMSULOSIN HCL 0.4 MG CAPSULE PO (08:40)
[2022-02-26] MEDS: SPIRONOLACTONE 12.5 MG TABLET PO (08:40)
[2022-02-26] MEDS: levoFLOXacin 250 MG TABLET 750 MG PO (08:41)
[2022-02-26] MEDS: APIXABAN 2.5 MG TABLET 5 MG PO ×2 (08:41→20:52)
[2022-02-26] MEDS: rOPINIRole HCL 0.25 MG TABLET PO ×2 (08:42→17:39)
[2022-02-26 16:25] VITALS: BP 132/55; PULSE 76; RESP 18; TEMP 37.1; O2SAT 95
[2022-02-26 17:10] LABS: Glucose Point of Care 185 mg/dl (65-105)
[2022-02-26] MEDS: rOPINIRole HCL 0.5 MG TABLET PO (20:53)
[2022-02-26] MEDS: DOCUSATE SODIUM 100 MG CAPSULE PO (20:53)
[2022-02-26 21:02] LABS: Glucose Point of Care 167 mg/dl (65-105)
[2022-02-26 23:04] VITALS: BP 133/55; PULSE 73; RESP 16; TEMP 36.4; O2SAT 97
[2022-02-27 07:44] LABS: Glucose Point of Care 120 mg/dl (65-105)
[2022-02-27 08:00] VITALS: BP 111/57; PULSE 67; RESP 16; TEMP 36.4; O2SAT 97
[2022-02-27] MEDS: ASPIRIN 81 MG CHEWABLE TABLET PO (08:09)
[2022-02-27 08:10] VITALS: PULSE 67
[2022-02-27] MEDS: SACUBITRIL/VALSARTAN 24-26 MG TABLET 1 TAB PO ×2 (08:10→21:35)
[2022-02-27] MEDS: METOPROLOL SUCCINATE EXT REL 50 MG TABCR PO (08:10)
[2022-02-27] MEDS: ATORVASTATIN 40 MG TABLET PO (08:10)
[2022-02-27] MEDS: PANTOPRAZOLE 40 MG TABLET PO (08:10)
[2022-02-27] MEDS: FUROSEMIDE 40 MG TABLET PO (08:10)
[2022-02-27] MEDS: levoFLOXacin 250 MG TABLET 750 MG PO (08:11)
[2022-02-27] MEDS: DOCUSATE SODIUM 100 MG CAPSULE PO ×2 (08:11→21:36)
[2022-02-27] MEDS: FINASTERIDE 5 MG TABLET PO (08:11)
[2022-02-27] MEDS: APIXABAN 2.5 MG TABLET 5 MG PO ×2 (08:12→21:36)
[2022-02-27] MEDS: TAMSULOSIN HCL 0.4 MG CAPSULE PO (08:12)
[2022-02-27] MEDS: SPIRONOLACTONE 12.5 MG TABLET PO (08:13)
[2022-02-27] MEDS: rOPINIRole HCL 0.25 MG TABLET PO ×2 (08:13→16:51)
[2022-02-27 11:47] LABS: Glucose Point of Care 139 mg/dl (65-105)
[2022-02-27 16:00] VITALS: BP 113/57; PULSE 98; RESP 16; TEMP 36.6; O2SAT 98
[2022-02-27 16:29] LABS: Glucose Point of Care 105 mg/dl (65-105)
[2022-02-27] MEDS: traMADol HCL (*CRX) 25 MG TABLET PO (21:35)
[2022-02-27] MEDS: traZODone HCL 50 MG TABLET PO (21:36)
[2022-02-27] MEDS: rOPINIRole HCL 0.5 MG TABLET PO (21:37)
[2022-02-27 21:48] LABS: Glucose Point of Care 146 mg/dl (65-105)
[2022-02-28] VITALS: BP 139/59; PULSE 69; RESP 18; TEMP 37; O2SAT 94
[2022-02-28 07:41] VITALS: BP 126/57; PULSE 64; RESP 16; TEMP 36.8; O2SAT 93
[2022-02-28 07:52] LABS: Glucose Point of Care 106 mg/dl (65-105)
[2022-02-28 08:20] VITALS: PULSE 64
[2022-02-28] MEDS: levoFLOXacin 250 MG TABLET 750 MG PO (08:20)
[2022-02-28] MEDS: FINASTERIDE 5 MG TABLET PO (08:20)
[2022-02-28] MEDS: METOPROLOL SUCCINATE EXT REL 50 MG TABCR PO (08:20)
[2022-02-28] MEDS: PANTOPRAZOLE 40 MG TABLET PO (08:21)
[2022-02-28] MEDS: ACETAMINOPHEN 325 MG TABLET 650 MG PO (08:21)
[2022-02-28] MEDS: ASPIRIN 81 MG CHEWABLE TABLET PO (08:22)
[2022-02-28] MEDS: TAMSULOSIN HCL 0.4 MG CAPSULE PO (08:22)
[2022-02-28] MEDS: ATORVASTATIN 40 MG TABLET PO (08:22)
[2022-02-28] MEDS: APIXABAN 2.5 MG TABLET 5 MG PO ×2 (08:22→21:28)
[2022-02-28] MEDS: DOCUSATE SODIUM 100 MG CAPSULE PO ×2 (08:22→21:29)
[2022-02-28] MEDS: SACUBITRIL/VALSARTAN 24-26 MG TABLET 1 TAB PO ×2 (08:22→21:31)
[2022-02-28] MEDS: FUROSEMIDE 40 MG TABLET PO (08:22)
[2022-02-28] MEDS: SPIRONOLACTONE 12.5 MG TABLET PO (08:24)
[2022-02-28] MEDS: rOPINIRole HCL 0.25 MG TABLET PO ×2 (08:24→17:12)
[2022-02-28 12:00] LABS: Glucose Point of Care 100 mg/dl (65-105)
[2022-02-28 13:24] LABS: Glucose Point of Care 154 mg/dl (65-105)
[2022-02-28 16:00] VITALS: BP 124/66; PULSE 64; RESP 16; TEMP 36.7; O2SAT 95
[2022-02-28 17:03] LABS: Glucose Point of Care 122 mg/dl (65-105)
[2022-02-28] MEDS: traZODone HCL 50 MG TABLET PO (21:29)
[2022-02-28] MEDS: rOPINIRole HCL 0.5 MG TABLET PO (21:29)
[2022-02-28] MEDS: HYDROcodone/acetaminophen (*CRX) 5-325 MG TABLET 1 TAB PO (21:29)
[2022-02-28 21:39] LABS: Glucose Point of Care 135 mg/dl (65-105)
[2022-03-01] VITALS: BP 139/70; PULSE 73; RESP 18; TEMP 36.7; O2SAT 94
[2022-03-01 07:42] VITALS: BP 126/64; PULSE 74; RESP 18; TEMP 36.6; O2SAT 94
[2022-03-01 07:59] LABS: Glucose Point of Care 109 mg/dl (65-105)
[2022-03-01] MEDS: SPIRONOLACTONE 12.5 MG TABLET PO (08:04)
[2022-03-01] MEDS: SACUBITRIL/VALSARTAN 24-26 MG TABLET 1 TAB PO ×2 (08:05→20:57)
[2022-03-01] MEDS: TAMSULOSIN HCL 0.4 MG CAPSULE PO (08:05)
[2022-03-01] MEDS: levoFLOXacin 250 MG TABLET 750 MG PO (08:05)
[2022-03-01] MEDS: PANTOPRAZOLE 40 MG TABLET PO (08:05)
[2022-03-01] MEDS: APIXABAN 2.5 MG TABLET 5 MG PO ×2 (08:05→20:57)
[2022-03-01] MEDS: DOCUSATE SODIUM 100 MG CAPSULE PO ×2 (08:05→20:57)
[2022-03-01] MEDS: ATORVASTATIN 40 MG TABLET PO (08:05)
[2022-03-01 08:06] VITALS: PULSE 78
[2022-03-01] MEDS: ASPIRIN 81 MG CHEWABLE TABLET PO (08:06)
[2022-03-01] MEDS: METOPROLOL SUCCINATE EXT REL 50 MG TABCR PO (08:06)
[2022-03-01] MEDS: FUROSEMIDE 40 MG TABLET PO (08:06)
[2022-03-01] MEDS: FINASTERIDE 5 MG TABLET PO (08:06)
[2022-03-01] MEDS: rOPINIRole HCL 0.25 MG TABLET PO ×2 (08:15→17:08)
--- NOTE | 2022-03-01 10:54 | PC.NURSE ---
compression socks are on timmy. encouraged to keep feet elevated. repositioned in bed.
[2022-03-01 16:00] VITALS: BP 134/74; PULSE 84; RESP 20; TEMP 36.6; O2SAT 96
[2022-03-01 17:04] LABS: Glucose Point of Care 124 mg/dl (65-105)
[2022-03-01] MEDS: rOPINIRole HCL 0.5 MG TABLET PO (20:57)
[2022-03-01] MEDS: traZODone HCL 50 MG TABLET PO (20:57)
[2022-03-01] MEDS: traMADol HCL (*CRX) 25 MG TABLET PO (20:59)
[2022-03-01 21:08] LABS: Glucose Point of Care 125 mg/dl (65-105)
[2022-03-01 23:06] VITALS: BP 123/69; PULSE 79; RESP 15; TEMP 36.6; O2SAT 92
[2022-03-02 00:27] LABS: Glucose Point of Care 112 mg/dl (65-105)
--- NOTE | 2022-03-02 05:33 | PC.NURSE ---
Pt sat at the bedside and changed his socks. Pt assisted w/putting on a pair of pants. Pt afterwards ambulated from bedside to chair via walker, gait belt, and standby assist. Pt reclined in chair and has his call light and water w/in reach. Chair alarm and room light on for pt safety.
[2022-03-02 07:47] LABS: Glucose Point of Care 104 mg/dl (65-105)
[2022-03-02 08:00] VITALS: BP 124/65; PULSE 78; RESP 16; TEMP 36.3; O2SAT 96
[2022-03-02] MEDS: ASPIRIN 81 MG CHEWABLE TABLET PO (08:01)
[2022-03-02] MEDS: ATORVASTATIN 40 MG TABLET PO (08:34)
[2022-03-02] MEDS: APIXABAN 2.5 MG TABLET 5 MG PO ×2 (08:34→20:05)
[2022-03-02] MEDS: rOPINIRole HCL 0.25 MG TABLET PO ×2 (08:34→17:13)
[2022-03-02] MEDS: SPIRONOLACTONE 12.5 MG TABLET PO (08:34)
[2022-03-02] MEDS: TAMSULOSIN HCL 0.4 MG CAPSULE PO (08:35)
[2022-03-02] MEDS: DOCUSATE SODIUM 100 MG CAPSULE PO ×2 (08:35→20:05)
[2022-03-02] MEDS: PANTOPRAZOLE 40 MG TABLET PO (08:36)
[2022-03-02] MEDS: FUROSEMIDE 40 MG TABLET PO (08:36)
[2022-03-02] MEDS: SACUBITRIL/VALSARTAN 24-26 MG TABLET 1 TAB PO ×2 (08:36→20:05)
[2022-03-02] MEDS: levoFLOXacin 250 MG TABLET 750 MG PO (08:36)
[2022-03-02] MEDS: FINASTERIDE 5 MG TABLET PO (08:36)
[2022-03-02 08:37] VITALS: PULSE 78
[2022-03-02] MEDS: METOPROLOL SUCCINATE EXT REL 50 MG TABCR PO (08:37)
[2022-03-02] MEDS: traMADol HCL (*CRX) 25 MG TABLET PO (11:38)
[2022-03-02 11:43] LABS: Glucose Point of Care 140 mg/dl (65-105)
[2022-03-02 16:10] VITALS: BP 100/58; PULSE 67; RESP 18; TEMP 36.9; O2SAT 98
[2022-03-02 17:16] LABS: Glucose Point of Care 107 mg/dl (65-105)
[2022-03-02] MEDS: rOPINIRole HCL 0.5 MG TABLET PO (20:05)
[2022-03-02] MEDS: traZODone HCL 50 MG TABLET PO (20:06)
[2022-03-02 20:10] LABS: Glucose Point of Care 178 mg/dl (65-105)
[2022-03-02 23:13] VITALS: BP 106/54; PULSE 68; RESP 16; TEMP 36.6; O2SAT 94
[2022-03-03 07:56] LABS: Glucose Point of Care 120 mg/dl (65-105)
[2022-03-03] MEDS: ASPIRIN 81 MG CHEWABLE TABLET PO (07:58)
[2022-03-03 08:00] VITALS: BP 87/49; PULSE 78; RESP 16; TEMP 36.5; O2SAT 95
[2022-03-03] MEDS: rOPINIRole HCL 0.25 MG TABLET PO ×2 (09:30→16:55)
[2022-03-03] MEDS: levoFLOXacin 250 MG TABLET 750 MG PO (09:30)
[2022-03-03] MEDS: SPIRONOLACTONE 12.5 MG TABLET PO (09:30)
[2022-03-03] MEDS: DOCUSATE SODIUM 100 MG CAPSULE PO (09:30)
[2022-03-03] MEDS: PANTOPRAZOLE 40 MG TABLET PO (09:30)
[2022-03-03 09:31] VITALS: PULSE 78
[2022-03-03] MEDS: ATORVASTATIN 40 MG TABLET PO (09:31)
[2022-03-03] MEDS: FINASTERIDE 5 MG TABLET PO (09:31)
[2022-03-03] MEDS: APIXABAN 2.5 MG TABLET 5 MG PO ×2 (09:31→20:13)
[2022-03-03] MEDS: METOPROLOL SUCCINATE EXT REL 50 MG TABCR PO (09:31)
[2022-03-03] MEDS: SACUBITRIL/VALSARTAN 24-26 MG TABLET 1 TAB PO ×2 (09:31→20:13)
[2022-03-03] MEDS: FUROSEMIDE 40 MG TABLET PO (09:31)
[2022-03-03] MEDS: TAMSULOSIN HCL 0.4 MG CAPSULE PO (09:32)
[2022-03-03 11:55] LABS: Glucose Point of Care 136 mg/dl (65-105)
[2022-03-03 16:40] VITALS: BP 88/51; PULSE 69; RESP 18; TEMP 36.7; O2SAT 97
[2022-03-03 17:00] LABS: Glucose Point of Care 108 mg/dl (65-105)
[2022-03-03] MEDS: rOPINIRole HCL 0.5 MG TABLET PO (20:14)
[2022-03-03 20:22] LABS: Glucose Point of Care 157 mg/dl (65-105)
[2022-03-03] MEDS: traMADol HCL (*CRX) 25 MG TABLET PO (23:41)
[2022-03-03 23:44] VITALS: BP 134/70; PULSE 18; RESP 86; TEMP 37.1; O2SAT 96
[2022-03-04 07:43] LABS: Glucose Point of Care 116 mg/dl (65-105)
[2022-03-04 07:52] VITALS: BP 112/55; PULSE 74; RESP 16; TEMP 37.1; O2SAT 97
[2022-03-04] MEDS: traMADol HCL (*CRX) 25 MG TABLET PO ×2 (08:14→20:28)
[2022-03-04 08:15] VITALS: PULSE 74
[2022-03-04] MEDS: METOPROLOL SUCCINATE EXT REL 50 MG TABCR PO (08:15)
[2022-03-04] MEDS: FINASTERIDE 5 MG TABLET PO (08:16)
[2022-03-04] MEDS: PANTOPRAZOLE 40 MG TABLET PO (08:16)
[2022-03-04] MEDS: levoFLOXacin 250 MG TABLET 750 MG PO (08:16)
[2022-03-04] MEDS: SACUBITRIL/VALSARTAN 24-26 MG TABLET 1 TAB PO ×2 (08:17→20:28)
[2022-03-04] MEDS: ASPIRIN 81 MG CHEWABLE TABLET PO (08:17)
[2022-03-04] MEDS: DOCUSATE SODIUM 100 MG CAPSULE PO ×2 (08:17→20:28)
[2022-03-04] MEDS: TAMSULOSIN HCL 0.4 MG CAPSULE PO (08:17)
[2022-03-04] MEDS: APIXABAN 2.5 MG TABLET 5 MG PO ×2 (08:18→20:27)
[2022-03-04] MEDS: ATORVASTATIN 40 MG TABLET PO (08:18)
[2022-03-04] MEDS: rOPINIRole HCL 0.25 MG TABLET PO ×2 (08:19→17:44)
[2022-03-04] MEDS: FUROSEMIDE 40 MG TABLET PO (08:19)
[2022-03-04] MEDS: SPIRONOLACTONE 12.5 MG TABLET PO (08:20)
[2022-03-04 11:37] LABS: Glucose Point of Care 120 mg/dl (65-105)
--- NOTE | 2022-03-04 12:23 | PM.EVENT ---
Event Note Event Note Event Note: 03/04/2022 vitals 98, 74, 16 97% on room air, 112/55 patient has a recliner chair denies needing anything states that he has been extra tired he has been working with physical therapy patient is doing very well at this time no pain noted no nausea vomiting and/or diarrhea patient has remained afebrile will continue to work with physical therapy for possible discharge possibly next week call.
[2022-03-04 16:00] VITALS: BP 114/61; PULSE 63; RESP 16; TEMP 36.9; O2SAT 97
[2022-03-04 16:46] LABS: Glucose Point of Care 104 mg/dl (65-105)
--- NOTE | 2022-03-04 16:52 | PC.NURSE ---
Patient ambulated with assist to elevator and back with gait belt and walker.
[2022-03-04] MEDS: rOPINIRole HCL 0.5 MG TABLET PO (20:28)
[2022-03-04] MEDS: traZODone HCL 50 MG TABLET PO (20:29)
[2022-03-04 20:32] LABS: Glucose Point of Care 110 mg/dl (65-105)
[2022-03-05] VITALS: BP 115/72; PULSE 65; RESP 20; TEMP 36.8; O2SAT 93
[2022-03-05 07:43] LABS: Glucose Point of Care 92 mg/dl (65-105)
[2022-03-05 07:56] VITALS: BP 121/76; PULSE 69; RESP 16; TEMP 36.6; O2SAT 94
[2022-03-05] MEDS: rOPINIRole HCL 0.25 MG TABLET PO ×2 (08:10→17:23)
[2022-03-05] MEDS: SPIRONOLACTONE 12.5 MG TABLET PO (08:10)
[2022-03-05] MEDS: ASPIRIN 81 MG CHEWABLE TABLET PO (08:11)
[2022-03-05] MEDS: levoFLOXacin 250 MG TABLET 750 MG PO (08:12)
[2022-03-05] MEDS: APIXABAN 2.5 MG TABLET 5 MG PO ×2 (08:12→20:18)
[2022-03-05] MEDS: TAMSULOSIN HCL 0.4 MG CAPSULE PO (08:13)
[2022-03-05] MEDS: FINASTERIDE 5 MG TABLET PO (08:13)
[2022-03-05] MEDS: SACUBITRIL/VALSARTAN 24-26 MG TABLET 1 TAB PO ×2 (08:13→20:19)
[2022-03-05] MEDS: PANTOPRAZOLE 40 MG TABLET PO (08:14)
[2022-03-05] MEDS: ATORVASTATIN 40 MG TABLET PO (08:14)
[2022-03-05] MEDS: traMADol HCL (*CRX) 25 MG TABLET PO ×2 (08:14→20:19)
[2022-03-05] MEDS: DOCUSATE SODIUM 100 MG CAPSULE PO ×2 (08:14→20:19)
[2022-03-05 08:15] VITALS: PULSE 74
[2022-03-05] MEDS: METOPROLOL SUCCINATE EXT REL 50 MG TABCR PO (08:15)
[2022-03-05] MEDS: FUROSEMIDE 40 MG TABLET PO (08:16)
[2022-03-05 11:42] LABS: Glucose Point of Care 103 mg/dl (65-105)
[2022-03-05 16:00] VITALS: BP 111/57; PULSE 64; RESP 16; TEMP 37.1; O2SAT 96
[2022-03-05 16:33] LABS: Glucose Point of Care 121 mg/dl (65-105)
[2022-03-05] MEDS: rOPINIRole HCL 0.5 MG TABLET PO (20:19)
[2022-03-05 20:43] LABS: Glucose Point of Care 131 mg/dl (65-105)
[2022-03-06] VITALS: BP 98/55; PULSE 68; RESP 20; TEMP 36.4; O2SAT 98
[2022-03-06 08:00] VITALS: BP 110/52; PULSE 71; RESP 16; TEMP 36.4; O2SAT 94
[2022-03-06 08:01] LABS: Glucose Point of Care 97 mg/dl (65-105)
[2022-03-06] MEDS: levoFLOXacin 250 MG TABLET 750 MG PO (09:30)
[2022-03-06] MEDS: APIXABAN 2.5 MG TABLET 5 MG PO ×2 (09:30→21:14)
[2022-03-06] MEDS: ASPIRIN 81 MG CHEWABLE TABLET PO (09:33)
[2022-03-06] MEDS: rOPINIRole HCL 0.25 MG TABLET PO ×2 (09:34→17:07)
[2022-03-06] MEDS: SPIRONOLACTONE 12.5 MG TABLET PO (09:37)
[2022-03-06] MEDS: DOCUSATE SODIUM 100 MG CAPSULE PO ×2 (09:38→21:13)
[2022-03-06] MEDS: PANTOPRAZOLE 40 MG TABLET PO (09:38)
[2022-03-06] MEDS: FUROSEMIDE 40 MG TABLET PO (09:38)
[2022-03-06] MEDS: FINASTERIDE 5 MG TABLET PO (09:38)
[2022-03-06] MEDS: TAMSULOSIN HCL 0.4 MG CAPSULE PO (09:39)
[2022-03-06] MEDS: SACUBITRIL/VALSARTAN 24-26 MG TABLET 1 TAB PO ×2 (09:39→21:13)
[2022-03-06] MEDS: ATORVASTATIN 40 MG TABLET PO (09:39)
[2022-03-06 09:51] VITALS: PULSE 71
[2022-03-06] MEDS: METOPROLOL SUCCINATE EXT REL 50 MG TABCR PO (09:51)
[2022-03-06 12:00] LABS: Glucose Point of Care 120 mg/dl (65-105)
[2022-03-06 16:45] VITALS: BP 94/51; PULSE 60; RESP 18; TEMP 36.1; O2SAT 99
[2022-03-06 17:12] LABS: Glucose Point of Care 127 mg/dl (65-105)
[2022-03-06] MEDS: rOPINIRole HCL 0.5 MG TABLET PO (21:13)
[2022-03-06] MEDS: HYDROcodone/acetaminophen (*CRX) 5-325 MG TABLET 1 TAB PO (21:13)
[2022-03-06] MEDS: traZODone HCL 50 MG TABLET PO (21:14)
[2022-03-06 21:27] LABS: Glucose Point of Care 159 mg/dl (65-105)
[2022-03-07] VITALS: BP 122/52; PULSE 71; RESP 18; TEMP 36.5; O2SAT 92
[2022-03-07 08:00] VITALS: BP 93/45; PULSE 76; RESP 16; TEMP 36.3; O2SAT 94
[2022-03-07 09:14] VITALS: PULSE 76
[2022-03-07] MEDS: SPIRONOLACTONE 12.5 MG TABLET PO (09:14)
[2022-03-07] MEDS: rOPINIRole HCL 0.25 MG TABLET PO ×2 (09:14→17:19)
[2022-03-07] MEDS: METOPROLOL SUCCINATE EXT REL 50 MG TABCR PO (09:14)
[2022-03-07] MEDS: SACUBITRIL/VALSARTAN 24-26 MG TABLET 1 TAB PO ×2 (09:14→20:29)
[2022-03-07] MEDS: levoFLOXacin 250 MG TABLET 750 MG PO (09:15)
[2022-03-07] MEDS: ASPIRIN 81 MG CHEWABLE TABLET PO (09:15)
[2022-03-07] MEDS: FINASTERIDE 5 MG TABLET PO (09:15)
[2022-03-07] MEDS: APIXABAN 2.5 MG TABLET 5 MG PO ×2 (09:15→20:28)
[2022-03-07] MEDS: PANTOPRAZOLE 40 MG TABLET PO (09:15)
[2022-03-07] MEDS: FUROSEMIDE 40 MG TABLET PO (09:15)
[2022-03-07] MEDS: DOCUSATE SODIUM 100 MG CAPSULE PO ×2 (09:15→20:28)
[2022-03-07] MEDS: ATORVASTATIN 40 MG TABLET PO (09:15)
[2022-03-07] MEDS: TAMSULOSIN HCL 0.4 MG CAPSULE PO (09:16)
[2022-03-07 16:00] VITALS: BP 101/57; PULSE 17; RESP 18; TEMP 36.3; O2SAT 96
[2022-03-07] MEDS: rOPINIRole HCL 0.5 MG TABLET PO (20:28)
[2022-03-07] MEDS: traZODone HCL 50 MG TABLET PO (20:28)
[2022-03-07 23:01] VITALS: BP 100/51; PULSE 66; RESP 15; TEMP 36.6; O2SAT 97
[2022-03-08] MEDS: traMADol HCL (*CRX) 25 MG TABLET PO (00:34)
[2022-03-08 08:00] VITALS: BP 110/55; PULSE 82; RESP 16; TEMP 36.6; O2SAT 95
[2022-03-08] MEDS: ASPIRIN 81 MG CHEWABLE TABLET PO (08:03)
[2022-03-08] MEDS: PANTOPRAZOLE 40 MG TABLET PO (09:04)
[2022-03-08] MEDS: APIXABAN 2.5 MG TABLET 5 MG PO ×2 (09:04→20:21)
[2022-03-08] MEDS: SACUBITRIL/VALSARTAN 24-26 MG TABLET 1 TAB PO ×2 (09:04→20:21)
[2022-03-08 09:05] VITALS: PULSE 79
[2022-03-08] MEDS: METOPROLOL SUCCINATE EXT REL 50 MG TABCR PO (09:05)
[2022-03-08] MEDS: SPIRONOLACTONE 12.5 MG TABLET PO (09:05)
[2022-03-08] MEDS: rOPINIRole HCL 0.25 MG TABLET PO ×2 (09:05→16:54)
[2022-03-08] MEDS: levoFLOXacin 250 MG TABLET 750 MG PO (09:05)
[2022-03-08] MEDS: ATORVASTATIN 40 MG TABLET PO (09:07)
[2022-03-08] MEDS: FINASTERIDE 5 MG TABLET PO (09:07)
[2022-03-08] MEDS: FUROSEMIDE 40 MG TABLET PO (09:07)
[2022-03-08] MEDS: TAMSULOSIN HCL 0.4 MG CAPSULE PO (09:07)
--- NOTE | 2022-03-08 10:06 | PM.EVENT ---
Event Note Event Note Event Note: Patient requires a wheeled walker to perform ADLs in his home. The patient is unable to safely and independently ambulate household distance due to his current impairments .patient is not able to perform ADLs using a cane. Functional mobility deficiency will be sufficiently resolved by using the patient requires a wheeled walker to perform ADLs in the home due to weakness/debility. The patient is not able to perform ADLs using a cane. Functional mobility deficit will be sufficiently resolved by using a walker. The patient is able to safely use the walker and agree to use the walker.. Patient is able to safely use walker and agrees to use walker.
[2022-03-08 15:33] VITALS: BP 112/63; PULSE 86; RESP 16; TEMP 37.1; O2SAT 95
[2022-03-08] MEDS: traZODone HCL 50 MG TABLET PO (20:19)
[2022-03-08] MEDS: HYDROcodone/acetaminophen (*CRX) 5-325 MG TABLET 1 TAB PO (20:20)
[2022-03-08] MEDS: rOPINIRole HCL 0.5 MG TABLET PO (20:20)
[2022-03-09] VITALS: BP 120/79; PULSE 87; RESP 18; TEMP 36.9; O2SAT 92
[2022-03-09] MEDS: traMADol HCL (*CRX) 25 MG TABLET PO (03:24)
[2022-03-09] MEDS: HYDROcodone/acetaminophen (*CRX) 5-325 MG TABLET 1 TAB PO (05:27)
[2022-03-09 07:57] VITALS: BP 93/59; PULSE 87; RESP 16; TEMP 36.4; O2SAT 95
[2022-03-09] MEDS: SPIRONOLACTONE 12.5 MG TABLET PO (08:22)
[2022-03-09] MEDS: rOPINIRole HCL 0.25 MG TABLET PO (08:23)
[2022-03-09] MEDS: SACUBITRIL/VALSARTAN 24-26 MG TABLET 1 TAB PO (08:23)
[2022-03-09] MEDS: levoFLOXacin 250 MG TABLET 750 MG PO (08:24)
[2022-03-09] MEDS: APIXABAN 2.5 MG TABLET 5 MG PO (08:24)
[2022-03-09 08:25] VITALS: PULSE 74
[2022-03-09] MEDS: METOPROLOL SUCCINATE EXT REL 50 MG TABCR PO (08:25)
[2022-03-09] MEDS: TAMSULOSIN HCL 0.4 MG CAPSULE PO (08:25)
[2022-03-09] MEDS: FUROSEMIDE 40 MG TABLET PO (08:25)
[2022-03-09] MEDS: PANTOPRAZOLE 40 MG TABLET PO (08:25)
[2022-03-09] MEDS: ATORVASTATIN 40 MG TABLET PO (08:26)
[2022-03-09] MEDS: ASPIRIN 81 MG CHEWABLE TABLET PO (08:26)
[2022-03-09] MEDS: FINASTERIDE 5 MG TABLET PO (08:26)
[2022-03-09 08:48] LABS: Hematocrit 31.8 % (37.0-46.0); Hemoglobin 9.9 g/dL (12.4-15.3); Mean Corpuscular HGB Conc 31.1 g/dL (32.0-36.0); Mean Corpuscular Hemoglobin 30.2 pg (27.0-31.0); Mean Platelet Volume 8.4 fl (8.7-11.0); Platelet Count Result 167 K/mm3 (150-420); Red Blood Count 3.28 M/mm3 (4.70-6.10); Red Cell Distribution Width 14.5 % (11.6-14.4); White Blood Count 4.6 K/mm3 (4.8-10.8)
--- NOTE | 2022-03-09 08:53 | PM.DS ---
DS: Admitting Diagnosis Discharge Date 03/09/2022 Admitting Diagnosis weakness DS: Discharge Diagnosis Discharge Diagnosis (1) Diabetes: Code(s): E11.9 - Type 2 diabetes mellitus without complications Status: Acute Assessment and Plan: stable Continue home medication Continue diabetic diet (2) Cardiomyopathy: Code(s): I42.9 - Cardiomyopathy, unspecified Status: Acute Assessment and Plan: Echo from this admission showing a new cardiomyopathy with EF 35 - 40%, echo from [facility] 07/26 showed normal LVSF. ? Continue Entresto 24-26 b.i.d, metoprolol, and spironolactone 12.5 p.o. (3) Atrial fibrillation: Code(s): I48.91 - Unspecified atrial fibrillation Status: Acute Assessment and Plan: Controlled cont metoprolol and apixaban (4) Coronary artery disease: Code(s): I25.10 - Atherosclerotic heart disease of nikolski coronary artery without angina pectoris Status: Acute Assessment and Plan: Hx 4 vessel CABG (~20 years ago at [facility]). Continue statin. (5) Hypertension: Code(s): I10 - Essential (primary) hypertension Status: Acute Assessment and Plan: stable spironolactone and metoprolol (6) Hyperlipidemia: Code(s): E78.5 - Hyperlipidemia, unspecified Status: Acute Assessment and Plan: continue statin (7) Diabetes type 2, controlled: Code(s): E11.9 - Type 2 diabetes mellitus without complications Status: Acute (8) Weakness: Code(s): R53.1 - Weakness Status: Acute Assessment and Plan: ? patient will discharge with home health patient independent with all bed mobility and standby assist for transfer ambulation DS: Summary Hospital Course Reason for hospitalization: weakness Hospital Course: This is a 81-year-old male that presented to [place] emergency department for generalized weakness patient was diagnosed with septic shock, UTI and pneumonia there was also a cystoscopy stent placement completed due to hydronephrosis patient was intubated after procedure due to respiratory distress.? A code was called a due to Thuan munoz cardiology consulted.? Patient was followed by urology, nephrology, and cardiology during his hospital stay patient admitted in swing bed for rehabilitation due to decreased balance decreased mobility in severe limited function endurant and/or mobility.? The patient denies SOB, CP, palpitation, extremity numbness, lightheadedness, dizziness, constipation, diarrhea, chills, or fever. Discharge instructions reviewed with patient, as well as provided in writing per nursing staff. The instructions also include specific and strict return/GO TO THE ER as well as f/u information. All questions have been answered, and the patient and/or family deny any further questions with discharge and discharge plan. Time Spent with Patient Time attestation: Total time spent providing and/or coordinating discharge services: Exam Narrative: GENERAL: This is a well-nourished, well-developed patient, in no apparent distress. HEAD: normocephalic, atraumatic. EYES: PERRL. Sclera clear/white. Vision is grossly intact. EARS: External ears normal, auditory canals clear and without drainage, TMs normal without perforation. Hearing grossly intact. NOSE: External nose normal with no obvious nasal discharge, nares without redness, no rhinorrhea. THROAT: Mucous membranes moist, posterior pharynx clear. NECK: Neck supple, non-tender without lymphadenopathy, masses or thyromegaly. CARDIOVASCULAR: Regular rate and rhythm without murmurs, gallops, or rubs. RESPIRATORY: Clear to auscultation. Breath sounds equal bilaterally. No wheezes, rales, or rhonchi. GASTROINTESTINAL: Abdomen soft, non-tender, nondistended. Bowel sounds are active. No hepato-splenomegaly, or palpable masses. No guarding. SKIN: warm, intact with no suspicious lesions or rash, good texture and turgor.
[2022-03-09 08:58] LABS: Anion Gap 7 mmol/L (8-16); Blood Urea Nitrogen 20 mg/dL (7-18); Calcium 8.5 mg/dL (8.5-10.1); Carbon Dioxide 27 mmol/L (21-32); Chloride 105 mmol/L (98-108); Estimated CRCL calculation 37 ml/min; Estimated Glomerular Filt Rate 41; Glucose 137 mg/dL (70-99); Osmolality Calculated 292 mOsm/kg (285-295); Potassium 3.8 mmol/L (3.5-5.1); Sodium 139 mmol/L (136-145)
--- NOTE | 2022-03-09 14:30 | PCDIET ---
Discharge instructions given to patient and patient's . Both voiced understanding. Patient left unit in w/c accompanied by nurse and patient's . Patient left hospital property in private vehicle.
--- NOTE | 2022-03-14 12:54 | PC.NURSE ---
Pt states he received and understood his discharge instructions. Pt also states The people were very friendly .
== END 2022-03-09 14:30 | disposition home health service (06) | DRG 948 ==
PROVIDERS: Nurse Practitioner; Admitting Provider Internal Medicine; PCP Internal Medicine; Visit Provider Internal Medicine
DX: R53.1 Weakness (principal); I42.9 Cardiomyopathy, unspecified; I48.20 Chronic atrial fibrillation, unspecified; I25.10 Atherosclerotic heart disease of native coronary artery without angina pectoris; I10 Essential (primary) hypertension; E11.9 Type 2 diabetes mellitus without complications; E78.5 Hyperlipidemia, unspecified; G47.30 Sleep apnea, unspecified; Z96.643 Presence of artificial hip joint, bilateral; Z96.612 Presence of left artificial shoulder joint; Z96.653 Presence of artificial knee joint, bilateral; Z95.5 Presence of coronary angioplasty implant and graft; Z95.1 Presence of aortocoronary bypass graft; Z79.891 Long term (current) use of opiate analgesic
CPT/HCPCS: 36415; 80048; 82948; 85027; 97110; 97161; 97165; 97530; 97535; A9270

== ENCOUNTER 2022-03-29 12:23 | Outpatient (NON) | payer MEDICARE, SELFPAY ==
[2022-03-29 13:03] LABS: Anion Gap 5 mmol/L (8-16); Blood Urea Nitrogen 7 mg/dL (7-18); Carbon Dioxide 33 mmol/L (21-32); Chloride 103 mmol/L (98-108); Estimated Glomerular Filt Rate > 60; Glucose 97 mg/dL (70-99); Osmolality Calculated 290 mOsm/kg (285-295); Potassium 3.3 mmol/L (3.5-5.1); Sodium 141 mmol/L (136-145)
== END 2022-03-29 12:24 | disposition home or self-care (01) ==
LOC: CHSLAB 12:26
PROVIDERS: Visit Provider Nurse Practitioner
DX: I42.0 Dilated cardiomyopathy (principal)
CPT/HCPCS: 36415; 80048

== ENCOUNTER 2022-04-19 07:51 | Outpatient (CLI) | payer MEDICARE, SELFPAY ==
[2022-04-19 08:13] LABS: Basophils Absolute Auto 0.03 K/mm3 (0.00-0.10); Basophils Percent Auto 0.7 % (0.0-1.0); Eosinophils Absolute Auto 0.15 K/mm3 (0.02-0.50); Eosinophils Percent Auto 3.4 % (1.0-6.0); Hematocrit 37.6 % (37.0-46.0); Hemoglobin 11.9 g/dL (12.4-15.3); Immature Granulocyte Absolute 0.01 K/mm3 (0.00-0.00); Immature Granulocyte Percent A 0.2 % (0.0-0.0); Lymphocytes Absolute Auto 1.24 K/mm3 (1.10-4.50); Lymphocytes Percent Auto 28.5 % (18.0-42.0); Mean Corpuscular HGB Conc 31.6 g/dL (32.0-36.0); Mean Corpuscular Volume 94.7 fL (78.0-102.0); Mean Platelet Volume 8.6 fl (8.7-11.0); Monocytes Absolute Auto 0.44 K/mm3 (0.10-0.90); Monocytes Percent Auto 10.1 % (2.0-11.0); Neutrophils Absolute Auto 2.5 K/mm3 (1.7-7.2); Neutrophils Percent Auto 57.1 % (50.0-70.0); Platelet Count Result 207 K/mm3 (150-420); Red Blood Count 3.97 M/mm3 (4.70-6.10); Red Cell Distribution Width 13.2 % (11.6-14.4); White Blood Count 4.4 K/mm3 (4.8-10.8)
[2022-04-19 08:51] LABS: Alanine Aminotransferase 13 U/L (16-63); Albumin Level 3.1 g/dL (3.4-5.0); Alkaline Phosphatase 74 U/L (46-116); Anion Gap 4 mmol/L (8-16); Aspartate Amino Transferase 14 U/L (15-37); Bilirubin,Total 0.4 mg/dL (0.00-1.00); Blood Urea Nitrogen 9 mg/dL (7-18); Calcium 8.8 mg/dL (8.5-10.1); Carbon Dioxide 33 mmol/L (21-32); Chloride 105 mmol/L (98-108); Cholesterol 139 mg/dL (0-200); Estimated Glomerular Filt Rate > 60; Glucose 100 mg/dL (70-99); HDL Direct 50 mg/dL (40-60); LDL Cholesterol Calculated 70 mg/dL (<130); Magnesium 1.6 mg/dL (1.8-2.4); Osmolality Calculated 292 mOsm/kg (285-295); Potassium 3.5 mmol/L (3.5-5.1); Sodium 142 mmol/L (136-145); Thyroid Stimulating Hormone Reflex 2.45 u/IU/mL (0.36-3.74); Triglycerides 97 mg/dL (0-150)
== END 2022-04-19 07:52 | disposition home or self-care (01) ==
LOC: CHSLAB 07:53
PROVIDERS: PCP Family Medicine; Visit Provider Internal Medicine Cardiovascular Disease
DX: E78.5 Hyperlipidemia, unspecified (principal)
CPT/HCPCS: 36415; 80053; 80061; 83735; 84443; 85025

== ENCOUNTER 2022-06-12 13:26 | Outpatient (CLI) | payer MEDICARE, SELFPAY ==
--- NOTE | 2022-06-12 13:35 | ECHO_ITS ---
Patient Info Name: Daniel Olguin Age: 82 years : 1940 Gender: Male Ht: 69 in Wt: 220 lbs BSA: 2.24 m2 HR: 55 bpm BP: 108 / 52 mmHg Heart Rhythm: Atrial Fibrillation Technical Quality: Fair Exam Date: 06/12/2022 2:21 PM Exam Location: [facility] Patient Status: Outpatient Admit Date: 06/12/2022 Staff Ordering Physician: Florentino Lopez DO [employer] Consultant: Joanne Russ RDCS Attending Provider: Florentino Lopez DO Referring Physician: John PRESLEY; Exam Type: CA echo doppler color flow Study Info Indications I51.9 - Heart disease, unspecified Complete two-dimensional, color flow and Doppler transthoracic echocardiogram is performed. Summary 1. Complete two-dimensional, color flow and Doppler transthoracic echocardiogram is performed. 2. Left ventricular chamber dimension is normal. 3. Left ventricular systolic function is normal, estimated at 60-65%. 4. The left ventricular diastolic function is normal. 5. E/e' 9 is minimally elevated. 6. Atrial fibrillation. 7. Left atrial chamber dimension is mildly enlarged. 8. There is mild aortic valve sclerosis. 9. There is mild to moderate tricuspid valve regurgitation. 10. No pulmonary hypertension, estimated pulmonary arterial systolic pressure is 36 mmHg. Left Ventricle E/e' 9 is minimally elevated. Atrial fibrillation. Left ventricular chamber dimension is normal. Left ventricular systolic function is normal, estimated at 60-65%. The left ventricular diastolic function is normal. Right Ventricle Right ventricular systolic function is normal and with normal TAPSE 1.7 cm. Right ventricular chamber dimension is normal. Left Atria Left atrial chamber dimension is mildly enlarged. Right Atria Right atrial chamber dimension is normal. Aortic Valve The aortic valve is trileaflet. There is mild aortic valve sclerosis. There is no aortic valve stenosis. There is no aortic valve regurgitation. Pulmonic Valve There is no pulmonic regurgitation. Mitral Valve There is no mitral valve stenosis. There is no mitral valve regurgitation. Tricuspid Valve There is mild to moderate tricuspid valve regurgitation. No pulmonary hypertension, estimated pulmonary arterial systolic pressure is 36 mmHg. Pericardium/Pleural There is no pericardial effusion. Inferior Vena Cava Normal inferior vena cava with >50% collapse upon inspiration consistent with normal right atrial pressure, 5 mmHg. Aorta The aortic root size at the sinus of Valsalva is normal. Left Ventricular Outflow Tract Name Value Normal LVOT 2D LVOT Diameter 2.1 cm LVOT Doppler LVOT Peak Velocity 100 cm/s LVOT Peak Gradient 4 mmHg LVOT Mean Gradient 2 mmHg LVOT VTI 19 cm LVOT VTI/AV VTI Ratio 0.9 LVOT Stroke Volume 62 ml Pulmonic Valve Name Value Normal
== END 2022-06-12 13:27 | disposition home or self-care (01) ==
LOC: CHSIMG 13:28
PROVIDERS: PCP Family Medicine; Visit Provider Internal Medicine Cardiovascular Disease
DX: I08.3 Combined rheumatic disorders of mitral, aortic and tricuspid valves (principal)
CPT/HCPCS: 93306

== ENCOUNTER 2022-06-17 10:47 | Emergency (ER) | payer MEDICARE, SELFPAY ==
--- NOTE | ~2022-06-17 | XR_ITS ---
XR chest 1V portable DATE: 06/17/2022 11:44 INDICATION: Nausea and vomiting TECHNIQUE: Portable AP chest on June 17, 2022 at 1141 hours COMPARISON: 02/24/2022 portable AP chest at 1307 hours FINDINGS: Status post sternotomy. Status post left glenohumeral joint replacement. 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 Heart size appears within normal range. Is aortic calcification and tortuosity. Minimal atelectasis is suggested at the lung bases. The lungs otherwise appear clear. No pleural effu cheryl or pulmonary vascular congestion or pneumothorax. IMPRESSION: Minimal atelectasis at the lung bases Reviewed, dictated and finalized at location A. SYSTEMS MANAGER
[2022-06-17 10:48] VITALS: BP 140/77; PULSE 84; RESP 18; TEMP 36.7; O2SAT 100
[2022-06-17 11:00] VITALS: BP 140/77; PULSE 84; RESP 18; TEMP 36.6; O2SAT 100
--- NOTE | 2022-06-17 11:29 | ECG_ITS ---
Measurements Intervals [place] Rate: 85 P: 241 IA: 178 QRS: -5 QRSD: 95 T: -23 QT: 402 QTc: 479 Interpretive Statements ATRIAL FLUTTER WITH A CONTROLLED VENTRICULAR RESPONSE NONSPECIFIC ST CHANGES COMPARED TO ECG 02/16/2022 09:27:59 NO SIGNIFICANT CHANGE Electronically Signed On 06-17-2022 19:54:08 MODULAR HOME CREW MEMBER by Jennifer Diaz M.D.
[2022-06-17] MEDS: SODIUM CHLORIDE 0.9% IV 500 ML 999 ML IV CONT (11:44)
[2022-06-17 11:54] LABS: Basophils Absolute Auto 0.01 K/mm3 (0.00-0.10); Basophils Percent Auto 0.1 % (0.0-1.0); Hematocrit 42.2 % (37.0-46.0); Hemoglobin 13.6 g/dL (12.4-15.3); Immature Granulocyte Absolute 0.03 K/mm3 (0.00-0.00); Immature Granulocyte Percent A 0.4 % (0.0-0.0); Immature Platelet Fraction Pct 1.3 % (1.0-7.0); Lymphocytes Absolute Auto 0.37 K/mm3 (1.10-4.50); Mean Corpuscular HGB Conc 32.2 g/dL (32.0-36.0); Mean Corpuscular Hemoglobin 30.2 pg (27.0-31.0); Mean Corpuscular Volume 93.6 fL (78.0-102.0); Mean Platelet Volume 9.6 fl (8.7-11.0); Monocytes Absolute Auto 0.19 K/mm3 (0.10-0.90); Monocytes Percent Auto 2.6 % (2.0-11.0); Neutrophils Absolute Auto 6.8 K/mm3 (1.7-7.2); Neutrophils Percent Auto 91.9 % (50.0-70.0); Platelet Count Result 132 K/mm3 (150-420); Red Blood Count 4.51 M/mm3 (4.70-6.10); Red Cell Distribution Width 13.3 % (11.6-14.4); White Blood Count 7.4 K/mm3 (4.8-10.8)
[2022-06-17 12:01] LABS: Influenza A QL RT-PCR Negative (Negative); Influenza B QL RT-PCR Negative (Negative); SARS-CoV-2 RNA PCR Negative (Negative)
[2022-06-17 12:03] LABS: RSV RNA, RT-PCR Negative (Negative)
[2022-06-17 12:08] LABS: Aspartate Amino Transferase 17 U/L (15-37); Chloride 103 mmol/L (98-108); Potassium 4.4 mmol/L (3.5-5.1); Sodium 139 mmol/L (136-145)
[2022-06-17 12:11] LABS: Lactic Acid Reflex 1.8 mmol/L (0.4-2.0)
[2022-06-17 12:16] LABS: Partial Thromboplastin Time 29.9 SEC (23.90-30.70); Prothrombin Time 11.4 Seconds (9.50-12.10)
[2022-06-17 12:19] LABS: Lipase 29 U/L (16-77); NT Pro B Type Natriuretic Pept 505 pg/mL (0-450)
[2022-06-17 12:24] LABS: Alanine Aminotransferase 16 U/L (16-63); Albumin Level 3.2 g/dL (3.4-5.0); Alkaline Phosphatase 62 U/L (46-116); Anion Gap 5 mmol/L (8-16); Bilirubin,Total 0.7 mg/dL (0.00-1.00); Blood Urea Nitrogen 22 mg/dL (7-18); Calcium 8.5 mg/dL (8.5-10.1); Carbon Dioxide 31 mmol/L (21-32); Estimated CRCL calculation 40 ml/min; Estimated Glomerular Filt Rate 44; Total Protein 6.4 g/dL (6.4-8.2)
[2022-06-17 12:32] LABS: Glucose 165 mg/dL (70-99); Osmolality Calculated 295 mOsm/kg (285-295)
--- NOTE | 2022-06-17 12:39 | ED.NAVMDI ---
HPI - Nausea/Vomiting/Diarrhea General Chief complaint: Nausea/Vomiting/Diarrhea Stated complaint: not feeling well stomach and bowel issues Time Seen by Provider: 06/17/22 11:27 Source: patient and family Mode of arrival: ambulatory Limitations: no limitations History of Present Illness HPI Narrative: this is 82-year-old gentleman that presents with a 2 day history of nausea vomiting few episodes of diarrhea currently not having abdominal pain no fever chills no shortness of breath or chest pain is no flank pain no dysuria. MD elicited complaint: nausea, vomiting and diarrhea Onset (ago): day(s) Related Data Home Medications Medication Instructions Recorded Confirmed finasteride 5 mg tablet 5 mg PO DAILY 11/25/19 06/17/22 ropinirole 0.25 mg tablet (Requip) 0.25 mg PO BID 11/25/19 06/17/22 ropinirole 0.25 mg tablet 0.5 mg PO HS 09/18/21 06/17/22 acetaminophen 325 mg capsule 500 mg PO DAILY 02/11/22 06/17/22 (Tylenol) amlodipine 5 mg tablet 5 mg PO DAILY 06/17/22 06/17/22 aspirin 325 mg tablet 325 mg PO DAILY 06/17/22 06/17/22 clopidogrel 75 mg tablet 75 mg PO DAILY 06/17/22 06/17/22 diphenhydramine 25 1 tablet PO HS 06/17/22 06/17/22 mg-acetaminophen 500 mg tablet (Tylenol PM Extra Strength) metformin 500 mg tablet 500 mg PO BID 06/17/22 06/17/22 ranitidine HCl 150 mg capsule 150 mg PO BID 06/17/22 06/17/22 sennosides 8.6 mg-docusate sodium 1 tab-cap PO EVERY OTHER DAY 06/17/22 06/17/22 50 mg tablet (Senna-S) spironolactone 25 mg tablet 25 mg PO DAILY 06/17/22 06/17/22 Allergies Allergy/AdvReac Type Severity Reaction Status Date / Time iodine Allergy Unknown unknown Verified 06/17/22 11:11 fentanyl Allergy Hypotension Verified 06/17/22 11:11 Review of Systems Review of Systems: All systems reviewed & are unremarkable except as noted in HPI and below PMFSH Past Medical History Medical History Chronic, continuous use of opioids Coronary artery disease Diabetes type 2, controlled Hearing loss Hyperlipidemia Hypertension Skin cancer Sleep apnea Surgical History Surgical History History of appendectomy History of bilateral hip replacements History of bilateral knee replacement History of cardiac catheterization History of coronary artery stent placement History of four vessel coronary artery bypass graft History of left shoulder replacement Family History Family History Other Arthritis Diabetes mellitus Heart disease Hypertension Social History Social History Social History: Surrogate medical decision maker: Areli Olguin, spouse. Code status: Full code. Smoking status: Never smoker Alcohol intake: former Drinks per week: 2 Substance use: never Lack of Transportation: No Lack of Food: Never True Current Housing: I Have Housing Concerned About Future Housing: No Difficulty Paying Gas/Electric Bills: No Difficulty Paying for Meds: No Currently Unemployed: No Education: High School Diploma/GED Difficulty w/ Childcare or Family Care: No Additional living arrangements comments: The patient lives with his in [place]. Spiritual care concerns: Yes (Pastor Len Knox from [facility]) Exam Const: General: healthy appearing and no acute distress Nutritional Appearance: well nourished Orientation/consciousness: patient oriented x3 Limitations: no limitations HENMT: Head: normal to inspection Face/Nose/Sinus: Normal external nose present Face and sinus: normal facial exam Mouth: Yes Normal oral and palatal mucosa present Throat: posterior oropharynx normal Eyes: Conjunctivae: conjunctivae normal Pupils: Equal, round and reactive pupils present EOM: EOMs intact bilaterally Neck: Neck: normal visual inspection Chest: Chest p
[2022-06-17 12:52] VITALS: BP 136/68; PULSE 85; RESP 18; TEMP 37.2; O2SAT 95
[2022-06-21 11:09] LABS: Hemoglobin A1C 7.2 % (<5.7)
== END 2022-06-17 12:52 | disposition home or self-care (01) ==
PROVIDERS: Emergency Provider Emergency Medicine; PCP Internal Medicine
DX: K52.9 Noninfective gastroenteritis and colitis, unspecified (principal); E11.9 Type 2 diabetes mellitus without complications; I25.810 Atherosclerosis of coronary artery bypass graft(s) without angina pectoris; I48.91 Unspecified atrial fibrillation; E78.5 Hyperlipidemia, unspecified; I10 Essential (primary) hypertension; Z85.828 Personal history of other malignant neoplasm of skin; Z79.82 Long term (current) use of aspirin; Z79.84 Long term (current) use of oral hypoglycemic drugs; Z95.1 Presence of aortocoronary bypass graft; Z20.822 Contact with and (suspected) exposure to COVID-19; Z79.899 Other long term (current) drug therapy
CPT/HCPCS: 36415; 71045; 80053; 83036; 83605; 83690; 83880; 85025; 85055; 85610; 85730; 87637; 93005; 96360; 99283; J7040

== ENCOUNTER 2022-07-11 11:58 | Outpatient (CLI) | payer MEDICARE, SELFPAY | END 2022-07-11 11:59 | disposition home or self-care (01) | PROVIDERS: PCP Internal Medicine; Visit Provider Specialist | DX: C44.329 Squamous cell carcinoma of skin of other parts of face (principal) | CPT/HCPCS: 88305 ==

== ENCOUNTER 2022-11-27 11:40 | Outpatient (CLI) | payer MEDICARE, SELFPAY ==
--- NOTE | ~2022-11-27 | XR_ITS ---
Lumbosacral Spine: AP and lateral views Clinical History: Pain Findings: The normal lordotic curve is maintained. No fracture identified. 3-4 mm anterolisthesis of L3 over L4 present. There is advanced facet arthropathy from L2 through S1. There is moderate to adva nced degenerative disc narrowing at L5-S1. The sacroiliac joints are normally outlined. Impression: 3-4 mm anterolisthesis of L3 over L4. Moderate to advanced facet arthropathy throughout the lumbar spine. Reviewed, dictated and finalized at location M. Impression: 3-4 mm anterolisthesis of L3 over L4. Moderate to advanced facet arthropathy throughout the lumbar spine.
--- NOTE | ~2022-11-27 | XR_ITS ---
XR knee RT 3V 11/27/2022 12:07 Indication: Right knee pain Procedure: 4 views right knee Comparison: No prior studies for comparison. Findings: There is a right knee arthroplasty with longstem femoral component. No fracture or traumati c malalignment. No significant joint effusion. There is lucency along the posterior cement bone inter face of the tibial component on the lateral view. Loosening cannot be excluded. Impression: 1: Lucency of the cement bone interface posterior aspect of the tibial component. Recommend compariso n to previous examinations. Loosening cannot be excluded. Reviewed, dictated and finalized at location A. Impression: 1: Lucency of the cement bone interface posterior aspect of the tibial componen t. Recommend comparison to previous examinations. Loosening cannot be excluded.
== END 2022-11-27 11:41 | disposition home or self-care (01) ==
LOC: CHSLAB 11:44
PROVIDERS: PCP Internal Medicine; Visit Provider Nurse Practitioner Family
DX: M54.50 Low back pain, unspecified (principal); M25.561 Pain in right knee; M43.16 Spondylolisthesis, lumbar region; M12.88 Other specific arthropathies, not elsewhere classified, other specified site
CPT/HCPCS: 72100; 73562

== ENCOUNTER 2022-12-12 13:17 | Outpatient (RCR) | payer MEDICARE, SELFPAY ==
--- NOTE | 2022-12-12 15:04 | OPREHPOC ---
Outpatient Therapy Plan of Care This is a Multidisciplinary Plan of Care that may contain components documented by all disciplines (PT, OT, and ST.) PT Problem 1 PT Problem #1 Knowledge Deficit PT Goal 1 Goal Patient to demonstrate independence with HEP Target Visit 4 PT Problem 2 PT Problem #2 Impaired Strength PT Goal 1 Goal Patient to demonstrate 5/5 of B LE in order to improve ability to complete house hold tasks Target Visit 8 PT Problem 3 PT Problem #3 Impaired Functional Mobil PT Goal 1 Goal 1. Patient to demonstrate 20% improvement in JAS 2. Patient to demonstrate ability to perform 5xSTS in under 15 seconds to decrease fall risk 3. Patient to ambulate 800' in 6 min walk test to improve house hold and community ambulation Target Visit 8
--- NOTE | 2022-12-12 15:04 | PTOPEVAL1 ---
Assessment and note entered by Lucia Valiente DPT Evaluation Information Assessment Status Evaluation Diagnosis low back pain, weakness Onset 11/29/22 Subjective Information Patient reports he had a back xray and the MD stated he had mis alignment and wanted him to go to PT. He reports he does not have a lot of pain but more discomfort. He reports he feels like he has LE weakness. Patient reports difficulty walking, lifting, and getting up from a chair. He reports that those have gotten worse within the last few month. 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 Reported Pain Level Pain Score 0: Self Report Assessment PT Clinical Summary Patient is a 82 year old male who presents to PT with low back pain and weakness. Patient demonstrates decreased LE strength, impaired posture and decreased balance leading to difficulty with completing house hold tasks, getting up from a chair and ambulating prolonged periods. He would benefit from skilled PT to address impairments and return to PLOF. Plan of Care Interventions Electrical Stimulation,Gait Training,Hot Pack/Cold Pack,Manual Therapy,Mechanical Traction,Neuro Re- education,Patient/Caregiver Educati,Therapeutic Activities,Therapeutic Exercise PT Services Indicated Yes Treatment Frequency and 2x weekly for 8 visits Duration These treatments will address the objective and functional deficits as defined above. The patient will be advanced safely and appropriately in order for the patient to progress towards his/her prior level of function. Additional exercises will be introduced and as well as a comprehensive home exercise program upon discharge, if needed, ?to ensure carryover of functional gains achieved in the clinic. This treatment plan has been reviewed and agreement upon by the patient.
== END 2022-12-19 15:56 | disposition home or self-care (01) ==
LOC: CHSPT 13:17
PROVIDERS: PCP Internal Medicine; Visit Provider Internal Medicine
DX: M54.50 Low back pain, unspecified (principal); M62.81 Muscle weakness (generalized)
CPT/HCPCS: 97110; 97112; 97150; 97161

== ENCOUNTER 2022-12-21 14:35 | Emergency (ER) | payer MEDICARE, SELFPAY ==
[2022-12-21] VITALS (23 sets, daily range): BP systolic 116–171; BP diastolic 52–93; PULSE 57–78; RESP 11–23; TEMP 36.4–36.9; O2SAT 95–100
--- NOTE | ~2022-12-21 | XR_ITS ---
EXAMINATION: XR chest 1V portable INDICATION: Shortness of breath TECHNIQUE: Portable AP chest at 1530 hours COMPARISON: 06/17/2022 FINDINGS: Cardiomegaly is noted. There are minimal airspace opacities of the left lung base. No pleur al effusion or pneumothorax. A hiatal hernia is noted. Median sternotomy wires and mediastinal surgic al clips are seen, likely from prior coronary artery bypass grafting. There are changes of left total shoulder arthroplasty. IMPRESSION: 1. Cardiomegaly. 2. Minimal left basilar airspace opacity, atelectasis versus pneumonia. 3. Hiatal hernia. Reviewed, dictated and finalized at location L.
--- NOTE | ~2022-12-21 | CT_ITS ---
EXAMINATION: CT abdomen pelvis w con DATE: 12/21/2022 16:27 INDICATION: DARK STOOLS X 10 DAYS TECHNIQUE: Computed tomography (CT) of the abdomen and pelvis was performed with 100 mL Omnipaque-350 intravenous contrast. Automated exposure control and iterative reconstruction technique were employe d. The dose-length product was 1325.52 mGy-cm. COMPARISON: None. FINDINGS: Lower thorax: Senescent change. Mild dependent atelectasis and scar. Coronary artery and aortic valve calcification. Mild symmetric bilateral gynecomastia. Median sternotomy wires. Liver: Peripheral right lobe hypodensity, too small to characterize but likely represents a cyst or h emangioma. Biliary/Gallbladder: Gallbladder is collapsed. No bile duct dilation. Pancreas: 10 mm pancreatic tail cyst. 9 mm pancreatic head cyst. At least 2 additional smaller cysts are noted in the pancreas. Moderate pancreatic atrophy. Spleen: Normal. Adrenals:No mass. Kidneys: Bilateral cortical thinning. Right renal scarring. Nonobstructing right upper pole calculus. No hydronephrosis or suspicious mass. GI tract: Large hiatal hernia. Mild distal esophageal and gastric wall edema. No small or large bowel dilation. Appendix is surgically absent. Diverticulosis without diverticulitis. Mesentery/Peritoneum: No ascites, mass, or free air. Retroperitoneum: No mass. Atherosclerotic abdominal aortic and/or arterial calcifications. Pelvis: Mild urinary bladder wall thickening and inflammatory change. Prostatomegaly. Pelvic organs a re partially obscured by metal artifact. Soft Tissues: Stable prominent inguinal lymph nodes. Uncomplicated fat-containing bilateral inguinal hernias. Bones: No acute osseous finding. Partially visualized, uncomplicated appearing bilateral hip arthrop lasties. IMPRESSION: Large hiatal hernia with mild esophagitis/gastritis. Multiple pancreatic cysts measuring 1 cm or less, consider follow-up CT abdomen pelvis with contrast in 2 years to assess stability depending on the patient's wishes and comorbidities and only if the pa tient would be a surgical candidate. Cystitis versus bladder wall thickening from outlet obstruction. Reviewed, dictated and finalized at location K. IMPRESSION: Large hiatal hernia with mild esophagitis/gastritis. Multiple pancreatic cysts measuring 1 cm or less, consider follow-up CT abdomen pelvis with contrast in 2 years to assess stability depending on the patient's wishes and comorbidities and only if the patient would be a surgical candidate . Cystitis versus bladder wall thickening from outlet obstruction.
--- NOTE | 2022-12-21 15:05 | ECG_ITS ---
Measurements Intervals [place] Rate: 72 P: FL: 0 QRS: 186 QRSD: 88 T: 182 QT: 382 QTc: 419 Interpretive Statements ATRIAL FLUTTER/TACHYCARDIA RIGHT TO LEFT ARM LEAD TRANSPOSITION ABNORMAL ECG COMPARED TO ECG 06/17/2022 12:07:47 ARM LEADS ARE REVERSED Electronically Signed On 12-22-2022 7:48:11 CDT by Fer Beaulieu M.D.
[2022-12-21 15:18] LABS: Basophils Absolute Auto 0.03 K/mm3 (0.00-0.10); Basophils Percent Auto 0.5 % (0.0-1.0); Eosinophils Absolute Auto 0.09 K/mm3 (0.02-0.50); Eosinophils Percent Auto 1.6 % (1.0-6.0); Hematocrit 25.5 % (37.0-46.0); Hemoglobin 7.5 g/dL (12.4-15.3); Immature Granulocyte Absolute 0.02 K/mm3 (0.00-0.00); Immature Granulocyte Percent A 0.4 % (0.0-0.0); Lymphocytes Absolute Auto 0.89 K/mm3 (1.10-4.50); Mean Corpuscular HGB Conc 29.4 g/dL (32.0-36.0); Mean Corpuscular Hemoglobin 25.8 pg (27.0-31.0); Mean Corpuscular Volume 87.6 fL (78.0-102.0); Mean Platelet Volume 8.4 fl (8.7-11.0); Monocytes Absolute Auto 0.56 K/mm3 (0.10-0.90); Monocytes Percent Auto 10.1 % (2.0-11.0); Neutrophils Percent Auto 71.4 % (50.0-70.0); Occult Blood Positive (Negative); Platelet Count Result 190 K/mm3 (150-420); Red Blood Count 2.91 M/mm3 (4.70-6.10); Red Cell Distribution Width 14.8 % (11.6-14.4); White Blood Count 5.6 K/mm3 (4.8-10.8)
[2022-12-21] MEDS: SODIUM CHLORIDE 0.9% IV 1,000 ML 999 ML IV CONT (15:25)
[2022-12-21] MEDS: PANTOPRAZOLE SODIUM IV 40 MG VIAL 80 MG IV PUSH (15:26)
[2022-12-21 15:35] LABS: Albumin Level 3.5 g/dL (3.4-5.0); Alkaline Phosphatase 73 U/L (46-116); Anion Gap 9 mmol/L (8-16); Aspartate Amino Transferase 13 U/L (15-37); Bilirubin,Total 0.4 mg/dL (0.00-1.00); Blood Urea Nitrogen 16 mg/dL (7-18); Calcium 8.9 mg/dL (8.5-10.1); Carbon Dioxide 29 mmol/L (21-32); Chloride 106 mmol/L (98-108); Estimated CRCL calculation 46 ml/min; Estimated Glomerular Filt Rate 51; Glucose 106 mg/dL (70-99); Lipase 72 U/L (16-77); Magnesium 1.5 mg/dL (1.8-2.4); Osmolality Calculated 299 mOsm/kg (285-295); Sodium 144 mmol/L (136-145); Total Protein 6.3 g/dL (6.4-8.2)
[2022-12-21 15:44] LABS: Alanine Aminotransferase 12 U/L (16-63)
[2022-12-21 15:49] LABS: Ammonia < 10 umol/L (11-32)
[2022-12-21 15:51] LABS: INR 1.1; Partial Thromboplastin Time 29.9 SEC (23.90-30.70); Prothrombin Time 11.7 Seconds (9.50-12.10)
[2022-12-21 16:26] LABS: Troponin I 9.4 ng/L (0.00-60.4)
[2022-12-21 16:27] LABS: NT Pro B Type Natriuretic Pept 711 pg/mL (0-450)
--- NOTE | 2022-12-21 16:32 | ED.ABDPAIN ---
HPI - Abdominal Pain General Chief Complaint: Abdominal Pain Stated Complaint: blood in stool, lower abdominal pain Time Seen by Provider: 12/21/22 14:54 Source: patient Mode of arrival: ambulatory Limitations: no limitations History of Present Illness HPI narrative: this is an 82-year-old male that presents with a one-week history of dark stools and had progressively developed into some shortness of breath, the patient has a history of atrial fibrillation and CAD in currently on Eliquis. Patient states that he is having some mild to moderate lower abdominal discomfort with some no flank pain no dysuria no hematuria no fever chills no nausea or vomiting. MD elicited complaint: abdominal pain Pertinent past history: gastrointestinal bleeding Onset (ago): week(s) Pain Consistency: constant Location: periumbilical Severity: moderate Quality: cramping and aching Related Data Home Medications Medication Instructions Recorded Confirmed finasteride 5 mg tablet 5 mg PO DAILY 11/25/19 12/21/22 ropinirole 0.25 mg tablet (Requip) 0.25 mg PO BID 11/25/19 12/21/22 ropinirole 0.25 mg tablet 0.5 mg PO HS 09/18/21 12/21/22 acetaminophen 325 mg capsule 500 mg PO DAILY 02/11/22 12/21/22 (Tylenol) amlodipine 5 mg tablet 5 mg PO DAILY 06/17/22 12/21/22 clopidogrel 75 mg tablet 75 mg PO DAILY 06/17/22 12/21/22 diphenhydramine 25 1 tablet PO HS 06/17/22 12/21/22 mg-acetaminophen 500 mg tablet (Tylenol PM Extra Strength) metformin 500 mg tablet 500 mg PO BID 06/17/22 12/21/22 ranitidine HCl 150 mg capsule 150 mg PO BID 06/17/22 12/21/22 sennosides 8.6 mg-docusate sodium 1 tab-cap PO EVERY OTHER DAY 06/17/22 12/21/22 50 mg tablet (Senna-S) spironolactone 25 mg tablet 25 mg PO DAILY 06/17/22 12/21/22 apixaban 5 mg tablet (Eliquis) 5 mg PO BID 12/21/22 12/21/22 sacubitril 24 mg-valsartan 26 mg 1 tablet PO BID 08/17/23 08/17/23 tablet (Entresto) Allergies Allergy/AdvReac Type Severity Reaction Status Date / Time iodine Allergy Unknown unknown Verified 12/21/22 14:59 fentanyl Allergy Hypotension Verified 12/14/22 14:25 Review of Systems Review of Systems: All systems reviewed & are unremarkable except as noted in HPI and below PMFSH Past Medical History Medical History Chronic, continuous use of opioids Coronary artery disease Diabetes type 2, controlled Hearing loss Hyperlipidemia Hypertension Skin cancer Sleep apnea Surgical History Surgical History History of appendectomy History of bilateral hip replacements History of bilateral knee replacement History of cardiac catheterization History of coronary artery stent placement History of four vessel coronary artery bypass graft History of left shoulder replacement Family History Family History Other Arthritis Diabetes mellitus Heart disease Hypertension Social History Social History Social History: Surrogate medical decision maker: Areli Olguin, spouse. Code status: Full code. Smoking status: Never smoker Alcohol intake: former Drinks per week: 2 Substance use: never Lack of Transportation: No Lack of Food: Never True Current Housing: I Have Housing Concerned About Future Housing: No Difficulty Paying Gas/Electric Bills: No Difficulty Paying for Meds: No Currently Unemployed: No Education: High School Diploma/GED Difficulty w/ Childcare or Family Care: No Additional living arrangements comments: The patient lives with his in [place]. Spiritual care concerns: Yes (Pastor Len Knox from [facility]) Exam Const: General: no acute distress and ill appearing Nutritional Appearance: obese Orientation/consciousness: patient oriented x3 Limitations: no limitations Neck: Neck: normal visual in
[2022-12-21] MEDS: SODIUM CHLORIDE 0.9% IV 250 ML 30 ML IV CONT (20:27)
[2022-12-21] MEDS: MAGNESIUM SULF 2 GM/WATER 50ML 2 GM/50 ML BAG IVPB (21:07)
--- NOTE | 2022-12-21 22:05 | PC.NURSE ---
[facility] contacted for pt transport to [facility] @0009. Report given to Erika RICKETTS @ [place]
== END 2022-12-21 22:28 | disposition short-term general hospital (02) ==
PROVIDERS: Emergency Provider Emergency Medicine; PCP Internal Medicine
DX: K92.2 Gastrointestinal hemorrhage, unspecified (principal); R06.02 Shortness of breath; I48.91 Unspecified atrial fibrillation; I25.10 Atherosclerotic heart disease of native coronary artery without angina pectoris; E11.9 Type 2 diabetes mellitus without complications; I10 Essential (primary) hypertension; E78.5 Hyperlipidemia, unspecified; G47.30 Sleep apnea, unspecified; Z95.5 Presence of coronary angioplasty implant and graft; Z95.1 Presence of aortocoronary bypass graft; Z79.01 Long term (current) use of anticoagulants; Z79.02 Long term (current) use of antithrombotics/antiplatelets; Z79.84 Long term (current) use of oral hypoglycemic drugs
CPT/HCPCS: 36415; 36430; 71045; 74177; 80053; 82140; 82272; 83690; 83735; 83880; 84484; 85025; 85610; 85730; 86850; 86900; 86901; 86920; 93005; 96361; 96365; 96375; 99285; C9113; J3475; J7030; J7050; P9016; Q9967

== ENCOUNTER 2022-12-22 05:33 | Observation (INO) | payer MEDICARE, SELFPAY ==
[2022-12-21 23:33] VITALS: BP 177/74; PULSE 73; RESP 18; TEMP 36.1; O2SAT 98; BMI 35.0
[2022-12-22] VITALS (14 sets, daily range): BP systolic 150–169; BP diastolic 63–93; PULSE 47–80; RESP 13–22; TEMP 36.1–36.3; O2SAT 96–100
--- NOTE | ~2022-12-22 | XR_ITS ---
EXAMINATION: XR small bowel follow through DATE: 12/23/2022 11:15 INDICATION: Anemia. Occult blood in stool. TECHNIQUE: Oral contrast was administered, and a time course of radiographs of the abdomen was obtain ed. Fluoroscopy of the small bowel was performed. Fluoroscopy exposure time was 0.2 minutes. The tota l number of images was 13. COMPARISON: CT abdomen and pelvis 12/21/2022 FINDINGS: There are no dilated loops of bowel. There is no abnormal mass or stricture. The terminal ileum is no rmal. Transit time from the stomach to proximal colon was approximately 30 minutes. IMPRESSION: 1. Normal small bowel series. Reviewed, dictated and finalized at location A.
[2022-12-22 05:24] LABS: Glucose Point of Care 109 mg/dl (65-105)
[2022-12-22] MEDS: DEXTROSE 5%/0.45% SOD CHL 1,000 ML 100 ML IV CONT ×2 (06:06→17:20)
[2022-12-22] MEDS: PANTOPRAZOLE SODIUM IV 40 MG VIAL IV PUSH ×2 (06:07→20:55)
--- NOTE | 2022-12-22 06:33 | PM.IMHP ---
H&P: [facility] History of Present Illness Date/Time: 12/22/22 06:33 Chief Complaint: Acute GI bleed Narrative: This is an 82-year-old male with a significant cardiac history of CAD and CABG, who is presenting with a 1 week history of dark brown stools. He has had the symptoms for 1 week. The symptoms have not gotten worse today. Each time he has a bowel movement there is a small amount of blood in it but mostly the stools are dark brown. The last bowel movement he had was 1:00 a.m. . He went to go see his primary care yesterday. His primary care was not in the office and so he was directed to [facility]. He was transferred here from [facility]. In the ER he was also assessed to have shortness of breath, a positive stool guaiac test, and some lower abdominal discomfort on exam. He was given IV Protonix 80 mg and IV fluid bolus. CBC showed his hemoglobin to be 7.5. He was given 1 unit of packed red blood cells after being typed and screened. His troponins were negative but he did have an elevated BNP of 711. His EKG showed atrial fibrillation at a rate of 71. The patient is on a number of blood thinners at home. He is on Eliquis for his AFib. He also was on both aspirin and Plavix because he has a history of CABG. His cardiac history is as follows. CABG x4 vessels at [facility] [place] in 2002, 2 stents post CABG in 2006, systolic dysfunction (Spironolactone causes gynecomastia), atrial fibrillation in Feb 2022, DM, hypertension. He is followed by Dr. Lopez. His Plavix was stopped in last February for unknown reason. Due to the patient's abdominal discomfort, a CT scan was obtained. This CT scan with IV contrast does not show an significant reason as to why the patient should have GI bleed. It only shows mild esophagitis/gastritis. 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 He complained about feeling thirsty so I started him on IV fluid. Review of Systems Review of Systems: Negative otherwise specified in the [facility] Past Medical History Medical History (Updated 12/22/22 @ 07:18 by Willie Hanley MD) Chronic, continuous use of opioids Coronary artery disease Diabetes type 2, controlled Hearing loss Hyperlipidemia Hypertension Skin cancer Sleep apnea Surgical History Surgical History History of appendectomy History of bilateral hip replacements History of bilateral knee replacement History of cardiac catheterization History of coronary artery stent placement History of four vessel coronary artery bypass graft History of left shoulder replacement Family History Family History Other Arthritis Diabetes mellitus Heart disease Hypertension Social History Social History Social History: Surrogate medical decision maker: Areli Olguin, spouse. Code status: Full code. Smoking status: Never smoker Alcohol intake: current Drinks per week: 2 Substance use: never Lack of Transportation: No Lack of Food: Never True Current Housing: I Have Housing Concerned About Future Housing: No Difficulty Paying Gas/Electric Bills: No Difficulty Paying for Meds: No Currently Unemployed: No Education: High School Diploma/GED Difficulty w/ Childcare or Family Care: No Additional living arrangements comments: The patient lives with his in [place]. Spiritual care concerns: No Meds Home Medications and Allergies Home Medications Medication Instructions Recorded Confirmed Type finasteride 5 mg tablet 5 mg PO DAILY 11/25/19 12/21/22 History ropinirole 0.25 mg tablet (Requip) 0.25 mg PO BID 11/25/19 12/21/22 History ropinirole 0.25 mg tablet 0.5 mg PO HS 09/18/21 12/21/22 History acetaminophen 325 mg capsule 500 mg PO DAILY 02/11/22 12/21/22 History (Tyl
[2022-12-22 06:40] LABS: Hemoglobin 8.2 g/dL (14.0-18.0); Mean Corpuscular HGB Conc 29.3 g/dl (32-36); Mean Corpuscular Hemoglobin 25.5 pg (26-34); Mean Corpuscular Volume 87.2 fl (80-100); Mean Platelet Volume 9.5 fl (7.4-10.4); Platelet Count Result 203 k/mm3 (150-375); Red Blood Count 3.21 M/mm3 (4.6-6.20); Red Cell Distribution Width 14.8 % (11.5-14.5); White Blood Count 5.8 K/mm3 (4.5-10.0)
[2022-12-22 06:50] LABS: Anion Gap 4 mmol/L (8-16); Blood Urea Nitrogen 15 mg/dL (9-20); Calcium 8.4 mg/dL (8.4-10.2); Carbon Dioxide 27 mmol/L (22-30); Chloride 107 mmol/L (98-107); Estimated CRCL calculation 56 ml/min; Estimated Glomerular Filt Rate > 60; Glucose 106 mg/dL (65-110); Magnesium 1.9 mg/dL (1.6-2.3); Sodium 138 mmol/L (137-145)
[2022-12-22] MEDS: carvediloL 12.5 MG TABLET PO (08:25)
--- NOTE | 2022-12-22 09:54 | PM.IMPN ---
Progress Note: A&P Assessment and Plan (1) Acute GI bleeding: Code(s): K92.2 - Gastrointestinal hemorrhage, unspecified Status: Acute Assessment and Plan: Patient going for EGD today. Transfuse if hemoglobin below 8 until source of bleeding is controlled. (2) CAD (coronary artery disease), autologous vein bypass graft: Code(s): I25.810 - Atherosclerosis of coronary artery bypass graft(s) without angina pectoris Status: Acute Assessment and Plan: History CAD with 4 vessel bypass and 2 subsequent stents 20 years ago patient on aspirin and Eliquis at home no longer taking Plavix. Anticoagulation on hold due to active GI bleeding. (3) Hypertension: Code(s): I10 - Essential (primary) hypertension Status: Acute Assessment and Plan: Resume home medications when patient able to take orally, p.r.n. medication available for severe hypertension. (4) Congestive heart failure: Code(s): I50.9 - Heart failure, unspecified Status: Acute Assessment and Plan: Patient does not appear fluid overloaded at this time but he has a history of systolic heart both left and right ventricular systolic dysfunction. Home medications on hold due to NPO status. Patient received unit of blood and IV fluids. IV Lasix if signs of fluid overload. (5) Atrial fibrillation: Code(s): I48.91 - Unspecified atrial fibrillation Status: Acute Assessment and Plan: Bradycardic irregular rhythm on exam. Will add telemetry monitoring and consider reducing dose of Coreg. (6) Hyperlipidemia: Code(s): E78.5 - Hyperlipidemia, unspecified Status: Acute Assessment and Plan: Resume home medications when able to take orals (7) BPH (benign prostatic hyperplasia): Code(s): N40.0 - Benign prostatic hyperplasia without lower urinary tract symptoms Status: Acute Assessment and Plan: Resume home medications when able to take oral meds (8) Restless leg syndrome: Code(s): G25.81 - Restless legs syndrome Status: Acute Assessment and Plan: Resume home medications when able to take oral meds Plan EGD today. Hold anticoagulations Restart home medications except anticoagulants when able to take orals Diet orders per GI Redraw H&H this afternoon, Hold on further transfusion unless actively bleeding and hemoglobin below 8 or patient develops cardiac complaints Bradycardia likely related to Coreg re-initiation today. Consider telemetry monitoring and lower dose of Coreg. Clarify code status Time Spent With Patient Time with patient: 25 - 35 minutes Subjective Date/time seen: 12/22/22 09:54 Interval history: 12/22: Patient was admitted overnight transferred from [facility] with anemia and Hemoccult-positive stools. CT scan showed gastritis/enteritis. Patient received 1 unit PRBCs and additional was ordered by admitting hospitalist however patient is asymptomatic and hemoglobin was above 8. This subsequent transfusion was placed on hold and we plan to check hemoglobin hematocrit this afternoon. Patient denies any chest pain, difficulty breathing, nausea/vomiting, abdominal pain, fever or chills. He notes that he felt like his stools have continued blood or several days. Nursing staff stated the patient is bradycardic but without symptoms. Patient to go for EGD this afternoon. Review of Systems Review of Systems: All systems reviewed & are unremarkable except as noted in HPI and below Exam Narrative: GENERAL: Generally well appearing, alert and oriented, in no apparent distress. He is pleasant and conversant in full sentences. HEENT: Pupils are equally round and briskly reactive to light. Extraocular muscles are intact. Oral mucous membranes are moist without lesions. NECK: The patient has no noted JVD. No adenopathy is appreciated. CHEST/LUNGS: Lungs are clear bilaterally without rhonchi, rales, or wheezes. There
[2022-12-22 11:23] LABS: Glucose Point of Care 134 mg/dl (65-105)
[2022-12-22] MEDS: LACTATED RINGERS 1,000 ML 150 ML IV CONT (11:36)
--- NOTE | 2022-12-22 11:43 | WPDGICN ---
Assessment and Plan Assessment and plan (1) Melena: Code(s): K92.1 - Melena Status: Acute Assessment and Plan: Patient with melenic stools there heme positive associated with decline in hemoglobin suggestive of upper GI blood loss. EGD will be performed today. Eliquis has been hold for more than 24hours. (2) Occult blood in stools: Code(s): R19.5 - Other fecal abnormalities Status: Acute (3) Anemia: Code(s): D64.9 - Anemia, unspecified Status: Acute Assessment and Plan: Low hemoglobin noted. Plan to continue to follow and transfuse as necessary. (4) Chronic anticoagulation: Code(s): Z79.01 - FPC (current) use of anticoagulants Status: Acute Assessment and Plan: Anticoagulation will be held. It is presumed this contributes to patient's bleeding. plan to hold anticoagulation until workup to ensure safety to restart. (5) Atrial fibrillation: Code(s): I48.91 - Unspecified atrial fibrillation Status: Acute (6) ASHD (arteriosclerotic heart disease): Code(s): I25.10 - Atherosclerotic heart disease of [place] coronary artery without angina pectoris Status: Acute GI Consult Note Consult date/time: 12/22/22 11:43 Reason for consult: GI bleeding HPI: Daniel Olguin is a 82 year old male I am asked to see because of melenic stools, occult blood in stool and anemia. Patient has a history of atherosclerotic heart disease. Is known to have atrial fibrillation and is on Eliquis anticoagulation. He has had heart stents placed has a heart bypass and atrial fibrillation. Over the last 7-10 days patient has noticed dark colored stools. Patient ultimately presented to the hospital was found to have Hemoccult-positive stools with a low hemoglobin. Patient denies any abdominal pain. He denies any hematemesis. He states when he was a teenager it was thought the may have had an ulcer. Patient's family history is noncontributory. Patient has past medical history in addition to atherosclerotic heart disease includes diabetes, hyperlipidemia he does use opioids regularly. Review of Systems Review of Systems: Review of systems noncontributory. [facility] Past Medical History Medical History (Updated 12/22/22 @ 11:47 by Jean-Pierre Person MD) Chronic, continuous use of opioids Coronary artery disease Diabetes type 2, controlled Hearing loss Hyperlipidemia Hypertension Skin cancer Sleep apnea Surgical History Surgical History History of appendectomy History of bilateral hip replacements History of bilateral knee replacement History of cardiac catheterization History of coronary artery stent placement History of four vessel coronary artery bypass graft History of left shoulder replacement Family History Family History Other Arthritis Diabetes mellitus Heart disease Hypertension Social History Social History Social History: Surrogate medical decision maker: Areli Olguin, spouse. Code status: Full code. Smoking status: Never smoker Alcohol intake: current Drinks per week: 2 Substance use: never Lack of Transportation: No Lack of Food: Never True Current Housing: I Have Housing Concerned About Future Housing: No Difficulty Paying Gas/Electric Bills: No Difficulty Paying for Meds: No Currently Unemployed: No Education: High School Diploma/GED Difficulty w/ Childcare or Family Care: No Additional living arrangements comments: The patient lives with his in [place]. Spiritual care concerns: No Meds Home Medications and Allergies Home Medications Medication Instructions Recorded Confirmed Type finasteride 5 mg tablet 5 mg PO DAILY 11/25/19 12/22/22 History ropinirole 0.25 mg tablet (Requip) 0.25 mg
--- NOTE | 2022-12-22 11:46 | WPDANESEPPF ---
Anes - Initial Pre Proc Eval Procedure: Operation Date: 12/22/22 13:00 Proposed Procedures p Esophagogastroduodenoscopy - Jean-Pierre Person MD Date/Time: 12/22/22 11:46 Surgeon: Willie Hanley MD Pre Op Diagnosis: GI Bleed Patient Data Age: 82 Gender: M Height: 1.75 m Weight: 107.7 kg Last Vital Signs Temp 97.4 F L 12/22/22 11:30 Pulse 56 L 12/22/22 11:30 Resp 18 12/22/22 11:30 BP 155/63 H 12/22/22 11:30 Pulse Ox 99 12/22/22 11:30 O2 Del Method Room Air 12/22/22 11:30 Allergies Allergy/AdvReac Type Severity Reaction Status Date / Time iodine Allergy Unknown unknown Verified 12/22/22 11:37 fentanyl Allergy Hypotension Verified 12/22/22 11:37 Home Medications Medication Instructions Recorded Confirmed Type finasteride 5 mg tablet 5 mg PO DAILY 11/25/19 12/22/22 History ropinirole 0.25 mg tablet (Requip) 0.25 mg PO BID 11/25/19 12/22/22 History ropinirole 0.25 mg tablet 0.5 mg PO HS 09/18/21 12/22/22 History acetaminophen 325 mg capsule 500 mg PO DAILY 02/11/22 12/22/22 History (Tylenol) tramadol 50 mg tablet 50 mg PO Q6H PRN pain 5 days #20 02/24/22 12/22/22 Rx tabs blood sugar diagnostic (Blood #10 ea 03/09/22 12/22/22 Rx Glucose Test strips) blood-glucose meter (Blood Glucose #1 ea 03/09/22 12/22/22 Rx Monitoring kit) lancets 21 gauge #100 ea 03/09/22 12/22/22 Rx furosemide 40 mg tablet 40 mg PO QAM #90 tabs 04/18/22 12/22/22 Rx tamsulosin 0.4 mg capsule 0.4 mg PO DAILY #90 caps 05/02/22 12/22/22 Rx amlodipine 5 mg tablet 5 mg PO DAILY 06/17/22 12/22/22 History diphenhydramine 25 1 tablet PO HS 06/17/22 12/22/22 History mg-acetaminophen 500 mg tablet (Tylenol PM Extra Strength) metformin 500 mg tablet 500 mg PO BID 06/17/22 12/22/22 History spironolactone 25 mg tablet 25 mg PO DAILY 06/17/22 12/22/22 History apixaban 5 mg tablet (Eliquis) 5 mg PO BID 12/21/22 12/22/22 History atorvastatin 40 mg tablet 40 mg PO DAILY 12/21/22 12/22/22 History carvedilol 25 mg tablet 12.5 mg PO Q12H 12/21/22 12/22/22 History fluticasone propionate 50 1 spray intranasal DAILY 12/21/22 12/22/22 History mcg/actuation nasal spray,suspension sacubitril 24 mg-valsartan 26 mg 1 tablet PO BID 12/21/22 12/22/22 History tablet (Entresto) Laboratory Tests 12/22/22 12/22/22 12/22/22 05:20 06:01 06:03 WBC 5.8 K/mm3 (4.5-10.0) RBC 3.21 L M/mm3 (4.6-6.20) Hgb 8.2 L g/dL (14.0-18.0) Hct 28.0 L % (42.0-52.0) MCV 87.2 fl (80-100) MCH 25.5 L pg (26-34) MCHC 29.3 L g/dl (32-36) RDW 14.8 H % (11.5-14.5) Plt Count 203 k/mm3 (150-375) MPV 9.5 fl (7.4-10.4) Sodium 138 mmol/L (137-145) Potassium 4.0 mmol/L (3.4-5.0) Chloride 107 mmol/L (98-107) Carbon Dioxide 27 mmol/L (22-30) Anion Gap 4 L mmol/L (8-16) BUN 15 D mg/dL (9-20) Creatinine 1.10 mg/dL (0.7-1.3) Estim Creat Clear Calc 56 ml/min Estimated GFR > 60 (59 - ) Glucose 106 mg/dL (65-110) POC Capillary Glucose 109 H mg/dl (65-105) Calcium 8.4 mg/dL (8.4-10.2) Magnesium 1.9 mg/dL (1.6-2.3) Blood Type A Positive Antibody Screen Negative Crossmatch See Detail 12/22/22 11:13 WBC RBC Hgb Hct MCV MCH MCHC RDW Plt Count MPV Sodium Potassium Chloride Carbon Dioxide Anion Gap BUN Creatinine Estim Creat Clear Calc Estimated GFR Glucose POC Capillary Glucose 134 H mg/dl (65-105) Calcium Magnesium Blood Type Antibody Screen Crossmatch Patient hx anesthesia problems: none Family hx anesthesia problems: none Results Review: All pre-operative results a
[2022-12-22 15:53] LABS: Hematocrit 28.5 % (42.0-52.0); Hemoglobin 8.5 g/dL (14.0-18.0)
[2022-12-22] MEDS: PEG (High)/E-LYTE SOLN 4,000 ML BTL 4000 ML PO (17:09)
[2022-12-22] MEDS: FUROSEMIDE 40 MG TABLET PO (17:10)
[2022-12-22] MEDS: amLODIPine BESYLATE 5 MG TABLET PO (17:10)
[2022-12-22] MEDS: FINASTERIDE 5 MG TABLET PO (17:12)
[2022-12-22] MEDS: metFORMIN HCL 500 MG TABLET PO (17:12)
[2022-12-22] MEDS: ATORVASTATIN 40 MG TABLET PO (17:12)
[2022-12-22] MEDS: rOPINIRole HCL 0.25 MG TABLET PO (17:13)
[2022-12-22] MEDS: SACUBITRIL/VALSARTAN 24-26 MG TABLET 1 TAB PO (17:13)
--- NOTE | 2022-12-22 20:08 | PC.NURSE ---
Pt had order for second unit of blood but hgb at 8.2 after first unit. Repeat hemoglobin showed hgb at 8.6. Provider aware and wanting to hold unit #2 at this time. Pt also bradycardic, usually in 40s, occasional 30s at end of shift. Asymptomatic. Provider made aware.
[2022-12-22] MEDS: diphenhydrAMINE HCl CAP 25 MG CAPSULE PO (20:54)
[2022-12-22] MEDS: rOPINIRole HCL 0.5 MG TABLET PO (20:55)
[2022-12-22] MEDS: ACETAMINOPHEN 325 MG TABLET 650 MG PO (20:57)
[2022-12-23] VITALS (18 sets, daily range): BP systolic 125–179; BP diastolic 58–93; PULSE 56–85; RESP 15–20; TEMP 36.2–37.5; O2SAT 94–100
[2022-12-23 00:23] LABS: Glucose Point of Care 113 mg/dl (65-105)
[2022-12-23 01:14] LABS: IFOB Positive Control Positive; Immunochemical Fecal Occult Bl Positive (N)
--- NOTE | 2022-12-23 02:59 | PC.NURSE ---
pt was given tylenol with his pm dose of benadryl.
[2022-12-23] MEDS: hydrALAZINE HCL 20 MG/ML VIAL 10 MG IV PUSH (05:42)
[2022-12-23 05:56] LABS: Glucose Point of Care 128 mg/dl (65-105)
[2022-12-23 06:12] LABS: Basophils Percent Auto 0.6 % (0.2-1.2); Eosinophils Absolute Auto 0.1 K/mm3 (0-0.3); Eosinophils Percent Auto 2.4 % (0-4.4); Hematocrit 26.6 % (42.0-52.0); Hemoglobin 7.9 g/dL (14.0-18.0); Immature Granulocyte Absolute 0.01 K/mm3 (0.00-0.031); Immature Granulocyte Percent A 0.2 % (0-0.5); Lymphocytes Absolute Auto 0.98 K/mm3 (0.9-3.2); Lymphocytes Percent Auto 18.1 % (18.3-44.2); Mean Corpuscular HGB Conc 29.7 g/dl (32-36); Mean Corpuscular Hemoglobin 25.8 pg (26-34); Mean Corpuscular Volume 86.9 fl (80-100); Mean Platelet Volume 9.1 fl (7.4-10.4); Monocytes Absolute Auto 0.5 K/mm3 (0.1-0.6); Monocytes Percent Auto 8.5 % (2.6-8.5); Neutrophils Absolute Auto 3.8 K/mm3 (1.3-6.7); Neutrophils Percent Auto 70.2 % (45.5-73.1); Platelet Count Result 190 k/mm3 (150-375); Red Blood Count 3.06 M/mm3 (4.6-6.20); Red Cell Distribution Width 15.1 % (11.5-14.5); White Blood Count 5.4 K/mm3 (4.5-10.0)
[2022-12-23 06:26] LABS: Alanine Aminotransferase 16 U/L (6-50); Albumin Level 3.4 g/dL (3.5-5.1); Alkaline Phosphatase 65 U/L (38-126); Anion Gap 4 mmol/L (8-16); Aspartate Amino Transferase 21 U/L (17-59); Bilirubin,Total 1.2 mg/dL (0.2-1.3); Blood Urea Nitrogen 12 mg/dL (9-20); Calcium 8.2 mg/dL (8.4-10.2); Carbon Dioxide 30 mmol/L (22-30); Chloride 104 mmol/L (98-107); Estimated CRCL calculation 56 ml/min; Estimated Glomerular Filt Rate > 60; Glucose 126 mg/dL (65-110); Potassium 3.6 mmol/L (3.4-5.0); Sodium 138 mmol/L (137-145)
[2022-12-23 06:45] LABS: Anisocytosis 1+ (NORMAL); Hypochromasia 1+ (NORMAL); Platelet Estimate Adequate (Adequate)
[2022-12-23 06:46] LABS: Schistocytes None Seen (NORMAL)
[2022-12-23] MEDS: LACTATED RINGERS 1,000 ML 150 ML IV CONT (06:51)
--- NOTE | 2022-12-23 06:57 | WPDANESEPPF ---
Anes - Initial Pre Proc Eval Procedure: Operation Date: 12/22/22 13:00 Proposed Procedures p Esophagogastroduodenoscopy - Jean-Pierre Person MD Operation Date: 12/23/22 07:00 Proposed Procedures p Colonoscopy - Jean-Pierre Person MD Date/Time: 12/23/22 06:57 Surgeon: Willie Hanley MD Pre Op Diagnosis: GI Bleed Patient Data Age: 82 Gender: M Height: 1.75 m Weight: 107.7 kg Last Vital Signs Temp 36.2 C L 12/23/22 05:39 Pulse 77 12/23/22 06:47 Resp 19 12/23/22 06:47 BP 177/75 H 12/23/22 06:47 Pulse Ox 100 12/23/22 06:47 O2 Del Method Room Air 12/23/22 06:47 Allergies Allergy/AdvReac Type Severity Reaction Status Date / Time iodine Allergy Unknown unknown Verified 12/23/22 06:45 fentanyl Allergy Hypotension Verified 12/23/22 06:45 Home Medications Medication Instructions Recorded Confirmed Type finasteride 5 mg tablet 5 mg PO DAILY 11/25/19 12/22/22 History ropinirole 0.25 mg tablet (Requip) 0.25 mg PO BID 11/25/19 12/22/22 History ropinirole 0.25 mg tablet 0.5 mg PO HS 09/18/21 12/22/22 History acetaminophen 325 mg capsule 500 mg PO DAILY 02/11/22 12/22/22 History (Tylenol) tramadol 50 mg tablet 50 mg PO Q6H PRN pain 5 days #20 02/24/22 12/22/22 Rx tabs blood sugar diagnostic (Blood #10 ea 03/09/22 12/22/22 Rx Glucose Test strips) blood-glucose meter (Blood Glucose #1 ea 03/09/22 12/22/22 Rx Monitoring kit) lancets 21 gauge #100 ea 03/09/22 12/22/22 Rx furosemide 40 mg tablet 40 mg PO QAM #90 tabs 04/18/22 12/22/22 Rx tamsulosin 0.4 mg capsule 0.4 mg PO DAILY #90 caps 05/02/22 12/22/22 Rx amlodipine 5 mg tablet 5 mg PO DAILY 06/17/22 12/22/22 History diphenhydramine 25 1 tablet PO HS 06/17/22 12/22/22 History mg-acetaminophen 500 mg tablet (Tylenol PM Extra Strength) metformin 500 mg tablet 500 mg PO BID 06/17/22 12/22/22 History spironolactone 25 mg tablet 25 mg PO DAILY 06/17/22 12/22/22 History apixaban 5 mg tablet (Eliquis) 5 mg PO BID 12/21/22 12/22/22 History atorvastatin 40 mg tablet 40 mg PO DAILY 12/21/22 12/22/22 History carvedilol 25 mg tablet 12.5 mg PO Q12H 12/21/22 12/22/22 History fluticasone propionate 50 1 spray intranasal DAILY 12/21/22 12/22/22 History mcg/actuation nasal spray,suspension sacubitril 24 mg-valsartan 26 mg 1 tablet PO BID 12/21/22 12/22/22 History tablet (Entresto) Laboratory Tests 12/22/22 12/22/22 12/22/22 06:01 11:13 15:18 WBC RBC Hgb 8.5 L g/dL (14.0-18.0) Hct 28.5 L % (42.0-52.0) MCV MCH MCHC RDW Plt Count MPV Immature Gran % (Auto) Neut % (Auto) Lymph % (Auto) [place] % (Auto) Eos % (Auto) Baso % (Auto) Lymph # (Auto) [place] # (Auto) Eos # (Auto) Baso # (Auto) Abs Immat Gran (auto) Absolute Neuts (auto) Absolute Nucleated RBC Nucleated RBC % Platelet Estimate Hypochromasia Anisocytosis Schistocytes Sodium Potassium Chloride Carbon Dioxide Anion Gap BUN Creatinine Estim Creat Clear Calc Estimated GFR Glucose POC Capillary Glucose 134 H mg/dl (65-105) Calcium Total Bilirubin AST ALT Alkaline Phosphatase Total Protein Albumin Stl Occult Blood (IFOB) Blood Type A Positive Antibody Screen Negative Crossmatch See Detail 12/22/22 12/23/22 12/23/22 23:42 00:19 05:36 WBC 5.4 K/mm3 (4.5-10.0) RBC 3.06 L M/mm3 (4.6-6.20) Hgb 7.9 L g/dL (14.0-18.0) Hct 26.6 L %
[2022-12-23] MEDS: ATORVASTATIN 40 MG TABLET PO (10:42)
[2022-12-23] MEDS: carvediloL 6.25 MG TABLET PO ×2 (10:42→21:15)
[2022-12-23] MEDS: amLODIPine BESYLATE 5 MG TABLET PO (10:42)
[2022-12-23] MEDS: FINASTERIDE 5 MG TABLET PO (10:43)
[2022-12-23] MEDS: FLUTICASONE PROPIONATE 0.05% NA SPR 16 GM BTL (*BKC) 1 SPRAY NASAL (10:43)
[2022-12-23] MEDS: metFORMIN HCL 500 MG TABLET PO ×2 (10:44→16:53)
[2022-12-23] MEDS: SACUBITRIL/VALSARTAN 24-26 MG TABLET 1 TAB PO ×2 (10:44→16:53)
[2022-12-23] MEDS: rOPINIRole HCL 0.25 MG TABLET PO ×2 (10:44→16:53)
[2022-12-23] MEDS: SPIRONOLACTONE 25 MG TABLET PO (10:44)
[2022-12-23] MEDS: TAMSULOSIN HCL 0.4 MG CAPSULE PO (10:44)
[2022-12-23] MEDS: FAMOTIDINE 20 MG TABLET PO ×2 (10:47→21:15)
[2022-12-23 11:59] LABS: Glucose Point of Care 108 mg/dl (65-105)
[2022-12-23 14:27] LABS: Iron 30 ug/dL (49-181)
[2022-12-23 14:36] LABS: Percent Iron Saturation 7 % (20-50)
[2022-12-23 16:10] LABS: Folic Acid > 20.0 ng/mL (2.76->20)
[2022-12-23] MEDS: SODIUM CHLORIDE 0.9% IV 250 ML 30 ML IV CONT (16:25)
[2022-12-23] MEDS: TUBING, BLOOD PLUM PUMP TUBING 1 EACH XX (16:53)
[2022-12-23 18:56] LABS: Glucose Point of Care 123 mg/dl (65-105)
[2022-12-23] MEDS: diphenhydrAMINE HCl CAP 25 MG CAPSULE PO (21:15)
[2022-12-23] MEDS: rOPINIRole HCL 0.5 MG TABLET PO (21:16)
[2022-12-23] MEDS: ACETAMINOPHEN 325 MG TABLET 650 MG PO (21:17)
[2022-12-23] MEDS: IRON SUCROSE COMPLEX 500 MG in SODIUM CHLORIDE 0.9% IV 250 ML 78.57 MG IVPB (21:19)
[2022-12-23 23:34] LABS: Glucose Point of Care 111 mg/dl (65-105)
[2022-12-24] VITALS: PULSE 70
--- NOTE | 2022-12-24 02:08 | PC.NURSE ---
pt given tylenol with his HS benadryl to make home dose of tylenol PM.
[2022-12-24 02:23] LABS: Hematocrit 28.7 % (42.0-52.0); Hemoglobin 8.7 g/dL (14.0-18.0)
[2022-12-24 04:00] VITALS: PULSE 57
[2022-12-24 04:45] LABS: Glucose Point of Care 95 mg/dl (65-105)
[2022-12-24 04:56] VITALS: BP 162/76; PULSE 57; RESP 12; TEMP 37.2; O2SAT 98
[2022-12-24 06:33] LABS: Basophils Percent Auto 0.5 % (0.2-1.2); Eosinophils Absolute Auto 0.2 K/mm3 (0-0.3); Eosinophils Percent Auto 2.6 % (0-4.4); Hemoglobin 8.8 g/dL (14.0-18.0); Immature Granulocyte Absolute 0.03 K/mm3 (0.00-0.031); Immature Granulocyte Percent A 0.5 % (0-0.5); Lymphocytes Absolute Auto 0.92 K/mm3 (0.9-3.2); Lymphocytes Percent Auto 15.1 % (18.3-44.2); Mean Corpuscular HGB Conc 30.3 g/dl (32-36); Mean Corpuscular Hemoglobin 26.4 pg (26-34); Mean Corpuscular Volume 87.1 fl (80-100); Mean Platelet Volume 9.3 fl (7.4-10.4); Monocytes Absolute Auto 0.5 K/mm3 (0.1-0.6); Monocytes Percent Auto 8.9 % (2.6-8.5); Neutrophils Absolute Auto 4.4 K/mm3 (1.3-6.7); Neutrophils Percent Auto 72.4 % (45.5-73.1); Platelet Count Result 168 k/mm3 (150-375); Red Blood Count 3.33 M/mm3 (4.6-6.20); Red Cell Distribution Width 15.1 % (11.5-14.5); White Blood Count 6.1 K/mm3 (4.5-10.0)
[2022-12-24 06:43] LABS: Alanine Aminotransferase 15 U/L (6-50); Albumin Level 3.3 g/dL (3.5-5.1); Alkaline Phosphatase 61 U/L (38-126); Anion Gap 3 mmol/L (8-16); Aspartate Amino Transferase 22 U/L (17-59); Bilirubin,Total 0.9 mg/dL (0.2-1.3); Blood Urea Nitrogen 12 mg/dL (9-20); Calcium 8.4 mg/dL (8.4-10.2); Carbon Dioxide 30 mmol/L (22-30); Chloride 105 mmol/L (98-107); Estimated CRCL calculation 56 ml/min; Estimated Glomerular Filt Rate > 60; Glucose 97 mg/dL (65-110); Potassium 3.7 mmol/L (3.4-5.0); Sodium 138 mmol/L (137-145)
[2022-12-24] MEDS: amLODIPine BESYLATE 5 MG TABLET PO (08:46)
[2022-12-24 08:47] VITALS: PULSE 79
[2022-12-24] MEDS: carvediloL 6.25 MG TABLET PO (08:47)
[2022-12-24] MEDS: FAMOTIDINE 20 MG TABLET PO (08:47)
[2022-12-24] MEDS: FUROSEMIDE 40 MG TABLET PO (08:47)
[2022-12-24] MEDS: ATORVASTATIN 40 MG TABLET PO (08:47)
[2022-12-24] MEDS: FINASTERIDE 5 MG TABLET PO (08:47)
[2022-12-24] MEDS: FLUTICASONE PROPIONATE 0.05% NA SPR 16 GM BTL (*BKC) 1 SPRAY NASAL (08:48)
[2022-12-24] MEDS: IRON SUCROSE COMPLEX 500 MG in SODIUM CHLORIDE 0.9% IV 250 ML 78.57 MG IVPB (08:48)
[2022-12-24] MEDS: TAMSULOSIN HCL 0.4 MG CAPSULE PO (08:48)
[2022-12-24] MEDS: SACUBITRIL/VALSARTAN 24-26 MG TABLET 1 TAB PO (08:48)
[2022-12-24] MEDS: rOPINIRole HCL 0.25 MG TABLET PO (08:48)
[2022-12-24] MEDS: SPIRONOLACTONE 25 MG TABLET PO (08:48)
[2022-12-24] MEDS: metFORMIN HCL 500 MG TABLET PO (08:48)
[2022-12-24 09:00] VITALS: PULSE 70; O2SAT 92
--- NOTE | 2022-12-24 10:03 | WPDGIPROGNO ---
Progress Note: A&P Assessment and Plan (1) Anemia: Code(s): D64.9 - Anemia, unspecified Status: Acute Assessment and Plan: Hemoglobin stable. No obvious bleeding noted. Upper and lower endoscopy unremarkable. Small-bowel follow-through was negative. Would allow diet. Discharge when okay with others. I would empirically hold anticoagulation for a week. Continue monitor hemoglobin after discharge. Perhaps CBC in 1 week. Follow-up with primary care service as scheduled. (2) Occult blood in stools: Code(s): R19.5 - Other fecal abnormalities Status: Acute Assessment and Plan: No active bleeding noted by endoscopy nor small-bowel series. Perhaps occult blood related to hemorrhoids. Any other significant bleeding has abated at this time. Would be cautious with restarting anticoagulation. (3) Chronic anticoagulation: Code(s): Z79.01 - snf (current) use of anticoagulants Status: Acute (4) ASHD (arteriosclerotic heart disease): Code(s): I25.10 - Atherosclerotic heart disease of [place] coronary artery without angina pectoris Status: Acute Subjective Date/time seen: 12/24/22 10:03 Interval history: Patient offers no complaints. Bleeding noted Review of Systems Review of Systems: review of systems noncontributory. Exam Narrative: Physical exam reveals patient be alert comfortable at rest vital signs stable. Abdomen soft nontender with no organomegaly. Objective Data Vital Signs Vital Signs: Vital Signs - 24 hr 12/23/22 10:42 12/23/22 12:00 12/23/22 16:35 Temperature 97.8 F Pulse Rate 78 78 69 Respiratory Rate 18 Blood Pressure 155/73 H Pulse Oximetry 95 12/23/22 16:53 12/23/22 16:00 12/23/22 19:53 Temperature 98.4 F 98.1 F Pulse Rate 78 68 78 Respiratory Rate 16 16 Blood Pressure 144/93 H 165/58 H Pulse Oximetry 96 94 12/23/22 17:53 12/23/22 21:15 12/23/22 21:40 Temperature 99.5 F 98.1 F Pulse Rate 85 80 78 Respiratory Rate 16 16 Blood Pressure 165/69 H 145/58 H Pulse Oximetry 97 97 12/23/22 22:30 12/23/22 20:00 12/24/22 00:00 Temperature Pulse Rate 78 56 L 70 Respiratory Rate Blood Pressure Pulse Oximetry 95 12/24/22 04:56 12/24/22 04:00 12/24/22 08:47 Temperature 98.9 F Pulse Rate 57 L 57 L 79 Respiratory Rate 12 Blood Pressure 162/76 H Pulse Oximetry 98 Intake/Output Intake/Output: Intake & Output 12/21/22 12/22/22 12/23/22 12/24/22 23:59 23:59 23:59 23:59 Intake Total 1920 1107 1000 Output Total 700 Balance 1220 1107 1000 Meds/Results Medications: Active Medications Generic Name Dose Route Start Last Admin Trade Name Freq PRN Reason Stop Dose Admin Acetaminophen 650 mg 12/22/22 12:55 12/23/22 21:17 Acetaminophen 325 Mg Tablet PO 650 mg Q4H PRN Administration Pain or Fever Amlodipine Besylate 5 mg 12/22/22 14:00 12/24/22 08:46 Amlodipine Besylate 5 Mg Tablet PO 5 mg DAILY PARAMJIT Administration Atorvastatin Calcium 40 mg 12/22/22 14:00 12/24/22 08:47 Atorvastatin 40 Mg Tablet PO 40 mg DAILY PARAMJIT Administration Carvedilol 6.25 mg 12/22/22 21:00 12/24/22 08:47 Carvedilol 6.25 Mg Tablet PO 6.25 mg Q12HR PARAMJIT Administration Dextrose 12.5 gm 12/22/22 05:09 Dextrose 50% 25 Gm/50 Ml Syringe IV PUSH PRN PRN Hypoglycemia Protocol Diphenhydramine HCl 25 mg 12/22/22 21:00 12/23/22 21:15 Diphenhydramine Hcl Cap 25 Mg Capsule PO 25 mg HS PARAMJIT Administration Famotidine 20 mg 12/23/22 09:00 12/24/22 08:47 Famotidine 20 Mg Tablet PO 20 mg Q12HR PARAMJIT Administration Finasteride 5 mg 12/22/22 14:00 12/24/22 08:47 Finasteride 5 Mg Tablet PO 5 mg DAILY PARAMJIT Administration Fluticasone Propionate 1 spray 12/23/22 09:00 12/24/22 08:48 Fluticasone Propionate 0.05% Na Spr 16 Gm Btl (*Bkc) NASAL 1 spray DAILY PARAMJIT Administration Furosemid
--- NOTE | 2022-12-24 11:45 | PM.DS ---
DS: Admitting Diagnosis Discharge Date 12/24/2022 Admitting Diagnosis Acute GI bleeding CAD, on the longus vein bypass graft Hypertension Congestive heart failure Atrial fibrillation Hyperlipidemia BPH Restless leg syndrome DS: Discharge Diagnosis Discharge Diagnosis (1) Occult blood in stools: Code(s): R19.5 - Other fecal abnormalities Status: Acute (2) Anemia: Code(s): D64.9 - Anemia, unspecified Status: Acute (3) Chronic anticoagulation: Code(s): Z79.01 - senior living (current) use of anticoagulants Status: Acute (4) ASHD (arteriosclerotic heart disease): Code(s): I25.10 - Atherosclerotic heart disease of [place] coronary artery without angina pectoris Status: Acute (5) Atrial fibrillation: Code(s): I48.91 - Unspecified atrial fibrillation Status: Acute DS: Summary Hospital Course Reason for hospitalization: This is an 82-year-old male patient who was admitted to the hospital due to anemia and positive Hemoccult stools. Hospital Course: Patient has a past history of atrial fibrillation and cardiac stents is currently on Eliquis. He noticed blood in his stools and went to the emergency department when his doctor was not available to see him. Patient was transferred to [facility] for GI workup. Patient had EGD completed that was unremarkable and underwent bowel prep for colonoscopy and small-bowel follow-through. Ultimately GI workup was negative. Patient received total of 2 units of PRBCs and 2 infusions of iron after his iron studies were found to be significantly low with only 7% saturation. Patient is feeling improved and is requesting to be discharged. Blood was stable after yesterday's transfusion. No susy bleeding noted. 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 Patient states that his brother had similar issue and had a short section of bowel resection after it was identified where he was bleeding from. Patient does not want to stay admitted and undergo additional testing such as nuclear med GI bleed scan at this time. Status at Discharge Cognitive/behavioral status at discharge: awake, alert, oriented and pleasant Functional status at discharge: independent ambulation Overall status at discharge: patient is back to baseline Time Spent with Patient Time attestation: Total time spent providing and/or coordinating discharge services: Time spent: Greater than 30 minutes Exam Narrative: GENERAL: Generally well appearing, alert and oriented, in no apparent distress. He is pleasant and conversant in full sentences. HEENT: Pupils are equally round and briskly reactive to light. Extraocular muscles are intact. Oral mucous membranes are moist without lesions. NECK: The patient has no noted JVD. No adenopathy is appreciated. CHEST/LUNGS: Lungs are clear bilaterally without rhonchi, rales, or wheezes. There is no subcutaneous air appreciated. There is no tenderness to the chest wall. HEART: The patient has a bradycardic rate and irregular rhythm. No murmurs, rubs, or gallops are appreciated. Distal pulses are 2+. No carotid bruits appreciated. Atrial fibrillation on telemetry monitoring by my own interpretation. ABDOMEN: The patient?s abdomen is soft, nontender, and nondistended. Bowel sounds are positive. No organomegaly is appreciated. No masses are appreciated. There are no peritoneal signs. EXTREMITIES: The patient has mild bilateral lower extremity nonpitting peripheral edema. There is no focal long bone tenderness or deformity. SKIN: The patient?s skin is warm and dry, without rashes or lesions. PSYCHIATRIC: The patient has normal mental status and has an appropriate affect. NEUROLOGIC: There are no gross deficits to the cranial nerves. Patient moves all extremities well with normal strength and pivots from chair to bed normally. DS
--- NOTE | 2022-12-24 11:58 | PM.IMPN ---
Progress Note: A&P Assessment and Plan (1) Acute GI bleeding: Code(s): K92.2 - Gastrointestinal hemorrhage, unspecified Status: Acute Assessment and Plan: Patient going for EGD today. Transfuse if hemoglobin below 8 until source of bleeding is controlled. 12/23: Hemoglobin 7.9 after initially rising above 8. Transfuse 1 unit PRBCs (2) CAD (coronary artery disease), autologous vein bypass graft: Code(s): I25.810 - Atherosclerosis of coronary artery bypass graft(s) without angina pectoris Status: Acute Assessment and Plan: History CAD with 4 vessel bypass and 2 subsequent stents 20 years ago patient on aspirin and Eliquis at home no longer taking Plavix. Anticoagulation on hold due to active GI bleeding. (3) Hypertension: Code(s): I10 - Essential (primary) hypertension Status: Acute Assessment and Plan: Resume home medications when patient able to take orally, p.r.n. medication available for severe hypertension. Blood pressure reviewed 12/23 (4) Congestive heart failure: Code(s): I50.9 - Heart failure, unspecified Status: Acute Assessment and Plan: Patient does not appear fluid overloaded at this time but he has a history of systolic heart both left and right ventricular systolic dysfunction. Home medications on hold due to NPO status. Patient received unit of blood and IV fluids. IV Lasix if signs of fluid overload. 12/23: No signs of fluid overload. Resume home medications (5) Atrial fibrillation: Code(s): I48.91 - Unspecified atrial fibrillation Status: Acute Assessment and Plan: Bradycardic irregular rhythm on exam. Will add telemetry monitoring and consider reducing dose of Coreg. 12/23: Patient bradycardiac atrial fibrillation telemetry monitor averaging in the upper 50s after half dose of Coreg. Occasionally drops into the 30s while awake. (6) Hyperlipidemia: Code(s): E78.5 - Hyperlipidemia, unspecified Status: Acute Assessment and Plan: Home medications ordered (7) BPH (benign prostatic hyperplasia): Code(s): N40.0 - Benign prostatic hyperplasia without lower urinary tract symptoms Status: Acute Assessment and Plan: Home medications ordered (8) Restless leg syndrome: Code(s): G25.81 - Restless legs syndrome Status: Acute Assessment and Plan: Home medications ordered Plan EGD today was negative. Colonoscopy today was negative. Small-bowel follow-through today was negative. Hold anticoagulations Home medications restarted except for anticoagulant Diet orders per GI Redraw labs in a.m. Hold on further transfusion unless actively bleeding and hemoglobin below 8 or patient develops cardiac complaints Bradycardic atrial fibrillation on telemetry monitoring improved after dose reduction of Coreg Code status is full code Iron transfusion due to low iron levels, consider additional transfusion tomorrow Anticipate discharge tomorrow Time Spent With Patient Time with patient: 25 - 35 minutes Subjective Date/time seen: 12/23/22 15:00 Interval history: 12/22: Patient was admitted overnight transferred from [facility] with anemia and Hemoccult-positive stools. CT scan showed gastritis/enteritis. Patient received 1 unit PRBCs and additional was ordered by admitting hospitalist however patient is asymptomatic and hemoglobin was above 8. This subsequent transfusion was placed on hold and we plan to check hemoglobin hematocrit this afternoon. Patient denies any chest pain, difficulty breathing, nausea/vomiting, abdominal pain, fever or chills. He notes that he felt like his stools have continued blood or several days. Nursing staff stated the patient is bradycardic but without symptoms. Patient to go for EGD this afternoon. 12/23: Patient states he is feeling well today. Patient has no complaints shortness of breath, dizziness, chest pain, nausea, vomiti
[2022-12-24 13:51] LABS: Glucose Point of Care 125 mg/dl (65-105)
== END 2022-12-24 15:21 | disposition home or self-care (01) ==
PROVIDERS: Internal Medicine; Internal Medicine Gastroenterology; Nurse Practitioner; Admitting Provider Internal Medicine; PCP Internal Medicine; Visit Provider Internal Medicine
PROC: 0DJ08ZZ Inspection of Upper Intestinal Tract, Via Natural or Artificial Opening Endoscopic (ICD-10-PCS; CPT 43235; principal; 2022-12-22 13:00)
PROC: 0DJD8ZZ Inspection of Lower Intestinal Tract, Via Natural or Artificial Opening Endoscopic (ICD-10-PCS; CPT 45378; principal; 2022-12-23 07:00)
DX: R19.5 Other fecal abnormalities (principal); D64.9 Anemia, unspecified; K44.9 Diaphragmatic hernia without obstruction or gangrene; K64.8 Other hemorrhoids; K57.30 Diverticulosis of large intestine without perforation or abscess without bleeding; I25.810 Atherosclerosis of coronary artery bypass graft(s) without angina pectoris; I48.91 Unspecified atrial fibrillation; E78.5 Hyperlipidemia, unspecified; G47.30 Sleep apnea, unspecified; E11.65 Type 2 diabetes mellitus with hyperglycemia; I11.0 Hypertensive heart disease with heart failure; I50.9 Heart failure, unspecified; N40.0 Benign prostatic hyperplasia without lower urinary tract symptoms; G25.81 Restless legs syndrome; R79.89 Other specified abnormal findings of blood chemistry; E66.9 Obesity, unspecified; Z68.35 Body mass index [BMI] 35.0-35.9, adult; F10.90 Alcohol use, unspecified, uncomplicated; Z79.1 Long term (current) use of non-steroidal anti-inflammatories (NSAID); Z79.01 Long term (current) use of anticoagulants; Z79.891 Long term (current) use of opiate analgesic; Z79.84 Long term (current) use of oral hypoglycemic drugs; Z79.899 Other long term (current) drug therapy
CPT/HCPCS: 43235; 45378; 36415; 36430; 74250; 80048; 80053; 82274; 82607; 82746; 82948; 83540; 83550; 83735; 85014; 85018; 85025; 85027; 86850; 86900; 86901; 86923; A9270; C9113; G0378; G0379; J0360; J1756; J2704; J7050; J7120; P9016

== ENCOUNTER 2023-03-03 07:34 | Outpatient (CLI) | payer MEDICARE, SELFPAY ==
--- NOTE | ~2023-03-03 | MR_ITS ---
EXAMINATION: MR lumbar spine wo con DATE: 03/03/2023 09:54 INDICATION: Gait abnormality. Frequent falls. TECHNIQUE: Magnetic resonance imaging (MRI) of the lumbar spine was performed without intravenous con trast. Sequences included sagittal T2-weighted FSE, sagittal T2-weighted FS FSE, sagittal T1-weighted FSE, and axial T2-weighted FSE. COMPARISON: None FINDINGS: There is 5 degrees levocurvature of lumbar spine. There is 3 mm anterolisthesis of L3 on L4 . There is mild chronic anterior wedging of T12 vertebral body. There is mildly decreased disc height at L1-L2 and L3-L4 and moderately decreased disc height at L5-S1. The distal spinal cord signal inte nsity is normal. The conus medullaris is at L1. The following disc levels are specifically discussed: L1-L2: The disc is bulging. There is mild bilateral facet joint osteoarthritis. There is mild bilater al neural foraminal stenosis. There is mild central canal stenosis. L2-L3: The disc is bulging. There is severe bilateral facet joint osteoarthritis. There is mild bilat eral neural foraminal stenosis. There is mild central canal stenosis. L3-L4: The disc is bulging and has an annular fissure. There is severe bilateral facet joint osteoart hritis. There is mild right and moderate left neural foraminal stenosis. There is mild central canal stenosis. L4-L5: The disc is bulging and has an annular fissure There is severe bilateral facet joint osteoarth ritis. There is mild bilateral neural foraminal stenosis. There is mild central canal stenosis. L5-S1: The disc is bulging and has an annular fissure. There is severe bilateral facet joint osteoart hritis. There is mild neural foraminal stenosis. There is mild central canal stenosis. IMPRESSION: 1. Moderate lumbar spondylosis. Reviewed, dictated and finalized at location E.
--- NOTE | ~2023-03-03 | MR_ITS ---
EXAMINATION: MR brain/brain stem wo con DATE: 03/03/2023 09:53 INDICATION: Cognitive impairment. Dementia. Gait abnormality. TECHNIQUE: Magnetic resonance imaging (MRI) of the brain and brainstem was performed without intraven ous contrast. COMPARISON: None. FINDINGS: There are scattered areas of nonspecific increased T2-weighted signal intensity in the cere bral white matter and [place]. There is a small old infarct in left cerebellum. There is no intracranial hemorrhage, acute infarction, or abnormal intracranial mass lesion. The ventricles are normal in siz e. There is mild mucosal thickening in the paranasal sinuses. The mastoid air cells are normal. The o rbits are normal. IMPRESSION: 1. Moderate nonspecific cerebral white matter disease and pontine disease, which likely represents ch ronic small vessel ischemic disease. 2. 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 Reviewed, dictated and finalized at location E. IMPRESSION: 1. Moderate nonspecific cerebral white matter disease and pontine disease, whic h likely represents chronic small vessel ischemic disease. 2. 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
--- NOTE | ~2023-03-03 | MR_ITS ---
EXAMINATION: MR cervical spine wo con DATE: 03/03/2023 09:54 INDICATION: Gait abnormality. TECHNIQUE: Magnetic resonance imaging (MRI) of the cervical spine was performed without intravenous c ontrast. Sequences included sagittal T2-weighted FSE, sagittal T2-weighted FS FSE, sagittal T1-weight ed FSE, axial MERGE, and axial T2-weighted FSE. COMPARISON: None FINDINGS: There is 3 degrees levocurvature of cervicothoracic spine. There is 2 mm anterolisthesis of C3 on C4 and C4 on C5 and C6-C7. Vertebral body heights are normal. There is mildly decreased disc h eight at C3-C4 and C4-C5, moderately decreased disc height at C5-C6, and mildly decreased disc height at C6-C7. The spinal cord signal intensity is normal. The following disc levels are specifically dis cussed: C2-C3: The disc does not extend beyond the endplate margin. There is mild bilateral uncovertebral amelie nt osteoarthritis. There is severe bilateral facet joint osteoarthritis. There is mild bilateral neur al foraminal stenosis. There is no central canal stenosis. C3-C4: There is a central extrusion. There is mild bilateral uncovertebral joint osteoarthritis. Ther e is moderate left facet joint osteoarthritis. There is ankylosis of right facet joint with mild hype rtrophy. There is mild bilateral neural foraminal stenosis. There is no central canal stenosis. C4-C5: The disc is bulging. There is severe right and moderate left uncovertebral joint osteoarthriti s. There is severe bilateral facet joint osteoarthritis. There is moderate right and mild left neural foraminal stenosis. There is mild central canal stenosis. C5-C6: The disc is bulging. There is moderate bilateral uncovertebral joint osteoarthritis. There is severe right and moderate left facet joint osteoarthritis. There is mild bilateral neural foraminal s tenosis. There is mild central canal stenosis. C6-C7: The disc is bulging. There is mild bilateral uncovertebral joint osteoarthritis. There is tam re bilateral facet joint osteoarthritis. There is mild bilateral neural foraminal stenosis. There is mild central canal stenosis. C7-T1: There is a central protrusion. There is no uncovertebral joint osteoarthritis. There is severe bilateral facet joint osteoarthritis. There is mild bilateral neural foraminal stenosis. There is no central canal stenosis. IMPRESSION: 1. Moderate cervical spondylosis. Reviewed, dictated and finalized at location E.
== END 2023-03-03 07:35 | disposition home or self-care (01) ==
LOC: CHSIMG 07:35
PROVIDERS: PCP Internal Medicine; Visit Provider Internal Medicine
DX: R26.9 Unspecified abnormalities of gait and mobility (principal); M48.00 Spinal stenosis, site unspecified; M54.2 Cervicalgia; M54.50 Low back pain, unspecified; M43.06 Spondylolysis, lumbar region; M43.02 Spondylolysis, cervical region; R90.82 White matter disease, unspecified; Z86.73 Personal history of transient ischemic attack (TIA), and cerebral infarction without residual deficits
CPT/HCPCS: 70551; 72141; 72148

== ENCOUNTER 2023-03-13 14:09 | Outpatient (CLI) | payer MEDICARE, SELFPAY | END 2023-03-13 14:10 | disposition home or self-care (01) | LOC: CHSLAB 14:12 | PROVIDERS: PCP Internal Medicine; Visit Provider Specialist | DX: C44.42 Squamous cell carcinoma of skin of scalp and neck (principal) | CPT/HCPCS: 88305 ==

== ENCOUNTER 2023-03-16 16:52 | Outpatient (RCR) | payer MEDICARE, SELFPAY ==
--- NOTE | 2023-03-16 16:48 | OPREHPOC ---
Outpatient Therapy Plan of Care This is a Multidisciplinary Plan of Care that may contain components documented by all disciplines (PT, OT, and ST.) PT Problem 1 PT Problem #1 Knowledge Deficit PT Goal 1 Goal Patient to demonstrate independence with HEP Target Visit 5 PT Problem 2 PT Problem #2 Impaired Strength PT Goal 1 Goal Patient to demonstrate 5/5 strength of B LE to return to house hold tasks at PLOF Target Visit 10 PT Problem 3 PT Problem #3 Impaired Functional Mobil PT Goal 1 Goal 1. Patient to report no falls since start of PT 2. Patient to improve Tinetti by 5 pts 3. Patient to complete 5TSTS in less than 15 seconds to decrease fall risk 4. Patient to ambulate 800' during 6 min walk test to decrease fall risk at home and in the yard Target Visit 10
--- NOTE | 2023-03-16 16:48 | PTOPEVAL1 ---
Assessment and note entered by Lucia Valiente DPT Evaluation Information Assessment Status Evaluation Diagnosis decreased balance Onset 03/13/23 Subjective Information Patient reports within the last year he has noticed his balance decrease. 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 He reports he does have a cane but does not use it often. He reports he has the most difficulty ambulating on uneven ground, walking at night and completing house hold tasks. He reports he has 2-3 falls in the past month Reported Pain Level Pain Score 0: Self Report Assessment PT Clinical Summary Patient is a 82 year old male who presents to PT with impaired balance. He demonstrates decreased B LE strength, impaired gait mechanics and decreased balance according to objective balance testing. He has difficulty with walking at night, completing yard work and perfomring house hold tasks. He would benefit from skilled PT to address impairments and return to PLOF. Plan of Care Interventions Gait Training,Hot Pack/Cold Pack,Manual Therapy, Neuro Re-education,Patient/Caregiver Educati, Therapeutic Activities,Therapeutic Exercise PT Services Indicated Yes Treatment Frequency and 2x weekly for 10 visits Duration These treatments will address the objective and functional deficits as defined above. The patient will be advanced safely and appropriately in order for the patient to progress towards his/her prior level of function. Additional exercises will be introduced and as well as a comprehensive home exercise program upon discharge, if needed, ?to ensure carryover of functional gains achieved in the clinic. This treatment plan has been reviewed and agreement upon by the patient.
--- NOTE | 2023-04-19 11:29 | OPREHPOC ---
Outpatient Therapy Plan of Care This is a Multidisciplinary Plan of Care that may contain components documented by all disciplines (PT, OT, and ST.) PT Problem 1 PT Problem #1 Knowledge Deficit PT Goal 1 Goal Patient to demonstrate independence with HEP Target Visit 5 Progress Met PT Problem 2 PT Problem #2 Impaired Strength PT Goal 1 Goal Patient to demonstrate 5/5 strength of B LE to return to house hold tasks at PLOF Target Visit 10 Progress Partially Met Comment continue PT Problem 3 PT Problem #3 Impaired Functional Mobil PT Goal 1 Goal 1. Patient to report no falls since start of PT - met 2. Patient to improve Tinetti by 5 pts -not met, continue 3. Patient to complete 5TSTS in less than 15 seconds to decrease fall risk -not met, continue 4. Patient to ambulate 800' during 6 min walk test to decrease fall risk at home and in the yard - not met, continue Target Visit 10
--- NOTE | 2023-04-19 11:29 | PTOPPROG ---
Assessment and note entered by Melissa Amin, PT Evaluation Information Assessment Status Evaluation Diagnosis Decreased balance Onset 03/13/23 Subjective Information Daniel Olguin reports he does feel physical therapy has helped and he has not had any falls. He reports feeling off today and that he slept later than usual. He did take his medication but only 15 minutes prior to his PT appointment, he also has only drank half a cup of tea today. Assessment PT Clinical Summary Daniel Olguin has completed 10 skilled PT visits for decreased balance. He is reporting feeling stronger and more balanced overall however, today he reports feeling off and that he did not take his medication until 15 minutes before his PT appointment. He was demonstrating poor gait and balance so vitals were taken. He demonstrated high blood pressure so he rested and drank water. His blood pressure came down after that. He objectively demonstrates improved time on the 5 times sit to stand tests. He had a regression in his TUG time and Tinetti Balance test by one point . Regressions are likely due to the patient having an off day and not taking his medication in combination with not drinking enough water. He will continue to benefit from skilled PT to further address balance and gait. Plan of Care Interventions Neuro Re-education,Patient/Caregiver Educati, Therapeutic Activities,Therapeutic Exercise PT Services Indicated Yes Treatment Frequency and 2 times a week for 4 visits Duration These treatments will address the objective and functional deficits as defined above. The patient will be advanced safely and appropriately in order for the patient to progress towards his/her prior level of function. Additional exercises will be introduced and as well as a comprehensive home exercise program upon discharge, if needed, ?to ensure carryover of functional gains achieved in the clinic. This treatment plan has been reviewed and agreement upon by the patient.
--- NOTE | 2023-04-26 16:49 | OPREHPOC ---
Outpatient Therapy Plan of Care This is a Multidisciplinary Plan of Care that may contain components documented by all disciplines (PT, OT, and ST.) PT Problem 1 PT Problem #1 Knowledge Deficit PT Goal 1 Goal Patient to demonstrate independence with HEP Target Visit 5 Progress Met PT Problem 2 PT Problem #2 Impaired Strength PT Goal 1 Goal Patient to demonstrate 5/5 strength of B LE to return to house hold tasks at PLOF Target Visit 10 Progress Partially Met Comment Adequate progress PT Problem 3 PT Problem #3 Impaired Functional Mobil PT Goal 1 Goal 1. Patient to report no falls since start of PT - met 2. Patient to improve Tinetti by 5 pts -met 3. Patient to complete 5TSTS in less than 15 seconds to decrease fall risk -adequate progress 4. Patient to ambulate 800' during 6 min walk test to decrease fall risk at home and in the yard - not met Target Visit 10 Progress Partially Met
--- NOTE | 2023-04-26 16:50 | PTOPDC ---
Assessment and note entered by Melissa Amin, PT Evaluation Information Assessment Status Discharge Diagnosis Decreased balance Onset 03/13/23 Subjective Information Daniel Olguin reports he has not had any falls since initiating PT but he did trip going up the stairs earlier today. He also notes his left foot has been dragging a bit over the last month. Reported Pain Level Pain Score 0: Self Report Assessment PT Clinical Summary Daniel Olguin has completed 12 skilled PT visits for decreased balance. He is reporting no falls but has had near falls. He has been using a cane for ambulation outside the home. He is demonstrating improved time on the TUG test and 5 times sit to stand test, improved his score on the Tinetti Balance test from 18 to 22, and maintained his distance on the 6 minute walk test. He would like to discontinue skilled PT and work on exercises independently. He was educated on using his assistive device to maintain safety with gait. He was also instructed to follow up with his primary care physician regarding the left foot drag. Plan of Care PT Services Indicated Yes
== END 2023-04-26 13:33 | disposition home or self-care (01) ==
LOC: CHSPT 16:52
PROVIDERS: PCP Internal Medicine; Visit Provider Internal Medicine
DX: R26.81 Unsteadiness on feet (principal); M62.81 Muscle weakness (generalized)
CPT/HCPCS: 97110; 97112; 97161; 97530; 97750

== ENCOUNTER 2023-06-21 08:31 | Outpatient (CLI) | payer MEDICARE, SELFPAY ==
[2023-06-21 09:37] LABS: Alanine Aminotransferase 21 U/L (16-63); Albumin Level 3.4 g/dL (3.4-5.0); Alkaline Phosphatase 71 U/L (46-116); Anion Gap 7 mmol/L (8-16); Aspartate Amino Transferase 15 U/L (15-37); Bilirubin,Total 0.7 mg/dL (0.00-1.00); Blood Urea Nitrogen 16 mg/dL (7-18); Calcium 8.8 mg/dL (8.5-10.1); Carbon Dioxide 31 mmol/L (21-32); Chloride 105 mmol/L (98-108); Cholesterol 160 mg/dL (0-200); Estimated Glomerular Filt Rate > 60; Glucose 163 mg/dL (70-99); HDL Direct 56 mg/dL (40-60); LDL Cholesterol Calculated 80 mg/dL (<130); Magnesium 1.7 mg/dL (1.8-2.4); Osmolality Calculated 301 mOsm/kg (285-295); Potassium 4.2 mmol/L (3.5-5.1); Sodium 143 mmol/L (136-145); Total Protein 6.2 g/dL (6.4-8.2); Triglycerides 120 mg/dL (0-150)
== END 2023-06-21 08:32 | disposition home or self-care (01) ==
LOC: CHSLAB 08:33
PROVIDERS: PCP Internal Medicine; Visit Provider Internal Medicine Cardiovascular Disease
DX: I25.810 Atherosclerosis of coronary artery bypass graft(s) without angina pectoris (principal)
CPT/HCPCS: 36415; 80053; 80061; 83735

== ENCOUNTER 2023-10-30 12:43 | Outpatient (CLI) | payer MEDICARE, SELFPAY ==
[2023-10-30 13:58] LABS: Ferritin 52 ng/mL (26-388); Thyroid Stimulating Hormone 1.37 uIU/mL (0.36-3.74); Vitamin B12 606 pg/mL (193-986)
[2023-10-30 14:00] LABS: Folic Acid > 20.0 ng/mL (8.6->20)
== END 2023-10-30 12:44 | disposition home or self-care (01) ==
LOC: CHSLAB 12:45
PROVIDERS: PCP Internal Medicine; Visit Provider Student in an Organized Health Care Education/Training Program
DX: R41.3 Other amnesia (principal); I42.9 Cardiomyopathy, unspecified; E78.5 Hyperlipidemia, unspecified
CPT/HCPCS: 36415; 82607; 82728; 82746; 84443